=== PATIENT | male | born 1950 | race Caucasian/White ===

== ENCOUNTER 2021-03-06 12:25 | Inpatient (IN) | payer MEDICARE, SELFPAY ==
[2021-03-06] VITALS (12 sets, daily range): BP systolic 113–191; BP diastolic 87–132; PULSE 29–115; RESP 14–20; TEMP 35.5–36.8; O2SAT 95–99; BMI 28.8; BMI 28.9
--- NOTE | 2021-03-06 12:32 | EKG12_ITS ---
Test Reason : Blood Pressure : / mmHG Vent. Rate : 112 BPM Atrial Rate : 112 BPM P-R Int : 176 ms QRS Dur : 142 ms QT Int : 386 ms P-R-T Axes : 058 -75 091 degrees QTc Int : 526 ms Sinus tachycardia Left axis deviation Left bundle branch block Abnormal ECG Confirmed by TYRONE SALAZAR, JAYDON ([id number]), editor sound JESUS GOMEZ ([id number]) on 03/07/2021 12:57:22 PM Referred By: ZORA Confirmed By:JAYDON HANSEN MD
--- NOTE | 2021-03-06 12:47 | RAD_ITS ---
STUDY: X-RAY CHEST REASON FOR EXAM: Male, 70 years old. chest pain TECHNIQUE: Single AP portable view of the chest. COMPARISON: None. FINDINGS: Linear opacity in mid left lung consistent with lingular discoid atelectasis or scarring. There is no demonstrated pleural abnormality. There is moderate cardiac enlargement. Normal mediastinum and hussein. Normal visualized pulmonary arteries. Normal visualized aortic arch and descending thoracic aorta. Normal visualized thoracic spine. Normal visualized ribs, clavicles, and shoulders. There is no demonstrated abnormality of the visualized soft tissue structures of the upper abdomen. RAD/Chest 1 View (Portable) IMPRESSION: Lingular discoid atelectasis or scarring. Electronically Signed: Peter Acuña MD at 13:23 EDT Tel , Service support ,
[2021-03-06 13:58] LABS: Absolute Neutrophil Count 11.1 X10^3/uL (2.0-7.7); Basophil# 0.04 X10^3/uL; Basophil% 0.3 % (0-1); Eosinophil# 0.03 X10^3/uL; Eosinophils% 0.2 % (0-5); Hematocrit 48.1 % (40-54); Hemoglobin 15.6 g/dL (13.0-16.5); Lymphocyte % 5.5 % (19-41); Mean Corp Hgb Conc 32.4 g/dL (32-36); Mean Corpuscular Hgb 31.1 pg (27.0-32.0); Mean Corpuscular Volume 95.8 fL (80-94); Mean Platelet Vol. 12.1 fl (6.2-12.0); Monocyte# 0.71 X10^3/uL; Monocyte% 5.6 % (0-10); NRBC Flagged by Analyzer 0 % (0-5); Neutrophil # 11.06 X10^3/uL (2.7-7.7); Neutrophil % 87.8 % (47-70); Platelet Count 211 K/mm3 (150-450); RBC Distribution Width CV 12.1 % (11.6-14.6); RBC Distribution Width SD 42.5 fl (35.1-43.9); Red Blood Count 5.02 M/mm3 (4.6-6.2); White Blood Count 12.6 K/mm3 (4.4-11.0)
--- NOTE | 2021-03-06 14:04 | EKG12_ITS ---
Test Reason : HYPERTENSION Blood Pressure : / mmHG Vent. Rate : 084 BPM Atrial Rate : 084 BPM P-R Int : 204 ms QRS Dur : 144 ms QT Int : 436 ms P-R-T Axes : 059 -64 119 degrees QTc Int : 515 ms Normal sinus rhythm Left axis deviation Left bundle branch block Abnormal ECG Confirmed by TYRONE SALAZAR, JAYDON ([id number]), story editor JESUS GOMEZ ([id number]) on 03/09/2021 9:24:32 AM Referred By: COSME Confirmed By:JAYDON HANSEN MD
--- NOTE | 2021-03-06 14:06 | EX.ED.DYSGE1 ---
HPI History of Present Illness Chief Complaint: Hypertension Narrative Narrative: 70-year-old male presenting with abdominal pain and shortness of breath. He states he has been having issues with this over the last couple of weeks. Patient admits to being a longtime drinker and states he drank a gallon of bourbon over the course of a week for many years. He did stop doing this about 2 weeks ago and states that he did not withdraw from alcohol. Patient stated initially had diffuse edema in his arms and legs and states that he was having difficulty urinating. He was drinking a lot of water however he still unable to make urine. He states that he drank watermelon as a natural diuretic that he started to void a couple of times a day. His edema has improved. He states that when he walks up a flight of stairs or walks briskly he gets short of breath and has abdominal discomfort. He states that his shortness of breath appears to be coming from his stomach more than his chest. He denies a cough or a fever. He has no nausea or vomiting. Denies diarrhea or constipation. PFSH PFSH Home Medications cephalexin 500 mg capsule 500 mg PO TID #30 cap 07/29/18 [Rx Last Taken Unknown] Allergy/AdvReac Type Severity Reaction Status Date / Time No Known Allergies Allergy Verified 03/06/21 13:56 Family History (Updated 03/06/21 @ 17:34 by Shilpi Mays NP, PRODUCTION EXPEDITER-C) Father Throat cancer smoker Mother No cardiac disease Mother currently living, 92 years old with no reported medical issues. Surgical History (Updated 03/06/21 @ 17:35 by Shilpi Mays NP, PRODUCTION EXPEDITER-C) Hx of hernia repair S/P tonsillectomy Social History (Updated 03/06/21 @ 17:36 by Shilpi Mays NP, PRODUCTION EXPEDITER-C) Smoking Status: Never smoker alcohol intake: former details: One gallon whiskey per week, quit 2 weeks ago substance use type: does not use ROS ROS ED Constitutional Constitutional ED: Denies chills, fever(s) or sweats Eyes Eyes: Denies blurry vision or change in vision ENT ENT ED: Denies ear pain or sore throat Cardiovascular Cardiovascular: Reports chest pain; Denies palpitations or racing heartbeat Respiratory/Chest Respiratory/Chest: Reports cough and dyspnea; Denies sputum Gastrointestinal Gastrointestinal: Reports abdominal pain; Denies constipation, diarrhea, nausea or vomiting Genitourinary Genitourinary ED: Denies dysuria, hematuria or urinary frequency Musculoskeletal Musculoskeletal: Denies arthralgias, myalgias or neck pain Integumentary Denies abscess, Abrasions or rash Neurologic Neurologic: Denies headache(s), paresthesias or weakness Psychiatric Psychiatric: Denies anxiety, depression, suicidal ideation or suicidal thoughts Endocrine Endocrinology: Denies polydipsia or polyuria EXAM Physical Exam Const Vital Signs: 03/06/21 12:26 03/06/21 13:56 03/06/21 14:43 Temperature 96 F L Temperature Source Temporal Pulse Rate 115 H 106 H Respiratory Rate 20 H 16 Respiratory Effort Normal Short of Breath Respiratory Pattern Normal Blood Pressure 191/132 H 156/90 H Blood Pressure Mean 151 112 Pulse Ox 96 95 Oxygen Delivery Method Room Air Room Air 03/06/21 14:53 03/06/21 15:00 03/06/21 15:25 Temperature Temperature Source Pulse Rate 86 86 Respiratory Rate 18 16 Respiratory Effort Respiratory Pattern Blood Pressure 126/88 H 113/92 H Blood Pressure Mean 100 99 Pulse Ox 96 95 Oxygen Delivery Method Room Air Room Air Room Air 03/06/21 16:03 03/06/21 17:05 03/06/21 17:58 Temperature 97.8 F 97.9 F Temperature Source Temporal Temporal Pulse Rate 85 91 90 Respiratory Rate 18 19 H 18 Respiratory Effort Respiratory Pattern Blood Pressure 144/106 H 135/91 H 141/94 H Blood Pressure Mean 118 105 109 Pulse Ox 95 99 97 Oxygen Delivery Method Room Air Room Air Positive well nourished, alert and oriented x3 General Appearance ED: Negative for pallor HEENT Reports normocephalic, head/scalp atraumatic and moist mucous membranes Eyes PERRL and EOMs intact bilaterally Neck no lymphadenopathy and supple Chest Wall inspection of chest normal and palpation of chest normal Resp normal respiratory effort and no retractions Resp Narrative: Slight tachypnea Auscultation: Negative for rales, rhonchi or wheezes Cardio regular rate Cardio Narrative: Tachycardic at 115 bpm GI GI Narrative: Generalized diffused abdominal pain which is mild. Abdomen nonperitoneal. Abdomen appears slightly distended Auscultation: normoactive bowel sounds Palpation: soft no CVA tenderness Narrative: Deferred Back/Spine no CVA tenderness Extremity normal to inspection General Extremety ED: Negative for edema or tenderness General Extremity: Negative for edema Neuro oriented x3 and CN's II-XII intact bilaterally Sensorium / Orientation: alert, oriented to person, oriented to place and oriented to time Motor Exam: strength 5/5 throughout Psych mental status grossly normal Attitude: No agitated Skin no rashes or lesions noted and no wounds General Skin Exam: Negative for jaundice or pallor MDM MDM MDM Narrative Medical decision making narrative: Patient presenting with with history of EtOH abuse which she is now states he currently does not drink. He is noted that he has had some diffuse edema in his body which resolved after eating watermelon and drinking a lot of water. Patient describes his shortness of breath is coming from his abdomen his abdomen feels full. He does complain of some mild chest discomfort. He does not have a fever but does admit to a slight cough. EKG performed on arrival shows a sinus rhythm with a ventricular rate of 112 bpm with a left bundle branch block on my interpretation. Chest x-ray on my interpretation shows no acute cardiopulmonary process. Blood work was obtained patient has a slight leukocytosis at 12.6. Hemoglobin and hematocrit are stable. Platelets are normal. Renal function is abnormal. His creatinine is 1.43 and I have no comparison. Patient's LFTs are normal with exception of an AST of 69. Troponin is 43 and delta troponin is 38. Patient did have a CTA of the chest abdomen pelvis given him symptoms and this is negative for PE or dissection. This does show pulmonary edema and bilateral pleural effusions. Patient's BNP is also elevated at 1668. Since the patient's blood pressure was elevated I gave him a dose of 20 mg of labetalol and his blood pressure did respond down to 126/68 and the patient was symptomatic and sweaty when his blood pressure dropped although after this he was able to take a nap. He currently feels much improved. EtOH is negative. Patient CT done and pelvis did show concern for edema of the gallbladder concerning for possible acute cholecystitis however his LFTs are fairly normal he does not focal pain over the gallbladder. It also does show bladder wall thickening and his urinalysis is negative. Given the findings concerning for acute CHF and elevated blood pressure patient will be admitted to the hospital for further treatment. He was given a dose of Lasix in the ED. Patient admitted in stable condition. Impression: 1. Hypertension 2. CHF 3. Hypertensive urgency Lab Data Attestation: I reviewed the patient's lab results. Labs: Laboratory Results - last 24 hr 03/06/21 03/06/21 03/06/21 13:45 13:45 13:45 WBC 12.6 H RBC 5.02 Hgb 15.6 Hct 48.1 MCV 95.8 H MCH 31.1 MCHC 32.4 RDW Std Deviation 42.5 RDW Coeff of Rosario 12.1 Plt Count 211 MPV 12.1 H Immature Gran % (Auto) 0.600 Neut % (Auto) 87.8 H Lymph % (Auto) 5.5 L [place] % (Auto) 5.6 Eos % (Auto) 0.2 Baso % (Auto) 0.3 Absolute Neuts (auto) 11.1 H Absolute Lymphs (auto) 0.70 L Nucleated RBC % 0 Sodium 137 Potassium 4.5 Chloride 102 Carbon Dioxide 27.0 Anion Gap 8 BUN 20 H Creatinine 1.43 H Estim Creat Clear Calc 39.24 Est GFR (MDRD) Af Amer 63 Est GFR (MDRD) Non-Af 52 L BUN/Creatinine Ratio 14.0 Glucose 127 H Calcium 8.8 Phosphorus Magnesium Total Bilirubin 0.70 Direct Bilirubin 0.20 AST 29 ALT 69 H Alkaline Phosphatase 92 Troponin I High Sens 43 B-Natriuretic Peptide Total Protein 7.1 Albumin 3.9 Globulin 3.2 Lipase 178 Urine Color Urine Clarity Urine pH Ur Specific [place] Urine Protein Urine Glucose (UA) Urine Ketones Urine Occult Blood Urine Nitrite Urine Bilirubin Urine Urobilinogen Ur Leukocyte Esterase Urine RBC Urine WBC Ur Squamous Epith Cells Urine Bacteria Urine Mucus Ethyl Alcohol 03/06/21 03/06/21 03/06/21 13:45 13:45 15:45 WBC RBC Hgb Hct MCV MCH MCHC RDW Std Deviation RDW Coeff of Rosario Plt Count MPV Immature Gran % (Auto) Neut % (Auto) Lymph % (Auto) [place] % (Auto) Eos % (Auto) Baso % (Auto) Absolute Neuts (auto) Absolute Lymphs (auto) Nucleated RBC % Sodium Potassium Chloride Carbon Dioxide Anion Gap BUN Creatinine Estim Creat Clear Calc Est GFR (MDRD) Af Amer Est GFR (MDRD) Non-Af BUN/Creatinine Ratio Glucose Calcium Phosphorus Magnesium Total Bilirubin Direct Bilirubin AST ALT Alkaline Phosphatase Troponin I High Sens 38 B-Natriuretic Peptide 1668.4 H Total Protein Albumin Globulin Lipase Urine Color Urine Clarity Urine pH Ur Specific [place] Urine Protein Urine Glucose (UA) Urine Ketones Urine Occult Blood Urine Nitrite Urine Bilirubin Urine Urobilinogen Ur Leukocyte Esterase Urine RBC Urine WBC Ur Squamous Epith Cells Urine Bacteria Urine Mucus Ethyl Alcohol 9.0 03/06/21 03/06/21 15:45 16:30 WBC RBC Hgb Hct MCV MCH MCHC RDW Std Deviation RDW Coeff of Rosario Plt Count MPV Immature Gran % (Auto) Neut % (Auto) Lymph % (Auto) [place] % (Auto) Eos % (Auto) Baso % (Auto) Absolute Neuts (auto) Absolute Lymphs (auto) Nucleated RBC % Sodium Potassium Chloride Carbon Dioxide Anion Gap BUN Creatinine Estim Creat Clear Calc Est GFR (MDRD) Af Amer Est GFR (MDRD) Non-Af BUN/Creatinine Ratio Glucose Calcium Phosphorus 4.1 Magnesium 2.2 Total Bilirubin Direct Bilirubin AST ALT Alkaline Phosphatase Troponin I High Sens B-Natriuretic Peptide Total Protein Albumin Globulin Lipase Urine Color Yellow Urine Clarity Clear Urine pH 5.0 Ur Specific [place] 1.015 Urine Protein 30 H Urine Glucose (UA) Normal Urine Ketones Negative Urine Occult Blood Negative Urine Nitrite Negative Urine Bilirubin Negative Urine Urobilinogen Normal Ur Leukocyte Esterase Negative Urine RBC 0 SEEN Urine WBC 0 SEEN Ur Squamous Epith Cells 0 SEEN Urine Bacteria 0 SEEN Urine Mucus 0 SEEN Ethyl Alcohol Radiography Diagnostic Testing: Clinical Impression(s) from Imaging Studies Chest X-Ray 03/06/21 12:47 IMPRESSION: Lingular discoid atelectasis or scarring. Electronically Signed: Peter Acuña MD at 13:23 EDT Tel , Service support , Chest/Abdomen/Pelvis CTA 03/06/21 15:10 IMPRESSION: Cardiomegaly with mild pulmonary edema and pleural effusions. No evidence for aortic dissection, aortic aneurysm, or pulmonary embolism. Gallbladder wall edema and thickening, concerning for acute cholecystitis. Recommend correlation with ultrasound. Hepatic steatosis. Small fat-containing right renal mass, likely angiomyolipoma. Bladder wall thickening which can be seen with cystitis. Colonic diverticulosis. Individualized dose optimization techniques were used for this CT. at 1610 Reported and signed by: Aishwarya Benitez MD Electronically Signed: Aishwarya Benitez MD at 16:09 EDT Tel , Service support , Discharge Plan Triage Chief Complaint: Hypertension ED Provider: Andrew Bull Dx/Rx/DC Orders Prescriptions: No Action cephalexin 500 mg capsule 500 mg PO TID Qty: 30 RF: 0 Primary Care Provider: Lanre Conley
[2021-03-06 14:16] LABS: Anion Gap 8 (5-15); BUN 20 mg/dL (7-18); Calcium,Total 8.8 mg/dL (8.5-10.1); Chloride 102 mmol/L (98-107); Creatinine, Serum 1.43 mg/dL (0.70-1.30); EST Glomerular Filtration Rate 52 mL/min (>60); Est Glom Filt Rate - Afr Amer 63 mL/min (>60); Estimated Creatinine Clearance 39.24 ml/min; Glucose 127 mg/dL (74-106); Potassium 4.5 mmol/L (3.5-5.1); Sodium Level 137 mmol/L (136-145); Troponin-I HS 43 pg/mL (3.0-78.0)
[2021-03-06 14:31] LABS: BNP,B-Type NATRIURETIC PEPTIDE 1668.4 pg/mL (0-100)
[2021-03-06 14:32] LABS: AST(SGOT) 29 U/L (15-37); Alanine Aminotransfer ALT/SGPT 69 U/L (16-61); Albumin, Serum 3.9 g/dL (3.2-5.0); Alkaline Phosphatase 92 U/L (45-117); Globulin 3.2 g/dL (2.2-4.2); Lipase 178 U/L (73-393); Protein, Total 7.1 g/dL (6.4-8.2)
[2021-03-06] MEDS: Labetalol (Prefilled) 20 MG/4 ML IV (14:39)
--- NOTE | 2021-03-06 15:01 | ED.RN ---
PT BP DROPPED, PT BECOMES DIAPHORETIC, NAUSEATED AND VOMITING. PROLONGED QT SO PROMETHAZINE ORDERED, PT DIAPHORETIC WITH PAIN. EKG CALLED FOR
[2021-03-06] MEDS: proMETHazine 25 MG/ML Syringe 12.5 MG IM (15:04)
--- NOTE | 2021-03-06 15:10 | CT_ITS ---
HISTORY: Chest and abdominal pain. TECHNIQUE: Helically acquired images were obtained of the chest, abdomen, and pelvis following IV contrast as per angiogram protocol with 2-D/3-D reconstructions.. A radiation dose optimization technique was used for this scan. IV Contrast dosage and agent: 100 mL Omnipaque 370. Oral contrast: None. # of images incl. paperwork: [id number]. COMPARISON: XR same day. FINDINGS: Chest: CENTRAL AIRWAYS: Patent. LUNGS: Mild septal thickening and groundglass opacities with scattered atelectasis. PLEURA: Mild right and trace left pleural effusions. HEART/PERICARDIUM: Moderate cardiomegaly. No significant pericardial effusion. AORTA/VESSELS: No aortic aneurysm or dissection flap. No filling defect in the pulmonary arteries. MEDIASTINUM/ESVIN: Borderline-enlarged right hilar and mediastinal lymph nodes. OSSEOUS STRUCTURES: Benign-appearing fat-containing lesion in the right proximal humerus. 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 Abdomen and pelvis: BOWEL: Bowel including appendix nondilated. Small duodenal diverticulum. Colonic diverticulosis without focal pericolonic inflammation. PERITONEUM: No significant ascites. LIVER: Fatty infiltration. GALLBLADDER: Mild gallbladder wall edema. KIDNEYSS: 1.2 cm fat-containing right renal mass. No hydronephrosis. SPLEEN/PANCREAS/ADRENAL GLANDS: Homogeneous. VESSELS: No abdominal aortic aneurysm or dissection flap. Mild atherosclerosis of the abdominal aorta and its major branches. Accessory right renal artery incidentally noted. PELVIC ORGANS: Bladder wall thickening with trace perivesical stranding extending near the sigmoid colon. ABDOMINAL WALL: Small fat-containing inguinal hernias. BONES: Mild degenerative change. CT/CTA Chst, Abd, Pel W and/or WO IMPRESSION: Cardiomegaly with mild pulmonary edema and pleural effusions. No evidence for aortic dissection, aortic aneurysm, or pulmonary embolism. Gallbladder wall edema and thickening, concerning for acute cholecystitis. Recommend correlation with ultrasound. Hepatic steatosis. Small fat-containing right renal mass, likely angiomyolipoma. Bladder wall thickening which can be seen with cystitis. Colonic diverticulosis. Individualized dose optimization techniques were used for this CT. at 1610 Reported and signed by: Aishwarya Benitez MD Electronically Signed: Aishwarya Benitez MD at 16:09 EDT Tel , Service support ,
[2021-03-06] MEDS: Famotidine 200 MG/20 ML MDV 20 MG in 0.9% Normal Saline (Pres. free 8 ML 300 MG IV (15:39)
[2021-03-06 16:12] LABS: Troponin-I HS 38 pg/mL (3.0-78.0)
[2021-03-06 16:40] LABS: Bacteria 0 SEEN /hpf (None Seen); Mucous, Urine 0 SEEN /hpf (<or=2+); Red Blood Cells-Urine 0 SEEN /hpf (0-5); Squamous Epithelial Cells - UA 0 SEEN /hpf (0-5); White Blood Cells 0 SEEN /hpf (0-5)
[2021-03-06 16:46] LABS: Color, Urine Yellow (Yellow); Glucose, Dipstick Normal (Normal); Ketone-Dipstick Negative (Negative); Leukocyte Esterase-Dipstick Negative /ul (Negative); Nitrite-Dipstick Negative (Negative); Occult Blood-Urine Negative /ul (Negative); Protein-Dipstick 30 mg/dl (Negative); Specific Gravity, Urine 1.015 (1.002-1.030); Urine Bilirubin Dipstick Negative (Negative); Urine Clarity Clear (Clear); Urine Urobilinogen Normal (Normal)
[2021-03-06] MEDS: Furosemide 40 MG/4 ML Vial IV ×2 (17:02→21:19)
--- NOTE | 2021-03-06 17:26 | PCM.HP.STD ---
Documented by User: Shilpi Mays NP, VENDING MACHINE COIN COLLECTOR-C 03/06/21 17:50 HPI - General HPI Narrative LILIBETH CRESPO, is a 70 M who presents to the emergency room due to shortness of breath, edema and abdominal bloating/swelling. Patient states his symptoms began 6 to 8 weeks ago and have been progressively worsening. He states he was having shortness of breath with going up his steps at home and even bending over to tie his shoes. He states he has been a long time heavy drinker, typically at nighttime to help him sleep. He states he would drink a gallon of bourbon within 1 week. Due to his recent onset of symptoms, he quit drinking 2 weeks ago. He denies going through withdrawal symptoms. He states he began drinking watermelon juice excessively as he states he read it is a diuretic and his abdominal bloating improved. He denies significant abdominal pain. Denies increased pain after eating. He denies chest pain. Denies other associated symptoms or complaints. He has a past medical history of alcohol dependence and restless leg syndrome. [facility] Home Medications cephalexin 500 mg capsule 500 mg PO TID #30 cap 07/29/18 [Rx Last Taken Unknown] Allergy/AdvReac Type Severity Reaction Status Date / Time No Known Allergies Allergy Verified 03/06/21 13:56 Family History (Updated 03/06/21 @ 17:34 by Shilpi Mays NP, VENDING MACHINE COIN COLLECTOR-C) Father Throat cancer smoker Mother No cardiac disease Mother currently living, 92 years old with no reported medical issues. Surgical History (Updated 03/06/21 @ 17:35 by Shilpi Mays NP, VENDING MACHINE COIN COLLECTOR-C) Hx of hernia repair S/P tonsillectomy Social History (Updated 03/06/21 @ 17:36 by Shilpi Mays NP, VENDING MACHINE COIN COLLECTOR-C) Smoking Status: Never smoker alcohol intake: former details: One gallon whiskey per week, quit 2 weeks ago substance use type: does not use ROS Constitutional Constitutional: Denies change in weight, chills, fatigue, fever(s) or weakness Cardiovascular Cardiovascular: Reports edema; Denies chest pain, lightheadedness, palpitations or syncope Respiratory/Chest Respiratory/Chest: Reports shortness of breath with exertion; Denies cough, productive cough or wheezing Gastrointestinal Gastrointestinal: Reports other Details: abdominal pain. ; Denies abdominal pain, constipation, diarrhea, nausea or vomiting Genitourinary Genitourinary: Denies burning urination, difficulty urinating, dysuria, hematuria, urinary frequency, urinary incontinence or urinary urgency Musculoskeletal Musculoskeletal: Denies back pain, joint pain or muscle weakness Integumentary Integumentary: Denies erythema, lesions, rash or wounds Neurologic Neurologic: Denies abnormal speech, confusion, dizziness, focal weakness, numbness, paresthesias, seizure-like activity or syncope Psychiatric Psychiatric: Denies anxiety or depression Hematologic/Lymphatic Hematologic/Lymphatic: Denies anemia, easy bleeding or easy bruising Allergic/Immunologic Allergic/Immunologic: Denies hives or asthma Vital Signs Vital Signs Vital Signs: 03/06/21 12:26 03/06/21 13:56 03/06/21 14:43 Temperature 96 F L Temperature Source Temporal Pulse Rate 115 H 106 H Respiratory Rate 20 H 16 Respiratory Effort Normal Short of Breath Respiratory Pattern Normal Blood Pressure 191/132 H 156/90 H Blood Pressure Mean 151 112 Pulse Ox 96 95 Oxygen Delivery Method Room Air Room Air 03/06/21 14:53 03/06/21 15:00 03/06/21 15:25 Temperature Temperature Source Pulse Rate 86 86 Respiratory Rate 18 16 Respiratory Effort Respiratory Pattern Blood Pressure 126/88 H 113/92 H Blood Pressure Mean 100 99 Pulse Ox 96 95 Oxygen Delivery Method Room Air Room Air Room Air 03/06/21 16:03 03/06/21 17:05 Temperature 97.8 F Temperature Source Temporal Pulse Rate 85 91 Respiratory Rate 18 19 H Respiratory Effort Respiratory Pattern Blood Pressure 144/106 H 135/91 H Blood Pressure Mean 118 105 Pulse Ox 95 99 Oxygen Delivery Method Room Air Room Air Weight Weight: 165 lb 6.4 oz Body Mass Index (BMI) 28.8 Physical Exam Const alert, oriented x3 and no apparent distress Orientation / Consciousness: awake, oriented to person, oriented to place and oriented to time HEENT normocephalic and moist oral mucous membranes Eyes PERRL, EOMs intact bilaterally and conjunctivae normal Neck no lymphadenopathy Resp clear to auscultation bilaterally Auscultation: diminished lung sounds Cardio regular rate, regular rhythm and no murmurs Peripheral Pulses: pulses 2+ throughout GI normal to inspection, nondistended, normoactive bowel sounds, non-tender and non-distended Extremity normal to inspection General Extremity: edema bilateral lower extremity Details: mild Skin no rashes or lesions noted Lesions: no lesions Rashes: no rashes Trauma: no lacerations or abrasions Neuro CN's II-XII intact bilaterally, no focal motor deficits, no sensory deficits noted and deep tendon reflexes 2+ bilaterally Psych mental status grossly normal and affect normal Results Lab / Micro Data Result Diagrams: 03/06/21 13:45 03/06/21 13:45 Labs: Laboratory Results - last 24 hr 03/06/21 13:45: WBC 12.6 H, RBC 5.02, Hgb 15.6, Hct 48.1, MCV 95.8 H, MCH 31.1, MCHC 32.4, RDW Std Deviation 42.5, RDW Coeff of Rosario 12.1, Plt Count 211, MPV 12.1 H, Immature Gran % (Auto) 0.600, Neut % (Auto) 87.8 H, Lymph % (Auto) 5.5 L, [place] % (Auto) 5.6, Eos % (Auto) 0.2, Baso % (Auto) 0.3, Absolute Neuts (auto) 11.1 H, Absolute Lymphs (auto) 0.70 L, Nucleated RBC % 0 03/06/21 13:45: Sodium 137, Potassium 4.5, Chloride 102, Carbon Dioxide 27.0, Anion Gap 8, BUN 20 H, Creatinine 1.43 H, Estim Creat Clear Calc 39.24, Est GFR (MDRD) Af Amer 63, Est GFR (MDRD) Non-Af 52 L, BUN/Creatinine Ratio 14.0, Glucose 127 H, Calcium 8.8, Troponin I High Sens 43 03/06/21 13:45: Total Bilirubin 0.70, Direct Bilirubin 0.20, AST 29, ALT 69 H, Alkaline Phosphatase 92, Total Protein 7.1, Albumin 3.9, Globulin 3.2, Lipase 178 03/06/21 13:45: B-Natriuretic Peptide 1668.4 H 03/06/21 13:45: Ethyl Alcohol 9.0 03/06/21 15:45: Troponin I High Sens 38 03/06/21 16:30: Urine Color Yellow, Urine Clarity Clear, Urine pH 5.0, Ur Specific [place] 1.015, Urine Protein 30 H, Urine Glucose (UA) Normal, Urine Ketones Negative, Urine Occult Blood Negative, Urine Nitrite Negative, Urine Bilirubin Negative, Urine Urobilinogen Normal, Ur Leukocyte Esterase Negative, Urine RBC 0 SEEN, Urine WBC 0 SEEN, Ur Squamous Epith Cells 0 SEEN, Urine Bacteria 0 SEEN, Urine Mucus 0 SEEN Radiology Impression Chest X-Ray 03/06/21 12:47 IMPRESSION: Lingular discoid atelectasis or scarring. Electronically Signed: Lilibeth Acuña MD at 13:23 EDT Tel , Service support , Chest/Abdomen/Pelvis CTA 03/06/21 15:10 IMPRESSION: Cardiomegaly with mild pulmonary edema and pleural effusions. No evidence for aortic dissection, aortic aneurysm, or pulmonary embolism. Gallbladder wall edema and thickening, concerning for acute cholecystitis. Recommend correlation with ultrasound. Hepatic steatosis. Small fat-containing right renal mass, likely angiomyolipoma. Bladder wall thickening which can be seen with cystitis. Colonic diverticulosis. Individualized dose optimization techniques were used for this CT. at 1610 Reported and signed by: Aishwarya Benitez MD Electronically Signed: Aishwarya Benitez MD at 16:09 EDT Tel , Service support , Assessment & Plan Assessment/Plan (1) Alcohol dependence: (2) Restless leg syndrome: PLAN: 1. Acute heart failure, unknown subtype-BNP 1668. CT of abdomen and pelvis demonstrates cardiomegaly with mild pulmonary edema and pleural effusions. Obtain echocardiogram. IV Lasix. Strict I&O. Daily weight. Terrance wraps bilateral lower extremities. Trend enzymes. 2. Acute kidney injury versus chronic kidney disease stage IIIa-unknown baseline, trend BMP. 3. Chronic alcohol abuse- recent cessation two weeks ago. Check mag, phos. 4. Gallbladder thickening-noted on CT of abdomen. No symptoms of cholecystitis. Liver profile, bilirubin and alk phos normal. Will obtain gallbladder ultrasound to be cautious for further follow-up. 5. Restless leg syndrome-continue home Requip regimen. DVT prophylaxis-Heparin subcu This patient was seen by Shilpi Davon, VENDING MACHINE COIN COLLECTOR-C under the supervision of Dr. Carter. Documented by User: Dr. Kisha Caretr MD 03/06/21 18:09 [facility] Home Medications cephalexin 500 mg capsule 500 mg PO TID #30 cap 07/29/18 [Rx Last Taken Unknown] Allergy/AdvReac Type Severity Reaction Status Date / Time No Known Allergies Allergy Verified 03/06/21 13:56 Family History (Updated 03/06/21 @ 17:34 by Shilpi Mays NP, VENDING MACHINE COIN COLLECTOR-C) Father Throat cancer smoker Mother No cardiac disease Mother currently living, 92 years old with no reported medical issues. Surgical History (Updated 03/06/21 @ 17:35 by Shilpi Mays NP, VENDING MACHINE COIN COLLECTOR-C) Hx of hernia repair S/P tonsillectomy Social History (Updated 03/06/21 @ 17:36 by Shilpi Mays NP, VENDING MACHINE COIN COLLECTOR-C) Smoking Status: Never smoker alcohol intake: former details: One gallon whiskey per week, quit 2 weeks ago substance use type: does not use Results Lab / Micro Data Result Diagrams: 03/06/21 13:45 03/06/21 13:45
--- NOTE | 2021-03-06 17:35 | NURSING ---
MED SURG WHITE HYPERTENSIVE EMERGENCY, CHF
--- NOTE | 2021-03-06 17:56 | US_ITS ---
STUDY: ABDOMINAL ULTRASOUND - RIGHT UPPER QUADRANT REASON FOR VISIT: Male, 70 years old acute cholecystitis on CT -- scanning at 9:00am TECHNIQUE: Ultrasound evaluation of the right upper quadrant was performed with real-time and static mike-scale imaging. TECHNICAL QUALITY: Adequate. COMPARISON: Comparison is made with prior CT scan dated 03/06/2021. FINDINGS: Liver: The liver measures 13.6 cm. There is normal echogenicity of the liver. The bile ducts are within normal limits. There is hepatic color flow. The direction of portal flow is hepatopetal. There is no demonstrated mass lesion. Gallbladder: Normal distended gallbladder. The gallbladder wall is thickened and measures 4.5 mm. There is a negative sonographic Marin''s sign. There is no pericholecystic fluid. There are no gallstones. Common Bile Duct (C.B.D.): The common bile duct measures 3.5 mm. Pancreas: Normal size of the head, body and tail of the pancreas. There is normal echogenicity of the pancreas. There is no demonstrated pancreatic mass or cyst. Right Kidney: Normal size of the right kidney. The right kidney measures 10.9 cm x 6.1 cm x 4.1 cm. Normal renal cortex. The right cortex measures 1.7 cm. There is a 1.8 cm x 1.7 cm x 1.4 cm echogenic nodule in the lateral superior pole of the right kidney suggestive of an angiomyolipoma. There is no right hydronephrosis. US/Gallbladder IMPRESSION: Gallbladder wall thickening. 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 Electronically Signed: Clifton Okeefe MD at 12:36 EDT , Service support ,
[2021-03-06 18:23] LABS: Magnesium 2.2 mg/dL (1.6-2.6); Phosphorus 4.1 mg/dL (2.5-4.9)
--- NOTE | 2021-03-06 18:48 | ED.RN ---
Spoke to Dr. Carter. Dr. Carter said okay fro pt. to eat. Will be NPO after midnight.
--- NOTE | 2021-03-06 19:39 | ECHOD_ITS ---
Reason For Study: CHF Procedure This was a 2D Doppler, Color Flow transthoracic echocardiogram. Exam performed portable in patient room. Left Ventricle Normal LV size. Moderate concentric left ventricular hypertrophy. The estimated ejection fraction is 15 %. Mid-Inferior: Severely Hypokinetic. Right Ventricle Normal RV size. Normal systolic function. Atria Normal left atrium. Normal right atrium. Mitral Valve There is mild mitral annular calcification. Mild (1+) eccentric mitral valve insufficiency. Tricuspid Valve Normal tricuspid valve. Moderate (2+) tricuspid valve insufficiency. Pulmonary artery systolic pressure is 56 mmHg. Moderate pulmonary hypertension. Aortic Valve Trisinus/trileaflet aortic valve. Mild focal aortic valve calcification. Mild (1+) aortic valve insufficiency. Pulmonic Valve Normal pulmonic valve. Great Vessels Normal aortic root. The pulmonary artery is normal size. Normal inferior vena cava. Pericardium/Pleural No pericardial effusion. MMode/2D Measurements & Calculations LVIDd: 4.8 cm IVSd: 1.3 cm LA dimension: 4.7 cm LVIDs: 4.5 cm LVPWd: 1.6 cm RVDd: 4.5 cm FS: 6.4 % LAV(MOD-bp): 67.5 ml LVAd ap4: 34.1 cm2 SV(MOD-sp4): 27.9 ml LAV(MOD-bp) Indexed: 37.9 ml/m2 LVLd ap4: 8.3 cm LAV(MOD-sp2): 67.7 ml EDV(MOD-sp4): 111.1 ml LAV(MOD-sp4): 68.0 ml EDV(sp4-el): 119.0 ml LVAs ap4: 27.3 cm2 LVLs ap4: 7.2 cm ESV(MOD-sp4): 83.3 ml ESV(sp4-el): 88.2 ml EF(MOD-sp4): 25.1 % EF(sp4-el): 25.9 % SV(sp4-el): 30.9 ml LA A4 area: 20.9 cm2 RA A4 area: 20.9 cm2 Time Measurements MV dec time: 0.15 sec Doppler Measurements & Calculations MV E max yannick: 109.8 cm/sec Lat Peak E' Yannick: 4.1 cm/sec Med Peak E' Yannick: 4.6 cm/sec MV A max yannick: 88.7 cm/sec E/E' lat: 27.0 E/E' med: 23.6 MV E/A: 1.2 MV V2 max: 139.1 cm/sec MV P1/2t max yannick: 139.1 cm/sec Ao V2 max: 125.1 cm/sec MV max P.7 mmHg MV P1/2t: 36.8 msec Ao max P.3 mmHg MV V2 mean: 77.3 cm/sec MV mean P.8 mmHg MV dec slope: 1108 cm/sec2 MV V2 VTI: 21.3 cm MVA(P1/2t): 6.0 cm2 LV V1 max: 75.5 cm/sec PA V2 max: 81.1 cm/sec TR max yannick: 361.9 cm/sec LV V1 max P.3 mmHg TR max P.4 mmHg ECHO/Echo Complete Interpretation Summary Normal LV size. Moderate concentric left ventricular hypertrophy. The estimated ejection fraction is 15 %. Mild (1+) eccentric mitral valve insufficiency. Moderate (2+) tricuspid valve insufficiency. Pulmonary artery systolic pressure is 56 mmHg. Moderate pulmonary hypertension. Ordering Physician: Shilpi Mays Referring Physician: Lanre Conley Performed By: Samuel Garcia RCS
--- NOTE | 2021-03-06 20:18 | PCS.PANDOC ---
PANDEMIC DOCUMENTATION INITIATED: Date: 01/10/2021 Time: 190
[2021-03-06] MEDS: Pramipexole Di-HCl 0.25 MG Tablet PO (21:19)
[2021-03-06] MEDS: Heparin Injection (Vial) 5,000 UNIT/ML VIAL 5000 UNIT SC (21:19)
[2021-03-06 21:34] LABS: Troponin-I HS 61 pg/mL (3.0-78.0)
[2021-03-06 22:45] LABS: Troponin-I HS 61 pg/mL (3.0-78.0)
[2021-03-07] VITALS (12 sets, daily range): BP systolic 136–160; BP diastolic 82–104; PULSE 79–100; RESP 15–18; TEMP 35.7–36.9; O2SAT 94–100
[2021-03-07 03:06] LABS: Absolute Lymphocyte Count 1.17 X10^3/uL (0.83-4.51); Absolute Neutrophil Count 7.1 X10^3/uL (2.0-7.7); Basophil# 0.03 X10^3/uL; Basophil% 0.3 % (0-1); Eosinophil# 0.04 X10^3/uL; Eosinophils% 0.4 % (0-5); Hematocrit 41.3 % (40-54); Hemoglobin 13.7 g/dL (13.0-16.5); Lymphocyte # 1.17 X10^3/ul (0.83-4.51); Mean Corp Hgb Conc 33.2 g/dL (32-36); Mean Corpuscular Hgb 31.1 pg (27.0-32.0); Mean Corpuscular Volume 93.7 fL (80-94); Mean Platelet Vol. 12.1 fl (6.2-12.0); Monocyte# 0.66 X10^3/uL; Monocyte% 7.3 % (0-10); NRBC Flagged by Analyzer 0 % (0-5); Neutrophil # 7.05 X10^3/uL (2.7-7.7); Neutrophil % 78.6 % (47-70); Platelet Count 181 K/mm3 (150-450); RBC Distribution Width CV 12.1 % (11.6-14.6); Red Blood Count 4.41 M/mm3 (4.6-6.2)
[2021-03-07 03:51] LABS: Troponin-I HS 60 pg/mL (3.0-78.0)
[2021-03-07 04:30] LABS: Anion Gap 10 (5-15); BUN 23 mg/dL (7-18); BUN/Creat Ratio 17.3 RATIO (10-20); Calcium,Total 8.3 mg/dL (8.5-10.1); Chloride 104 mmol/L (98-107); Cholesterol 156 mg/dL (200); Creatinine, Serum 1.33 mg/dL (0.70-1.30); EST Glomerular Filtration Rate 57 mL/min (>60); Est Glom Filt Rate - Afr Amer 69 mL/min (>60); Estimated Creatinine Clearance 42.19 ml/min; Glucose 107 mg/dL (74-106); High Density Lipoprotein 41 mg/dL; Potassium 3.9 mmol/L (3.5-5.1); Sodium Level 140 mmol/L (136-145); Thyroid Stim Hormone (TSH) 1.13 uIU/mL (0.358-3.74); Triglycerides 122 mg/dL; Very Low Density Lipoprotein 24 mg/dL (5-40)
[2021-03-07] MEDS: 0.9% Saline Lock 10 ML Syringe IV ×3 (06:42→20:14)
[2021-03-07] MEDS: Furosemide 40 MG/4 ML Vial IV ×3 (06:42→20:14)
[2021-03-07] MEDS: Heparin Injection (Vial) 5,000 UNIT/ML VIAL 5000 UNIT SC ×2 (10:29→20:14)
--- NOTE | 2021-03-07 11:45 | CASEMGMT ---
RN JENNIFER Face to Face with patient for initial transition planning/care coordination assessment. RN CM introduced self and role at [facility]. Patient lying in bed, alert and oriented. Patient willing to participate in assessment and is able to answer all questions appropriately. Care providers, pharmacy, and demographics verified. Patient wishes to discharge home, denies need for home health at this time. Patient states he has no further needs or concerns at this time. CM to follow for discharge planning needs that may arise. PCP: Jarvis Specialists: [facility]ino for colonoscopy Preferred Pharmacy: [facility] Insurance: [employer] Prescription Benefit: yes Living Will/HPOA: none LNOK: mother Living Arrangements: Patient lives with a roommate in a 2 story home with bed and bath on first floor with 3 steps and railing to enter the home. . Patient states he is independent at home. Transportation: self/roommate DME/HHC: Patient states he has BP cuff at home, denies further DME or previous HHC. Disposition Plan: Patient to discharge home with family support and follow-up plans in place. Margret LUCAS, RN, CM
--- NOTE | 2021-03-07 14:20 | PCM.PN.HOSP ---
Documented by User: Shilpi Mays NP, ENTERTAINMENT LAWYER-C 03/07/21 14:27 Subjective Subjective Patient seen and examined. Reports significant improvement in breathing. Denies further chest discomfort. States he feels 100% better. Objective Data Objective Data Vital Signs: Vital Signs Temp Pulse Resp BP Pulse Ox 98.5 F 81 18 141/96 H 98 03/07/21 08:29 03/07/21 08:29 03/07/21 08:29 03/07/21 08:29 03/07/21 08:29 Oxygen Delivery Method Room Air Weight: 154 lb 8.705 oz Body Mass Index (BMI) 28.9 Intake & Output: Intake and Output for Last 24 Hours 03/05/21 03/06/21 03/07/21 23:59 23:59 23:59 Intake Total Output Total 1000 / 1000 1350 / 1350 Balance -990 / -990 -1350 / -1350 Lab / Micro Data Result Diagrams: 03/07/21 02:30 03/07/21 02:30 Labs: Laboratory Results - last 24 hr 03/06/21 13:45: Total Bilirubin 0.70, Direct Bilirubin 0.20, AST 29, ALT 69 H, Alkaline Phosphatase 92, Total Protein 7.1, Albumin 3.9, Globulin 3.2, Lipase 178 03/06/21 13:45: B-Natriuretic Peptide 1668.4 H 03/06/21 13:45: Ethyl Alcohol 9.0 03/06/21 15:45: Troponin I High Sens 38 03/06/21 15:45: Phosphorus 4.1, Magnesium 2.2 03/06/21 16:30: Urine Color Yellow, Urine Clarity Clear, Urine pH 5.0, Ur Specific [place] 1.015, Urine Protein 30 H, Urine Glucose (UA) Normal, Urine Ketones Negative, Urine Occult Blood Negative, Urine Nitrite Negative, Urine Bilirubin Negative, Urine Urobilinogen Normal, Ur Leukocyte Esterase Negative, Urine RBC 0 SEEN, Urine WBC 0 SEEN, Ur Squamous Epith Cells 0 SEEN, Urine Bacteria 0 SEEN, Urine Mucus 0 SEEN 03/06/21 20:37: Troponin I High Sens 61 03/06/21 22:11: Troponin I High Sens 61 03/07/21 02:30: WBC 9.0, RBC 4.41 L, Hgb 13.7, Hct 41.3, MCV 93.7, MCH 31.1, MCHC 33.2, RDW Std Deviation 42.0, RDW Coeff of Rosario 12.1, Plt Count 181, MPV 12.1 H, Immature Gran % (Auto) 0.400, Neut % (Auto) 78.6 H, Lymph % (Auto) 13.0 L, [place] % (Auto) 7.3, Eos % (Auto) 0.4, Baso % (Auto) 0.3, Absolute Neuts (auto) 7.1, Absolute Lymphs (auto) 1.17, Nucleated RBC % 0 03/07/21 02:30: Sodium 140, Potassium 3.9, Chloride 104, Carbon Dioxide 26.0, Anion Gap 10, BUN 23 H, Creatinine 1.33 H, Estim Creat Clear Calc 42.19, Est GFR (MDRD) Af Amer 69, Est GFR (MDRD) Non-Af 57 L, BUN/Creatinine Ratio 17.3, Glucose 107 H, Calcium 8.3 L, Triglycerides 122, Cholesterol 156, LDL Cholesterol 91, VLDL Cholesterol 24, HDL Cholesterol 41, TSH 1.13 03/07/21 02:30: Troponin I High Sens 60 Micro: Microbiology 03/06/21 18:45 Nasal Secretion SARS-CoV-2 Antigen (Rapid) - Final Radiography Diagnostic Testing: Radiology Impression Chest/Abdomen/Pelvis CTA 03/06/21 15:10 IMPRESSION: Cardiomegaly with mild pulmonary edema and pleural effusions. No evidence for aortic dissection, aortic aneurysm, or pulmonary embolism. Gallbladder wall edema and thickening, concerning for acute cholecystitis. Recommend correlation with ultrasound. Hepatic steatosis. Small fat-containing right renal mass, likely angiomyolipoma. Bladder wall thickening which can be seen with cystitis. Colonic diverticulosis. Individualized dose optimization techniques were used for this CT. at 1610 Reported and signed by: Aishwarya Benitez MD Electronically Signed: Aishwarya Benitez MD at 16:09 EDT Tel , Service support , Gallbladder Ultrasound 03/06/21 17:56 IMPRESSION: Gallbladder wall thickening. 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 Electronically Signed: Clifton Okeefe MD at 12:36 EDT , Service support , Echocardiogram 03/06/21 19:39 Interpretation Summary Normal LV size. Moderate concentric left ventricular hypertrophy. The estimated ejection fraction is 15 %. Mild (1+) eccentric mitral valve insufficiency. Moderate (2+) tricuspid valve insufficiency. Pulmonary artery systolic pressure is 56 mmHg. Moderate pulmonary hypertension. Ordering Physician: Shilpi Mays Referring Physician: Lanre Conley Performed By: Samuel Garcia RCS Physical Exam Const alert, oriented x3 and no apparent distress Orientation / Consciousness: awake, oriented to person, oriented to place and oriented to time HEENT normocephalic and moist oral mucous membranes Eyes PERRL, EOMs intact bilaterally and conjunctivae normal Neck no lymphadenopathy Resp normal respiratory effort and clear to auscultation bilaterally Cardio regular rate, regular rhythm and no murmurs Peripheral Pulses: pulses 2+ throughout GI normal to inspection, nondistended, normoactive bowel sounds, non-tender and non-distended Extremity normal to inspection Skin no rashes or lesions noted Lesions: no lesions Rashes: no rashes Trauma: no lacerations or abrasions Neuro CN's II-XII intact bilaterally, no focal motor deficits, no sensory deficits noted and deep tendon reflexes 2+ bilaterally Psych mental status grossly normal and affect normal Assessment & Plan Assessment/Plan (1) Alcohol dependence: (2) CHF exacerbation: PLAN: 1. Acute heart failure with reduced ejection fraction, severe cardiomyopathy-BNP 1668. CT of abdomen and pelvis demonstrates cardiomegaly with mild pulmonary edema and pleural effusions. Echocardiogram demonstrates an EF of 15%, mild mitral valve insufficiency, moderate tricuspid valve insufficiency, pulmonary artery systolic pressure 56 mmHg. Continue IV Lasix. Strict I&O. Daily weight. Terrance wraps bilateral lower extremities. Troponin negative. Suspect possible alcohol related cardiomyopathy? Consult cardiology for further evaluation. 2. Acute kidney injury versus chronic kidney disease stage IIIa-unknown baseline, improving with diuresis. Trend BMP. 3. Chronic alcohol abuse- recent cessation two weeks ago. Encouraged continued cessation. 4. Gallbladder thickening-noted on CT of abdomen. Liver profile, bilirubin and alk phos normal. Gallbladder ultrasound with gallbladder wall thickening. Patient has no symptoms of acute cholecystitis. Will defer for further outpatient follow-up if necessary. 5. Restless leg syndrome-continue home Requip regimen. DVT prophylaxis-Heparin subcu This patient was seen by ASHLEY Pinzon under the supervision of Dr. Kurtz. Documented by User: Dr. Tereso Kurtz MD 03/07/21 16:38 Objective Data Lab / Micro Data Result Diagrams: 03/07/21 02:30 03/07/21 02:30 Charges/Coding Addendum Addendum: Dr. Kurtz: I personally reviewed the chart and examined the patient, and agree with the above findings. 70-year-old male presented to the hospital with shortness of breath, edema and just not feeling right. He feels much better today after significant diuresis, he did have an echo which showed an EF of 15% therefore cardiology was consulted for possible heart cath. He did acknowledge being a heavy drinker for a long time. He states that he would drink probably about a gallon of bourbon a week and he quit that about 2 to 3 weeks ago without signs of withdrawal. He states that he has been drinking this much for quite a few years. There is a possibility of alcoholic cardiomyopathy potentially acting on its own or in concert with coronary artery disease. We will continue with [facility]. Visit Charges Inpatient E&M: 17752 Subs Hosp L2
--- NOTE | 2021-03-07 16:25 | EKG12_ITS ---
Test Reason : AM EKG Blood Pressure : / mmHG Vent. Rate : 080 BPM Atrial Rate : 080 BPM P-R Int : 198 ms QRS Dur : 152 ms QT Int : 454 ms P-R-T Axes : 051 -72 111 degrees QTc Int : 523 ms Normal sinus rhythm Left axis deviation Left bundle branch block Abnormal ECG When compared with ECG of 07-MAR-2021 16:32, MANUAL COMPARISON REQUIRED, DATA IS UNCONFIRMED Confirmed by TYRONE SALAZAR, JAYDON ([id number]), production editor JESUS GOMEZ ([id number]) on 03/09/2021 9:25:45 AM Referred By: ESSIE Confirmed By:JAYDON HANSEN MD
--- NOTE | 2021-03-07 17:10 | NURSING ---
Report called to IJEOMA Tirado in PCU. Patient okay to transfer to room 103
--- NOTE | 2021-03-07 17:31 | PCM.CONS.C ---
Assessment & Plan Assessment/Plan (1) CHF (NYHA class III, ACC/AHA stage C): PLAN: He presents with acute congestive heart failure [place] [employer] and ACC stage as noted above. 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 However due to his age I would recommend that we exclude obstructive coronary disease. I would recommend that we pursue a left heart catheterization and if the above is unremarkable then we proceed with treating him as follows: Oral beta-russel with carvedilol 6.25 mg twice a day and titrating upwards as appropriate. Complete abstinence from alcohol. Continue FLORIN inhibitor for now and switch over to Entresto Consider spironolactone Salt restriction. Depending on the findings of the cardiac catheterization further recommendations will be made. I have explained the above to the patient in detail he understands and will proceed. HPI Consult Data Date of Consult: 03/07/21 HPI Narrative HPI Narrative: LILIBETH CRESPO, is a 70 M who presented to the emergency room with 6 to 8 weeks of progressive shortness of breath abdominal bloating and swelling and difficulty tying his shoes. He says that he has been a longtime drinker and drinking approximately a gallon of bourbon a week neat. He is denied any chest pain or paroxysmal nocturnal dyspnea or significant pedal edema. He says that due to his recent symptoms he quit drinking about 2 weeks ago. He has had no dizziness or diaphoresis near syncope or syncope. He was seen in the emergency room and then admitted. He was admitted with a diagnosis of congestive heart failure he was diuresed with intravenous Lasix and started feeling remarkably better. An echocardiogram performed demonstrated an ejection fraction of approximately 15% with global hypokinesis present. [facility] Medical History Alcohol abuse Chronic pain Congestive heart failure (CHF) Hypertension Home Medications cephalexin 500 mg capsule 500 mg PO TID #30 cap 07/29/18 [Rx Last Taken Unknown] Allergy/AdvReac Type Severity Reaction Status Date / Time No Known Allergies Allergy Verified 03/06/21 13:56 Family History Father Throat cancer smoker Mother No cardiac disease Mother currently living, 92 years old with no reported medical issues. Surgical History Hx of hernia repair S/P tonsillectomy Social History Smoking Status: Never smoker alcohol intake: former details: One gallon whiskey per week, quit 2 weeks ago substance use type: does not use ROS Constitutional Constitutional: Denies fever(s) or weight loss Eyes Eyes: Reports systems reviewed and no addt'l complaints, except as documented ENT HEENT: Reports systems reviewed and no addt'l complaints, except as documented Cardiovascular Cardiovascular: Denies chest pain at rest, chest pain with activity, dyspnea at rest, dyspnea on exertion, edema, palpitations or paroxysmal nocturnal dyspnea Respiratory/Chest Respiratory/Chest: Reports dyspnea, dyspnea on exertion, shortness of breath at rest and shortness of breath with exertion; Denies productive cough Gastrointestinal Gastrointestinal: Denies change in bowel habits, nausea, vomiting or weight changes Genitourinary Genitourinary: Denies difficulty urinating Musculoskeletal Musculoskeletal: Denies joint stiffness or muscle weakness Integumentary Integumentary: Denies lesions Neurologic Neurologic: Denies dizziness or syncope Psychiatric Psychiatric: Denies anxiety Endocrine Endocrinology: Denies excessive sweating or fatigue Hematologic/Lymphatic Hematologic/Lymphatic: Denies anemia Allergic/Immunologic Allergic/Immunologic: Denies seasonal rhinorrhea Physical Exam Const alert, oriented x3 and no apparent distress General Appearance: cooperative HEENT hearing grossly normal bilaterally Head and Scalp: atraumatic Eyes EOMs intact bilaterally Neck General: normal visual inspection Chest inspection of chest normal and palpation of chest normal Resp normal respiratory effort Auscultation: clear to auscultation bilaterally Cardio regular rate, regular rhythm, S1 normal heart sound and S2 normal heart sound Jugular Venous Distention: JVD Palpation: palpable S3 GI normal to inspection, nondistended, normoactive bowel sounds Extremity normal capillary refill and no pedal edema Peripheral Pulses: Yes pulses 2+ throughout and femoral pulses present Skin no rashes or lesions noted Neuro oriented x3 and CN's II-XII intact bilaterally Psych Appearance: grossly normal and appropriate Objective Data Vital Signs: Vital Signs Temp Pulse Resp BP Pulse Ox 98.2 F 100 16 151/98 H 100 03/07/21 16:25 03/07/21 16:25 03/07/21 16:25 03/07/21 16:25 03/07/21 16:25 Oxygen Delivery Method Room Air Weight: 154 lb 8.705 oz Body Mass Index (BMI) 28.9 Intake & Output: Intake and Output for Last 24 Hours 03/05/21 03/06/21 03/07/21 23:59 23:59 23:59 Intake Total Output Total 1000 / 1000 2350 / 2350 Balance -990 / -990 -2350 / -2350 Lab / Micro Data Result Diagrams: 03/07/21 02:30 03/07/21 02:30 Labs: Laboratory Results - last 24 hr 03/06/21 15:45: Phosphorus 4.1, Magnesium 2.2 03/06/21 20:37: Troponin I High Sens 61 03/06/21 22:11: Troponin I High Sens 61 03/07/21 02:30: WBC 9.0, RBC 4.41 L, Hgb 13.7, Hct 41.3, MCV 93.7, MCH 31.1, MCHC 33.2, RDW Std Deviation 42.0, RDW Coeff of Rosario 12.1, Plt Count 181, MPV 12.1 H, Immature Gran % (Auto) 0.400, Neut % (Auto) 78.6 H, Lymph % (Auto) 13.0 L, [place] % (Auto) 7.3, Eos % (Auto) 0.4, Baso % (Auto) 0.3, Absolute Neuts (auto) 7.1, Absolute Lymphs (auto) 1.17, Nucleated RBC % 0 03/07/21 02:30: Sodium 140, Potassium 3.9, Chloride 104, Carbon Dioxide 26.0, Anion Gap 10, BUN 23 H, Creatinine 1.33 H, Estim Creat Clear Calc 42.19, Est GFR (MDRD) Af Amer 69, Est GFR (MDRD) Non-Af 57 L, BUN/Creatinine Ratio 17.3, Glucose 107 H, Calcium 8.3 L, Triglycerides 122, Cholesterol 156, LDL Cholesterol 91, VLDL Cholesterol 24, HDL Cholesterol 41, TSH 1.13 03/07/21 02:30: Troponin I High Sens 60 Micro: Microbiology 03/06/21 18:45 Nasal Secretion SARS-CoV-2 Antigen (Rapid) - Final Cardiology Labs/Tests 03/06/21 15:45: Phosphorus 4.1, Magnesium 2.2 03/07/21 02:30: WBC 9.0, RBC 4.41 L, Hgb 13.7, Hct 41.3, MCV 93.7, MCH 31.1, MCHC 33.2, Plt Count 181, MPV 12.1 H, Immature Gran % (Auto) 0.400, Neut % (Auto) 78.6 H, Lymph % (Auto) 13.0 L, [place] % (Auto) 7.3, Eos % (Auto) 0.4, Baso % (Auto) 0.3, Absolute Neuts (auto) 7.1, Nucleated RBC % 0 03/07/21 02:30: Sodium 140, Potassium 3.9, Chloride 104, Carbon Dioxide 26.0, Anion Gap 10, BUN 23 H, Creatinine 1.33 H, Est GFR (MDRD) Af Amer 69, Est GFR (MDRD) Non-Af 57 L, BUN/Creatinine Ratio 17.3, Glucose 107 H, Calcium 8.3 L, Triglycerides 122, Cholesterol 156, LDL Cholesterol 91, VLDL Cholesterol 24, HDL Cholesterol 41 Rhythm: EKG: ECHO: Stress Test: Cardiac Cath: PCI: CT Surgery: Holter monitor: EPS: PPM: CXR: Chest CT Scan: Radiography Diagnostic Testing: Radiology Impression Gallbladder Ultrasound 03/06/21 17:56 IMPRESSION: Gallbladder wall thickening. 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 Electronically Signed: Clifton Okeefe MD at 12:36 EDT , Service support , Echocardiogram 03/06/21 19:39 Interpretation Summary Normal LV size. Moderate concentric left ventricular hypertrophy. The estimated ejection fraction is 15 %. Mild (1+) eccentric mitral valve insufficiency. Moderate (2+) tricuspid valve insufficiency. Pulmonary artery systolic pressure is 56 mmHg. Moderate pulmonary hypertension. Ordering Physician: Shilpi Mays Referring Physician: Lanre Conley Performed By: Samuel Garcia RCS
[2021-03-07] MEDS: Carvedilol 6.25 MG Tablet PO (20:14)
[2021-03-07] MEDS: Pramipexole Di-HCl 0.25 MG Tablet PO (20:14)
[2021-03-08] VITALS (11 sets, daily range): BP systolic 117–158; BP diastolic 58–98; PULSE 69–94; RESP 16–18; TEMP 36.4–36.9; O2SAT 94–97
[2021-03-08 05:16] LABS: Absolute Lymphocyte Count 1.04 X10^3/uL (0.83-4.51); Absolute Neutrophil Count 5.8 X10^3/uL (2.0-7.7); Basophil# 0.04 X10^3/uL; Basophil% 0.5 % (0-1); Eosinophil# 0.16 X10^3/uL; Hematocrit 44.7 % (40-54); Hemoglobin 14.6 g/dL (13.0-16.5); Lymphocyte # 1.04 X10^3/ul (0.83-4.51); Lymphocyte % 13.1 % (19-41); Mean Corp Hgb Conc 32.7 g/dL (32-36); Mean Corpuscular Hgb 31.3 pg (27.0-32.0); Mean Corpuscular Volume 95.7 fL (80-94); Monocyte# 0.78 X10^3/uL; Monocyte% 9.9 % (0-10); NRBC Flagged by Analyzer 0 % (0-5); Neutrophil # 5.84 X10^3/uL (2.7-7.7); Neutrophil % 73.9 % (47-70); POSITIVE MORPHOLOGY YES; Platelet Count 189 K/mm3 (150-450); RBC Distribution Width CV 12.1 % (11.6-14.6); RBC Distribution Width SD 42.5 fl (35.1-43.9); Red Blood Count 4.67 M/mm3 (4.6-6.2); White Blood Count 7.9 K/mm3 (4.4-11.0)
[2021-03-08 05:17] LABS: Differential Indicated SCAN CRITERIA MET
[2021-03-08 05:32] LABS: Anion Gap 7 (5-15); BUN 27 mg/dL (7-18); BUN/Creat Ratio 19.4 RATIO (10-20); Calcium,Total 8.3 mg/dL (8.5-10.1); Chloride 101 mmol/L (98-107); Creatinine, Serum 1.39 mg/dL (0.70-1.30); EST Glomerular Filtration Rate 54 mL/min (>60); Est Glom Filt Rate - Afr Amer 65 mL/min (>60); Estimated Creatinine Clearance 40.37 ml/min; Glucose 109 mg/dL (74-106); Sodium Level 142 mmol/L (136-145)
[2021-03-08 05:41] LABS: International Normalized Ratio 1.1; Prothrombin Time (Protime)PT. 13.7 SECONDS (11.7-14.9)
[2021-03-08 05:46] LABS: Atypical Lymphocyte RARE %; Differential Comment SCANNED
--- NOTE | 2021-03-08 05:55 | EKG12_ITS ---
Test Reason : ARRYTHMIA Blood Pressure : / mmHG Vent. Rate : 098 BPM Atrial Rate : 098 BPM P-R Int : 180 ms QRS Dur : 144 ms QT Int : 398 ms P-R-T Axes : 057 -64 109 degrees QTc Int : 508 ms Normal sinus rhythm Possible Left atrial enlargement Left axis deviation Left bundle branch block Abnormal ECG When compared with ECG of 06-MAR-2021 12:47, No significant change was found Confirmed by TYRONE SALAZAR, JAYDON ([id number]), content editor JESUS GOMEZ ([id number]) on 03/09/2021 1:35:31 PM Referred By: LUKE Confirmed By:JAYDON HANSEN MD
[2021-03-08] MEDS: Lisinopril 5 MG Tablet PO (06:27)
[2021-03-08] MEDS: Carvedilol 6.25 MG Tablet PO (06:27)
[2021-03-08] MEDS: 0.9% Normal Saline 1,000 ML 15 ML IV ×2 (07:47→09:38)
--- NOTE | 2021-03-08 08:10 | NURSING ---
Report called to Bob in [employer]. IJEOMA Lerner
--- NOTE | 2021-03-08 08:25 | CASEMGMT ---
According to the [facility] website, the following are in-network tertiary facilities: [facility], [place], [facility], [place], [facility], [facility], [place], [facility], and . Caleb RAPHAEL CM
--- NOTE | 2021-03-08 08:42 | PN.CARD_ITS ---
Objective Data Vital Signs: Vital Signs Temp Pulse Resp BP Pulse Ox 98.1 F 78 16 158/85 H 97 03/08/21 06:20 03/08/21 07:00 03/08/21 06:20 03/08/21 06:20 03/08/21 06:20 Oxygen Delivery Method Room Air Weight: 152 lb 5.431 oz Body Mass Index (BMI) 28.9 Intake & Output: Intake and Output for Last 24 Hours 03/06/21 03/07/21 03/08/21 23:59 23:59 23:59 Intake Total 240 / 240 Output Total 1000 / 1000 2350 / 2350 Balance -990 / -990 -2350 / -2110 240 / 240 Lab / Micro Data Result Diagrams: 03/08/21 04:56 03/08/21 04:56 Labs: Laboratory Results - last 24 hr 03/08/21 04:56: WBC 7.9, RBC 4.67, Hgb 14.6, Hct 44.7, MCV 95.7 H, MCH 31.3, MCHC 32.7, RDW Std Deviation 42.5, RDW Coeff of Rosario 12.1, Plt Count 189, MPV 12.0, Immature Gran % (Auto) 0.600, Neut % (Auto) 73.9 H, Lymph % (Auto) 13.1 L, [place] % (Auto) 9.9, Eos % (Auto) 2.0, Baso % (Auto) 0.5, Absolute Neuts (auto) 5.8, Absolute Lymphs (auto) 1.04, Nucleated RBC % 0, Differential Comment SCANNED, Atypical Lymphocytes RARE 03/08/21 04:56: PT 13.7, INR 1.1 03/08/21 04:56: Sodium 142, Potassium 4.0, Chloride 101, Carbon Dioxide 34.0 H, Anion Gap 7, BUN 27 H, Creatinine 1.39 H, Estim Creat Clear Calc 40.37, Est GFR (MDRD) Af Amer 65, Est GFR (MDRD) Non-Af 54 L, BUN/Creatinine Ratio 19.4, Glucose 109 H, Calcium 8.3 L Cardiology Labs/Tests 03/08/21 04:56: WBC 7.9, RBC 4.67, Hgb 14.6, Hct 44.7, MCV 95.7 H, MCH 31.3, MCHC 32.7, Plt Count 189, MPV 12.0, Immature Gran % (Auto) 0.600, Neut % (Auto) 73.9 H, Lymph % (Auto) 13.1 L, [place] % (Auto) 9.9, Eos % (Auto) 2.0, Baso % (Auto) 0.5, Absolute Neuts (auto) 5.8, Nucleated RBC % 0 03/08/21 04:56: PT 13.7, INR 1.1 03/08/21 04:56: Sodium 142, Potassium 4.0, Chloride 101, Carbon Dioxide 34.0 H, Anion Gap 7, BUN 27 H, Creatinine 1.39 H, Est GFR (MDRD) Af Amer 65, Est GFR (MDRD) Non-Af 54 L, BUN/Creatinine Ratio 19.4, Glucose 109 H, Calcium 8.3 L Rhythm: EKG: ECHO: Stress Test: Cardiac Cath: PCI: CT Surgery: Holter monitor: EPS: PPM: CXR: Chest CT Scan: Radiography Diagnostic Testing: Radiology Impression Gallbladder Ultrasound 03/06/21 17:56 IMPRESSION: Gallbladder wall thickening. 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 Electronically Signed: Clifton Okeefe MD at 12:36 EDT , Service support , Echocardiogram 03/06/21 19:39 Interpretation Summary Normal LV size. Moderate concentric left ventricular hypertrophy. The estimated ejection fraction is 15 %. Mild (1+) eccentric mitral valve insufficiency. Moderate (2+) tricuspid valve insufficiency. Pulmonary artery systolic pressure is 56 mmHg. Moderate pulmonary hypertension. Ordering Physician: Davon, Shilpi Referring Physician: Lanre Conley By: Samuel Garcia RCS Physical Exam Const alert, oriented x3 and no apparent distress General Appearance: cooperative HEENT hearing grossly normal bilaterally Head and Scalp: atraumatic Eyes EOMs intact bilaterally Neck General: normal visual inspection Chest inspection of chest normal and palpation of chest normal Resp normal respiratory effort Auscultation: clear to auscultation bilaterally Cardio regular rate, regular rhythm, S1 normal heart sound and S2 normal heart sound Jugular Venous Distention: JVD GI normal to inspection, nondistended, normoactive bowel sounds Extremity normal capillary refill and no pedal edema Peripheral Pulses: Yes pulses 2+ throughout and femoral pulses present Skin no rashes or lesions noted Neuro oriented x3 and CN's II-XII intact bilaterally Psych Appearance: grossly normal and appropriate Risk Stratification Risk Stratification Applicable: No Assessment & Plan Assessment/Plan (1) CHF (NYHA class III, ACC/AHA stage C): PLAN: He presents with acute congestive heart failure [place] [employer] and ACC stage as noted above. Oral beta-russel with [id number] mg twice a day and titrating upwards as appropriate. Complete abstinence from alcohol. Continue FLORIN inhibitor for now and switch over to Entresto Consider spironolactone Salt restriction. He can be discharged for outpatient follow-up today.
--- NOTE | 2021-03-08 11:31 | PCM.DC ---
Discharge Instructions Diet Discharge Diet: 8 Cup Fluid Restriction and 2000 mg Sodium Diet Activity Discharge Activity: Return to Normal Activity Additional Activity Instructions:: Follow post cath instructions. Dressing / Incision Call your doctor if you observe: Shortness of breath, Dizziness and Chest pain Follow Up Care Test Results: Test results from this visit will be discussed in further detail at your follow-up appointment, if applicable. Discharge Plan Admission Admit Date/Time: 03/06/21 17:50 Primary Reason for Your Visit: Heart failure Attending Provider: Tereso Kurtz Primary Care Provider: Lanre Conley Consulting Providers: Zia Marie Instructions Additional Instructions / Restrictions: Weigh yourself daily. If you gain more than 2 pounds in 1 day or 5 pounds in 1 week, notify cardiology. Discharge Orders/Prescriptions Prescriptions: New furosemide 40 mg Tablet 40 mg PO DAILY 30 Days Qty: 30 RF: 0 carvedilol 12.5 mg Tablet 12.5 mg PO BID 30 Days Qty: 60 RF: 0 lisinopril 5 mg Tablet 5 mg PO DAILY 30 Days Qty: 30 RF: 0 pramipexole [Mirapex] 0.5 mg tablet 0.5 mg PO QHS Qty: 30 RF: 0 Discontinued cephalexin 500 mg capsule 500 mg PO TID Qty: 30 RF: 0 Referrals / Follow Up: Zia Marie MD [STAFF PHYSICIAN] - 04/05/21 2:00 pm Lanre Conley MD [Primary Care Provider] - In 1 Week Disposition Disposition (needs filled in before D/C Order can be placed): Home, Self Care
--- NOTE | 2021-03-08 12:06 | PCM.DC.SUM ---
Documented by User: Shilpi Mays NP, SENIOR DIRECTOR FINANCE-C 03/08/21 12:14 Providers Date of Admission: 03/06/21 Date of Discharge: 03/08/21 Primary Care Physician: Lanre Conley MD Consultations 03/07/21 14:14 Consult: Cardiology Routine Consulting Provider: Zia Marie Reason for Consult: Reduced ef and pulm htn EMERGENT Consult: No MD Notified: Yes Date Notified: 03/07/21 Time Notified: 14:14 Method of Notification: md to md Reason For Visit: CHF Diagnosis Discharge Diagnosis (1) CHF (NYHA class III, ACC/AHA stage C): Status: Acute Code(s): I50.9 - Heart failure, unspecified Medications at Discharge Home Medications carvedilol 12.5 mg PO BID 30 Days #60 tab 03/08/21 furosemide 40 mg PO DAILY 30 Days #30 tab 03/08/21 lisinopril 5 mg PO DAILY 30 Days #30 tab 03/08/21 pramipexole [Mirapex] 0.5 mg PO QHS #30 tab 03/08/21 spironolactone 25 mg PO DAILY #30 tab 03/08/21 Hospital Course Operations None Procedures 2-D Echocardiogram and Cardiac catheterization Summary of Care Provided Minutes Spent on Discharge: 35 Hospital Course: Patient is a 70-year-old male admitted 03/06/2021 due to shortness of breath. 1. Acute heart failure with reduced ejection fraction, severe cardiomyopathy-BNP 1668. CT of abdomen and pelvis demonstrates cardiomegaly with mild pulmonary edema and pleural effusions. Echocardiogram demonstrates an EF of 15%, mild mitral valve insufficiency, moderate tricuspid valve insufficiency, pulmonary artery systolic pressure 56 mmHg. IV Lasix during admission, transition to oral Lasix at discharge. Cardiology consulted. Underwent heart cath which demonstrated normal coronary arteries. Alcohol associated cardiomyopathy. Continue carvedilol 12.5 mg twice daily, lisinopril 5 mg daily. Spironolactone 25 mg daily which can be titrated as outpatient. Per cardiology, consider switching from lisinopril to Entresto. Instructed on fluid/sodium restriction, daily weights. Follow-up with cardiology as scheduled 04/05/2021. Follow-up with PCP in 1 week. 2. Chronic kidney disease stage IIIa-unknown baseline, initially mildly improved with diuresis. Based on GFR, chronic kidney disease stage IIIa. Recommend repeat BMP as outpatient. 3. Chronic alcohol abuse- recent cessation two weeks ago. Encouraged continued cessation. 4. Gallbladder thickening-noted on CT of abdomen. Liver profile, bilirubin and alk phos normal. Gallbladder ultrasound with gallbladder wall thickening. Patient has no symptoms of acute cholecystitis. Will defer for further outpatient follow-up if necessary. No acute concerns at this time. 5. Restless leg syndrome-continue Mirapex. Physical Exam Const alert, oriented x3 and no apparent distress Orientation / Consciousness: awake, oriented to person, oriented to place and oriented to time HEENT normocephalic and moist oral mucous membranes Eyes PERRL, EOMs intact bilaterally and conjunctivae normal Neck no lymphadenopathy Resp normal respiratory effort and clear to auscultation bilaterally Cardio regular rate, regular rhythm and no murmurs Peripheral Pulses: pulses 2+ throughout GI normal to inspection, nondistended, normoactive bowel sounds, non-tender and non-distended Extremity normal to inspection Skin no rashes or lesions noted Lesions: no lesions Rashes: no rashes Trauma: no lacerations or abrasions Neuro CN's II-XII intact bilaterally, no focal motor deficits, no sensory deficits noted and deep tendon reflexes 2+ bilaterally Psych mental status grossly normal and affect normal Patient seen and examined prior to discharge. Physical assessment as noted above. Patient is stable for discharge with follow up recommendations as noted above. This patient was seen by ASHLEY Pinzon under the supervision of Dr. Kurtz. Weight / BMI Weight Weight: 152 lb 5.431 oz Body Mass Index (BMI) 28.9 ABG / Lab / Microbiology Data Result Diagrams: 03/08/21 04:56 03/08/21 04:56 Laboratory: Laboratory Results - last 24 hr 03/08/21 04:56: WBC 7.9, RBC 4.67, Hgb 14.6, Hct 44.7, MCV 95.7 H, MCH 31.3, MCHC 32.7, RDW Std Deviation 42.5, RDW Coeff of Rosario 12.1, Plt Count 189, MPV 12.0, Immature Gran % (Auto) 0.600, Neut % (Auto) 73.9 H, Lymph % (Auto) 13.1 L, [place] % (Auto) 9.9, Eos % (Auto) 2.0, Baso % (Auto) 0.5, Absolute Neuts (auto) 5.8, Absolute Lymphs (auto) 1.04, Nucleated RBC % 0, Differential Comment SCANNED, Atypical Lymphocytes RARE 03/08/21 04:56: PT 13.7, INR 1.1 03/08/21 04:56: Sodium 142, Potassium 4.0, Chloride 101, Carbon Dioxide 34.0 H, Anion Gap 7, BUN 27 H, Creatinine 1.39 H, Estim Creat Clear Calc 40.37, Est GFR (MDRD) Af Amer 65, Est GFR (MDRD) Non-Af 54 L, BUN/Creatinine Ratio 19.4, Glucose 109 H, Calcium 8.3 L Microbiology: Microbiology 03/06/21 18:45 Nasal Secretion SARS-CoV-2 Antigen (Rapid) - Final Radiography Diagnostic Testing: Radiology Impression Gallbladder Ultrasound 03/06/21 17:56 IMPRESSION: Gallbladder wall thickening. 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 Electronically Signed: Clifton Okeefe MD at 12:36 EDT , Service support , Echocardiogram 03/06/21 19:39 Interpretation Summary Normal LV size. Moderate concentric left ventricular hypertrophy. The estimated ejection fraction is 15 %. Mild (1+) eccentric mitral valve insufficiency. Moderate (2+) tricuspid valve insufficiency. Pulmonary artery systolic pressure is 56 mmHg. Moderate pulmonary hypertension. Ordering Physician: Shilpi Mays Referring Physician: Lanre Conley Performed By: Samuel Garcia RCS D/C Instructions Discharge Diet: 8 Cup Fluid Restriction and 2000 mg Sodium Diet Additional Activity Instructions: Follow post cath instructions. Call your doctor if you observe: Shortness of breath, Dizziness and Chest pain Meaningful Use Info Meaningful Use Diagnoses (Choose all that apply): CHF CHF FLORIN/ARB ordered at discharge?: Yes Documented LVEF (%): 15 Discharge Plan Admission Admit Date/Time: 03/06/21 17:50 Primary Reason for Your Visit: Heart failure Attending Provider: Tereso Kurtz Primary Care Provider: Lanre Conley Consulting Providers: Zia Marie Instructions Additional Instructions / Restrictions: Weigh yourself daily. If you gain more than 2 pounds in 1 day or 5 pounds in 1 week, notify cardiology. Discharge Orders/Prescriptions Prescriptions: New furosemide 40 mg Tablet 40 mg PO DAILY 30 Days Qty: 30 RF: 0 carvedilol 12.5 mg Tablet 12.5 mg PO BID 30 Days Qty: 60 RF: 0 lisinopril 5 mg Tablet 5 mg PO DAILY 30 Days Qty: 30 RF: 0 pramipexole [Mirapex] 0.5 mg tablet 0.5 mg PO QHS Qty: 30 RF: 0 spironolactone 25 mg tablet 25 mg PO DAILY Qty: 30 RF: 0 Discontinued cephalexin 500 mg capsule 500 mg PO TID Qty: 30 RF: 0 Referrals / Follow Up: Zia Marie MD [STAFF PHYSICIAN] - 04/05/21 2:00 pm Lanre Conley MD [Primary Care Provider] - In 1 Week Disposition Disposition (needs filled in before D/C Order can be placed): Home, Self Care Documented by User: Dr. Tereso Kurtz MD 03/08/21 14:16 Providers Date of Admission: 03/06/21 Reason For Visit: CHF Medications at Discharge Home Medications carvedilol 12.5 mg PO BID 30 Days #60 tab 03/08/21 furosemide 40 mg PO DAILY 30 Days #30 tab 03/08/21 lisinopril 5 mg PO DAILY 30 Days #30 tab 03/08/21 pramipexole [Mirapex] 0.5 mg PO QHS #30 tab 03/08/21 spironolactone 25 mg PO DAILY #30 tab 03/08/21 ABG / Lab / Microbiology Data Result Diagrams: 03/08/21 04:56 03/08/21 04:56 Discharge Plan Admission Admit Date/Time: 03/06/21 17:50 Primary Reason for Your Visit: Heart failure Attending Provider: Tereso Kurtz Primary Care Provider: Lanre Conley Consulting Providers: Zia Marie Instructions Additional Instructions / Restrictions: Weigh yourself daily. If you gain more than 2 pounds in 1 day or 5 pounds in 1 week, notify cardiology. Discharge Orders/Prescriptions Prescriptions: New furosemide 40 mg Tablet 40 mg PO DAILY 30 Days Qty: 30 RF: 0 carvedilol 12.5 mg Tablet 12.5 mg PO BID 30 Days Qty: 60 RF: 0 lisinopril 5 mg Tablet 5 mg PO DAILY 30 Days Qty: 30 RF: 0 pramipexole [Mirapex] 0.5 mg tablet 0.5 mg PO QHS Qty: 30 RF: 0 spironolactone 25 mg tablet 25 mg PO DAILY Qty: 30 RF: 0 Discontinued cephalexin 500 mg capsule 500 mg PO TID Qty: 30 RF: 0 Referrals / Follow Up: Zia Marie MD [STAFF PHYSICIAN] - 04/05/21 2:00 pm Lanre Conley MD [Primary Care Provider] - In 1 Week Disposition Disposition (needs filled in before D/C Order can be placed): Home, Self Care Charges/Coding Addendum Addendum: Dr. Kurtz: I personally reviewed the chart and examined the patient, and agree with the above findings. 70-year-old male presented to the hospital with shortness of breath, edema and just not feeling right. He feels much better today after significant diuresis, he did have an echo which showed an EF of 15% therefore cardiology was consulted for possible heart cath. He did acknowledge being a heavy drinker for a long time. He states that he would drink probably about a gallon of bourbon a week and he quit that about 2 to 3 weeks ago without signs of withdrawal. He states that he has been drinking this much for quite a few years. There is a possibility of alcoholic cardiomyopathy potentially acting on its own or in concert with coronary artery disease. We will continue with [facility]. 03/08/2021: Doing well today, denies any significant shortness of breath. Had his cardiac catheterization which showed normal coronary arteries consistent with alcoholic cardiomyopathy. Discussed with him that he needs to abstain from alcohol completely. Will continue with the medication adjustments to cardiology made and plan for discharge today. I discussed with him the need to follow-up with both his primary care physician as well as cardiology for monitoring of his cardiomyopathy. He'll likely need an echo as an outpatient to gauge improvement. I discussed with him the plan for discharge today and he expressed understanding of the risk benefits of going home and would like to go home today. Visit Charges Inpatient E&M: [id number] Disch Hosp
[2021-03-08] MEDS: Furosemide 40 MG Tablet PO (12:53)
--- NOTE | 2021-03-14 10:04 | CL.D_ITS ---
Patient Name: LILIBETH CRESPO Study Date: 03/08/2021 Performing: Zia Marie MD Ht: 63.39 inches 161 cm : 1950 Wt: 152.12 lbs 69 kg Age: 70 Gender: male BSA: 1.73 PROCEDURE(S) PERFORMED [id number]/COR/LV CLINICAL PROFILE AND INDICATIONS Indications: Suspected CAD Heart Failure: None Stress/Imaging Stress/Image Study Performed: No CAD Presentations: Symptom unlikely to be ischemic. CONCLUSIONS Normal coronary arteries Cardiomyopathy: Dilated RECOMMENDATIONS Medical therapy DESCRIPTION OF PROCEDURE The patient arrived to the procedure lab. The risks and benefits of the procedure as well as a full d escription of our services here and current unavailability of surgical backup were fully explained to the patient and/or their significant other prior to the catheterization. The Timeout was completed, verifying the correct patient and procedure. The patient's procedural site was prepped and draped in the usual fashion. Local anesthetic was given subcutaneously to right radial region with Lidocaine 2% . Using a modified Seldinger technique, arterial access was obtained via the right radial artery, a 6 Fr sheath was inserted. Right Coronary Artery selective angiography was then performed in multiple v iews using a 5 Fr. 4.0 Polson catheter. Left Coronary Artery selective angiography was performed in mu ltiple views using a 5 Fr. 4.0 Polson catheter. Left Ventriculography was performed in ALONSO projection using a 5 Fr. Pigtail catheter. LV to AO pullback pressures were then recorded.The arterial sheath was pulled and a TR Band was applied for hemostasis. Sheath flushed prior to removal. 10cc air inserted. CORONARY ANGIOGRAPHY DOMINANCE: Right Dominant LEFT HEART ASSESSMENT Left Ventricular Ejection Fraction: by LV Gram 15 % Normal Left Ventricular systolic function Normal Left Ventricular systolic function Depressed Left Ventricular systolic function LEFT MAIN: Angiographically normal LEFT ANTERIOR DESCENDING ARTERY: Angiographically normal CIRCUMFLEX ARTERY: Angiographically normal RIGHT CORONARY ARTERY: Angiographically normal COMPLICATIONS No Complications PROCEDURE MEDICATIONS Fentanyl 50 mcg IV Versed 1 mg IV Oxygen: 2 L/min via nasal cannula Heparin given IA 03/08/2021 08:23:54 SUMMARY OF HEMODYNAMIC DATA Time AIR REST ECG 07:57:44 Art 155/80 (105) 08:13:57 AO 124/80 (100) SA 08:25:19 LV 114/10, 18 08:30:16 LV 115/10, 18 08:30:22 LV 114/13, 17 08:31:29 LVp 131/7, 27 08:31:48 AOp 109/71 (88) 08:31:53 Signed By iZa Marie MD On 03/15/2021 18:09:47 Zia Marie MD
== END 2021-03-08 13:29 | disposition home or self-care (01) | DRG 286 ==
LOC: ED 17:48 → MS2 03-07 07:12 → PCU 03-08 09:30 → MS2 03-08 10:12
PROVIDERS: Emergency Medicine; Nurse Practitioner Family; Admitting Provider Family Medicine; Emergency Provider Student in an Organized Health Care Education/Training Program; PCP Family Medicine; Visit Provider Family Medicine
DX: I13.0 Hypertensive heart and chronic kidney disease with heart failure and stage 1 through stage 4 chronic kidney disease, or unspecified chronic kidney disease (principal); I50.21 Acute systolic (congestive) heart failure; N18.31 Chronic kidney disease, stage 3a; I42.6 Alcoholic cardiomyopathy; G25.81 Restless legs syndrome; F10.20 Alcohol dependence, uncomplicated; K82.8 Other specified diseases of gallbladder
CPT/HCPCS: 36415; 71045; 71275; 74174; 76705; 80048; 80061; 80076; 81001; 82077; 83690; 83735; 83880; 84100; 84443; 84484; 85025; 85610; 87426; 93005; 93306; 93458; 99152; 99153; 99285; J7030; Q9967; A4216; C1769; C1894; J1940; J3490

== ENCOUNTER → 2021-04-05 14:39 | Outpatient (CLI) | payer MEDICARE, SELFPAY ==
[2021-04-05 17:34] LABS: Anion Gap 6 (5-15); BUN 30 mg/dL (7-18); BUN/Creat Ratio 30.2 RATIO (10-20); Calcium,Total 8.8 mg/dL (8.5-10.1); Chloride 105 mmol/L (98-107); Creatinine, Serum 0.99 mg/dL (0.70-1.30); EST Glomerular Filtration Rate 79 mL/min (>60); Est Glom Filt Rate - Afr Amer 96 mL/min (>60); Glucose 91 mg/dL (74-106); Potassium 4.4 mmol/L (3.5-5.1); Sodium Level 138 mmol/L (136-145)
== END ==
PROVIDERS: PCP Family Medicine; Visit Provider Physician Assistant Medical
DX: I42.8 Other cardiomyopathies (principal); I11.0 Hypertensive heart disease with heart failure; I50.20 Unspecified systolic (congestive) heart failure
CPT/HCPCS: 36415; 80048

== ENCOUNTER 2021-07-06 10:43 | Outpatient (CLI) | payer MEDICARE, SELFPAY ==
--- NOTE | 2021-07-06 10:47 | ECHOD_ITS ---
Reason For Study: CARDIOMYOPATHY Procedure This was a 2D Doppler, Color Flow transthoracic echocardiogram. The study was technically difficult. Exam performed in department. Left Ventricle Normal LV size. Moderate concentric left ventricular hypertrophy. Mild global left ventricular systolic dysfunction. The estimated ejection fraction is 45 %. Diastolic function is indeterminate. Right Ventricle Normal RV size. Normal systolic function. Atria Normal left atrium. Normal right atrium. No doppler evidence for ASD. Mitral Valve There is mild to moderate mitral annular calcification. Extension of the mitral annular calcification on the base of the posterior mitral valve leaflet. Trivial mitral valve insufficiency. Tricuspid Valve Normal tricuspid valve. Trivial tricuspid valve insufficiency. Unable to estimate RV systolic pressure/pulmonary artery pressure due to technically difficult study. Aortic Valve Trisinus/trileaflet aortic valve. Moderate focal aortic valve calcification. Pulmonic Valve The pulmonic valve is not well visualized. Trivial pulmonic valve insufficiency. Great Vessels Normal sized aortic root. Pericardium/Pleural No pericardial effusion. MMode/2D Measurements & Calculations LVIDd: 4.7 cm IVSd: 1.6 cm Ao root diam: 3.1 cm LVIDs: 3.4 cm LVPWd: 1.6 cm RVDd: 3.3 cm FS: 27.5 % LAV(MOD-bp): 51.9 ml LVAd ap4: 28.4 cm2 LVAd ap2: 27.1 cm2 LAV(MOD-bp) Indexed: 29.6 ml/m2 LVLd ap4: 7.7 cm LVLd ap2: 7.5 cm LAV(MOD-sp2): 50.1 ml EDV(MOD-sp4): 87.6 ml EDV(MOD-sp2): 83.5 ml LAV(MOD-sp4): 51.0 ml EDV(sp4-el): 89.1 ml EDV(sp2-el): 83.7 ml LVAs ap4: 18.9 cm2 LVAs ap2: 17.5 cm2 LVLs ap4: 7.1 cm LVLs ap2: 6.6 cm ESV(MOD-sp4): 43.7 ml ESV(MOD-sp2): 40.5 ml ESV(sp4-el): 42.9 ml ESV(sp2-el): 39.3 ml EF(MOD-sp4): 50.1 % EF(MOD-sp2): 51.4 % EF(sp4-el): 51.8 % SV(MOD-sp4): 43.9 ml SV(MOD-sp2): 42.9 ml SV(sp4-el): 46.2 ml LA A4 area: 17.1 cm2 RA A4 area: 15.4 cm2 Doppler Measurements & Calculations MV E max yannick: 55.1 cm/sec Lat Peak E' Yannick: 3.8 cm/sec Med Peak E' Yannick: 4.7 cm/sec MV A max yannick: 115.4 cm/sec E/E' lat: 14.4 E/E' med: 11.6 MV E/A: 0.48 Ao V2 max: 140.0 cm/sec LV V1 max: 97.1 cm/sec PA V2 max: 93.1 cm/sec Ao max P.9 mmHg LV V1 max P.8 mmHg ECHO/Echo Complete Interpretation Summary The study was technically difficult. Mild global left ventricular systolic dysfunction. The estimated ejection fraction is 45 %. Moderate concentric left ventricular hypertrophy. There is mild to moderate mitral annular calcification. Extension of the mitral annular calcification on the base of the posterior mitr al valve leaflet. Trivial mitral valve insufficiency. Trivial tricuspid valve insufficiency. Moderate focal aortic valve calcification. Trivial pulmonic valve insufficiency. Unable to estimate RV systolic pressure/pulmonary artery pressure due to techni chava difficult study. Diastolic function is indeterminate. Ordering Physician: Kaylah Pichardo Referring Physician: Lanre Conley Performed By: Jenny Hernandez, RDCS, RVT
== END 2021-07-06 23:59 | disposition home or self-care (01) ==
LOC: CVS 10:45
PROVIDERS: PCP Family Medicine; Referring Provider Physician Assistant Medical; Visit Provider Physician Assistant Medical
DX: I42.8 Other cardiomyopathies (principal)
CPT/HCPCS: 93306

== ENCOUNTER → 2022-01-19 | Outpatient (CLI) | payer MEDICARE, SELFPAY ==
[2022-01-19 18:40] LABS: Anion Gap 7 (5-15); BUN 22 mg/dL (7-18); BUN/Creat Ratio 16.7 RATIO (10-20); Calcium,Total 8.8 mg/dL (8.5-10.1); Chloride 105 mmol/L (98-107); Creatinine, Serum 1.32 mg/dL (0.70-1.30); EST Glomerular Filtration Rate 57 mL/min (>60); Est Glom Filt Rate - Afr Amer 69 mL/min (>60); Glucose 103 mg/dL (74-106); Sodium Level 142 mmol/L (136-145)
== END | disposition home or self-care (01) ==
LOC: LAB 16:36
PROVIDERS: PCP Family Medicine; Referring Provider Nurse Practitioner Gerontology; Visit Provider Nurse Practitioner Gerontology
DX: I10 Essential (primary) hypertension (principal)
CPT/HCPCS: 36415; 80048

== ENCOUNTER → 2022-02-06 | Outpatient (CLI) | payer MEDICARE, SELFPAY ==
--- NOTE | 2022-02-06 12:28 | ECHOL_ITS ---
Reason For Study: HFrEF Procedure This was a limited 2D transthoracic echocardiogram. Exam performed in department. Left Ventricle Normal LV size. Moderate concentric left ventricular hypertrophy. The estimated ejection fraction is 50 %. There is mild global hypokinesis of the left ventricle. Mitral Valve Moderate focal mitral valve calcification of the posterior leaflet. Great Vessels Normal aortic root. Pericardium/Pleural No pericardial effusion. MMode/2D Measurements & Calculations LVIDd: 4.5 cm IVSd: 1.3 cm LVIDs: 3.1 cm LVPWd: 1.4 cm LVAd ap4: 36.6 cm2 FS: 30.3 % LVLd ap4: 8.8 cm EDV(MOD-sp4): 124.9 ml EDV(sp4-el): 129.7 ml LVAs ap4: 21.7 cm2 LVLs ap4: 7.6 cm ESV(MOD-sp4): 52.8 ml ESV(sp4-el): 53.1 ml EF(MOD-sp4): 57.7 % EF(sp4-el): 59.0 % SV(MOD-sp4): 72.1 ml SV(sp4-el): 76.6 ml ECHO/Echo, Limited Study Interpretation Summary Normal LV size. The estimated ejection fraction is 50 %. Moderate concentric left ventricular hypertrophy. There is mild global hypokinesis of the left ventricle. Ordering Physician: Brittany Welsh Referring Physician: SHAR MITCHELL Performed By: Leny Jones RDCS
[2022-02-06 13:58] LABS: Anion Gap 7 (5-15); BUN 22 mg/dL (7-18); BUN/Creat Ratio 16.5 RATIO (10-20); Chloride 103 mmol/L (98-107); Creatinine, Serum 1.33 mg/dL (0.70-1.30); EST Glomerular Filtration Rate 57 mL/min (>60); Est Glom Filt Rate - Afr Amer 68 mL/min (>60); Glucose 101 mg/dL (74-106); Sodium Level 141 mmol/L (136-145)
== END | disposition home or self-care (01) ==
PROVIDERS: PCP Family Medicine; Visit Provider Nurse Practitioner Gerontology
DX: I50.20 Unspecified systolic (congestive) heart failure (principal); I42.8 Other cardiomyopathies
CPT/HCPCS: 36415; 80048; 93308

== ENCOUNTER → 2023-05-02 | Outpatient (CLI) | payer MEDICARE, SELFPAY ==
[2023-05-02 08:27] LABS: Bacteria 0 SEEN /hpf (None Seen); Mucous, Urine 0 SEEN /hpf (<or=2+); Red Blood Cells-Urine 0 SEEN /hpf (0-5); White Blood Cells 0 SEEN /hpf (0-5)
[2023-05-02 10:43] LABS: Color, Urine Yellow (Yellow); Glucose, Dipstick Normal (Normal); Ketone-Dipstick Negative (Negative); Leukocyte Esterase-Dipstick 25 /ul (Negative); Nitrite-Dipstick Negative (Negative); Occult Blood-Urine Negative /ul (Negative); Protein-Dipstick Negative (Negative); Urine Bilirubin Dipstick Negative (Negative); Urine Clarity Clear (Clear); Urine Urobilinogen Normal (Normal)
[2023-05-02 10:51] LABS: Squamous Epithelial Cells - UA 0-5 SEEN /hpf (0-5)
[2023-05-02 11:03] LABS: Absolute Lymphocyte Count 1.22 X10^3/uL (0.83-4.51); Absolute Neutrophil Count 8.8 X10^3/uL (2.0-7.7); Basophil# 0.04 X10^3/uL; Basophil% 0.4 % (0-1); Eosinophil# 0.01 X10^3/uL; Eosinophils% 0.1 % (0-5); Hematocrit 45.1 % (40-54); Hemoglobin 14.4 g/dL (13.0-16.5); Lymphocyte # 1.22 X10^3/ul (0.83-4.51); Lymphocyte % 10.8 % (19-41); Mean Corp Hgb Conc 31.9 g/dL (32-36); Mean Corpuscular Hgb 30.9 pg (27.0-32.0); Mean Corpuscular Volume 96.8 fL (80-94); Mean Platelet Vol. 11.7 fl (6.2-12.0); Monocyte# 0.88 X10^3/uL; Monocyte% 7.8 % (0-10); NRBC Flagged by Analyzer 0 % (0-5); Neutrophil # 8.84 X10^3/uL (2.7-7.7); Neutrophil % 77.9 % (47-70); Platelet Count 198 K/mm3 (150-450); RBC Distribution Width CV 12.7 % (11.6-14.6); RBC Distribution Width SD 45.5 fl (35.1-43.9); Red Blood Count 4.66 M/mm3 (4.6-6.2); White Blood Count 11.3 K/mm3 (4.4-11.0)
[2023-05-02 11:57] LABS: ALB/GLOB Ratio 1.1 RATIO (0.9-2.4); AST(SGOT) 26 U/L (15-37); Alanine Aminotransfer ALT/SGPT 44 U/L (16-61); Albumin, Serum 3.8 g/dL (3.2-5.0); Alkaline Phosphatase 80 U/L (45-117); Anion Gap 5 (5-15); BUN 22 mg/dL (7-18); BUN/Creat Ratio 19.1 RATIO (10-20); Chloride 102 mmol/L (98-107); Cholesterol 284 mg/dL (200); Creatinine, Serum 1.15 mg/dL (0.70-1.30); EST Glomerular Filtration Rate 67 mL/min (>60); Est Glom Filt Rate - Afr Amer 81 mL/min (>60); Globulin 3.4 g/dL (2.2-4.2); Glucose 89 mg/dL (74-106); High Density Lipoprotein 75 mg/dL; Potassium 4.3 mmol/L (3.5-5.1); Protein, Total 7.2 g/dL (6.4-8.2); Sodium Level 135 mmol/L (136-145); Thyroid Stim Hormone (TSH) 1.53 uIU/mL (0.358-3.74); Triglycerides 162 mg/dL; Very Low Density Lipoprotein 32 mg/dL (5-40)
[2023-05-03 18:08] LABS: Anti-Thyroglobulin AB < 1.0 IU/mL (0.0-0.9); Thyroglobulin, Serum Qt. 10.4 ng/mL (1.4-29.2); Thyroid Peroxidase AB 12 IU/mL (0-34)
== END | disposition home or self-care (01) ==
LOC: MFPLAB 08:24
PROVIDERS: PCP Family Medicine; Visit Provider Family Medicine
DX: E04.1 Nontoxic single thyroid nodule (principal); I10 Essential (primary) hypertension
CPT/HCPCS: 36415; 80053; 80061; 81001; 84432; 84439; 84443; 85025; 86376; 86800

== ENCOUNTER → 2023-05-09 | Outpatient (CLI) | payer MEDICARE, SELFPAY ==
--- NOTE | 2023-05-09 12:42 | US_ITS ---
STUDY: THYROID ULTRASOUND REASON FOR EXAM: Male, 72 years old. NODULE felt on exam TECHNIQUE: Ultrasound evaluation of the thyroid was performed with real-time and static mike-scale imaging. COMPARISON: None. FINDINGS: RIGHT LOBE: The right lobe of the thyroid gland measures 3.4 x 1.4 x 1.3 cm. There is a homogeneous echotexture. There are no demonstrated solid, cystic or complex lesions. LEFT LOBE: The left lobe of the thyroid gland measures 3.4 x 1.7 x 1.3 cm. There is a homogeneous echotexture. There are no demonstrated solid, cystic or complex lesions. ISTHMUS: The isthmus measures 4 mm thick. . The regional lymph nodes are normal. US/Thyroid IMPRESSION: Normal ultrasound examination of the thyroid. Electronically Signed: Peter Acuña MD at 17:28 EST ,
== END | disposition home or self-care (01) ==
LOC: US 12:41
PROVIDERS: PCP Family Medicine; Referring Provider Family Medicine; Visit Provider Family Medicine
DX: E04.1 Nontoxic single thyroid nodule (principal)
CPT/HCPCS: 76536

== ENCOUNTER → 2023-07-03 | Outpatient (CLI) | payer MEDICARE, SELFPAY ==
--- NOTE | 2023-07-03 10:20 | MRI_ITS ---
STUDY: MRI LOWER EXTREMITY RIGHT THIGH REASON FOR EXAM: Male, 72 years old. Quadriceps tendon rupture. TECHNIQUE: Standardized fat and water weighted pulse sequences were obtained in all 3 orthogonal planes. COMPARISON: None. FINDINGS: There is a full-thickness tear of the distal quadriceps tendon insertion, with 2 cm proximal tendon retraction (sagittal STIR series 3 images 14-16; coronal T2 series 4 images 5-7). There is mild edema in the adjacent quadriceps muscles. Normal adductor and hamstring muscles. Normal femur. There is subcutaneous soft tissue edema around the right knee/distal thigh. There is prepatellar bursitis. MRI/Lower Ext/No Jt/w/o IMPRESSION: Full-thickness tear of the distal quadriceps tendon insertion, with 2 cm proximal tendon retraction. Mild edema in the adjacent quadriceps muscles. Subcutaneous soft tissue edema around the right knee/distal thigh. Prepatellar bursitis. Electronically Signed: Kike Olvera MD at 13:46 EST ,
== END | disposition home or self-care (01) ==
LOC: MRI 10:16
PROVIDERS: PCP Family Medicine; Referring Provider Family Medicine; Visit Provider Family Medicine
DX: S76.111A Strain of right quadriceps muscle, fascia and tendon, initial encounter (principal); X58.XXXA Exposure to other specified factors, initial encounter
CPT/HCPCS: 73718

== ENCOUNTER 2023-08-05 14:00 | Emergency (ER) | payer MEDICARE, SELFPAY ==
[2023-08-05 14:01] VITALS: BP 180/96; PULSE 95; RESP 20; TEMP 35.9; O2SAT 98; BMI 32.2
--- NOTE | 2023-08-05 14:18 | EKG12_ITS ---
Test Reason : SOB Blood Pressure : / mmHG Vent. Rate : 093 BPM Atrial Rate : 093 BPM P-R Int : 188 ms QRS Dur : 140 ms QT Int : 390 ms P-R-T Axes : 060 -66 117 degrees QTc Int : 484 ms Normal sinus rhythm Left axis deviation Left bundle branch block Abnormal ECG Confirmed by Bernard Gaviria ([id number]), newspaper editor FAUSTO NIETO ([id number]) on 08/07/2023 8:18:22 AM Referred By: Confirmed By:Bernard Gaviria
--- NOTE | 2023-08-05 14:19 | EDS_ITS ---
HPI History of Present Illness Chief Complaint: Shortness of Breath Informant: patient Narrative Narrative: Patient states he has had dyspnea with exertion and a cough for about 2 weeks. He states he was seen in urgent care shortly after and prescribed antibiotics, albuterol inhaler, and fluticasone inhaler and diagnosed with bronchitis. He states the cough is still there but a lot better, but the dyspnea on exertion is not. He walks correction down the driveway before he states he has to rest due to being out of breath. He was not put on any oral steroids according to him. He finished the antibiotics. He has had longstanding history of constipation and bloating in his abdomen which he has now, he states this is not new, and when he has a bowel movement bloating improves quickly. He states he has chronic edema in his legs, and he noticed yesterday it is a lot worse bilaterally and symmetrically about to the knees. He thinks this may be due to to sitting with legs dependent a lot in the last few days due to his recent illness. He denies any exertional chest discomfort or presyncope/syncope. No fevers or chills. No abdominal pain or vomiting. [facility] Medical History Alcohol abuse Alcohol dependence CHF (NYHA class III, ACC/AHA stage C) CHF exacerbation Chronic pain Congestive heart failure (CHF) Essential hypertension HFrEF (heart failure with reduced ejection fraction) (03/07/21) Laceration of right little finger Non-ischemic cardiomyopathy (03/07/21) Restless leg syndrome Home Medications lisinopril 10 mg tablet 20 mg PO DAILY 06/25/23 [History Last Taken Unknown] spironolactone 25 mg tablet 25 mg PO DAILY #90 tabs 07/24/23 [Rx Last Taken Un known] carvedilol 25 mg tablet 25 mg PO DAILY 08/05/23 [History Last Taken Unknown] dicyclomine 10 mg capsule 20 mg (2 x 10 mg) PO Q6H PRN PRN abdominal discomfort #30 CAPSULES 08/05/23 [Rx Last Taken Unknown] Allergy/AdvReac Type Severity Reaction Status Date / Time amoxicillin Allergy PAIN AND Verified 08/05/23 14:01 DIARRHEA Penicillins Allergy PAIN AND Verified 08/05/23 14:01 DIARRHEA Family History Father Throat cancer smoker Hypertension Mother No cardiac disease Mother currently living, 92 years old with no reported medical issues. Hypertension Surgical History History of left heart catheterization (03/08/21) History of tonsillectomy Hx of hernia repair Social History Smoking Status: Never smoker alcohol intake: former substance use type: does not use caffeine: Yes Type: coffee Number of servings: 4 ROS ROS ED Constitutional Constitutional ED: Reports weight gain; Denies chills or fever(s) Eyes Eyes: Denies change in vision or diplopia ENT ENT ED: Denies rhinorrhea or sore throat Cardiovascular Cardiovascular: Denies chest pain or palpitations Respiratory/Chest Respiratory/Chest: Reports cough and dyspnea on exertion; Denies sputum Gastrointestinal Gastrointestinal: Reports as per HPI, bloating and constipation; Denies abdominal pain, diarrhea, nausea or vomiting Genitourinary Genitourinary ED: Denies dysuria or hematuria Musculoskeletal Musculoskeletal: Denies back pain or neck pain Integumentary Denies abscess or rash Neurologic Neurologic: Reports other Details: Head pressure, no headache, when he has dy spnea on exertion ; Denies headache(s), paresthesias or weakness Psychiatric Psychiatric: Denies suicidal ideation or suicidal thoughts EXAM Physical Exam Const Vital Signs: 08/05/23 14:01 08/05/23 14:25 08/05/23 14:26 Temperature 96.6 F L Temperature Source Temporal Pulse Rate 95 Respiratory Rate 20 H Respiratory Effort Normal Non-Labored Respiratory Pattern Tachypnea Blood Pressure 180/96 H Blood Pressure Mean 124 Pulse Ox 98 Oxygen Delivery Method Room Air Room Air 08/05/23 15:31 08/05/23 16:32 Temperature Temperature Source Pulse Rate 86 80 Respiratory Rate 18 20 H Respiratory Effort Respiratory Pattern Blood Pressure 158/95 H 149/86 H Blood Pressure Mean 116 107 Pulse Ox 96 97 Oxygen Delivery Method Room Air Room Air Positive well nourished and well developed General Appearance ED: well developed and NAD HEENT Reports moist mucous membranes normocephalic and atraumatic Eyes PERRL and EOMs intact bilaterally Neck full ROM, supple and no JVD Resp normal respiratory effort and clear to auscultation bilaterally Cardio regular rate, regular rhythm and no murmurs GI non-tender GI Narrative: Distended, nontender, no signs of abdominal wall edema. Auscultation: normoactive bowel sounds Palpation: soft Back/Spine no CVA tenderness General Back: other FROM Extremity normal to inspection General Extremety ED: Yes edema; Negative for pulses abnormal or tenderness General Extremity: edema bilateral lower extremity Details: moderate (Pitting, to about the knees but not above. Symmetric. No calf tenderness.); Negative for pulses abnormal Neuro oriented x3, CN's II-XII intact bilaterally and no sensory deficits noted Sensorium / Orientation: awake and alert Motor Exam: strength 5/5 throughout Skin no rashes or lesions noted and no wounds MDM MDM MDM Narrative Medical decision making narrative: Labs show he has a leukocytosis with what appears to be a leftward shift, but chest x-ray 2 views my interpretation shows no signs of pneumonia and radiology is in agreement. His EKG shows no acute injury pattern or changes compared with his old, his troponin is within normal limits and his BNP is elevated at 1103, suggesting possible right-sided failure causing his edema but he does not have pulmonary edema on radiography or clinically. I spoke more with the patient obtaining more history. His blood pressure was elevated here 180/96 I rechecked it it is 158/95. He states he checks his blood pressure several times per day, before he came here was in the 130s and it has been for the last week or more. Therefore do not think necessarily accelerated hypertension as cause of his symptoms here. We focus more on his abdominal bloating/distention. He is distended here. 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 He has not been diagnosed with cirrhosis. He states in the mornings oftentimes he is not bloated and at that time he can walk without dyspnea. However after he drinks coffee and tea, he then is bloated for the rest of the day and much more dyspneic than before that but he still has dyspnea with exertion for the last 1 or 2 months that is new compared to prior to that and it is significantly affecting him now. For this reason I do not think he necessarily needs a CT of the chest but I think a CT of the abdomen/pelvis might be helpful to evaluate for ascites, mass, or other process that could explain his distention. He was amenable to that. I reviewed the CT images and the report, which I agree with. There is no explanation for his leukocytosis here, it appears completely unremarkable with no distended bowel and lots of intraperitoneal fat. Also incidentally there appears to be a 15 mm hyperdense lesion of the right kidney for which further nonemergent imaging recommended. I discussed this with the patient, he already knows about this and has had it imaged at a different facility in the past. I offered simethicone and dicyclomine for his bloating symptoms which may help, as well as then discussing his diuretic and if we should increase it. In doing this, it became apparent to the patient that he stopped taking it around the time that all this started he thinks. He states he stopped it because of possible side effects. He agrees to restart it. With regards to his leukocytosis, I do not see evidence of an acute infection, and he just finished antibiotics so I do not think we need to restart any of those. I recommend close outpatient follow-up and he is amenable. History & Record Review Additional record(s) reviewed:: Prior outpatient record (echo 02/06/22) Lab Data Attestation: I reviewed the patient's lab results. Labs: Laboratory Results - last 24 hr 08/05/23 14:20 WBC 14.2 H RBC 4.54 L Hgb 14.2 Hct 43.4 MCV 95.6 H MCH 31.3 MCHC 32.7 RDW Std Deviation 44.1 H RDW Coeff of Rosario 12.6 Plt Count 226 MPV 11.2 Immature Gran % (Auto) 2.400 H Neut % (Auto) 87.9 H Lymph % (Auto) 5.2 L Coamo % (Auto) 4.0 Eos % (Auto) 0.1 Baso % (Auto) 0.4 Absolute Neuts (auto) 12.5 H Absolute Lymphs (auto) 0.74 L Nucleated RBC % 0 PT 12.9 INR 1.0 APTT 28.1 Sodium 137 Potassium 4.7 Chloride 103 Carbon Dioxide 28.0 Anion Gap 6 BUN 23 H Creatinine 1.24 Estim Creat Clear Calc 51.92 Est GFR (MDRD) Af Amer 74 Est GFR (MDRD) Non-Af 61 BUN/Creatinine Ratio 18.5 Glucose 125 H Calcium 8.9 Total Bilirubin 0.40 Direct Bilirubin 0.09 AST 26 ALT 46 Alkaline Phosphatase 79 Troponin I High Sens 63 B-Natriuretic Peptide 1103.2 H Total Protein 6.8 Albumin 3.6 Globulin 3.2 Radiography Diagnostic Testing: Clinical Impression(s) from Imaging Studies Chest X-Ray 08/05/23 14:41 IMPRESSION: There are no acute findings. Electronically Signed: Boris Herrera MD at 14:55 EDT , Abdomen/Pelvis CT 08/05/23 15:29 IMPRESSION: (NOT LISTED IN ORDER OF SIGNIFICANCE) 15 mm hyperdense lesion in the right kidney. ACR White Paper guidelines (Amado, et al. JACR 2018; 15(2):264-273) recommend MRI or CT without and with intravenous contrast. There are multiple colonic diverticula consistent with diverticulosis. Other findings as above. Electronically Signed: Boris Herrera MD at 16:43 EDT , Rhythm Strip Rhythm Strip: Sinus Rhythm Rate: 90 Ectopy: None EKG Initial EKG: Attestation: I personally reviewed and interpreted this EKG as follows: Interpretation: Sinus Rhythm, No Acute Injury Pattern and LBBB Prior EKG tracings: available for review Prior: Unchanged Discharge Plan Triage Chief Complaint: Shortness of Breath ED Provider: Harry Croft Dx/Rx/DC Orders Clinical Impression: Acute on chronic right-sided congestive heart failure, Mass of right kidney, TALBERT (dyspnea on exertion), Leukocytosis, Abdominal bloating Instructions: Heart Failure Meds, Taking a Diuretic Prescriptions: New dicyclomine 10 mg capsule 20 mg PO Q6H PRN PRN (Reason: abdominal discomfort) Qty: 30 0RF No Action lisinopril 10 mg tablet 20 mg PO DAILY carvedilol 25 mg tablet 25 mg PO DAILY Rx Instructions: must administer with a meal/food spironolactone 25 mg tablet 25 mg PO DAILY Qty: 90 3RF Primary Care Provider: Tevin Turner Referrals: Tevin Turner MD [Primary Care Provider] - Activity Restrictions/Additional Instructions: Further imaging recommended to characterize the 15 mm mass in your right kidney, this can be done not emergently but make sure you follow-up with your doctor soon as you are able to discuss this. In addition make sure you are taking your furosemide as prescribed, which should help with the swelling in your legs and possibly your shortness of breath. Consider taking simethicone as needed for bloating as well (in Gas-X, Maalox Advanced, others). Disposition Disposition: Home, Self Care
[2023-08-05 14:27] LABS: Absolute Lymphocyte Count 0.74 X10^3/uL (0.83-4.51); Absolute Neutrophil Count 12.5 X10^3/uL (2.0-7.7); Basophil# 0.05 X10^3/uL; Basophil% 0.4 % (0-1); Eosinophil# 0.01 X10^3/uL; Eosinophils% 0.1 % (0-5); Hematocrit 43.4 % (40-54); Hemoglobin 14.2 g/dL (13.0-16.5); Lymphocyte # 0.74 X10^3/ul (0.83-4.51); Lymphocyte % 5.2 % (19-41); Mean Corp Hgb Conc 32.7 g/dL (32-36); Mean Corpuscular Hgb 31.3 pg (27.0-32.0); Mean Corpuscular Volume 95.6 fL (80-94); Mean Platelet Vol. 11.2 fl (6.2-12.0); Monocyte# 0.57 X10^3/uL; NRBC Flagged by Analyzer 0 % (0-5); Neutrophil # 12.53 X10^3/uL (2.7-7.7); Neutrophil % 87.9 % (47-70); Platelet Count 226 K/mm3 (150-450); RBC Distribution Width CV 12.6 % (11.6-14.6); RBC Distribution Width SD 44.1 fl (35.1-43.9); Red Blood Count 4.54 M/mm3 (4.6-6.2); White Blood Count 14.2 K/mm3 (4.4-11.0)
--- NOTE | 2023-08-05 14:41 | RAD_ITS ---
STUDY: XR Chest 2 Views 08/05/2023 2:40 PM REASON FOR EXAM: Male, 72 years old. dyspnea w/ exertion; improving cough COMPARISON: 03/06/2021 TECHNIQUE: XR Chest 2 Views FINDINGS: There is no demonstrated pleural abnormality. Enlarged heart size. Normal mediastinum. Normal hussein. Prominent appearing increased interstitial lung markings. Normal visualized pulmonary arteries. There is atherosclerotic calcification of the aortic arch with tortuosity. There are diffuse degenerative changes of the visualized thoracic spine. There is degenerative osteoarthritis of the bilateral shoulders. There are no acute findings of the upper abdomen. RAD/Chest PA and Lateral IMPRESSION: There are no acute findings. Electronically Signed: Boris Herrera MD at 14:55 EDT ,
[2023-08-05 14:44] LABS: Anion Gap 6 (5-15); BUN 23 mg/dL (7-18); BUN/Creat Ratio 18.5 RATIO (10-20); Calcium,Total 8.9 mg/dL (8.5-10.1); Chloride 103 mmol/L (98-107); Creatinine, Serum 1.24 mg/dL (0.70-1.30); EST Glomerular Filtration Rate 61 mL/min (>60); Est Glom Filt Rate - Afr Amer 74 mL/min (>60); Estimated Creatinine Clearance 51.92 ml/min; Glucose 125 mg/dL (74-106); Potassium 4.7 mmol/L (3.5-5.1); Sodium Level 137 mmol/L (136-145); Troponin-I HS 63 pg/mL (3.0-78.0)
[2023-08-05 14:45] LABS: BNP,B-Type NATRIURETIC PEPTIDE 1103.2 pg/mL (0-100)
--- NOTE | 2023-08-05 15:29 | CT_ITS ---
STUDY: CT Abdomen And Pelvis W/ Contrast Injection 08/05/2023 4:36 PM REASON FOR EXAM: Male, 72 years old. distension Individualized dose optimization techniques were used for this CT. COMPARISON: 03/06/2021. TECHNIQUE: CT Abdomen And Pelvis W/ Contrast Injection IV 100mL [id number] FINDINGS: The visualized lung bases are unremarkable. Enlarged heart Normal liver. Normal gallbladder and extrahepatic biliary system. Normal spleen. Normal pancreas. Normal bilateral adrenal glands. 15 mm lesion of the right kidney. This is 82 Hounsfield units. There are hypodensities in the left kidney. These are consistent for cysts. No follow up required. Normal visualized stomach. Normal small intestine. There are multiple colonic diverticula consistent with diverticulosis. The appendix is visualized and appears normal. There are calcifications of the abdominal aorta. This is consistent for atherosclerotic disease. There is NO abdominal aortic aneurysm. Vascular workup can be obtained based on clinical correlation. Normal inferior vena cava. Subcentimeter mesenteric lymph nodes. Normal urinary bladder. There are prostatic calcifications. Degenerative findings in the right hip. There is a right-sided inguinal hernia containing adipose tissue. There are diffuse degenerative changes of the visualized lumbar spine. Vacuum disc phenomenon noted. There is bilateral neural foraminal stenosis at L4-5 and L5-S1. CT/Abdomen/Pelvis W IV Cont ONLY IMPRESSION: (NOT LISTED IN ORDER OF SIGNIFICANCE) 15 mm hyperdense lesion in the right kidney. ACR White Paper guidelines (Herts, et al. JACR 2018; 15(2):264-273) recommend MRI or CT without and with intravenous contrast. There are multiple colonic diverticula consistent with diverticulosis. Other findings as above. Electronically Signed: Boris Herrera MD at 16:43 EDT ,
[2023-08-05 15:31] VITALS: BP 158/95; PULSE 86; RESP 18; O2SAT 96
[2023-08-05 15:54] LABS: Partial Thromboplast Time 28.1 Seconds (24.1-36.2); Prothrombin Time (Protime)PT. 12.9 SECONDS (11.7-14.9)
[2023-08-05 15:58] LABS: AST(SGOT) 26 U/L (15-37); Alanine Aminotransfer ALT/SGPT 46 U/L (16-61); Albumin, Serum 3.6 g/dL (3.2-5.0); Alkaline Phosphatase 79 U/L (45-117); Bilirubin, Direct 0.09 mg/dL (0.00-0.30); Globulin 3.2 g/dL (2.2-4.2); Protein, Total 6.8 g/dL (6.4-8.2)
[2023-08-05 16:32] VITALS: BP 149/86; PULSE 80; RESP 20; O2SAT 97
[2023-08-05 17:11] VITALS: BP 132/76; PULSE 71; RESP 15; TEMP 36.9; O2SAT 98
== END 2023-08-05 17:12 | disposition home or self-care (01) ==
PROVIDERS: Emergency Provider Emergency Medicine; PCP Family Medicine; Visit Provider Emergency Medicine
DX: R06.09 Other forms of dyspnea (principal); I50.23 Acute on chronic systolic (congestive) heart failure; N28.89 Other specified disorders of kidney and ureter; D72.829 Elevated white blood cell count, unspecified; R14.0 Abdominal distension (gaseous); Z79.899 Other long term (current) drug therapy
CPT/HCPCS: 71046; 74177; 80048; 80076; 83880; 84484; 85025; 85610; 85730; 93005; 99284; Q9967; A4216

== ENCOUNTER → 2023-09-04 | Outpatient (CLI) | payer MEDICARE, SELFPAY ==
[2023-09-04 17:58] LABS: BNP,B-Type NATRIURETIC PEPTIDE 724.8 pg/mL (0-100)
== END | disposition home or self-care (01) ==
LOC: MFPLAB 16:02
PROVIDERS: PCP Family Medicine; Visit Provider Family Medicine
DX: I50.9 Heart failure, unspecified (principal)
CPT/HCPCS: 36415; 83880

== ENCOUNTER 2023-09-07 12:32 | Inpatient (IN) | payer MEDICARE, SELFPAY ==
[2023-09-07] VITALS (8 sets, daily range): BP systolic 132–173; BP diastolic 56–104; PULSE 103–119; RESP 16–20; TEMP 35.5–37.1; O2SAT 97–99; BMI 30.9; BMI 30.6
--- NOTE | 2023-09-07 12:51 | EKG12_ITS ---
Test Reason : SOB Blood Pressure : / mmHG Vent. Rate : 111 BPM Atrial Rate : 111 BPM P-R Int : 172 ms QRS Dur : 142 ms QT Int : 370 ms P-R-T Axes : 049 -38 128 degrees QTc Int : 503 ms Sinus tachycardia with occasional Premature ventricular complexes Left axis deviation Left bundle branch block Abnormal ECG Confirmed by Bernard Gaviria ([id number]), technical writer and editor FAUSTO NIETO ([id number]) on 09/10/2023 6:33:48 AM Referred By: Confirmed By:Bernard Gaviria
--- NOTE | 2023-09-07 12:55 | EX.ED.DYSGE1 ---
HPI <JAD Mcclendon - Last Filed: 09/07/23 15:13> History of Present Illness Chief Complaint: Cellulitis Narrative Narrative: 72-year-old male has a past medical history of congestive heart failure and presents with 3 days of bilateral lower extremity edema and increased dyspnea on exertion. He stopped taking metoprolol and spironolactone 1 week ago because he does not like the side effects. He still takes Lasix 40 mg once daily which is the only med he is on. 3 days ago both legs became swollen and heavy and hurt with walking. He has no shortness of breath at rest and denies orthopnea or PND. No chest pain. No fever or cough. He bought [employer] generic version of IcyHot and put it on his left leg but it burned after application and the area turned red. He thinks it is a reaction to the medication because he only put it on the left leg. He has no fever or chills. No wounds or drainage from the legs. He states he was diagnosed with alcoholic cardiomyopathy 3 years ago with an EF of 15%. He stopped drinking and reports his EF went back to 50%. [facility] <JAD Mcclendon - Last Filed: 09/07/23 15:13> [facility] Medical History Alcohol abuse Alcohol dependence CHF (NYHA class III, ACC/AHA stage C) CHF exacerbation Chronic pain Congestive heart failure (CHF) Essential hypertension HFrEF (heart failure with reduced ejection fraction) (03/07/21) Laceration of right little finger Non-ischemic cardiomyopathy (03/07/21) Restless leg syndrome Home Medications lisinopril 10 mg tablet 20 mg PO DAILY 06/25/23 [History Last Taken 08/31/23] spironolactone 25 mg tablet 25 mg PO DAILY #90 tabs 07/24/23 [Rx Last Taken 08/31/23] dicyclomine 10 mg capsule 20 mg (2 x 10 mg) PO Q6H PRN PRN abdominal discomfort #30 CAPSULES 08/05/23 [Rx Last Taken Unknown] furosemide 40 mg tablet 40 mg PO DAILY #90 tabs 08/15/23 [Rx Last Taken 09/07/23] metoprolol succinate 50 mg tablet,extended release 24 hr 50 mg PO QHS #30 tabs 08/27/23 [Rx Last Taken Unknown] Allergy/AdvReac Type Severity Reaction Status Date / Time amoxicillin Allergy PAIN AND Verified 09/07/23 12:33 DIARRHEA Penicillins Allergy PAIN AND Verified 09/07/23 12:33 DIARRHEA Family History Father Throat cancer smoker Hypertension Mother No cardiac disease Mother currently living, 92 years old with no reported medical issues. Hypertension Surgical History History of left heart catheterization (03/08/21) History of tonsillectomy Hx of hernia repair Social History Smoking Status: Never smoker alcohol intake: former substance use type: does not use caffeine: Yes Type: coffee Number of servings: 4 ROS <JAD Mcclendon - Last Filed: 09/07/23 15:13> ROS ED ROS Narrative Constitutional: Negative for fever, chills, malaise. CVS: Negative for palpitations, chest pain, syncope. Respiratory: Positive for dyspnea on exertion. No orthopnea. GI: Negative for abdominal pain, nausea, vomiting. Musc: Negative for joint pain. EXAM <JAD Mcclendon - Last Filed: 09/07/23 15:13> Physical Exam Narrative Exam Narrative: CONST: Patient sitting in no acute distress. EYES: Normal inspection. NECK: Normal inspection. RESP: No respiratory distress, CTAB. CVS: Regular rate and rhythm, no murmur, no gallop. SKIN: Color normal, no rash, warm, dry, intact. EXTREMITIES: 3+ pitting edema both lower extremities up to proximal thighs, left greater than right. Left lower santoyo has dry red patch of skin without warmth or tenderness, no fluctuance or crepitus. 2+ PT pulses. NEURO: Alert and answering questions appropriately. PSYCH: Normal affect. Const Vital Signs: 09/07/23 12:34 09/07/23 12:34 09/07/23 12:35 Temperature 95.9 F L 95.9 F L 95.9 F L Temperature Source Temporal Temporal Temporal Pulse Rate 118 H 119 H 119 H Respiratory Rate 20 H 20 H 20 H Blood Pressure 173/104 H 173/104 H 173/104 H Blood Pressure Mean 127 127 127 Pulse Ox 98 98 99 Oxygen Delivery Method Room Air Room Air Room Air 09/07/23 12:58 09/07/23 14:00 09/07/23 14:26 Temperature 98.3 F 98.3 F 98.7 F Temperature Source Oral Oral Pulse Rate 114 H 106 H 108 H Respiratory Rate 16 20 H 20 H Blood Pressure 156/92 H 159/99 H 159/99 H Blood Pressure Mean 113 119 119 Pulse Ox 97 97 97 Oxygen Delivery Method Room Air Room Air 09/07/23 15:00 Temperature 98.7 F Temperature Source Oral Pulse Rate 110 H Respiratory Rate 20 H Blood Pressure 132/81 H Blood Pressure Mean 98 Pulse Ox 97 Oxygen Delivery Method Room Air <Dr. Dwayne Fontaine DO - Last Filed: 09/07/23 14:57> Physical Exam Const Vital Signs: 09/07/23 12:34 09/07/23 12:34 09/07/23 12:35 Temperature 95.9 F L 95.9 F L 95.9 F L Temperature Source Temporal Temporal Temporal Pulse Rate 118 H 119 H 119 H Respiratory Rate 20 H 20 H 20 H Blood Pressure 173/104 H 173/104 H 173/104 H Blood Pressure Mean 127 127 127 Pulse Ox 98 98 99 Oxygen Delivery Method Room Air Room Air Room Air 09/07/23 12:58 09/07/23 14:00 09/07/23 14:26 Temperature 98.3 F 98.3 F 98.7 F Temperature Source Oral Oral Pulse Rate 114 H 106 H 108 H Respiratory Rate 16 20 H 20 H Blood Pressure 156/92 H 159/99 H 159/99 H Blood Pressure Mean 113 119 119 Pulse Ox 97 97 97 Oxygen Delivery Method Room Air Room Air 09/07/23 15:00 Temperature 98.7 F Temperature Source Oral Pulse Rate 110 H Respiratory Rate 20 H Blood Pressure 132/81 H Blood Pressure Mean 98 Pulse Ox 97 Oxygen Delivery Method Room Air MDM <JAD Mcclendon - Last Filed: 09/07/23 15:13> MDM MDM Narrative Medical decision making narrative: Differential: Congestive heart failure, pneumonia, renal failure, DVT, cellulitis Consults: Hospitalist Patient has 3 days of dyspnea on exertion and bilateral leg edema. His left santoyo is also red. He attributes this to putting generic IcyHot on the area. He appears well and nontoxic. He was hypertensive and tachycardic on arrival. BP settled at 156/92 and on the monitor he is in normal sinus rhythm around 110 bpm. He has edema of his lower abdomen, scrotum, and both lower extremities. Distal pulses are intact. His left lower santoyo has patchy erythema without significant warmth or tenderness. Bilateral lower extremity ultrasounds negative for DVT. Labs show white count 23.2, sodium 130, BUN 19, creatinine 1.10. LFTs are normal. BNP is 774 and CXR shows cardiomegaly but no evidence of fluid overload. Patient was given IV Lasix 60 mg for anasarca. He has significant leukocytosis and the only identified source is left lower extremity cellulitis so I ordered vancomycin and Zosyn. He has no evidence of pneumonia or UTI and he has no abdominal pain so I do not think he requires a CT scan. Case was discussed with the hospitalist for admission. External records reviewed: 02/06/2022 echocardiogram EF 50% Lab Data Attestation: I reviewed the patient's lab results. Labs: Laboratory Results - last 24 hr 09/07/23 09/07/23 13:00 14:15 WBC 23.2 H RBC 4.26 L Hgb 13.3 Hct 40.7 MCV 95.5 H MCH 31.2 MCHC 32.7 RDW Std Deviation 44.9 H RDW Coeff of Rosario 13.0 Plt Count 214 MPV 11.1 Immature Gran % (Auto) 1.400 H Neut % (Auto) 87.8 H Lymph % (Auto) 4.1 L [place] % (Auto) 5.8 Eos % (Auto) 0.7 Baso % (Auto) 0.2 Absolute Neuts (auto) 20.4 H Absolute Lymphs (auto) 0.95 Nucleated RBC % 0 Differential Comment SCANNED Sodium 130 L Potassium 3.8 Chloride 97 L Carbon Dioxide 28.0 Anion Gap 5 BUN 19 H Creatinine 1.10 Estim Creat Clear Calc 57.41 Est GFR (MDRD) Af Amer 85 Est GFR (MDRD) Non-Af 70 BUN/Creatinine Ratio 17.3 Glucose 126 H Lactic Acid 1.5 Calcium 8.7 Total Bilirubin 0.40 AST 24 ALT 36 Alkaline Phosphatase 82 B-Natriuretic Peptide 774.5 H Total Protein 7.2 Albumin 3.2 Globulin 4.0 Albumin/Globulin Ratio 0.8 L Urine Color Yellow Urine Clarity Sl. Cloudy Urine pH 6.5 Ur Specific [place] 1.010 Urine Protein 15 H Urine Glucose (UA) Normal Urine Ketones Negative Urine Occult Blood 25 H Urine Nitrite Negative Urine Bilirubin Negative Urine Urobilinogen Normal Ur Leukocyte Esterase 25 H Urine RBC 0-5 SEEN Urine WBC 0-5 SEEN Ur Squamous Epith Cells 0-5 SEEN Urine Bacteria 0 SEEN Urine Mucus 0 SEEN Radiography Diagnostic Testing: Clinical Impression(s) from Imaging Studies Chest X-Ray 09/07/23 13:05 IMPRESSION: Cardiomegaly. Increased linear markings in the lingular segment of the left upper lobe suggestive of linear atelectasis and/or scarring. Electronically Signed: Clifton Okeefe MD at 13:23 EDT , ED attending interpretation of 2 view chest x-ray shows cardiomegaly, no acute infiltrate or edema. <Dr. Dwayne Fontaine, DO - Last Filed: 09/07/23 14:57> [facility] Lab Data Labs: Laboratory Results - last 24 hr 09/07/23 09/07/23 13:00 14:15 WBC 23.2 H RBC 4.26 L Hgb 13.3 Hct 40.7 MCV 95.5 H MCH 31.2 MCHC 32.7 RDW Std Deviation 44.9 H RDW Coeff of [place] 13.0 Plt Count 214 MPV 11.1 Immature Gran % (Auto) 1.400 H Neut % (Auto) 87.8 H Lymph % (Auto) 4.1 L [place] % (Auto) 5.8 Eos % (Auto) 0.7 Baso % (Auto) 0.2 Absolute Neuts (auto) 20.4 H Absolute Lymphs (auto) 0.95 Nucleated RBC % 0 Differential Comment SCANNED Sodium 130 L Potassium 3.8 Chloride 97 L Carbon Dioxide 28.0 Anion Gap 5 BUN 19 H Creatinine 1.10 Estim Creat Clear Calc 57.41 Est GFR (MDRD) Af Amer 85 Est GFR (MDRD) Non-Af 70 BUN/Creatinine Ratio 17.3 Glucose 126 H Lactic Acid 1.5 Calcium 8.7 Total Bilirubin 0.40 AST 24 ALT 36 Alkaline Phosphatase 82 B-Natriuretic Peptide 774.5 H Total Protein 7.2 Albumin 3.2 Globulin 4.0 Albumin/Globulin Ratio 0.8 L Urine Color Yellow Urine Clarity Sl. Cloudy Urine pH 6.5 Ur Specific [place] 1.010 Urine Protein 15 H Urine Glucose (UA) Normal Urine Ketones Negative Urine Occult Blood 25 H Urine Nitrite Negative Urine Bilirubin Negative Urine Urobilinogen Normal Ur Leukocyte Esterase 25 H Urine RBC 0-5 SEEN Urine WBC 0-5 SEEN Ur Squamous Epith Cells 0-5 SEEN Urine Bacteria 0 SEEN Urine Mucus 0 SEEN Radiography Diagnostic Testing: Clinical Impression(s) from Imaging Studies Chest X-Ray 09/07/23 13:05 IMPRESSION: Cardiomegaly. Increased linear markings in the lingular segment of the left upper lobe suggestive of linear atelectasis and/or scarring. Electronically Signed: Clifton Okeefe MD at 13:23 EDT , EKG Initial EKG: Attestation: I personally reviewed and interpreted this EKG as follows: Comments: Sinus tachycardia with a ventricular rate of 111 bpm. Noted PVC. Left bundle branch block is noted which is old comparing to August 05, 2023 Management Discussion w/another healthcare provider: Hospitalist Treatment and Re-Evaluation :: I have personally performed a face to face assessment of the patient and have reviewed the SIXTO Note. I performed a substantive portion of the visit including all aspects of the following. My wing findings include: History is 72-year-old male with history of heart failure with preserved ejection fraction states that he is developed significant lower extremity and abdominal swelling over the past several days. He recently stopped taking his metoprolol spironolactone and lisinopril. He is continued on the Lasix. He notes that he has had some redness of the left leg that is worsened. No reported urinary retention. Exam is pitting edema of the bilateral lower extremities. There is edema of the abdominal wall with some mild scrotal swelling. Left leg is erythematous on the dorsum of the foot up until the level of the knee. Patient is tachycardic. Lung sounds are clear at the bases. Medical Decison Making 23,000 white count. Negative duplex ultrasound. My independent interpretation of the chest x-ray is no acute findings. BNP 774 EKG is a sinus tachycardia creatinine 1.10 lactic acid 1.5. Patient received antibiotics and plan will be admission for diuresis. Discharge Plan Triage Chief Complaint: Cellulitis ED Midlevel Provider: Cami Rios ED Provider: Dwayne Fontaine Dx/Rx/DC Orders Clinical Impression: Congestive heart failure (CHF), Anasarca, Cellulitis of left lower extremity, Sepsis, Tachycardia Prescriptions: No Action lisinopril 10 mg tablet 20 mg PO DAILY dicyclomine 10 mg capsule 20 mg PO Q6H PRN PRN (Reason: abdominal discomfort) Qty: 30 0RF spironolactone 25 mg tablet 25 mg PO DAILY Qty: 90 3RF furosemide 40 mg tablet 40 mg PO DAILY Qty: 90 3RF metoprolol succinate 50 mg tablet extended release 24 hr 50 mg PO QHS Qty: 30 11RF Primary Care Provider: Tevin Turner Referrals: Tevin Turner MD [Primary Care Provider] -
--- NOTE | 2023-09-07 13:05 | RAD_ITS ---
STUDY: X-RAY CHEST REASON FOR EXAM: Male, 72 years old. Dyspnea. TECHNIQUE: AP and lateral views of the chest. COMPARISON: Comparison is made with prior study August 05, 2023. FINDINGS: EKG electrodes are seen. Increased linear markings in the lingular segment of the left upper lobe suggestive of atelectasis and/or scarring. There is no demonstrated pleural abnormality. There is moderate cardiac enlargement. Normal mediastinum and hussein. Normal visualized pulmonary arteries. There is atherosclerotic calcification of the aortic arch with tortuosity. There are diffuse degenerative changes of the visualized thoracic spine. Normal visualized ribs, clavicles, and shoulders. There is no demonstrated abnormality of the visualized soft tissue structures of the upper abdomen. RAD/Chest PA and Lateral IMPRESSION: Cardiomegaly. Increased linear markings in the lingular segment of the left upper lobe suggestive of linear atelectasis and/or scarring. Electronically Signed: Clifton Okeefe MD at 13:23 EDT ,
[2023-09-07 13:12] LABS: Absolute Lymphocyte Count 0.95 X10^3/uL (0.83-4.51); Absolute Neutrophil Count 20.4 X10^3/uL (2.0-7.7); Basophil# 0.04 X10^3/uL; Basophil% 0.2 % (0-1); Eosinophil# 0.17 X10^3/uL; Eosinophils% 0.7 % (0-5); Hematocrit 40.7 % (40-54); Hemoglobin 13.3 g/dL (13.0-16.5); Lymphocyte # 0.95 X10^3/ul (0.83-4.51); Lymphocyte % 4.1 % (19-41); Mean Corp Hgb Conc 32.7 g/dL (32-36); Mean Corpuscular Hgb 31.2 pg (27.0-32.0); Mean Corpuscular Volume 95.5 fL (80-94); Mean Platelet Vol. 11.1 fl (6.2-12.0); Monocyte# 1.34 X10^3/uL; Monocyte% 5.8 % (0-10); NRBC Flagged by Analyzer 0 % (0-5); Neutrophil % 87.8 % (47-70); POSITIVE DIFFERENTIAL YES; POSITIVE MORPHOLOGY YES; Platelet Count 214 K/mm3 (150-450); RBC Distribution Width SD 44.9 fl (35.1-43.9); Red Blood Count 4.26 M/mm3 (4.6-6.2); White Blood Count 23.2 K/mm3 (4.4-11.0)
--- NOTE | 2023-09-07 13:22 | VDLE_ITS ---
Reason For Study: BLE Swelling RIGHT LEFT GSV is normal. GSV is normal. CFV is compressible, spontaneous, phasic, CFV is compressible, spontaneous, phasic, competent and demonstrates normal competent, and demonstrates normal augmentation. augmentation. FV is compressible, spontaneous, phasic, FV is compressible, spontaneous, phasic, competent and demonstrates normal competent and demonstrates normal augmentation. augmentation. POP V is compressible, spontaneous, phasic, POP V is compressible, spontaneous, phasic, competent and demonstrates normal competent and demonstrates normal augmentation. augmentation. T/P Trunk is compressible. T/P Trunk is compressible. PTV is compressible. PTV is compressible. RT PerV is compressible. LT PerV is compressible. Procedure This is a venous duplex using B-mode, color flow and spectral Doppler. Exam performed portable in ED. The exam was diagnostic. A preliminary report was called and/or faxed to [facility]. VL/Venous Duplex US - Fercho Extrem Interpretation Summary Deep veins of the lower extremities are bilaterally patent and compressible seg mentally. There is no evidence of deep vein thrombosis on either side. Valvular competence appears in tact within the proximal deep venous systems bilaterally. The great saphenous veins appear bila terally patent and compressible segmentally. Ordering Physician: Cami Rios Referring Physician: Tevin Turner Performed By: Luis Miguel Avalos, RVT
[2023-09-07 13:27] LABS: Differential Indicated SCAN CRITERIA MET
[2023-09-07 13:34] LABS: ALB/GLOB Ratio 0.8 RATIO (0.9-2.4); AST(SGOT) 24 U/L (15-37); Alanine Aminotransfer ALT/SGPT 36 U/L (16-61); Albumin, Serum 3.2 g/dL (3.2-5.0); Alkaline Phosphatase 82 U/L (45-117); Anion Gap 5 (5-15); BUN 19 mg/dL (7-18); BUN/Creat Ratio 17.3 RATIO (10-20); Calcium,Total 8.7 mg/dL (8.5-10.1); Chloride 97 mmol/L (98-107); EST Glomerular Filtration Rate 70 mL/min (>60); Est Glom Filt Rate - Afr Amer 85 mL/min (>60); Estimated Creatinine Clearance 57.41 ml/min; Glucose 126 mg/dL (74-106); Potassium 3.8 mmol/L (3.5-5.1); Protein, Total 7.2 g/dL (6.4-8.2); Sodium Level 130 mmol/L (136-145)
[2023-09-07 13:41] LABS: Differential Comment SCANNED
[2023-09-07 13:44] LABS: BNP,B-Type NATRIURETIC PEPTIDE 774.5 pg/mL (0-100)
[2023-09-07 14:07] LABS: Lactic Acid 1.5 mmol/L (0.4-1.9)
[2023-09-07 14:19] LABS: Bacteria 0 SEEN /hpf (None Seen); Mucous, Urine 0 SEEN /hpf (<or=2+)
[2023-09-07] MEDS: Furosemide 100 MG/10 ML Vial 60 MG IV (14:23)
[2023-09-07 14:25] LABS: Color, Urine Yellow (Yellow); Glucose, Dipstick Normal (Normal); Ketone-Dipstick Negative (Negative); Leukocyte Esterase-Dipstick 25 /ul (Negative); Nitrite-Dipstick Negative (Negative); Occult Blood-Urine 25 /ul (Negative); Protein-Dipstick 15 mg/dl (Negative); Urine Bilirubin Dipstick Negative (Negative); Urine Clarity Sl. Cloudy (Clear); Urine Urobilinogen Normal (Normal); Urine pH 6.5 (5.0 - 8.0)
[2023-09-07 14:32] LABS: Red Blood Cells-Urine 0-5 SEEN /hpf (0-5); Squamous Epithelial Cells - UA 0-5 SEEN /hpf (0-5); White Blood Cells 0-5 SEEN /hpf (0-5)
[2023-09-07] MEDS: Piperacil/Tazobactam 3.375 GM in 0.9% Normal Saline (50mL MB+) 50 ML IV (14:33)
--- NOTE | 2023-09-07 15:04 | PCM.HP.STD ---
HPI - General General Date of Admission: 09/07/23 HPI Narrative LILIBETH CRESPO, is a 72 M who presents to the hospital with 3 days of increasing swelling as well as left lower extremity erythema. He has noticed that he had some increasing pain with putting pressure on his left leg so he presented to the hospital. Bilateral Dopplers were negative for DVT. They also noticed that he was having extensive swelling and he even states that he was having scrotal swelling when he would wake up in the morning. He was Lasix and Aldactone but he has discontinued his metoprolol because of side effects and his heart failure was due to alcohol which she no longer drinks so he felt that it be okay to discontinue his home medication. He was given a dose of IV Lasix 60 mg in the ER and is making urine well. White count is elevated 23,000 consistent with a cellulitis he was given a dose of Zosyn and vancomycin. [facility] Medical History Alcohol abuse Alcohol dependence CHF (NYHA class III, ACC/AHA stage C) CHF exacerbation Chronic pain Congestive heart failure (CHF) Essential hypertension HFrEF (heart failure with reduced ejection fraction) (03/07/21) Laceration of right little finger Non-ischemic cardiomyopathy (03/07/21) Restless leg syndrome Home Medications lisinopril 10 mg tablet 20 mg PO DAILY 06/25/23 [History Last Taken 08/31/23] spironolactone 25 mg tablet 25 mg PO DAILY #90 tabs 07/24/23 [Rx Last Taken 08/31/23] dicyclomine 10 mg capsule 20 mg (2 x 10 mg) PO Q6H PRN PRN abdominal discomfort #30 CAPSULES 08/05/23 [Rx Last Taken Unknown] furosemide 40 mg tablet 40 mg PO DAILY #90 tabs 08/15/23 [Rx Last Taken 09/07/23] metoprolol succinate 50 mg tablet,extended release 24 hr 50 mg PO QHS #30 tabs 08/27/23 [Rx Last Taken Unknown] Allergy/AdvReac Type Severity Reaction Status Date / Time amoxicillin Allergy PAIN AND Verified 09/07/23 12:33 DIARRHEA Penicillins Allergy PAIN AND Verified 09/07/23 12:33 DIARRHEA Family History Father Throat cancer smoker Hypertension Mother No cardiac disease Mother currently living, 92 years old with no reported medical issues. Hypertension Surgical History History of left heart catheterization (03/08/21) History of tonsillectomy Hx of hernia repair Social History Smoking Status: Never smoker alcohol intake: former substance use type: does not use caffeine: Yes Type: coffee Number of servings: 4 ROS Constitutional Constitutional: Denies chills, fatigue, fever(s) or malaise Eyes Eyes: Denies blurry vision ENT HEENT: Denies headache(s) or nasal discharge Cardiovascular Cardiovascular: Reports dyspnea on exertion and edema; Denies chest pain or syncope Respiratory/Chest Respiratory/Chest: Denies cough, shortness of breath at rest or shortness of breath with exertion Gastrointestinal Gastrointestinal: Denies constipation, diarrhea, nausea or vomiting Genitourinary Genitourinary: Denies dysuria Integumentary Integumentary: Reports rash Neurologic Neurologic: Denies focal weakness, numbness or tremor(s) Psychiatric Psychiatric: Denies anxiety or depression Vital Signs Vital Signs Vital Signs: 09/07/23 12:34 09/07/23 12:34 09/07/23 12:35 Temperature 95.9 F L 95.9 F L 95.9 F L Temperature Source Temporal Temporal Temporal Pulse Rate 118 H 119 H 119 H Respiratory Rate 20 H 20 H 20 H Blood Pressure 173/104 H 173/104 H 173/104 H Blood Pressure Mean 127 127 127 Pulse Ox 98 98 99 Oxygen Delivery Method Room Air Room Air Room Air 09/07/23 12:58 09/07/23 14:00 09/07/23 14:26 Temperature 98.3 F 98.3 F 98.7 F Temperature Source Oral Oral Pulse Rate 114 H 106 H 108 H Respiratory Rate 16 20 H 20 H Blood Pressure 156/92 H 159/99 H 159/99 H Blood Pressure Mean 113 119 119 Pulse Ox 97 97 97 Oxygen Delivery Method Room Air Room Air Weight Weight: 175 lb Body Mass Index (BMI) 30.9 Physical Exam Narrative General: Alert, Oriented x3, Cooperative, No apparent distress HEENT: Atraumatic, PERRLA, EOMI, Normocephalic Oral: Moist Mucosa Neck: Supple, No JVD Lungs: Clear to auscultation, Normal air movement, No rhonchi, No wheeze, No rales Cardiovascular: Tachycardic, Regular Rhythm, Normal S1, Normal S2, No murmurs Abdomen: Soft, Non Tender, Non-Distended, No Hepato-splenomegaly Extremities: Edema, Capillary Refill Less than 3 Seconds Skin: Left lower extremity cellulitis mostly around the ankle, no signs of abscess Musculoskeletal: No Tenderness to Palpation of Joints or Extremities Neurological: No focal neurological deficits, Motor Exam 5/5 strength throughout, Sensory exam intact to light touch and pain Psych/Mental Status: Normal Affect, Appropriate Results Lab / Micro Data 09/07/23 13:00 09/07/23 13:00 Labs: Laboratory Results - last 24 hr 09/07/23 13:00: WBC 23.2 H, RBC 4.26 L, Hgb 13.3, Hct 40.7, MCV 95.5 H, MCH 31.2, MCHC 32.7, RDW Std Deviation 44.9 H, RDW Coeff of [place] 13.0, Plt Count 214, MPV 11.1, Immature Gran % (Auto) 1.400 H, Neut % (Auto) 87.8 H, Lymph % (Auto) 4.1 L, [place] % (Auto) 5.8, Eos % (Auto) 0.7, Baso % (Auto) 0.2, Absolute Neuts (auto) 20.4 H, Absolute Lymphs (auto) 0.95, Nucleated RBC % 0, Differential Comment SCANNED, Sodium 130 L, Potassium 3.8, Chloride 97 L, Carbon Dioxide 28.0, Anion Gap 5, BUN 19 H, Creatinine 1.10, Estim Creat Clear Calc 57.41, Est GFR (MDRD) Af Amer 85, Est GFR (MDRD) Non-Af 70, BUN/Creatinine Ratio 17.3, Glucose 126 H, Lactic Acid 1.5, Calcium 8.7, Total Bilirubin 0.40, AST 24, ALT 36, Alkaline Phosphatase 82, B-Natriuretic Peptide 774.5 H, Total Protein 7.2, Albumin 3.2, Globulin 4.0, Albumin/Globulin Ratio 0.8 L 09/07/23 14:15: Urine Color Yellow, Urine Clarity Sl. Cloudy, Urine pH 6.5, Ur Specific [place] 1.010, Urine Protein 15 H, Urine Glucose (UA) Normal, Urine Ketones Negative, Urine Occult Blood 25 H, Urine Nitrite Negative, Urine Bilirubin Negative, Urine Urobilinogen Normal, Ur Leukocyte Esterase 25 H, Urine RBC 0-5 SEEN, Urine WBC 0-5 SEEN, Ur Squamous Epith Cells 0-5 SEEN, Urine Bacteria 0 SEEN, Urine Mucus 0 SEEN Imaging Radiology Impression Chest X-Ray 09/07/23 13:05 IMPRESSION: Cardiomegaly. Increased linear markings in the lingular segment of the left upper lobe suggestive of linear atelectasis and/or scarring. Electronically Signed: Clifton Okeefe MD at 13:23 EDT , Assessment & Plan Assessment/Plan (1) Cellulitis of left lower extremity: PLAN: Plan 1. Cellulitis of the left lower extremity ? No sepsis secondary to insurance ? Continue with IV Ancef ? Blood cultures are pending ? No IV fluids secondary to edema 2. Alcohol induced cardiomyopathy with chronic systolic CHF/essential HTN ? Will increase his Lasix to 40 mg p.o. twice daily and continue with Aldactone, he did receive a dose of Lasix 60 mg IV in the ER ? Continue lisinopril ? Blood pressures are stable ? He refuses to take his metoprolol unless there is echocardiographic evidence of the need, his last EF was 50% with mild global hypokinesis of the left ventricle ? We will monitor make adjustments as necessary DVT: Lovenox 75 minutes was spent on direct patient care, including documentation as well as chart review and collaboration with colleagues Charges/Coding Visit Charges Inpatient E&M: 81299 Init Hosp L3
[2023-09-07] MEDS: Vancomycin HCl 2,000 MG in 0.9% Normal Saline (500mL Bag) 500 ML 250 MG IV (15:10)
[2023-09-07 15:40] LABS: Troponin-I HS 74 pg/mL (3.0-78.0)
[2023-09-07] MEDS: Furosemide 40 MG Tablet PO (17:46)
[2023-09-07] MEDS: Cefazolin 1 GM/50 ML BAG IV (20:48)
[2023-09-07] MEDS: 0.9% Saline Lock 10 ML Syringe IV (20:49)
[2023-09-08] MEDS: Dicyclomine 10 MG Capsule 20 MG PO (01:51)
[2023-09-08 03:15] VITALS: BP 160/79; PULSE 102; RESP 16; TEMP 36.8; O2SAT 97
[2023-09-08 05:00] LABS: Absolute Lymphocyte Count 0.68 X10^3/uL (0.83-4.51); Absolute Neutrophil Count 16.5 X10^3/uL (2.0-7.7); Basophil# 0.04 X10^3/uL; Basophil% 0.2 % (0-1); Eosinophil# 0.03 X10^3/uL; Eosinophils% 0.2 % (0-5); Lymphocyte # 0.68 X10^3/ul (0.83-4.51); Lymphocyte % 3.6 % (19-41); Mean Corp Hgb Conc 31.6 g/dL (32-36); Mean Corpuscular Hgb 30.3 pg (27.0-32.0); Mean Platelet Vol. 11.6 fl (6.2-12.0); Monocyte# 1.48 X10^3/uL; Monocyte% 7.8 % (0-10); NRBC Flagged by Analyzer 0 % (0-5); Neutrophil # 16.49 X10^3/uL (2.7-7.7); Neutrophil % 86.3 % (47-70); Platelet Count 206 K/mm3 (150-450); RBC Distribution Width CV 12.9 % (11.6-14.6); RBC Distribution Width SD 45.6 fl (35.1-43.9); Red Blood Count 3.96 M/mm3 (4.6-6.2); White Blood Count 19.1 K/mm3 (4.4-11.0)
[2023-09-08 05:28] LABS: Anion Gap 7 (5-15); BUN 20 mg/dL (7-18); BUN/Creat Ratio 17.7 RATIO (10-20); Calcium,Total 8.7 mg/dL (8.5-10.1); Chloride 101 mmol/L (98-107); Creatinine, Serum 1.13 mg/dL (0.70-1.30); EST Glomerular Filtration Rate 68 mL/min (>60); Est Glom Filt Rate - Afr Amer 82 mL/min (>60); Estimated Creatinine Clearance 57.57 ml/min; Glucose 117 mg/dL (74-106); Potassium 4.2 mmol/L (3.5-5.1); Sodium Level 136 mmol/L (136-145)
[2023-09-08] MEDS: Cefazolin 1 GM/50 ML BAG IV ×3 (05:47→20:44)
[2023-09-08] MEDS: 0.9% Saline Lock 10 ML Syringe IV ×2 (05:48→06:23)
[2023-09-08 05:51] VITALS: BP 168/97; PULSE 89; RESP 18; TEMP 36.7; O2SAT 98
--- NOTE | 2023-09-08 05:53 | ECHOD_ITS ---
Reason For Study: CONGESTIVE HEART FAILURE Procedure This was a 2D Doppler, Color Flow transthoracic echocardiogram. Exam performed portable in patient room. Left Ventricle Mildly dilated left ventricle. The estimated ejection fraction is 30 %. Unable to assess diastolic dysfunction. There is severe global hypokinesis of the left ventricle. Right Ventricle Normal RV size. Normal systolic function. Atria The left atrium is mildly enlarged. Normal right atrium. No doppler evidence for ASD. Mitral Valve There is moderate mitral annular calcification. There is no mitral valve stenosis. Trivial mitral valve insufficiency. Tricuspid Valve There is no tricuspid stenosis. Trivial tricuspid valve insufficiency. Unable to estimate RV systolic pressure due to insufficient tricuspid regurgitant envelope. Aortic Valve Trisinus/trileaflet aortic valve. Aortic sclerosis, no stenosis. There is no aortic stenosis. No aortic valve insufficiency. Pulmonic Valve There is no pulmonic valvular stenosis. Trivial pulmonic valve insufficiency. Great Vessels Normal aortic root. Pericardium/Pleural No pericardial effusion. MMode/2D Measurements & Calculations LVIDd: 5.1 cm IVSd: 1.4 cm LVOT diam: 1.9 cm LVIDs: 4.2 cm LVPWd: 1.3 cm LVOT area: 3.0 cm2 RVDd: 4.4 cm FS: 17.6 % Ao root diam: 3.0 cm LAV(MOD-bp): 68.6 ml LVAd ap4: 32.3 cm2 LAV(MOD-bp) Indexed: 36.8 ml/m2 LVLd ap4: 8.4 cm LAV(MOD-sp2): 75.1 ml EDV(MOD-sp4): 99.5 ml LAV(MOD-sp4): 55.5 ml EDV(sp4-el): 104.8 ml LVAs ap4: 26.4 cm2 LVLs ap4: 7.7 cm ESV(MOD-sp4): 75.1 ml ESV(sp4-el): 77.2 ml EF(MOD-sp4): 24.5 % EF(sp4-el): 26.4 % LVAd ap2: 37.5 cm2 SV(MOD-sp4): 24.4 ml SV(MOD-sp2): 36.9 ml LVLd ap2: 8.5 cm EDV(MOD-sp2): 134.6 ml EDV(sp2-el): 139.7 ml LVAs ap2: 30.4 cm2 LVLs ap2: 7.9 cm ESV(MOD-sp2): 97.7 ml ESV(sp2-el): 99.4 ml EF(MOD-sp2): 27.4 % SV(sp4-el): 27.6 ml LA dimension(2D): 4.8 cm LA A4 area: 18.6 cm2 RA A4 area: 14.0 cm2 TAPSE: 1.5 cm Doppler Measurements & Calculations Lat Peak E' Yannick: 3.0 cm/sec Med Peak E' Yannick: 3.2 cm/sec MV V2 max: 209.2 cm/sec MV max P.5 mmHg MV V2 mean: 118.0 cm/sec MV mean P.9 mmHg MV V2 VTI: 27.2 cm MVA(VTI): 1.9 cm2 Ao V2 max: 185.6 cm/sec LV V1 max: 113.4 cm/sec SV(LVOT): 52.5 ml Ao max P.8 mmHg LV V1 max P.1 mmHg Ao V2 mean: 132.7 cm/sec LV V1 mean P.8 mmHg Ao mean P.7 mmHg LV V1 mean: 80.6 cm/sec Ao V2 VTI: 26.5 cm LV V1 VTI: 17.8 cm AV (velocity ratio): 0.67 SEGUNDO(I,D): 2.0 cm2 SEGUNDO(V,D): 1.8 cm2 PA V2 max: 79.4 cm/sec PA max PG (full): 1.2 mmHg ECHO/Echo Complete Interpretation Summary The estimated ejection fraction is 30 %. Unable to assess diastolic dysfunction. There is severe global hypokinesis of the left ventricle. The left atrium is mildly enlarged. Trivial mitral valve insufficiency. Ordering Physician: En Ferrari Referring Physician: Tevin Turner Performed By: Amanda Krishna RDCS
[2023-09-08] MEDS: Morphine 2 MG/ML Syringe IV (06:23)
--- NOTE | 2023-09-08 10:14 | CASEMGMT ---
RN JENNIFER Assessment: Face to Face with pt for initial transition planning/care coordination assessment. RN JENNIFER introduced self and role at [facility], pt voices understanding and consents to assessment. Pt is A&O x4 and answers all questions appropriately at this time. Care providers, pharmacy, and demographics verified/updated. Admitting Dx: other cardiomyopathies PCP: Tevin Turner Specialists: [facility] Preferred Pharmacy: [facility] Insurance: [employer] MCR ADV Prescription Benefit: yes LNOK: Son Everardo is LNOK, however pt want his nephew Luis Miguel to be his emergency contact. Luis Miguel Arvizu [phone] Living Arrangements: Pt lives at home with a roommate. Pts home is 2 story with 4 steps to enter. Pt has a main floor living set up and rents out the upstairs. Pt is independent with ADLs and IADLs and is still working. Transportation: Pt drives self and denies concerns with transportation. DME: None HHC/SNF: No history Pt states no concerns with going home at time of dc. Pt states no further concerns/needs. CM to follow. Advised pt to ask CM if any further question/concerns/needs arise, voices understanding. Pt Goal: Home Plan: Home with no needs Jacqueline Albert MSN, RN, CCM
[2023-09-08 10:36] VITALS: BP 156/80; PULSE 115; RESP 16; TEMP 36.8; O2SAT 98
[2023-09-08] MEDS: Enoxaparin 40 MG/0.4 ML Syringe SC (10:37)
[2023-09-08] MEDS: Furosemide 40 MG Tablet PO (10:37)
[2023-09-08] MEDS: Spironolactone 25 MG Tablet PO ×2 (10:37→20:34)
[2023-09-08] MEDS: Lisinopril 20 MG Tablet PO (10:37)
--- NOTE | 2023-09-08 13:38 | PCM.PN.HOSP ---
Reason for Visit Reason for Visit: Diagnoses Cellulitis of left lower limb (09/07/23) Subjective Subjective Patient was seen and examined today, he complains of bilateral leg pain, he does have bilateral leg edema worse on the left, I asked the patient if he had any history of abnormal echocardiogram and he told me no, his echocardiogram today showed an EF of 30%. In reviewing the patient's medical record from Dr. Nickerson's office it appears that the patient was diagnosed with a nonischemic cardiomyopathy years ago and his ejection fraction at 1 time was 15%. Objective Data Objective Data Vital Signs: Vital Signs Temp Pulse Resp BP Pulse Ox O2 Del Method 98.2 F 115 H 16 156/80 H 98 Room Air 09/08/23 10:36 09/08/23 10:36 09/08/23 10:36 09/08/23 10:36 09/08/23 10:36 09/08/23 10:36 Oxygen Delivery Method Room Air Weight: 80.9 kg Body Mass Index (BMI) 30.6 Intake & Output: Intake and Output for Last 24 Hours 09/06/23 09/07/23 09/08/23 23:59 23:59 23:59 Intake Total 760 / 760 400 / 400 Balance 760 / 760 400 / 400 Lab / Micro Data 09/08/23 03:49 09/08/23 03:49 Labs: Laboratory Results - last 24 hr 09/07/23 13:00: Differential Comment SCANNED, Lactic Acid 1.5, B-Natriuretic Peptide 774.5 H 09/07/23 14:15: Urine Color Yellow, Urine Clarity Sl. Cloudy, Urine pH 6.5, Ur Specific [place] 1.010, Urine Protein 15 H, Urine Glucose (UA) Normal, Urine Ketones Negative, Urine Occult Blood 25 H, Urine Nitrite Negative, Urine Bilirubin Negative, Urine Urobilinogen Normal, Ur Leukocyte Esterase 25 H, Urine RBC 0-5 SEEN, Urine WBC 0-5 SEEN, Ur Squamous Epith Cells 0-5 SEEN, Urine Bacteria 0 SEEN, Urine Mucus 0 SEEN 09/07/23 15:10: Troponin I High Sens 74 09/08/23 03:49: WBC 19.1 H, RBC 3.96 L, Hgb 12.0 L, Hct 38.0 L, MCV 96.0 H, MCH 30.3, MCHC 31.6 L, RDW Std Deviation 45.6 H, RDW Coeff of Rosario 12.9, Plt Count 206, MPV 11.6, Immature Gran % (Auto) 1.900 H, Neut % (Auto) 86.3 H, Lymph % (Auto) 3.6 L, Bailey % (Auto) 7.8, Eos % (Auto) 0.2, Baso % (Auto) 0.2, Absolute Neuts (auto) 16.5 H, Absolute Lymphs (auto) 0.68 L, Nucleated RBC % 0, Sodium 136, Potassium 4.2, Chloride 101, Carbon Dioxide 28.0, Anion Gap 7, BUN 20 H, Creatinine 1.13, Estim Creat Clear Calc 57.57, Est GFR (MDRD) Af Amer 82, Est GFR (MDRD) Non-Af 68, BUN/Creatinine Ratio 17.7, Glucose 117 H, Calcium 8.7 Radiography Diagnostic Testing: Radiology Impression Venous Doppler Study 09/07/23 13:22 Interpretation Summary Deep veins of the lower extremities are bilaterally patent and compressible segmentally. There is no evidence of deep vein thrombosis on either side. Valvular competence appears intact within the proximal deep venous systems bilaterally. The great saphenous veins appear bilaterally patent and compressible segmentally. Ordering Physician: Cami Rios Referring Physician: Tevin Turner Performed By: Luis Miguel Avalos RVT Echocardiogram 09/08/23 05:53 Interpretation Summary The estimated ejection fraction is 30 %. Unable to assess diastolic dysfunction. There is severe global hypokinesis of the left ventricle. The left atrium is mildly enlarged. Trivial mitral valve insufficiency. Ordering Physician: En Ferrari Referring Physician: Tevin Turner Performed By: Amanda Krishna RDCS Physical Exam Const alert, oriented x3 and no apparent distress General Appearance: cooperative, well kempt and well developed Orientation / Consciousness: awake, oriented to person, oriented to place and oriented to time HEENT normocephalic, head/scalp atraumatic and moist oral mucous membranes Eyes PERRL, EOMs intact bilaterally and conjunctivae normal Neck supple, no JVD, thyroid normal and no carotid bruits General: trachea midline Resp normal respiratory effort, no retractions, no use of accessory muscles and clear to auscultation bilaterally Auscultation: Negative for rales, rhonchi or wheezes Cardio regular rate, regular rhythm, S1 normal heart sound, S2 normal heart sound, no murmurs, no rub and no gallops GI normal to inspection, nondistended, normoactive bowel sounds, soft to palpation, non-tender and non-distended Extremity Extremity Narrative: Patient has severe edema of his legs-left worse than right Skin no rashes or lesions noted General Skin Exam: no breakdown Neuro oriented x3, CN's II-XII intact bilaterally, moves all extremities, no focal motor deficits and no sensory deficits noted Sensorium / Orientation: awake and alert Speech: speech normal Psych affect normal Assessment & Plan Assessment/Plan (1) Cellulitis of left lower extremity: PLAN: Plan 1. Cellulitis of the left lower extremity-patient will remain on Zosyn for now #2 chronic systolic congestive heart failure-I have changed the patient to IV Lasix and he will be monitored on telemetry #3 severe lower extremity edema secondary to #2-patient's echocardiogram today showed an EF of 30% #4 essential hypertension-patient will remain on his present medications #5 nonischemic cardiomyopathy-complicates care, management, recovery, and prognosis Total clinical time spent by myself addressing the patient's medical issues, reviewing all of his data, and collaborating with patient's care team: 35 minutes Charges/Coding Visit Charges Inpatient E&M: 50279 Subs Hosp L2
[2023-09-08] MEDS: Furosemide 40 MG/4 ML Vial IV ×2 (14:55→20:34)
[2023-09-08 15:00] VITALS: BP 137/87; PULSE 100; RESP 16; TEMP 36.8; O2SAT 98
[2023-09-08 20:34] VITALS: BP 145/78; PULSE 95
[2023-09-08] MEDS: Metoprolol(XL)Succ 50 MG Tablet PO (20:34)
[2023-09-08 21:00] VITALS: BP 145/78; PULSE 95; RESP 16; TEMP 36.8; O2SAT 98
[2023-09-09 03:25] VITALS: BP 126/70; PULSE 88; RESP 18; TEMP 36.7; O2SAT 97
[2023-09-09] MEDS: Cefazolin 1 GM/50 ML BAG IV (05:14)
[2023-09-09] MEDS: Furosemide 40 MG/4 ML Vial IV (05:15)
[2023-09-09 07:10] LABS: Anion Gap 7 (5-15); BUN 21 mg/dL (7-18); BUN/Creat Ratio 20.8 RATIO (10-20); Calcium,Total 8.7 mg/dL (8.5-10.1); Chloride 99 mmol/L (98-107); Creatinine, Serum 1.01 mg/dL (0.70-1.30); EST Glomerular Filtration Rate 77 mL/min (>60); Est Glom Filt Rate - Afr Amer 94 mL/min (>60); Estimated Creatinine Clearance 64.41 ml/min; Glucose 142 mg/dL (74-106); Potassium 4.1 mmol/L (3.5-5.1); Sodium Level 134 mmol/L (136-145)
[2023-09-09] MEDS: Furosemide 500 MG in Empty Viaflex 50 mL 1 EACH CONT INF (10:31)
[2023-09-09] MEDS: Lisinopril 20 MG Tablet PO ×2 (10:35→21:03)
[2023-09-09] MEDS: metOLazone 5 MG Tablet PO (10:35)
[2023-09-09] MEDS: Enoxaparin 40 MG/0.4 ML Syringe SC (10:37)
[2023-09-09] MEDS: Spironolactone 25 MG Tablet PO ×2 (10:37→21:03)
[2023-09-09 10:39] VITALS: BP 123/71; PULSE 89; RESP 16; TEMP 36.8; O2SAT 98
--- NOTE | 2023-09-09 12:41 | PN.HOSP_ITS ---
Reason for Visit Reason for Visit: Diagnoses Cellulitis of left lower limb (09/07/23) Subjective Subjective Patient was seen and examined today, he has not hypotensive, his legs however still continued to be very edematous. I have elected to place the patient on a Lasix drip, I will also increase the patient's lisinopril. BMP will be repeated tomorrow, patient's left lower leg does not appear overly warm and reddened today. Objective Data Objective Data Vital Signs: Vital Signs Temp Pulse Resp BP Pulse Ox O2 Del Method 98.2 F 89 16 123/71 H 98 Room Air 09/09/23 10:39 09/09/23 10:39 09/09/23 10:39 09/09/23 10:39 09/09/23 10:39 09/09/23 10:39 Oxygen Delivery Method Room Air Weight: 80.9 kg Body Mass Index (BMI) 30.6 Intake & Output: Intake and Output for Last 24 Hours 09/07/23 09/08/23 09/09/23 23:59 23:59 23:59 Intake Total 760 / 760 1660 / 1900 650 / 650 Balance 760 / 760 1660 / 1900 650 / 650 Lab / Micro Data 09/08/23 03:49 09/09/23 05:48 Labs: Laboratory Results - last 24 hr 09/09/23 05:48: Sodium 134 L, Potassium 4.1, Chloride 99, Carbon Dioxide 28.0, Anion Gap 7, BUN 21 H, Creatinine 1.01, Estim Creat Clear Calc 64.41, Est GFR (MDRD) Af Amer 94, Est GFR (MDRD) Non-Af 77, BUN/Creatinine Ratio 20.8 H, Glucose 142 H, Calcium 8.7 Radiography Diagnostic Testing: Radiology Impression Echocardiogram 09/08/23 05:53 Interpretation Summary The estimated ejection fraction is 30 %. Unable to assess diastolic dysfunction. There is severe global hypokinesis of the left ventricle. The left atrium is mildly enlarged. Trivial mitral valve insufficiency. Ordering Physician: En Ferrari Referring Physician: Tevin Turner Performed By: Amanda Krishna RDCS Physical Exam Narrative alert, oriented x3 and no apparent distress General Appearance: cooperative, well kempt and well developed Orientation / Consciousness: awake, oriented to person, oriented to place and oriented to time HEENT normocephalic, head/scalp atraumatic and moist oral mucous membranes Eyes PERRL, EOMs intact bilaterally and conjunctivae normal Neck supple, no JVD, thyroid normal and no carotid bruits General: trachea midline Resp normal respiratory effort, no retractions, no use of accessory muscles and clear to auscultation bilaterally Auscultation: Negative for rales, rhonchi or wheezes Cardio regular rate, regular rhythm, S1 normal heart sound, S2 normal heart sound, no murmurs, no rub and no gallops GI normal to inspection, nondistended, normoactive bowel sounds, soft to palpation, non-tender and non-distended Extremity Extremity Narrative: Patient has severe edema of his legs-left worse than right, there is some mild reddening of the patient's left lower leg noted Skin no rashes or lesions noted General Skin Exam: no breakdown Neuro oriented x3, CN's II-XII intact bilaterally, moves all extremities, no focal mo tor deficits and no sensory deficits noted Sensorium / Orientation: awake and alert Speech: speech normal Psych affect normal Assessment & Plan Assessment/Plan (1) Cellulitis of left lower extremity: PLAN: Plan 1. Cellulitis of the left lower extremity-I have decided to transition the patient over to Keflex, Zosyn was stopped #2 chronic systolic congestive heart failure-I have changed the patient to IV Lasix drip and he will be monitored on telemetry #3 severe lower extremity edema secondary to #2-patient's echocardiogram showed an EF of 30% #4 essential hypertension-patient will remain on his present medications #5 nonischemic cardiomyopathy-complicates care, management, recovery, and prognosis #6 nonsustained V. tach-patient had a short run of what appeared to be V. tach or wide-complex SVT today-we will continue to monitor the patient on telemetry, this episode was only a few beats. Total clinical time spent by myself addressing the patient's medical issues, reviewing all of his data, and collaborating with patient's care team: 35 minutes Charges/Coding Visit Charges Inpatient E&M: 74331 Subs Hosp L2
[2023-09-09] MEDS: Cephalexin 500 MG Capsule PO ×2 (13:59→21:03)
[2023-09-09 17:07] VITALS: BP 144/81; PULSE 80; RESP 16; TEMP 36.8; O2SAT 98
[2023-09-09 21:01] VITALS: BP 132/85; PULSE 94; RESP 18; TEMP 36.7; O2SAT 97
[2023-09-09 21:03] VITALS: BP 132/85; PULSE 94
[2023-09-09] MEDS: Metoprolol(XL)Succ 50 MG Tablet PO (21:03)
[2023-09-10 03:00] VITALS: BP 127/75; PULSE 73; RESP 18; TEMP 36.4; O2SAT 98
[2023-09-10] MEDS: Cephalexin 500 MG Capsule PO ×3 (05:17→20:53)
[2023-09-10 06:34] LABS: Anion Gap 10 (5-15); BUN 29 mg/dL (7-18); BUN/Creat Ratio 27.6 RATIO (10-20); Calcium,Total 9.2 mg/dL (8.5-10.1); Chloride 91 mmol/L (98-107); Creatinine, Serum 1.05 mg/dL (0.70-1.30); EST Glomerular Filtration Rate 74 mL/min (>60); Est Glom Filt Rate - Afr Amer 89 mL/min (>60); Estimated Creatinine Clearance 61.95 ml/min; Glucose 128 mg/dL (74-106); Potassium 2.7 mmol/L (3.5-5.1); Sodium Level 133 mmol/L (136-145)
[2023-09-10] MEDS: Potassium Chloride Oral Tablet 20 MEQ 60 MEQ PO (06:50)
[2023-09-10 09:23] VITALS: BP 140/89; PULSE 89; RESP 18; TEMP 36.6; O2SAT 97
[2023-09-10] MEDS: Enoxaparin 40 MG/0.4 ML Syringe SC (09:32)
[2023-09-10] MEDS: Spironolactone 25 MG Tablet PO ×2 (09:37→20:53)
[2023-09-10] MEDS: Lisinopril 20 MG Tablet PO ×2 (09:37→20:55)
[2023-09-10] MEDS: Potassium Chloride Oral Tablet 20 MEQ 40 MEQ PO (09:37)
[2023-09-10 09:52] LABS: Hemoglobin 12.2 g/dL (13.0-16.5); Mean Corp Hgb Conc 33.9 g/dL (32-36); Mean Corpuscular Hgb 31.4 pg (27.0-32.0); Mean Corpuscular Volume 92.5 fL (80-94); Mean Platelet Vol. 11.7 fl (6.2-12.0); Platelet Count 247 K/mm3 (150-450); RBC Distribution Width CV 12.5 % (11.6-14.6); RBC Distribution Width SD 42.8 fl (35.1-43.9); Red Blood Count 3.89 M/mm3 (4.6-6.2); White Blood Count 17.7 K/mm3 (4.4-11.0)
[2023-09-10 10:00] LABS: Magnesium 2.1 mg/dL (1.6-2.6)
[2023-09-10 10:08] LABS: Phosphorus 4.2 mg/dL (2.5-4.9)
[2023-09-10] MEDS: Furosemide 40 MG Tablet PO (10:24)
[2023-09-10 11:55] LABS: Potassium 3.2 mmol/L (3.5-5.1)
--- NOTE | 2023-09-10 13:42 | PCM.PN.HOSP ---
Reason for Visit Reason for Visit: Diagnoses Cellulitis of left lower limb (09/07/23) Subjective Subjective No acute events overnight. Patient seen at bedside this morning. Sitting up comfortably in bed, conversing normally, no acute distress. States that his left leg still feels moderately swollen from his normal but is improving from admission. He was up and walking around the room this morning and his left leg pain with ambulation is significantly improved. He reported very good urine output on the IV Lasix drip. He otherwise denies any acute concerns this morning. Objective Data Objective Data Vital Signs: Vital Signs Temp Pulse Resp BP Pulse Ox O2 Del Method 97.8 F 89 18 140/89 H 97 Room Air 09/10/23 09:23 09/10/23 09:23 09/10/23 09:23 09/10/23 09:23 09/10/23 09:23 09/10/23 09:24 Oxygen Delivery Method Room Air Weight: 80.9 kg Body Mass Index (BMI) 30.6 Intake & Output: Intake and Output for Last 24 Hours 09/08/23 09/09/23 09/10/23 23:59 23:59 23:59 Intake Total 1660 / 1900 2050 / 2410 383.13 / 383.13 Output Total 1100 / 2400 1900 / 1900 Balance 1660 / 1900 950 / 10 -1516.87 / -1516.87 Lab / Micro Data 09/10/23 04:53 09/10/23 11:34 Labs: Laboratory Results - last 24 hr 09/10/23 04:53: WBC 17.7 H, RBC 3.89 L, Hgb 12.2 L, Hct 36.0 L, MCV 92.5, MCH 31.4, MCHC 33.9 D, RDW Std Deviation 42.8, RDW Coeff of Rosario 12.5, Plt Count 247, MPV 11.7, Sodium 133 L, Potassium 2.7 L*, Chloride 91 L, Carbon Dioxide 32.0, Anion Gap 10, BUN 29 H, Creatinine 1.05, Estim Creat Clear Calc 61.95, Est GFR (MDRD) Af Amer 89, Est GFR (MDRD) Non-Af 74, BUN/Creatinine Ratio 27.6 H, Glucose 128 H, Calcium 9.2, Phosphorus 4.2, Magnesium 2.1 09/10/23 11:34: Potassium 3.2 L Micro: Microbiology 09/07/23 13:40 Blood Culture (Wb) - Anticubital Left Blood Culture - Preliminary No growth in 48 hours. 09/07/23 13:00 Blood Culture (Wb) - Anticubital Left Blood Culture - Preliminary No growth in 48 hours. Physical Exam Const alert, oriented x3 and no apparent distress Constitutional Narrative: Pleasant elderly male, russ appearance, otherwise sitting up comfortably in bed, conversing normally, in no acute distress. General Appearance: cooperative and comfortable HEENT normocephalic, head/scalp atraumatic, hearing grossly normal bilaterally, nasal mucous membranes and turbinates normal and moist oral mucous membranes Eyes PERRL, EOMs intact bilaterally and conjunctivae normal Neck full ROM Chest inspection of chest normal Resp normal respiratory effort, normal air movement, no use of accessory muscles and clear to auscultation bilaterally Cardio regular rate, regular rhythm, no murmurs and peripheral pulses 2+ throughout GI normal to inspection, nondistended, normoactive bowel sounds, soft to palpation, non-tender and non-distended Back/Spine normal ROM Extremity full ROM Extremity Narrative: Left leg with mild to moderate swelling noted up to the hip. Left leg redness improved from admission. Right leg with only trace edema. Neuro no focal motor deficits and no sensory deficits noted Speech: speech normal Psych mental status grossly normal Assessment & Plan Assessment/Plan (1) Cellulitis of left lower extremity: (2) Congestive heart failure (CHF): (3) Non-ischemic cardiomyopathy: PLAN: Plan Patient is a 72-year-old male who presented to [facility] ED on 09/07/2023 with worsening left lower extremity edema and erythema. 1. Left lower extremity edema with cellulitis, improving ? Presented with left lower extremity edema and erythema. Lower extremity ultrasound negative for DVT. Suspected secondary to cellulitis and volume overload from CHF exacerbation. Initially treated with IV Zosyn, de-escalated to p.o. Keflex on 09/08, will continue this for now and plan to complete 7-day course of antibiotics total. Continue diuresis as noted below. 2. CHF exacerbation History of alcohol cardiomyopathy, follows with outpatient cardiology. Noted to have acute HFrEF in 02/2021 with EF 15%. Heart cath at that time showed normal coronary arteries. Had great recovery of heart function with medical management and alcohol cessation, echo in 01/2022 showed EF 50%. Last cardiology visit was on 06/25/2023, was noted to be stable at that time, no medication changes were made. Patient reports recent nonadherence to all home medications as he felt like the beta-russel was causing side effects and he was symptomatically stable from a heart failure standpoint. Chest x-ray on admit showed cardiomegaly with pulmonary edema. BNP 724. Echo on 09/07 showed EF 30%, severe global hypokinesis of left interval, mildly enlarged left atrium, no severe valvular disease. ? Started on IV Lasix on admission, then increased to Lasix drip. Has had good urine output and BNP is downtrending. Transitioned off Lasix drip back to intermittent IV Lasix dosing on 09/09 with plan to hopefully de-escalate to p.o. Lasix on 09/10. Continue home Toprol, lisinopril, spironolactone. Continue to monitor BMP daily and urine output. Plan for close outpatient follow-up with cardiology post-discharge. 3. Nonsustained V. tach ? Had apparent short run of V. tach versus wide-complex SVT on 09/08 on telemetry. Noted to have fairly significant hypokalemia as noted below, replacing electrolytes as needed. Continue treatment as above. Continue to monitor telemetry. 4. Hypokalemia ? Potassium 2.7 on 09/09, presumed secondary to Lasix drip. Magnesium and phosphorus normal. Repleting potassium as needed. DVT prophylaxis: Lovenox CODE STATUS: DNR CCA, DNI Expected disposition: Home, 1 to 2 days Total clinical time spent by myself addressing the patient's medical issues, reviewing all the data, and collaborating with patient's care team: 35 minutes. Charges/Coding Visit Charges Inpatient E&M: 61208 Subs Hosp L2
[2023-09-10 14:02] LABS: BNP,B-Type NATRIURETIC PEPTIDE 446.5 pg/mL (0-100)
[2023-09-10 15:05] VITALS: BP 145/80; PULSE 70; RESP 18; TEMP 36.6; O2SAT 97
[2023-09-10 20:50] VITALS: BP 161/108; PULSE 107; RESP 18; TEMP 36.7; O2SAT 98
[2023-09-10 20:54] VITALS: BP 161/108; PULSE 107
[2023-09-10] MEDS: Furosemide 40 MG/4 ML Vial IV (20:54)
[2023-09-10] MEDS: Metoprolol(XL)Succ 50 MG Tablet PO (20:54)
[2023-09-10] MEDS: 0.9% Saline Lock 10 ML Syringe IV (20:58)
[2023-09-10 23:13] VITALS: BP 143/99; PULSE 86; RESP 16; TEMP 36.4; O2SAT 99
[2023-09-11 02:29] LABS: Anion Gap 8 (5-15); BUN 36 mg/dL (7-18); BUN/Creat Ratio 29.5 RATIO (10-20); Chloride 92 mmol/L (98-107); Creatinine, Serum 1.22 mg/dL (0.70-1.30); EST Glomerular Filtration Rate 62 mL/min (>60); Est Glom Filt Rate - Afr Amer 75 mL/min (>60); Estimated Creatinine Clearance 53.32 ml/min; Glucose 130 mg/dL (74-106); Potassium 3.3 mmol/L (3.5-5.1); Sodium Level 131 mmol/L (136-145)
[2023-09-11 03:20] VITALS: BP 139/78; PULSE 82; RESP 16; TEMP 36.4; O2SAT 94
[2023-09-11] MEDS: Cephalexin 500 MG Capsule PO (06:01)
[2023-09-11] MEDS: 0.9% Saline Lock 10 ML Syringe IV ×2 (06:01→21:02)
[2023-09-11] MEDS: Furosemide 40 MG/4 ML Vial IV (06:01)
[2023-09-11] MEDS: Potassium Chloride Oral Tablet 20 MEQ 40 MEQ PO ×2 (06:01→08:45)
[2023-09-11 08:36] VITALS: BP 150/84; PULSE 88; RESP 14; TEMP 37; O2SAT 96
[2023-09-11] MEDS: Enoxaparin 40 MG/0.4 ML Syringe SC (08:40)
[2023-09-11] MEDS: Lisinopril 20 MG Tablet PO (08:40)
[2023-09-11] MEDS: Spironolactone 50 MG Tablet PO (08:46)
--- NOTE | 2023-09-11 11:47 | CT_ITS ---
CT LEFT LOWER EXTREMITY WITH 3-D IMAGING CLINICAL INDICATION: severe left leg edema, DVT neg, r/o abscess TECHNIQUE: Axial CT images of the LEFT lower extremity was performed with 100 mL of Isovue-300 IV contrast material. Coronal and sagittal reformats as well as 3D reformats were provided. RADIATION DOSAGE (If Supplied By Facility): CTDIvol = ( 24.47 ) mGy, DLP = ( 1587.74 ) mGycm COMPARISON: No relevant prior comparison study available FINDINGS: Bones: Osseous structures are normal without evidence of fracture or dislocation. No lytic or blastic osseous masses. Soft Tissues: Moderate sized right hydrocele with septations. Moderate-sized knee joint effusion. Diffuse increased subcutaneous swelling more pronounced in the posterior lateral aspect of the left lower extremity suggestive of a cellulitis and/or fluid overload. No focal abscess or mass lesion is seen. CT/Extremity Lower WITH Contrast IMPRESSION: Moderate-sized left knee joint effusion. Subcutaneous soft tissue edema as described. No focal mass or abscess is seen. The underlying bony structures are unremarkable. Moderate sized right hydrocele. Electronically Signed: Clifton Okeefe MD at 14:01 EDT ,
[2023-09-11] MEDS: Doxycycline 100 MG in Dextrose 5%-Water (250mL Bag) 250 ML 250 MG IV ×2 (13:16→21:01)
[2023-09-11 14:30] VITALS: BP 156/94; PULSE 97; RESP 16; TEMP 36.4; O2SAT 98
--- NOTE | 2023-09-11 15:15 | PCM.PN.HOSP ---
Reason for Visit Reason for Visit: Diagnoses Other cardiomyopathies (09/07/23) Heart failure, unspecified (09/07/23) Cellulitis of left lower limb (09/07/23) Subjective Subjective No acute events overnight. Patient seen at bedside this morning. Was standing at the edge of the bed, in no acute distress. He reports continued left lower extremity swelling, similar to previous days. Continues to report good urine output with the IV Lasix. He is concerned about possible discharge today given that his left lower extremity continues to be much more swollen than normal. Otherwise has no acute concerns. Objective Data Objective Data Vital Signs: Vital Signs Temp Pulse Resp BP Pulse Ox O2 Del Method 97.6 F L 97 16 156/94 H 98 Room Air 09/11/23 14:30 09/11/23 14:30 09/11/23 14:30 09/11/23 14:30 09/11/23 14:30 09/11/23 14:30 Oxygen Delivery Method Room Air Weight: 80.9 kg Body Mass Index (BMI) 30.6 Intake & Output: Intake and Output for Last 24 Hours 09/09/23 09/10/23 09/11/23 23:59 23:59 23:59 Intake Total 2050 / 2410 1683.13 / 1683.13 620 / 620 Output Total 1100 / 2400 3825 / 3825 1550 / 1550 Balance 950 / 10 -2141.87 / -2141.87 -930 / -930 Lab / Micro Data 09/10/23 04:53 09/11/23 01:57 Labs: Laboratory Results - last 24 hr 09/11/23 01:57: Sodium 131 L, Potassium 3.3 L, Chloride 92 L, Carbon Dioxide 31.0, Anion Gap 8, BUN 36 H, Creatinine 1.22, Estim Creat Clear Calc 53.32, Est GFR (MDRD) Af Amer 75, Est GFR (MDRD) Non-Af 62, BUN/Creatinine Ratio 29.5 H, Glucose 130 H, Calcium 9.0 Micro: Microbiology 09/07/23 13:40 Blood Culture (Wb) - Anticubital Left Blood Culture - Preliminary No growth in 48 hours. 09/07/23 13:00 Blood Culture (Wb) - Anticubital Left Blood Culture - Preliminary No growth in 48 hours. Radiography Diagnostic Testing: Radiology Impression Lower Extremity CT 09/11/23 11:47 IMPRESSION: Moderate-sized left knee joint effusion. Subcutaneous soft tissue edema as described. No focal mass or abscess is seen. The underlying bony structures are unremarkable. Moderate sized right hydrocele. Electronically Signed: Clifton Okeefe MD at 14:01 EDT , Physical Exam Const alert, oriented x3 and no apparent distress Constitutional Narrative: Pleasant elderly male, russ appearance, otherwise standing comfortably at edge of bed, conversing normally, in no acute distress. General Appearance: cooperative and comfortable HEENT normocephalic, head/scalp atraumatic, hearing grossly normal bilaterally, nasal mucous membranes and turbinates normal and moist oral mucous membranes Eyes PERRL, EOMs intact bilaterally and conjunctivae normal Neck full ROM Chest inspection of chest normal Resp normal respiratory effort, normal air movement, no use of accessory muscles and clear to auscultation bilaterally Cardio regular rate, regular rhythm, no murmurs and peripheral pulses 2+ throughout GI normal to inspection, nondistended, normoactive bowel sounds, soft to palpation, non-tender and non-distended Back/Spine normal ROM Extremity full ROM Extremity Narrative: Left leg with moderate to severe swelling noted to just above the knee. Mild to moderate erythema noted as well. Appears significantly different than right lower extremity, which appears normal. Neuro no focal motor deficits and no sensory deficits noted Speech: speech normal Psych mental status grossly normal Assessment & Plan Assessment/Plan (1) Cellulitis of left lower extremity: (2) Congestive heart failure (CHF): (3) Non-ischemic cardiomyopathy: (4) Effusion, left knee: PLAN: Plan Patient is a 72-year-old male who presented to [facility] ED on 09/07/2023 with worsening left lower extremity edema and erythema. 1. Left lower extremity edema with cellulitis, left knee joint effusion ? Presented with left lower extremity edema and erythema. Lower extremity ultrasound negative for DVT. Suspected secondary to cellulitis and volume overload from CHF exacerbation. Was initially treated with IV Zosyn then de-escalated to p.o. Keflex on 09/08. Blood cultures negative. Was expected that swelling would improve with diuresis, however it remained significantly swollen despite adequate diuresis. CT left lower extremity with contrast on 09/10 showed moderate size left knee joint effusion, diffuse subcutaneous swelling most pronounced and posterior lateral aspect of left lower extremity suggestive of cellulitis. Radiology consulted for left knee arthrocentesis, will be done on 09/11 and fluid studies will be obtained. Transitioned to IV doxycycline on 09/10 for broader coverage as well. Monitor closely. 2. CHF exacerbation, improving History of alcohol cardiomyopathy, follows with outpatient cardiology. Noted to have acute HFrEF in 02/2021 with EF 15%. Heart cath at that time showed normal coronary arteries. Had great recovery of heart function with medical management and alcohol cessation, echo in 01/2022 showed EF 50%. Last cardiology visit was on 06/25/2023, was noted to be stable at that time, no medication changes were made. Patient reports recent nonadherence to all home medications as he felt like the beta-russel was causing side effects and he was symptomatically stable from a heart failure standpoint. Chest x-ray on admit showed cardiomegaly with pulmonary edema. BNP 724. Echo on 09/07 showed EF 30%, severe global hypokinesis of left interval, mildly enlarged left atrium, no severe valvular disease. ? Has had great urine output with IV Lasix since admission. Creatinine uptrending on 09/10, transitioned to p.o. Lasix 40 mg daily to start on 09/11. Continue home Toprol, lisinopril and spironolactone. Continue to monitor BMP and urine output daily. 3. Nonsustained V. tach ? Had apparent short run of V. tach versus wide-complex SVT on 09/08 on telemetry. Noted to have fairly significant hypokalemia as noted below, replacing electrolytes as needed. Continue treatment as above. Continue to monitor telemetry. 4. Hypokalemia, improved ? Potassium 2.7 on 09/09, presumed secondary to Lasix drip. Magnesium and phosphorus normal. Repleting potassium as needed. DVT prophylaxis: Lovenox CODE STATUS: DNR CCA, DNI Expected disposition: Home, TBD Total clinical time spent by myself addressing the patient's medical issues, reviewing all the data, and collaborating with patient's care team: 35 minutes. Charges/Coding Visit Charges Inpatient E&M: 59307 Subs Hosp L2
[2023-09-11 20:30] VITALS: BP 160/95; PULSE 96; RESP 18; TEMP 36.4; O2SAT 99
[2023-09-11 20:57] VITALS: BP 160/95; PULSE 96
[2023-09-11] MEDS: Metoprolol(XL)Succ 50 MG Tablet PO (20:57)
[2023-09-12 03:25] VITALS: BP 146/90; PULSE 80; RESP 16; TEMP 36.5; O2SAT 98
[2023-09-12 06:00] VITALS: BMI 30.3
[2023-09-12 06:55] LABS: Hematocrit 36.9 % (40-54); Hemoglobin 12.5 g/dL (13.0-16.5); Mean Corp Hgb Conc 33.9 g/dL (32-36); Mean Corpuscular Hgb 30.9 pg (27.0-32.0); Mean Corpuscular Volume 91.3 fL (80-94); Mean Platelet Vol. 10.5 fl (6.2-12.0); Platelet Count 273 K/mm3 (150-450); RBC Distribution Width CV 12.4 % (11.6-14.6); RBC Distribution Width SD 41.7 fl (35.1-43.9); Red Blood Count 4.04 M/mm3 (4.6-6.2); White Blood Count 18.9 K/mm3 (4.4-11.0)
[2023-09-12 07:28] LABS: Anion Gap 5 (5-15); BUN 30 mg/dL (7-18); BUN/Creat Ratio 31.6 RATIO (10-20); Chloride 96 mmol/L (98-107); Creatinine, Serum 0.95 mg/dL (0.70-1.30); EST Glomerular Filtration Rate 83 mL/min (>60); Est Glom Filt Rate - Afr Amer 100 mL/min (>60); Estimated Creatinine Clearance 68.15 ml/min; Glucose 114 mg/dL (74-106); Potassium 4.3 mmol/L (3.5-5.1); Sodium Level 132 mmol/L (136-145)
[2023-09-12 08:26] LABS: Uric Acid 7.8 mg/dL (3.5-7.2)
[2023-09-12] MEDS: Lidocaine 2% (5ml sdv) 5 ML VIAL.MPF INFILT (08:37)
[2023-09-12 08:47] VITALS: BP 151/83; PULSE 100; RESP 16; TEMP 36.8; O2SAT 100
--- NOTE | 2023-09-12 09:22 | RAD_ITS ---
CLINICAL HISTORY: Male, 72 years old. Left knee aspiration. PROCEDURE: ARTHROGRAM - LEFT KNEE. CONSENT: The procedure as well as the benefits and possible complications including infection and bleeding were explained to the patient. Informed consent was obtained. FLUOROSCOPY TIME (if supplied): (58 seconds) minutes/seconds. 3.8 mGy Number of images obtained: 0 TECHNIQUE: (All elements of maximal sterile barrier technique followed, including US elements as applicable) The patient was in the supine position. The overlying skin was prepped and draped in the usual sterile fashion. Following local anesthetic application and direct fluoroscopic guidance, a 22-gauge spinal needle was placed into the knee joint. 10 cc of jono color fluid was drained. Fluid was sent to the laboratory for analysis. RAD/Inj/Asp Dwight Jt Should/Hip/Knee IMPRESSION: Successful drainage of the left knee joint effusion. The patient tolerated the procedure well. Electronically Signed: Clifton Okeefe MD at 10:19 EDT ,
[2023-09-12 09:53] LABS: Pathologist Comment May follow
[2023-09-12] MEDS: Doxycycline 100 MG in Dextrose 5%-Water (250mL Bag) 250 ML 250 MG IV (10:08)
[2023-09-12] MEDS: Spironolactone 50 MG Tablet PO (10:09)
[2023-09-12] MEDS: Enoxaparin 40 MG/0.4 ML Syringe SC (10:09)
[2023-09-12] MEDS: Furosemide 40 MG Tablet PO (10:09)
[2023-09-12] MEDS: 0.9% Saline Lock 10 ML Syringe IV (10:09)
[2023-09-12] MEDS: Lisinopril 20 MG Tablet PO (10:10)
--- NOTE | 2023-09-12 10:18 | NURSING ---
pt returned to floor. L knee bandage clean, dry and intact, denies pain. Sitting at side of bed, denies further needs.
[2023-09-12 10:32] LABS: Synovial Fld Mononuclear WBC # 0.122 10^3/ul; Synovial Fld Mononuclear WBC % 85.4 %; Synovial Fld Polynuclear WBC # 0.021 10^3/uL; Synovial Fld Polynuclear WBC % 14.6 %
[2023-09-12 10:37] LABS: AUTO B FLUID DILUENT BKGD CT WBC <0.1 RBC <0.01 (W<.1,R<.01); Appearance /Synovial Fluid Clear (CLEAR); CRYSTALS, BODY FLUID NO CRYSTALS SEEN; Color / Synovial Fluid Yellow (Pale Yellow); RBC /Synovial Fluid 95 /mm3 (0); Source / Synovial Fluid KNEE; Source- Body Fluid SYNOVIAL; Viscosity / Synovial Fluid Mod. Viscous (HIGH)
[2023-09-12 11:32] LABS: Lymph 13 %; Monocyte /Synovial Fluid 66 %; Neutrophil 21 % (0-25)
[2023-09-12 11:36] LABS: Body Fluid QC Type(s) BF1Q,BF2Q,BF3Q
--- NOTE | 2023-09-12 13:47 | PCM.CONS.GEN ---
Assessment & Plan Assessment/Plan (1) Effusion, left knee: (2) Cellulitis of left lower extremity: PLAN: Overall improved with diuresis and abx. Knee fluid with minimal inflammation cx pending, but so far low suspicion for septic arthritis. Will narrow back to po keflex, plan on a few days of abx. Will follow, thank you HPI Consult Data Date of Consult: 09/12/23 HPI Narrative Reason for Consultation: cellulitis HPI Narrative: LILIBETH CRESPO, is a 72 M who presented 09/06 with 2-3 days progressive BLE edema, L worse than R. No fever or chills, no drainage, no warmth in legs. Had some associated redness. Pain was severe with walking. Came to ED, admitted on lasix, vanc/zosyn, then narrowed to cefazolin then keflex then iv doxy 09/10. Had knee aspiration this AM. No fever, feeling better, getting around much better. Full ROS performed and neg except as noted above. [facility] Medical History Alcohol abuse Alcohol dependence CHF (NYHA class III, ACC/AHA stage C) CHF exacerbation Chronic pain Congestive heart failure (CHF) Essential hypertension HFrEF (heart failure with reduced ejection fraction) (03/07/21) Laceration of right little finger Non-ischemic cardiomyopathy (03/07/21) Restless leg syndrome Home Medications lisinopril 10 mg tablet 20 mg PO DAILY 06/25/23 [History Last Taken 08/31/23] spironolactone 25 mg tablet 25 mg PO DAILY #90 tabs 07/24/23 [Rx Last Taken 08/31/23] dicyclomine 10 mg capsule 20 mg (2 x 10 mg) PO Q6H PRN PRN abdominal discomfort #30 CAPSULES 08/05/23 [Rx Last Taken Unknown] furosemide 40 mg tablet 40 mg PO DAILY #90 tabs 08/15/23 [Rx Last Taken 09/07/23] metoprolol succinate 50 mg tablet,extended release 24 hr 50 mg PO QHS #30 tabs 08/27/23 [Rx Last Taken Unknown] Allergy/AdvReac Type Severity Reaction Status Date / Time amoxicillin Allergy PAIN AND Verified 09/07/23 12:33 DIARRHEA Penicillins Allergy PAIN AND Verified 09/07/23 12:33 DIARRHEA Family History (Reviewed 06/25/23 @ 11:13 by Brittany Welsh TRANSFORMER ASSEMBLY SUPERVISOR, TRANSFORMER ASSEMBLY SUPERVISOR-C) Father Throat cancer smoker Hypertension Mother No cardiac disease Mother currently living, 92 years old with no reported medical issues. Hypertension Surgical History History of left heart catheterization (03/08/21) History of tonsillectomy Hx of hernia repair Social History Smoking Status: Never smoker alcohol intake: former substance use type: does not use caffeine: Yes Type: coffee Number of servings: 4 Physical Exam Const alert, oriented x3 and no apparent distress General Appearance: cooperative HEENT normocephalic and head/scalp atraumatic Eyes PERRL and EOMs intact bilaterally Neck supple and No nodes Resp normal air movement and clear to auscultation bilaterally Cardio regular rate and regular rhythm GI soft to palpation, non-tender and non-distended Extremity General Extremity: edema Skin no rashes or lesions noted Skin Narrative: BLE wrapped Neuro CN's II-XII intact bilaterally Lab / Micro Data Attestation: I reviewed the patient's lab results. 09/12/23 06:25 09/12/23 06:25 Labs: Laboratory Results - last 24 hr 09/12/23 06:25: WBC 18.9 H, RBC 4.04 L, Hgb 12.5 L, Hct 36.9 L, MCV 91.3, MCH 30.9, MCHC 33.9, RDW Std Deviation 41.7, RDW Coeff of Rosario 12.4, Plt Count 273, MPV 10.5, Sodium 132 L, Potassium 4.3, Chloride 96 L, Carbon Dioxide 31.0, Anion Gap 5, BUN 30 H, Creatinine 0.95, Estim Creat Clear Calc 68.15, Est GFR (MDRD) Af Amer 100, Est GFR (MDRD) Non-Af 83, BUN/Creatinine Ratio 31.6 H, Glucose 114 H, Uric Acid 7.8 H, Calcium 9.0 09/12/23 08:45: Fluid Crystals NO CRYSTALS SEEN, Fluid Crystal Source SYNOVIAL, Fl Crystal Path Review Will follow, Synovial Source KNEE, Synovial Color Yellow, Synovial Appearance Clear, Synovial Viscosity Mod. Viscous, Synovial WBC 0.1430 H, Synovial RBC 95 H, Synovial Tot Cell Ct 0.2110 H, Synov Polynuclear WBCs 0.021, Synov Mononuclear WBCs 0.122, Synovial Neutrophils 21, Synovial Lymphocytes 13, Synovial Monocytes 66, Synovial Polynuclear % 14.6, Synovial Mononuclear % 85.4, Synovial Path Comment May follow Imaging Radiology Impression Lower Extremity CT 09/11/23 11:47 IMPRESSION: Moderate-sized left knee joint effusion. Subcutaneous soft tissue edema as described. No focal mass or abscess is seen. The underlying bony structures are unremarkable. Moderate sized right hydrocele. Electronically Signed: Clifton Okeefe MD at 14:01 EDT , Joint Aspiration/Injection 09/12/23 09:22 IMPRESSION: Successful drainage of the left knee joint effusion. The patient tolerated the procedure well. Electronically Signed: Clifton Okeefe MD at 10:19 EDT ,
[2023-09-12 14:25] VITALS: BP 160/94; PULSE 102; RESP 14; TEMP 36.8; O2SAT 98
[2023-09-12 14:30] LABS: Pathologist Review Reviewed
--- NOTE | 2023-09-12 14:40 | PCM.DC ---
Discharge Instructions Diet Discharge Diet: 4000 mg Sodium Diet Activity Discharge Activity: No Restrictions Weight Bearing Status: Full weight bearing Follow Up Care Test Results: Test results from this visit will be discussed in further detail at your follow-up appointment, if applicable. Discharge Plan Admission Admit Date/Time: 09/07/23 14:57 Primary Reason for Your Visit: Worsening left leg swelling with erythema and scrotal swelling Attending Provider: Sandeep Vazquez Primary Care Provider: Tevin Turner Consulting Providers: Tereso Kurtz; Lanre Cortes; Clifton Okeefe; En Austin Instructions Additional Instructions / Restrictions: Please take 3 more days of cephalexin to complete a full course of antibiotics for your left leg cellulitis. Please take spironolactone at the increased dose of 50 mg daily as noted below. Continue your other home medications as normal. Follow-up with your parachute manufacturing supervisor in the office as previously scheduled. Discharge Orders/Prescriptions Prescriptions: New cephalexin 500 mg Capsule 500 mg PO Q6 3 Days Qty: 12 0RF spironolactone 50 mg Tablet 50 mg PO DAILY 30 Days Qty: 30 0RF Continued lisinopril 10 mg tablet 20 mg PO DAILY furosemide 40 mg tablet 40 mg PO DAILY Qty: 90 3RF metoprolol succinate 50 mg tablet extended release 24 hr 50 mg PO QHS Qty: 30 11RF Discontinued dicyclomine 10 mg capsule 20 mg PO Q6H PRN PRN (Reason: abdominal discomfort) Qty: 30 0RF spironolactone 25 mg tablet 25 mg PO DAILY Qty: 90 3RF Referrals / Follow Up: Tevin Turner MD [Primary Care Provider] - Disposition Disposition (needs filled in before D/C Order can be placed): Home, Self Care
--- NOTE | 2023-09-12 14:44 | DS.PCM_ITS ---
Providers Date of Admission: 09/07/23 Date of Discharge: 09/12/23 Primary Care Physician: Dr. Tevin Turner MD Consultations 09/11/23 14:13 Consult: Interventional Radiology Routine Consulting Provider: Clifton Okeefe Reason for Consult: moderate left knee joint effusion, diagnostic and therapeutic tap needed EMERGENT Consult: No Notified: Yes Date Notified: 09/11/23 Time Notified: 14:13 Method of Notification: Verbal 09/12/23 11:43 Consult: Infectious Disease Routine Consulting Provider: En Austin Reason for Consult: left knee effusion, fluid studies w/ possible infxn EMERGENT Consult: No Notified: Yes Date Notified: 09/12/23 Time Notified: 11:43 Method of Notification: Text Reason For Visit: CELLULITIS Diagnosis Discharge Diagnosis (1) Effusion, left knee: Status: Acute Code(s): M25.462 - Effusion, left knee (2) Cellulitis of left lower extremity: Status: Acute Code(s): L03.116 - Cellulitis of left lower limb Medications at Discharge Home Medications lisinopril 10 mg tablet 20 mg PO DAILY 06/25/23 furosemide 40 mg tablet 40 mg PO DAILY #90 tabs 08/15/23 metoprolol succinate 50 mg tablet,extended release 24 hr 50 mg PO QHS #30 tabs 08/27/23 cephalexin 500 mg capsule 500 mg PO Q6 3 days #12 caps 09/12/23 spironolactone 50 mg tablet 50 mg PO DAILY 30 days #30 tabs 09/12/23 Hospital Course Operations None Procedures EKG, Transthoracic echo and - (Left knee arthrocentesis, CT left lower extremity, venous Doppler study of lower extremities, chest x-ray) Summary of Care Provided Minutes Spent on Discharge: 35 Hospital Course: Patient is a 72-year-old male who presented to [facility] ED on 09/07/2023 with worsening left lower extremity edema and erythema. Hospital course as noted below. Patient discharged home with no therapy needs in stable condition on 09/11. 1. Left lower extremity edema with cellulitis, left knee joint effusion Presented with left lower extremity edema and erythema. Lower extremity ultrasound negative for DVT. Suspected secondary to cellulitis and volume overload from CHF exacerbation. Was initially treated with IV Zosyn then de- escalated to p.o. Keflex on 09/08. Blood cultures negative. Was expected that swelling would improve with diuresis, however it remained significantly swollen despite adequate diuresis. CT left lower extremity with contrast on 09/10 showed moderate size left knee joint effusion, diffuse subcutaneous swelling most pronounced and posterior lateral aspect of left lower extremity suggestive of cellulitis. Was escalated to IV doxycycline at that time. S/p left knee arthrocentesis done by radiology on 09/11, fluid studies with minimal inflammation, otherwise benign. ? Infectious disease evaluated on day of discharge, final culture from left knee fluid pending but ID had low suspicion for septic arthritis. Transitioned back to p.o. Keflex on 09/11, will complete another 3 days of Keflex on discharge. 2. CHF exacerbation, improved History of alcohol cardiomyopathy, follows with outpatient cardiology. Noted to have acute HFrEF in 02/2021 with EF 15%. Heart cath at that time showed normal coronary arteries. Had great recovery of heart function with medical management and alcohol cessation, echo in 01/2022 showed EF 50%. Last cardiology visit was on 06/25/2023, was noted to be stable at that time, no medication changes were made. Patient reports recent nonadherence to all home medications as he felt like the beta-russel was causing side effects and he was symptomatically stable from a heart failure standpoint. Chest x-ray on admit showed cardiomegaly with pulmonary edema. BNP 724. Echo on 09/07 showed EF 30%, severe global hypokin esis of left interval, mildly enlarged left atrium, no severe valvular disease. ? Patient had great urine output with IV Lasix during hospitalization. Transitioned back to p.o. Lasix on 09/11. Continue home Lasix, Toprol and lisinopril on discharge. Increased spironolactone dose to 50 mg daily during hospitalization due to elevated blood pressures, patient tolerated without issue, will continue increased dose on discharge. Will need outpatient follow- up with cardiology in the next few weeks as well as repeat echo in 6 to 12 weeks to ensure improvement in ejection fraction with appropriate medical management. 3. Nonsustained V. tach ? Had apparent short run of V. tach versus wide-complex SVT on 09/08 on telemetry. Noted to have fairly significant hypokalemia as noted below, was repleted. No further runs during hospitalization. Continue medications on discharge as noted above. 4. Hypokalemia, improved ? Potassium 2.7 on 09/09, presumed secondary to Lasix drip. Magnesium and phos phorus normal. Potassium repleted as needed. Total clinical time spent by myself addressing the patient's medical issues, reviewing all the data, and collaborating with patient's care team: 35 minutes. Physical Exam Const alert, oriented x3 and no apparent distress General Appearance: cooperative and comfortable HEENT normocephalic, head/scalp atraumatic, hearing grossly normal bilaterally, nasal mucous membranes and turbinates normal and moist oral mucous membranes Eyes PERRL, EOMs intact bilaterally and conjunctivae normal Neck full ROM Chest inspection of chest normal Resp normal respiratory effort, normal air movement, no use of accessory muscles and clear to auscultation bilaterally Cardio regular rate, regular rhythm, no murmurs and peripheral pulses 2+ throughout GI normal to inspection, nondistended, normoactive bowel sounds, soft to palpation, non-tender and non-distended Back/Spine normal ROM Extremity full ROM Extremity Narrative: Left knee swelling improved post arthrocentesis. Continued to have mild to moderate erythema on discharge, much improved from admission. Right lower extremity appeared normal. Neuro no focal motor deficits and no sensory deficits noted Speech: speech normal Psych mental status grossly normal Weight / BMI Weight Weight: 80.1 kg Body Mass Index (BMI) 30.3 ABG / Lab / Microbiology Data 09/12/23 06:25 09/12/23 06:25 Laboratory: Laboratory Results - last 24 hr 09/12/23 06:25: WBC 18.9 H, RBC 4.04 L, Hgb 12.5 L, Hct 36.9 L, MCV 91.3, MCH 30.9, MCHC 33.9, RDW Std Deviation 41.7, RDW Coeff of Rosario 12.4, Plt Count 273, MPV 10.5, Sodium 132 L, Potassium 4.3, Chloride 96 L, Carbon Dioxide 31.0, Anion Gap 5, BUN 30 H, Creatinine 0.95, Estim Creat Clear Calc 68.15, Est GFR (MDRD) Af Amer 100, Est GFR (MDRD) Non-Af 83, BUN/Creatinine Ratio 31.6 H, Glucose 114 H, Uric Acid 7.8 H, Calcium 9.0 09/12/23 08:45: Fluid Crystals NO CRYSTALS SEEN, Fluid Crystal Source SYNOVIAL, Fl Crystal Path Review Reviewed, Synovial Source KNEE, Synovial Color Yellow, Synovial Appearance Clear, Synovial Viscosity Mod. Viscous, Synovial WBC 0.1430 H, Synovial RBC 95 H, Synovial Tot Cell Ct 0.2110 H, Synov Polynuclear WBCs 0.021, Synov Mononuclear WBCs 0.122, Synovial Neutrophils 21, Synovial Lymphocytes 13, Synovial Monocytes 66, Synovial Polynuclear % 14.6, Synovial Mononuclear % 85.4, Synovial Path Comment May follow Microbiology: Microbiology 09/07/23 13:40 Blood Culture (Wb) - Anticubital Left Blood Culture - Final No growth in 5 days. 09/07/23 13:00 Blood Culture (Wb) - Anticubital Left Blood Culture - Final No growth in 5 days. Radiography Diagnostic Testing: Radiology Impression Joint Aspiration/Injection 09/12/23 09:22 IMPRESSION: Successful drainage of the left knee joint effusion. The patient tolerated the procedure well. Electronically Signed: Clifton Okeefe MD at 10:19 EDT , D/C Instructions Discharge Diet: 4000 mg Sodium Diet Weight Bearing Status: Full weight bearing Meaningful Use Info Meaningful Use Meaningful Use Diagnoses (Choose all that apply): CHF CHF FLORIN/ARB ordered at discharge?: Yes Documented LVEF (%): 30 Ischemic Stroke Statin Dosing Therapy Reference: STATIN DOSE THERAPY REFERENCE: * Patients > 75 years receive moderate or high dose statin therapy. * Patients 75 years or YOUNGER should receive HIGH intensity statin dose unless contraindicated. You will be required to document reason for non-treatment if statin daily dose does not meet guidelines. HIGH DOSE STATIN THERAPY DAILY Atorvastatin > than or = to 40 mg Rosuvastatin > than or = to 20 mg Amlodipine + Atorvastatin > than or = to 2.5/40 mg Ezetimibe + Simvastatin 10/80 mg Simvastatin 80mg Discharge Plan Admission Admit Date/Time: 09/07/23 14:57 Primary Reason for Your Visit: Worsening left leg swelling with erythema and scrotal swelling Attending Provider: Sandeep Vazquez Primary Care Provider: Tevin Turner Consulting Providers: Tereso Kurtz; Lanre Cortes; Clifton Okeefe; En Austin Instructions Additional Instructions / Restrictions: Please take 3 more days of cephalexin to complete a full course of antibiotics for your left leg cellulitis. Please take spironolactone at the increased dose of 50 mg daily as noted below. Continue your other home medications as normal. Follow-up with your explosive ordnance disposal technician in the office as previously scheduled. Discharge Orders/Prescriptions Prescriptions: New cephalexin 500 mg Capsule 500 mg PO Q6 3 Days Qty: 12 0RF spironolactone 50 mg Tablet 50 mg PO DAILY 30 Days Qty: 30 0RF Continued lisinopril 10 mg tablet 20 mg PO DAILY furosemide 40 mg tablet 40 mg PO DAILY Qty: 90 3RF metoprolol succinate 50 mg tablet extended release 24 hr 50 mg PO QHS Qty: 30 11RF Discontinued dicyclomine 10 mg capsule 20 mg PO Q6H PRN PRN (Reason: abdominal discomfort) Qty: 30 0RF spironolactone 25 mg tablet 25 mg PO DAILY Qty: 90 3RF Referrals / Follow Up: Tevin Turner MD [Primary Care Provider] - 09/25/23 11:00 am Disposition Disposition (needs filled in before D/C Order can be placed): Home, Self Care Charges/Coding Visit Charges Inpatient E&M: 30692 Disch Hosp >30min
--- NOTE | 2023-09-12 14:57 | CASEMGMT ---
Patient has order for discharge. RN CM in to discuss needs at discharge. Patient denies needs or help at discharge. Patient had no further questions or concerns.
--- NOTE | 2023-09-12 15:21 | PHA.DC.MC.R ---
Pharmacy [facility] Pharmacy Service has performed discharge medication reconciliation and counseling for this patient. 1. CEPHALEXIN 500MG PO Q6 X 3 DAYS The patient's discharge medication list was reviewed for discrepancies and discrepancies were resolved. The patient was counseled on the following discharge medications and changes in medications for homegoing were reviewed. The Reason for Use, instructions for use, and potential side effects were reviewed for all new medications. The patient's questions regarding all of their medications were answered. The patient was able to verbally demonstrate an understanding of their discharge medications. Medications at Discharge Home Medications lisinopril 10 mg tablet 20 mg PO DAILY 06/25/23 furosemide 40 mg tablet 40 mg PO DAILY #90 tabs 08/15/23 metoprolol succinate 50 mg tablet,extended release 24 hr 50 mg PO QHS #30 tabs 08/27/23 cephalexin 500 mg capsule 500 mg PO Q6 3 days #12 caps 09/12/23 spironolactone 50 mg tablet 50 mg PO DAILY 30 days #30 tabs 09/12/23
== END 2023-09-12 15:25 | disposition home or self-care (01) | DRG 602 ==
LOC: ED 14:55 → PCU 16:07
PROVIDERS: Internal Medicine; Physician Assistant; Admitting Provider Family Medicine; Emergency Provider Emergency Medicine; PCP Family Medicine; Visit Provider Hospitalist
DX: L03.116 Cellulitis of left lower limb (principal); I50.23 Acute on chronic systolic (congestive) heart failure; I42.6 Alcoholic cardiomyopathy; I47.20 Ventricular tachycardia, unspecified; I11.0 Hypertensive heart disease with heart failure; F10.21 Alcohol dependence, in remission; E87.6 Hypokalemia; M25.462 Effusion, left knee; T50.1X5A Adverse effect of loop [high-ceiling] diuretics, initial encounter; Z91.128 Patient's intentional underdosing of medication regimen for other reason; T44.7X6A Underdosing of beta-adrenoreceptor antagonists, initial encounter; Z66 Do not resuscitate; Z79.899 Other long term (current) drug therapy
CPT/HCPCS: 20610; 36415; 71046; 73701; 77002; 80048; 80053; 81001; 83605; 83735; 83880; 84100; 84132; 84484; 84550; 85025; 85027; 87040; 87070; 87075; 87205; 89050; 89051; 89060; 93005; 93306; 93970; 99285; J7040; J7050; Q9965; Q9967; A4216; J1940

== ENCOUNTER → 2023-09-25 | Outpatient (CLI) | payer MEDICARE, SELFPAY ==
[2023-09-25 17:54] LABS: Absolute Lymphocyte Count 1.34 X10^3/uL (0.83-4.51); Absolute Neutrophil Count 12.7 X10^3/uL (2.0-7.7); Basophil# 0.03 X10^3/uL; Basophil% 0.2 % (0-1); Eosinophil# 0.01 X10^3/uL; Eosinophils% 0.1 % (0-5); Hematocrit 36.7 % (40-54); Hemoglobin 12.3 g/dL (13.0-16.5); Lymphocyte # 1.34 X10^3/ul (0.83-4.51); Lymphocyte % 8.5 % (19-41); Mean Corp Hgb Conc 33.5 g/dL (32-36); Mean Corpuscular Hgb 30.6 pg (27.0-32.0); Mean Corpuscular Volume 91.3 fL (80-94); Mean Platelet Vol. 10.8 fl (6.2-12.0); Monocyte# 1.37 X10^3/uL; Monocyte% 8.7 % (0-10); NRBC Flagged by Analyzer 0 % (0-5); Neutrophil # 12.74 X10^3/uL (2.7-7.7); Neutrophil % 80.4 % (47-70); Platelet Count 370 K/mm3 (150-450); RBC Distribution Width CV 13.3 % (11.6-14.6); RBC Distribution Width SD 44.1 fl (35.1-43.9); Red Blood Count 4.02 M/mm3 (4.6-6.2); White Blood Count 15.8 K/mm3 (4.4-11.0)
[2023-09-25 18:15] LABS: ALB/GLOB Ratio 1.2 RATIO (0.9-2.4); AST(SGOT) 32 U/L (15-37); Alanine Aminotransfer ALT/SGPT 47 U/L (16-61); Albumin, Serum 3.7 g/dL (3.2-5.0); Alkaline Phosphatase 76 U/L (45-117); Anion Gap 7 (5-15); BUN 22 mg/dL (7-18); BUN/Creat Ratio 19.8 RATIO (10-20); Chloride 94 mmol/L (98-107); Creatinine, Serum 1.11 mg/dL (0.70-1.30); EST Glomerular Filtration Rate 69 mL/min (>60); Est Glom Filt Rate - Afr Amer 84 mL/min (>60); Globulin 3.2 g/dL (2.2-4.2); Glucose 94 mg/dL (74-106); Potassium 4.6 mmol/L (3.5-5.1); Protein, Total 6.9 g/dL (6.4-8.2); Sodium Level 128 mmol/L (136-145)
== END | disposition home or self-care (01) ==
LOC: MFPLAB 16:24
PROVIDERS: PCP Family Medicine; Visit Provider Family Medicine
DX: I50.9 Heart failure, unspecified (principal)
CPT/HCPCS: 36415; 80053; 85025

== ENCOUNTER → 2023-09-28 | Outpatient (CLI) | payer MEDICARE, SELFPAY ==
[2023-09-28 15:38] LABS: Anion Gap 6 (5-15); BUN 25 mg/dL (7-18); Calcium,Total 9.1 mg/dL (8.5-10.1); Chloride 101 mmol/L (98-107); Creatinine, Serum 1.04 mg/dL (0.70-1.30); EST Glomerular Filtration Rate 75 mL/min (>60); Est Glom Filt Rate - Afr Amer 90 mL/min (>60); Glucose 98 mg/dL (74-106); Potassium 4.2 mmol/L (3.5-5.1); Sodium Level 134 mmol/L (136-145)
== END | disposition home or self-care (01) ==
LOC: MTLAB 11:39
PROVIDERS: PCP Family Medicine; Referring Provider Family Medicine; Visit Provider Family Medicine
DX: E87.1 Hypo-osmolality and hyponatremia (principal)
CPT/HCPCS: 36415; 80048

== ENCOUNTER → 2023-10-10 | Outpatient (CLI) | payer MEDICARE, SELFPAY ==
--- NOTE | 2023-10-10 07:45 | RAD_ITS ---
STUDY: X-RAY - ESOPHAGUS (BARIUM SWALLOW) WITH FLUOROSCOPY REASON FOR EXAM: Male, 72 years old. 12 mm tablet. Dysphasia. Abdominal bloating. TECHNIQUE: 14 view(s) of the esophagus were obtained following swallowing of barium. FLUOROSCOPY TIME (if supplied): (40 seconds) minutes/seconds. 22.11 mGy. COMPARISON: None. FINDINGS: There is no demonstrated esophageal foreign body. There is no demonstrated stricture or mucosal abnormality. Normal gastroesophageal junction, without a demonstrated hiatal hernia. The patient ingested a 12 mm tablet of barium without any difficulty. There is atherosclerotic calcification of the aortic arch with tortuosity of the descending aorta. Normal visualized pulmonary parenchyma. Normal visualized osseous structures of the thorax. RAD/Esophagus Dual Contrast IMPRESSION: Normal plain film x-ray examination (barium swallow) of the esophagus. Electronically Signed: Clifton Okeefe MD at 8:33 EDT ,
== END | disposition home or self-care (01) ==
PROVIDERS: PCP Family Medicine; Referring Provider Family Medicine; Visit Provider Family Medicine
DX: R47.02 Dysphasia (principal)
CPT/HCPCS: 74221

== ENCOUNTER 2023-10-17 19:54 | Inpatient (IN) | payer MEDICARE, SELFPAY ==
[2023-10-17 19:55] VITALS: BP 153/99; PULSE 19; RESP 20; TEMP 35.8; O2SAT 94
[2023-10-17 20:00] VITALS: BMI 33.6
--- NOTE | 2023-10-17 20:49 | EKG12_ITS ---
Test Reason : DYSRHYTHMIA Blood Pressure : / mmHG Vent. Rate : 105 BPM Atrial Rate : 105 BPM P-R Int : 180 ms QRS Dur : 146 ms QT Int : 390 ms P-R-T Axes : 047 -37 102 degrees QTc Int : 515 ms Sinus tachycardia Possible Left atrial enlargement Left axis deviation Left bundle branch block Abnormal ECG Confirmed by Bernard Gaviria ([id number]), editor newspaper FAUSTO NIETO ([id number]) on 10/18/2023 12:00:05 PM Referred By: En Ferrari Confirmed By:Bernard Gaviria
[2023-10-17 20:56] VITALS: O2SAT 98
[2023-10-17 20:59] LABS: Absolute Lymphocyte Count 1.13 X10^3/uL (0.83-4.51); Absolute Neutrophil Count 12.1 X10^3/uL (2.0-7.7); Basophil# 0.04 X10^3/uL; Basophil% 0.3 % (0-1); Eosinophil# 0.01 X10^3/uL; Eosinophils% 0.1 % (0-5); Hematocrit 39.9 % (40-54); Hemoglobin 12.3 g/dL (13.0-16.5); Lymphocyte # 1.13 X10^3/ul (0.83-4.51); Lymphocyte % 7.9 % (19-41); Mean Corp Hgb Conc 30.8 g/dL (32-36); Mean Corpuscular Hgb 29.8 pg (27.0-32.0); Mean Corpuscular Volume 96.6 fL (80-94); Mean Platelet Vol. 11.1 fl (6.2-12.0); Monocyte# 0.89 X10^3/uL; Monocyte% 6.2 % (0-10); NRBC Flagged by Analyzer 0 % (0-5); Neutrophil # 12.07 X10^3/uL (2.7-7.7); Neutrophil % 84.3 % (47-70); Platelet Count 271 K/mm3 (150-450); RBC Distribution Width CV 14.2 % (11.6-14.6); RBC Distribution Width SD 49.7 fl (35.1-43.9); Red Blood Count 4.13 M/mm3 (4.6-6.2); White Blood Count 14.3 K/mm3 (4.4-11.0)
[2023-10-17 21:00] VITALS: BP 146/83; PULSE 101; RESP 19; O2SAT 94
--- NOTE | 2023-10-17 21:00 | RAD_ITS ---
INDICATION: chest pain EXAMINATION/TECHNIQUE: X-RAY - XR Chest 1 View COMPARISON: FINDINGS: LINES/DEVICES: None. LUNGS: No consolidation, edema or effusion. No pneumothorax. MEDIASTINUM AND CARDIOVASCULAR STRUCTURES: Cardiac silhouette is enlarged. Central airways and mediastinal contour are unremarkable. BONES AND SOFT TISSUES: Degenerative vertebral changes. RAD/Chest 1 View (Portable) IMPRESSION: Cardiomegaly. Electronically Signed: Jatin Park DO at 21:12 EDT ,
[2023-10-17 21:17] LABS: Anion Gap 7 (5-15); BUN 27 mg/dL (7-18); BUN/Creat Ratio 22.3 RATIO (10-20); Calcium,Total 9.1 mg/dL (8.5-10.1); Chloride 101 mmol/L (98-107); Creatinine, Serum 1.21 mg/dL (0.70-1.30); EST Glomerular Filtration Rate 63 mL/min (>60); Est Glom Filt Rate - Afr Amer 76 mL/min (>60); Glucose 109 mg/dL (74-106); Potassium 3.9 mmol/L (3.5-5.1); Sodium Level 139 mmol/L (136-145); Troponin-I HS 72 pg/mL (3.0-78.0)
--- NOTE | 2023-10-17 21:22 | EDS_ITS ---
HPI History of Present Illness Chief Complaint: Edema Detail of Chief Complaint: Worsening bilateral lower extremity edema for 2 weeks. Informant: patient Onset/Context/Timing Onset: Weeks Context: Gradual Onset Timing: Continuous Current Severity: Moderate Maximum Severity: Moderate Narrative Narrative: 72-year-old male history of CHF with an EF of 30% recently on echo. Patient is on Lasix he complaining of increased swelling both lower extremities for last 2 weeks. Says he is able to urinate. Prior similar symptoms: Yes Recent Illness/Hospitalization: No PFSH PFSH Medical History Congestive heart failure (CHF) HFrEF (heart failure with reduced ejection fraction) (03/07/21) Non-ischemic cardiomyopathy (03/07/21) Essential hypertension CHF (NYHA class III, ACC/AHA stage C) CHF exacerbation Alcohol abuse Chronic pain Congestive heart failure (CHF) Alcohol dependence Restless leg syndrome Laceration of right little finger Home Medications ?Medication ?Instructions ?Recorded ?Last Taken ?Type lisinopril 10 mg tablet 10 mg PO DAILY 06/25/23 08/31/23 History furosemide 40 mg tablet 40 mg PO DAILY #90 tabs 08/15/23 09/07/23 Rx metoprolol succinate 50 mg 50 mg PO QHS #30 tabs 08/27/23 Unknown Rx tablet,extended release 24 hr spironolactone 50 mg tablet 60 mg PO DAILY 10/17/23 Unknown History Allergy/AdvReac Type Severity Reaction Status Date / Time amoxicillin Allergy PAIN AND Verified 10/17/23 20:03 DIARRHEA Penicillins Allergy PAIN AND Verified 10/17/23 20:03 DIARRHEA Family History Father Throat cancer smoker Hypertension Mother No cardiac disease Mother currently living, 92 years old with no reported medical issues. Hypertension Surgical History History of tonsillectomy History of left heart catheterization (03/08/21) Hx of hernia repair Social History Smoking Status: Never smoker alcohol intake: former substance use type: does not use caffeine: Yes Type: coffee Number of servings: 4 ROS ROS ED ROS Narrative Bilateral lower extremity swelling. Review of Systems ROS Unobtainable: Denies due to encephalopathy Constitutional Constitutional ED: Denies chills or fever(s) Eyes Eyes: Denies blurry vision ENT ENT ED: Denies ear pain Cardiovascular Cardiovascular: Denies chest pain Respiratory/Chest Respiratory/Chest: Reports dyspnea; Denies cough Gastrointestinal Gastrointestinal: Denies abdominal pain Genitourinary Genitourinary ED: Denies dysuria or hematuria Musculoskeletal Musculoskeletal: Denies arthralgias or back pain Integumentary Denies abscess or Abrasions Neurologic Neurologic: Denies headache(s) Psychiatric Psychiatric: Denies anxiety or depression Endocrine Endocrinology: Denies cold intolerance Hematologic/Lymphatic Hematologic/Lymphatic: Reports none Allergic/Immunologic Allergic/Immunologic ED: Denies mouth swelling, tongue swelling or urticaria EXAM Physical Exam Narrative Exam Narrative: 72-year-old male no acute distress pulse ox 94% on room air no hypoxia. H EENT exam unremarkable. Neck nontender no JVD. Lungs clear to auscultation bilateral. Heart regular rhythm rate about 100 no murmur. Chest wall and ribs nontender. Abdomen soft nontender. No peritoneal signs. Moving all 4 extremities. 2-3+ pitting edema both lower extremities. Dorsi plantarflexion intact. 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 Neurologically is awake and alert no focal motor deficits. Const Vital Signs: 10/17/23 19:55 10/17/23 20:10 10/17/23 20:42 Temperature 96.5 F L Temperature Source Temporal Pulse Rate 19 L Respiratory Rate 20 H Respiratory Effort Normal Non-Labored Normal Non-Labored Respiratory Depth Normal Respiratory Pattern Normal Normal Blood Pressure 153/99 H Blood Pressure Mean 117 Pulse Ox 94 Oxygen Delivery Method Room Air 10/17/23 20:56 10/17/23 21:00 Temperature Temperature Source Pulse Rate 101 H Respiratory Rate 19 H Respiratory Effort Respiratory Depth Respiratory Pattern Blood Pressure 146/83 H Blood Pressure Mean 104 Pulse Ox 98 94 Oxygen Delivery Method Room Air Room Air Positive well nourished and well developed; Negative for cachectic, contractures or unkempt General Appearance ED: well developed and NAD; Negative for unkempt, cachectic, contractures, cyanotic, diaphoretic or pallor Nutritional Appearance: Negative for cachectic HEENT Reports moist mucous membranes Negative for trauma or tenderness Eyes PERRL and EOMs intact bilaterally General Eye ED: Negative for pale conjunctiva or scleral icterus Neck no lymphadenopathy, supple and no JVD General: Negative for tenderness Lymph Lymphatic: Negative for other Chest Wall inspection of chest normal and palpation of chest normal Chest: Negative for other Resp normal respiratory effort and clear to auscultation bilaterally Effort and Inspection: Negative for retractions Auscultation: Negative for rales, rhonchi, wheezes or diminished lung sounds Cardio regular rate, regular rhythm, S1 normal heart sound, S2 normal heart sound and no murmurs Palpation: Negative for palpable S3 Rate: Negative for bradycardia or tachycardic Rhythm: Negative for abnormal rhythm GI normal to inspection, nondistended, normoactive bowel sounds, non-tender, non- distended and no masses Inspection: Negative for abdominal distention Auscultation: normoactive bowel sounds Palpation: soft; Negative for tender or guarding Back/Spine no CVA tenderness General Back: Negative for CVA tenderness Cervical Spine: Negative for cervical spine tenderness Thoracic Spine / Upper Back: Negative for thoracic spinal tenderness Lumbar Spine / Lower Back: Negative for lumbar spinal tenderness Extremity Negative for normal to inspection Extremity Narrative: 2-3+ pitting edema bilaterally.Legs are equal and symmetrical. General Extremety ED: Yes edema and tenderness General Extremity: edema Neuro oriented x3 and CN's II-XII intact bilaterally Sensorium / Orientation: alert; Negative for orientation impaired, lethargic or stuporous Motor Exam: strength 5/5 throughout Psych Appearance: Negative for unkempt Attitude: No agitated Mood & Affect: Negative for depressed, anxious or tearful Skin no rashes or lesions noted and no wounds General Skin Exam: Negative for jaundice or pallor Lesions: No lesion noted Rashes: No rashes noted Trauma: Negative for abrasion Wounds: Negative for wounds noted MDM MDM MDM Narrative Medical decision making narrative: 72-year-old male history of CHF with bilateral lower extremity worsening edema in spite of him taking his Lasix. Undergo cardiac workup. Clinically this looks like CHF. Received IV Lasix. His most recent echocardiogram was within the last 2 months showed an EF of 30% with left ventricular dysfunction. History & Record Review Discussion w/independent historian: Patient Additional record(s) reviewed:: Prior inpatient record, Prior outpatient record, Prior ED visit and Prior labs Lab Data Attestation: I reviewed the patient's lab results. Lab results narrative: CBC shows a white count of 14.3. H&H 12.3 and 39. Platelets 271. Electrolytes show gap 7. BUN 27 creatinine 1.2. Glucose 109. Troponin 72. Chest x-ray shows significant cardiomegaly which has had on prior films. Labs: Laboratory Results - last 24 hr 10/17/23 20:26 WBC 14.3 H RBC 4.13 L Hgb 12.3 L Hct 39.9 L MCV 96.6 H MCH 29.8 MCHC 30.8 L RDW Std Deviation 49.7 H RDW Coeff of Rosario 14.2 Plt Count 271 MPV 11.1 Immature Gran % (Auto) 1.200 H Neut % (Auto) 84.3 H Lymph % (Auto) 7.9 L [place] % (Auto) 6.2 Eos % (Auto) 0.1 Baso % (Auto) 0.3 Absolute Neuts (auto) 12.1 H Absolute Lymphs (auto) 1.13 Nucleated RBC % 0 Sodium 139 Potassium 3.9 Chloride 101 Carbon Dioxide 31.0 Anion Gap 7 BUN 27 H Creatinine 1.21 Estim Creat Clear Calc 56.30 Est GFR (MDRD) Af Amer 76 Est GFR (MDRD) Non-Af 63 BUN/Creatinine Ratio 22.3 H Glucose 109 H Calcium 9.1 Troponin I High Sens 72 Radiography Chest X-Ray - ED: 1 View, Read by ED Physician, Read by Radiologist, Lungs, Mediastinum, Bony Structures, No Acute Disease, Chronic Changes and Cardiomegaly Diagnostic Testing: Clinical Impression(s) from Imaging Studies Chest X-Ray 10/17/23 21:00 IMPRESSION: Cardiomegaly. Electronically Signed: Jatin Park DO at 21:12 EDT Reading Location ID and State: [facility] / [place] Tel [phone], Service support , Chest x-ray shows significant cardiomegaly as seen on prior chest x-ray. No effusions. No significant pulmonary edema. Rhythm Strip Rhythm Strip: Sinus Tach Rate: 105 Ectopy: None EKG Initial EKG: Attestation: I personally reviewed and interpreted this EKG as follows: Interpretation: No Acute Injury Pattern and Sinus Tachycardia Comments: Sinus tachycardia rate of 105. Left bundle branch block. No acute signs of [place] or ischemia. Discharge Plan Triage Chief Complaint: Edema ED Provider: Julius Marshall Dx/Rx/DC Orders Clinical Impression: CHF (congestive heart failure), Left bundle branch block, Bilateral edema of lower extremity Prescriptions: No Action lisinopril 10 mg tablet 10 mg PO DAILY spironolactone 50 mg Tablet 60 mg PO DAILY furosemide 40 mg tablet 40 mg PO DAILY Qty: 90 3RF metoprolol succinate 50 mg tablet extended release 24 hr 50 mg PO QHS Qty: 30 11RF Primary Care Provider: Tevin Turner Referrals: Tevin Turner MD [Primary Care Provider] - Print Language: Egyptian Disposition Disposition: Acute Care Hospital [facility]
--- NOTE | 2023-10-17 21:34 | HP.PCM.HOS_ITS ---
[facility] - General General Date of Admission: 10/17/23 Date of Service: 10/17/23 Chief Complaint: Worsening lower extremity edema and SOB. HPI Narrative LILIBETH MOMIN, is a 72 M with a past medical history of essential hypertension, obesity; with BMI of 33.6 since admission, history of alcohol abuse, restless leg syndrome, history of hernia; status post repair, OA; with chronic pain syndrome, history of LBBB, history of nonischemic cardiomyopathy with LHC (2020) and chronic systolic CHF; with LVEF ~30% with severe global hypokinesis of his left ventricle with a left atrium mildly enlarged and trivial mitral valve insufficiency (07/2023) followed by Dr. Marie of [facility] who presents to [facility] ER complaining of worsening lower extremity edema and shortness of breath. Mr. Momin reports his symptoms began approximately 2 weeks prior to admission with a gradual-onset of progressively worsening 2-3+ bilateral lower extremity pitting edema in spite of taking his Lasix as prescribed. He also admits to dyspnea on exertion that has now progressed to shortness of breath at rest with the sensation of continuous moderate fatigue. He admits his symptoms are similar to his previous CHF exacerbations. He denies associated fever, chills, nausea, vomiting, urinary retention, diaphoresis, chest pain, chest pressure, syncope or near syncope. He also denies recent alcohol abuse. In the ER he was noted to have a chest x-ray positive for cardiomegaly without pulmonary vascular congestion with a BNP of 1,475 pg/mL with a slightly elevated second troponin of 82 pg/mL present on admission complicated by clinical evidence of respiratory insufficiency and he was then admitted to the PCU for ongoing care for stay that is expected to extend beyond 2 midnights. [facility] Medical History (Updated 10/18/23 @ 06:[address] En Ferrari, DO) Non-ischemic cardiomyopathy (03/07/21) CHF exacerbation Congestive heart failure (CHF) HFrEF (heart failure with reduced ejection fraction) (03/07/21) Essential hypertension CHF (NYHA class III, ACC/AHA stage C) Alcohol abuse Chronic pain Congestive heart failure (CHF) Alcohol dependence Restless leg syndrome Laceration of right little finger Home Medications ?Medication ?Instructions ?Recorded ?Last Taken ?Type lisinopril 10 mg tablet 10 mg PO DAILY 06/25/23 08/31/23 History furosemide 40 mg tablet 40 mg PO DAILY #90 tabs 08/15/23 09/07/23 Rx metoprolol succinate 50 mg 50 mg PO QHS #30 tabs 08/27/23 Unknown Rx tablet,extended release 24 hr spironolactone 50 mg tablet 60 mg PO DAILY 10/17/23 Unknown History Allergy/AdvReac Type Severity Reaction Status Date / Time amoxicillin Allergy PAIN AND Verified 10/17/23 20:03 DIARRHEA Penicillins Allergy PAIN AND Verified 10/17/23 20:03 DIARRHEA Family History Father Throat cancer smoker Hypertension Mother No cardiac disease Mother currently living, 92 years old with no reported medical issues. 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 HENT: Denies headache, denies stuffy nose, denies sore throat EYES: Denies changes in vision or discharge from eyes. Resp: Patient admits to dyspnea on exertion that progressed to shortness of breath at rest. Cardiac: Denies chest pain, palpitations or heart racing. GI: Denies abdominal pain, denies changes in bowel, denies nausea or vomiting. : Denies changes in urination Extremity: Patient admits to severe 2-3+ bilateral lower extremity pitting edema as per HPI. Musculoskeletal: Feels somewhat generally weak and unwell but denies arthralgias or myalgias. Neuro: Patient denies headache, paresthesias or focal neurologic deficits. Heme: Denies any bleeding or bruising Skin: Denies rashes Psychiatric: No complaints voiced related uncontrolled depression or anxiety. Endocrine: No polyuria, polydipsia or polyphagia. The rest of the 14 point ROS was negative except for positives in HPI. Vital Signs Vital Signs Vital Signs: 10/17/23 19:55 10/17/23 20:10 10/17/23 20:42 Temperature 96.5 F L Temperature Source Temporal Pulse Rate 19 L Respiratory Rate 20 H Respiratory Effort Normal Non-Labored Normal Non-Labored Respiratory Depth Normal Respiratory Pattern Normal Normal Blood Pressure 153/99 H Blood Pressure Mean 117 Pulse Ox 94 Oxygen Delivery Method Room Air 10/17/23 20:56 10/17/23 21:00 Temperature Temperature Source Pulse Rate 101 H Respiratory Rate 19 H Respiratory Effort Respiratory Depth Respiratory Pattern Blood Pressure 146/83 H Blood Pressure Mean 104 Pulse Ox 98 94 Oxygen Delivery Method Room Air Room Air Weight Weight: 195 lb 15.855 oz Body Mass Index (BMI) 33.6 Physical Exam Const alert, oriented x3 and average body habitus General Appearance: cooperative HEENT normocephalic, head/scalp atraumatic, hearing grossly normal bilaterally and moist oral mucous membranes Eyes PERRL and EOMs intact bilaterally Neck no lymphadenopathy and supple Resp normal respiratory effort, no retractions, no use of accessory muscles and clear to auscultation bilaterally Cardio regular rate and regular rhythm GI normal to inspection, nondistended, normoactive bowel sounds, soft to palpation, non-tender and non-distended Extremity Extremity Narrative: 2-3+ bilateral lower extremity pitting edema. Skin Skin Narrative: Patient has no evidence of rash or jaundice. Neuro oriented x3, CN's II-XII intact bilaterally, moves all extremities and no focal motor deficits Sensorium / Orientation: awake, alert, oriented to person, oriented to place and oriented to time Speech: speech normal Psych affect normal Results Medical Records Data Attestation: I reviewed the patient's medical records Lab / Micro Data Attestation: I reviewed the patient's lab results. 10/17/23 20:26 10/17/23 20:26 Labs: Laboratory Results - last 24 hr 10/17/23 20:26: WBC 14.3 H, RBC 4.13 L, Hgb 12.3 L, Hct 39.9 L, MCV 96.6 H, MCH 29.8, MCHC 30.8 L, RDW Std Deviation 49.7 H, RDW Coeff of Rosario 14.2, Plt Count 271, MPV 11.1, Immature Gran % (Auto) 1.200 H, Neut % (Auto) 84.3 H, Lymph % (Auto) 7.9 L, [place] % (Auto) 6.2, Eos % (Auto) 0.1, Baso % (Auto) 0.3, Absolute Neuts (auto) 12.1 H, Absolute Lymphs (auto) 1.13, Nucleated RBC % 0, Sodium 139, Potassium 3.9, Chloride 101, Carbon Dioxide 31.0, Anion Gap 7, BUN 27 H, Creatinine 1.21, Estim Creat Clear Calc 56.30, Est GFR (MDRD) Af Amer 76, Est GFR (MDRD) Non-Af 63, BUN/Creatinine Ratio 22.3 H, Glucose 109 H, Calcium 9.1, Troponin I High Sens 72 Rhythm Strip Rhythm Strip: Sinus Tach Rate: 105 Ectopy: None Imaging Radiology Impression Chest X-Ray 10/17/23 21:00 IMPRESSION: Cardiomegaly. Electronically Signed: Jatin Park DO at 21:12 EDT Reading Location ID and State: [address] [place] [address] Tel [phone], Service support , Assessment & Plan Assessment/Plan (1) CHF exacerbation: QUALIFIERS: Heart failure type: systolic Qualified Code(s): I 50.23 - Acute on chronic systolic (congestive) heart failure (2) Elevated troponin: (3) Bilateral edema of lower extremity: (4) HFrEF (heart failure with reduced ejection fraction): (5) Non-ischemic cardiomyopathy: (6) Left bundle branch block: PLAN: Plan 1. AE of chronic systolic CHF; with LVEF ~30% with severe global hypokinesis of his left ventricle with a left atrium mildly enlarged and trivial mitral valve insufficiency (07/2023) followed by Dr. Marie of [facility] with a mildly elevated second troponin of 82 pg/mL present on admission consistent with suspected acute cardiac strain - Admit to PCU. Continue IV Lasix begun in the ER and add supplemental potassium and magnesium. Continue lisinopril, metoprolol and Aldactone as previous plus add ECASA. Recheck limited echocardiogram in a.m. to evaluate for potential further deterioration of his LVEF with sudden failure of aggressive medical therapy in spite of good compliance. Serialize troponin. Follow strict inputs and outputs, check daily weights and place on 1.5 L/day fluid restriction. Finally, we will consult [facility] to see this patient on rounds in the a.m. for further recommendations without appreciated in advance. 2. Essential hypertension - Resume current management outlined above plus give IV hydralazine as needed for systolic blood pressure greater than 160 mmHg. 3. History of LBBB and nonischemic cardiomyopathy with [facility] (2020) - Noted. 4. Obesity; with BMI of 33.6 since admission - Weight loss will be recommended. Check TSH in light of #1. 5. History of alcohol abuse - Patient denies recent alcohol abuse so no phenobarbital taper will be initiated at this time. 6. Restless leg syndrome - Noted. Start Requip if necessary to control symptoms . 7. History of hernia; status post repair - Noted. 8. OA; with chronic pain syndrome - Give Tylenol as needed for pain. 9. DVT prophylaxis - Lovenox 40 mg sq daily. Total time: Approximately 55 minutes. Charges/Coding Visit Charges Inpatient E&M: 79296 Init Hosp L2
[2023-10-17 21:42] VITALS: BP 146/83; PULSE 100; RESP 19; TEMP 36.4; O2SAT 94
[2023-10-17] MEDS: Furosemide 40 MG/4 ML Vial IV (21:49)
--- NOTE | 2023-10-17 22:36 | ECHOLC_ITS ---
Reason For Study: OTHER Procedure This was a limited 2D transthoracic echocardiogram. The study was technically difficult. Contrast injection was performed. Exam performed portable in patient room. Left Ventricle Mildly dilated left ventricle. The estimated ejection fraction is 25 %. There is evidence of diastolic dysfunction. There is severe global hypokinesis of the left ventricle. Right Ventricle Normal RV size. Normal systolic function. Atria The left atrium is mildly enlarged. Normal right atrium. No doppler evidence for ASD. Mitral Valve There is no mitral valve stenosis. Not assessed. Tricuspid Valve There is no tricuspid stenosis. Not assessed. Aortic Valve Moderate diffuse aortic valve thickening. Not assessed. Not assessed. Great Vessels Normal aortic root. Pericardium/Pleural No pericardial effusion. Medication Diluted definity 2ml given slow IV push to enhance endocardial definition. MMode/2D Measurements & Calculations LVIDd: 4.9 cm IVSd: 1.9 cm LAV(MOD-bp): 79.2 ml LVIDs: 4.4 cm LVPWd: 1.8 cm LAV(MOD-bp) Indexed: 40.8 ml/m2 FS: 10.8 % LAV(MOD-sp2): 81.8 ml LAV(MOD-sp4): 62.0 ml SV(MOD-sp4): 43.2 ml SV(sp4-el): 45.4 ml LVAd ap4: 49.8 cm2 LVLd ap4: 9.8 cm EDV(MOD-sp4): 204.0 ml EDV(sp4-el): 214.5 ml LVAs ap4: 42.4 cm2 LVLs ap4: 9.0 cm ESV(MOD-sp4): 160.8 ml ESV(sp4-el): 169.1 ml EF(MOD-sp4): 21.2 % EF(sp4-el): 21.2 % LA A4 area: 19.6 cm2 LA dimension(2D): 5.3 cm RA A4 area: 18.2 cm2 ECHO/Echo Limited w/Contrast Interpretation Summary Limited echo The estimated ejection fraction is 25 %. There is severe global hypokinesis of the left ventricle. The left atrium is mildly enlarged. Ordering Physician: En Ferrari Referring Physician: En Ferrari Performed By: Christiane Cornell RCS
[2023-10-17 23:01] LABS: Troponin-I HS 82 pg/mL (3.0-78.0)
[2023-10-17 23:05] VITALS: BMI 32.2
[2023-10-17 23:21] VITALS: BP 166/104; PULSE 104; RESP 16; TEMP 36.8; O2SAT 96
[2023-10-17 23:59] VITALS: BP 166/104; PULSE 104
[2023-10-17] MEDS: 0.9% Saline Lock 10 ML Syringe IV (23:59)
[2023-10-17] MEDS: Metoprolol(XL)Succ 50 MG Tablet PO (23:59)
[2023-10-17] MEDS: Albumin Human 25% (50 mL) 12.5 GM/50 ML IV.SOLN IV (23:59)
[2023-10-18 03:48] VITALS: BMI 32.2
[2023-10-18] MEDS: 0.9% Saline Lock 10 ML Syringe IV ×2 (06:09→08:54)
[2023-10-18 06:11] VITALS: BP 133/96; PULSE 92; RESP 16; TEMP 36.4; O2SAT 96
[2023-10-18 06:24] VITALS: BMI 31.8
[2023-10-18 06:56] LABS: Absolute Lymphocyte Count 1.22 X10^3/uL (0.83-4.51); Absolute Neutrophil Count 9.2 X10^3/uL (2.0-7.7); Basophil# 0.04 X10^3/uL; Basophil% 0.4 % (0-1); Eosinophil# 0.08 X10^3/uL; Eosinophils% 0.7 % (0-5); Hematocrit 38.5 % (40-54); Lymphocyte # 1.22 X10^3/ul (0.83-4.51); Lymphocyte % 10.7 % (19-41); Mean Corp Hgb Conc 31.2 g/dL (32-36); Mean Corpuscular Hgb 30.3 pg (27.0-32.0); Mean Corpuscular Volume 97.2 fL (80-94); Mean Platelet Vol. 11.1 fl (6.2-12.0); Monocyte# 0.75 X10^3/uL; Monocyte% 6.6 % (0-10); NRBC Flagged by Analyzer 0 % (0-5); Neutrophil # 9.23 X10^3/uL (2.7-7.7); Neutrophil % 80.7 % (47-70); Platelet Count 249 K/mm3 (150-450); RBC Distribution Width CV 14.3 % (11.6-14.6); RBC Distribution Width SD 51.1 fl (35.1-43.9); Red Blood Count 3.96 M/mm3 (4.6-6.2); White Blood Count 11.4 K/mm3 (4.4-11.0)
[2023-10-18 07:46] LABS: ALB/GLOB Ratio 1.1 RATIO (0.9-2.4); AST(SGOT) 41 U/L (15-37); Alanine Aminotransfer ALT/SGPT 55 U/L (16-61); Albumin, Serum 3.3 g/dL (3.2-5.0); Alkaline Phosphatase 70 U/L (45-117); Anion Gap 8 (5-15); BUN 24 mg/dL (7-18); BUN/Creat Ratio 20.2 RATIO (10-20); Calcium,Total 8.8 mg/dL (8.5-10.1); Chloride 103 mmol/L (98-107); Creatinine, Serum 1.19 mg/dL (0.70-1.30); EST Glomerular Filtration Rate 64 mL/min (>60); Est Glom Filt Rate - Afr Amer 77 mL/min (>60); Estimated Creatinine Clearance 55.66 ml/min; Glucose 111 mg/dL (74-106); Magnesium 2.6 mg/dL (1.6-2.6); Phosphorus 4.1 mg/dL (2.5-4.9); Potassium 4.5 mmol/L (3.5-5.1); Protein, Total 6.3 g/dL (6.4-8.2); Sodium Level 137 mmol/L (136-145); Thyroid Stim Hormone (TSH) 2.06 uIU/mL (0.358-3.74)
[2023-10-18 08:10] LABS: BNP,B-Type NATRIURETIC PEPTIDE 1687.3 pg/mL (0-100)
[2023-10-18 08:47] VITALS: BP 158/98; PULSE 100; RESP 16; TEMP 36.7; O2SAT 96
[2023-10-18] MEDS: Enoxaparin 40 MG/0.4 ML Syringe SC (08:52)
[2023-10-18] MEDS: Lisinopril 10 MG Tablet PO (08:52)
[2023-10-18] MEDS: Potassium Chloride Oral Tablet 20 MEQ PO (08:52)
[2023-10-18] MEDS: Furosemide 40 MG/4 ML Vial IV ×2 (08:52→18:10)
[2023-10-18] MEDS: Magnesium Chloride 64 MG Delay Rel.Tablet 128 MG PO (08:53)
[2023-10-18] MEDS: Spironolactone 50 MG Tablet PO (08:53)
--- NOTE | 2023-10-18 08:55 | PCM.CONS.C ---
Assessment & Plan Assessment/Plan (1) CHF exacerbation: QUALIFIERS: Heart failure type: systolic Qualified Code(s): I50.23 - Acute on chronic systolic (congestive) heart failure PLAN: Patient has a known history of nonischemic dilated cardiomyopathy. It was felt to be related to alcohol use in the past. He initially improved from an EF of 15% to 50% but then stopped his medical regiment and his EF fell back to 30%. October 02, 2023 the patient was seen in my office. He had no complaints at the time his blood pressure was elevated but reported that in the home environment it was 130 systolic. Over the last 2 weeks he has developed increasing lower extremity edema with progressive dyspnea on exertion to the point he was walking with a walker. He had not called our office I went over interventions that we could have done had a called us ahead of time. He voiced understanding and appreciated the education. The patient is starting to respond to IV Lasix. He is significantly volume overloaded. Will also alter his medical regiment to better treat his heart rate and blood pressure. (2) Non-ischemic cardiomyopathy: PLAN: Last EF was 30% August 2023. A limited echo has been ordered. His BNP is elevated at 1400. It was 400 in the past. (3) Elevated troponin: PLAN: Troponin is minimally elevated at 80. This represents strain I am certain he has normal coronary arteries by catheterization February 2021. (4) Left bundle branch block: PLAN: Patient has a chronic left bundle branch block with left axis deviation on his EKG. This is unchanged. (5) Essential hypertension: PLAN: Given the patient's decompensated heart failure I would recommend more aggressive treatment of his hypertension. We will increase his FLORIN inhibitor therapy and his beta-russel therapy. PLAN: Plan 1. Continue IV Lasix. 2. Metoprolol 50 mg twice daily to replace the once a day drug dosing regiment 3. Lisinopril be increased to 20 mg twice daily. 4. Await results of the limited echo. This had initially been scheduled for November which would be 3 months after initiation of his therapy and August 2023. HPI Consult Data Date of Consult: 10/18/23 HPI Narrative Reason for Consultation: Decompensated heart failure HPI Narrative: LILIBETH CRESPO, is a 72 M who presents with a 2-week history of progressive shortness of breath lower extremity edema and dyspnea on exertion. The patient has been trying to treat himself in his home environment. Without success. He recently was treated successfully for bilateral lower extremity cellulitis. The patient received IV Lasix and has had a good diuresis his weight is down 2 kg since admission. His blood pressure is elevated and his heart rate is 100 sinus rhythm. His EKG shows his chronic left bundle branch block with left axis deviation. Patient has a history of nonischemic dilated cardiomyopathy his initial EF was 15% when he was diagnosed he was aggressively treated with medical therapy and his EF improved to 50%. Earlier this year he stopped all of his medications and came in and heart failure and his EF was measured at 30%. He was since reinstituted on his medications and was last evaluated in office October 02, 2023. At that time he was asymptomatic. His blood pressure was 160/98 in the office he monitors his blood pressure in his home environment and it runs 130/70-80. The patient has noticed a decrease in urine output over the last couple of weeks. The patient reports he has been compliant with his medical therapy. [facility] Medical History Non-ischemic cardiomyopathy (03/07/21) CHF exacerbation Congestive heart failure (CHF) HFrEF (heart failure with reduced ejection fraction) (03/07/21) Essential hypertension CHF (NYHA class III, ACC/AHA stage C) Alcohol abuse Chronic pain Congestive heart failure (CHF) Alcohol dependence Restless leg syndrome Laceration of right little finger Home Medications ?Medication ?Instructions ?Recorded ?Last Taken ?Type lisinopril 10 mg tablet 10 mg PO DAILY 06/25/23 08/31/23 History furosemide 40 mg tablet 40 mg PO DAILY #90 tabs 08/15/23 09/07/23 Rx metoprolol succinate 50 mg 50 mg PO QHS #30 tabs 08/27/23 Unknown Rx tablet,extended release 24 hr spironolactone 50 mg tablet 60 mg PO DAILY 10/17/23 Unknown History Allergy/AdvReac Type Severity Reaction Status Date / Time amoxicillin Allergy PAIN AND Verified 10/17/23 20:03 DIARRHEA Penicillins Allergy PAIN AND Verified 10/17/23 20:03 DIARRHEA Family History Father Throat cancer smoker Hypertension Mother No cardiac disease Mother currently living, 92 years old with no reported medical issues. 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 pets and animals: Yes (cats) Smoking Status: Never smoker alcohol intake: former substance use type: does not use caffeine: Yes Type: coffee Number of servings: 4 ROS Constitutional Constitutional: Reports as per HPI Eyes Eyes: Reports as per HPI ENT HEENT: Reports systems reviewed and no addt'l complaints, except as documented Cardiovascular Cardiovascular: Reports as per HPI Respiratory/Chest Respiratory/Chest: Reports as per HPI Gastrointestinal Gastrointestinal: Reports systems reviewed and no addt'l complaints, except as documented Genitourinary Genitourinary: Reports as per HPI Musculoskeletal Musculoskeletal: Reports systems reviewed and no addt'l complaints, except as documented Integumentary Integumentary: Reports systems reviewed and no addt'l complaints, except as documented Neurologic Neurologic: Reports systems reviewed and no addt'l complaints, except as documented Psychiatric Psychiatric: Reports systems reviewed and no addt'l complaints, except as documented Endocrine Endocrinology: Reports systems reviewed and no addt'l complaints, except as documented Hematologic/Lymphatic Hematologic/Lymphatic: Reports systems reviewed and no addt'l complaints, except as documented Allergic/Immunologic Allergic/Immunologic: Reports systems reviewed and no addt'l complaints, except as documented Physical Exam Const alert and oriented x3 HEENT normocephalic Eyes EOMs intact bilaterally Neck Neck Narrative: JVD noted at 45 degrees to the angle of the jaw. Chest inspection of chest normal Resp normal respiratory effort Auscultation: crackles bilateral base Cardio Rate: tachycardic Rhythm: regular rhythm Heart Sounds: S1 normal, S2 normal and gallop S3 gallop; Negative for murmur or rub GI non-tender Extremity General Extremity: edema bilateral lower extremity Details: severe Skin no rashes or lesions noted Neuro Neuro Narrative: Alert and oriented x 3 Psych mental status grossly normal Risk Stratification Risk Stratification Applicable: No Charges/Coding Visit Charges Inpatient E&M: 87430 Init Hosp L3 Objective Data Vital Signs: Vital Signs Temp Pulse Resp BP Pulse Ox O2 Del Method 98.0 F 100 16 158/98 H 96 Room Air 10/18/23 08:47 10/18/23 08:47 10/18/23 08:47 10/18/23 08:47 10/18/23 08:47 10/18/23 08:47 Oxygen Delivery Method Room Air Weight: 185 lb 3.013 oz Body Mass Index (BMI) 31.8 Intake & Output: Intake and Output for Last 24 Hours 10/16/23 10/17/23 10/18/23 23:59 23:59 23:59 Intake Total 170 / 170 Output Total 1050 / 1050 Balance -880 / -880 Lab / Micro Data Attestation: I reviewed the patient's lab results. 10/18/23 06:30 10/18/23 06:30 Labs: Laboratory Results - last 24 hr 10/17/23 20:26: WBC 14.3 H, RBC 4.13 L, Hgb 12.3 L, Hct 39.9 L, MCV 96.6 H, MCH 29.8, MCHC 30.8 L, RDW Std Deviation 49.7 H, RDW Coeff of Rosario 14.2, Plt Count 271, MPV 11.1, Immature Gran % (Auto) 1.200 H, Neut % (Auto) 84.3 H, Lymph % (Auto) 7.9 L, [place] % (Auto) 6.2, Eos % (Auto) 0.1, Baso % (Auto) 0.3, Absolute Neuts (auto) 12.1 H, Absolute Lymphs (auto) 1.13, Nucleated RBC % 0, Sodium 139, Potassium 3.9, Chloride 101, Carbon Dioxide 31.0, Anion Gap 7, BUN 27 H, Creatinine 1.21, Estim Creat Clear Calc 56.30, Est GFR (MDRD) Af Amer 76, Est GFR (MDRD) Non-Af 63, BUN/Creatinine Ratio 22.3 H, Glucose 109 H, Calcium 9.1, Troponin I High Sens 72, B-Natriuretic Peptide 1475.0 H 10/17/23 22:35: Troponin I High Sens 82 H 10/18/23 06:30: WBC 11.4 H, RBC 3.96 L, Hgb 12.0 L, Hct 38.5 L, MCV 97.2 H, MCH 30.3, MCHC 31.2 L, RDW Std Deviation 51.1 H, RDW Coeff of Rosario 14.3, Plt Count 249, MPV 11.1, Immature Gran % (Auto) 0.900, Neut % (Auto) 80.7 H, Lymph % (Auto) 10.7 L, [place] % (Auto) 6.6, Eos % (Auto) 0.7, Baso % (Auto) 0.4, Absolute Neuts (auto) 9.2 H, Absolute Lymphs (auto) 1.22, Nucleated RBC % 0, Sodium 137, Potassium 4.5, Chloride 103, Carbon Dioxide 26.0, Anion Gap 8, BUN 24 H, Creatinine 1.19, Estim Creat Clear Calc 55.66, Est GFR (MDRD) Af Amer 77, Est GFR (MDRD) Non-Af 64, BUN/Creatinine Ratio 20.2 H, Glucose 111 H, Calcium 8.8, Phosphorus 4.1, Magnesium 2.6, Total Bilirubin 0.70, AST 41 H, ALT 55, Alkaline Phosphatase 70, B-Natriuretic Peptide 1687.3 H, Total Protein 6.3 L, Albumin 3.3, Globulin 3.0, Albumin/Globulin Ratio 1.1, TSH 2.06 Rhythm Strip Rhythm Strip: Sinus Tach Rate: 100 Ectopy: None Cardiology Labs/Tests 10/17/23 20:26: WBC 14.3 H, RBC 4.13 L, Hgb 12.3 L, Hct 39.9 L, MCV 96.6 H, MCH 29.8, MCHC 30.8 L, Plt Count 271, MPV 11.1, Immature Gran % (Auto) 1.200 H, Neut % (Auto) 84.3 H, Lymph % (Auto) 7.9 L, [place] % (Auto) 6.2, Eos % (Auto) 0.1, Baso % (Auto) 0.3, Absolute Neuts (auto) 12.1 H, Nucleated RBC % 0, Sodium 139, Potassium 3.9, Chloride 101, Carbon Dioxide 31.0, Anion Gap 7, BUN 27 H, Creatinine 1.21, Est GFR (MDRD) Af Amer 76, Est GFR (MDRD) Non-Af 63, BUN/Creatinine Ratio 22.3 H, Glucose 109 H, Calcium 9.1, B-Natriuretic Peptide 1475.0 H 10/18/23 06:30: WBC 11.4 H, RBC 3.96 L, Hgb 12.0 L, Hct 38.5 L, MCV 97.2 H, MCH 30.3, MCHC 31.2 L, Plt Count 249, MPV 11.1, Immature Gran % (Auto) 0.900, Neut % (Auto) 80.7 H, Lymph % (Auto) 10.7 L, [place] % (Auto) 6.6, Eos % (Auto) 0.7, Baso % (Auto) 0.4, Absolute Neuts (auto) 9.2 H, Nucleated RBC % 0, Sodium 137, Potassium 4.5, Chloride 103, Carbon Dioxide 26.0, Anion Gap 8, BUN 24 H, Creatinine 1.19, Est GFR (MDRD) Af Amer 77, Est GFR (MDRD) Non-Af 64, BUN/Creatinine Ratio 20.2 H, Glucose 111 H, Calcium 8.8, Phosphorus 4.1, Magnesium 2.6, Total Bilirubin 0.70, B-Natriuretic Peptide 1687.3 H Rhythm: EKG: ECHO: Stress Test: Cardiac Cath: PCI: CT Surgery: Holter monitor: EPS: PPM: CXR: Chest CT Scan: Radiography Diagnostic Testing: Radiology Impression Chest X-Ray 10/17/23 21:00 IMPRESSION: Cardiomegaly. Electronically Signed: Jatin Park DO at 21:12 EDT Reading Location ID and State: [address] [place] [address] Tel [phone], Service support , EKG Sinus tach LBBB LAD no new changes except rate increased: Attestation: I personally reviewed and interpreted this EKG as follows: Prior EKG tracings: not available for review Interpretation: Sinus tachycardia at 105 bpm. Left bundle branch block left axis deviation this is an old left bundle branch block.
[2023-10-18] MEDS: Aspirin 81 MG TAB.CHEW PO (08:57)
--- NOTE | 2023-10-18 12:03 | CON.PCM.GI_ITS ---
HPI Consult Data Date of Consult: 10/18/23 HPI Narrative Reason for Consultation: Abdominal pain HPI Narrative: LILIBETH MOMIN, is a 72 M who presents with worsening chest pain. He has a past medical history of essential hypertension, obesity; with BMI of 33.6 since admission, history of alcohol abuse, restless leg syndrome, history of hernia; status post repair, OA; with chronic pain syndrome, history of LBBB, history of nonischemic cardiomyopathy with LHC (2020) and chronic systolic CHF; with LVEF ~30% with severe global hypokinesis of his left ventricle with a left atrium mildly enlarged and trivial mitral valve insufficiency (07/2023) followed by Dr. Marie of [facility] who presents to [facility] ER complaining of worsening lower extremity edema and shortness of breath. Mr. Momin reports his symptoms began approximately 2 weeks prior to admission with a gradual-onset of progressively worsening 2-3+ bilateral lower extremity pitting edema in spite of taking his Lasix as prescribed. He also admits to dyspnea on exertion that has now progressed to shortness of breath at rest with the sensation of continuous moderate fatigue. He admits his symptoms are similar to his previous CHF exacerbations. He denies associated fever, chills, nausea, vomiting, urinary retention, diaphoresis, chest pain, chest pressure, syncope or near syncope. He also denies recent alcohol abuse. I was asked to see him due to worsening abdominal pain that is been going on for multiple years causing him to have anorexia. He does take antiplatelet therapy for his heart that has subsequently been DC'd recently. He denies any melanotic stools. But does complain of midepigastric pain sometimes rating to the back. CT scan abdomen pelvis did not show any acute abnormalities in the gastrointestinal system. [facility] Medical History Non-ischemic cardiomyopathy (03/07/21) CHF exacerbation Congestive heart failure (CHF) HFrEF (heart failure with reduced ejection fraction) (03/07/21) Essential hypertension CHF (NYHA class III, ACC/AHA stage C) Alcohol abuse Chronic pain Congestive heart failure (CHF) Alcohol dependence Restless leg syndrome Laceration of right little finger Home Medications ?Medication ?Instructions ?Recorded ?Last Taken ?Type lisinopril 10 mg tablet 10 mg PO DAILY 06/25/23 08/31/23 History furosemide 40 mg tablet 40 mg PO DAILY #90 tabs 08/15/23 09/07/23 Rx metoprolol succinate 50 mg 50 mg PO QHS #30 tabs 08/27/23 Unknown Rx tablet,extended release 24 hr spironolactone 50 mg tablet 60 mg PO DAILY 10/17/23 Unknown History Allergy/AdvReac Type Severity Reaction Status Date / Time amoxicillin Allergy PAIN AND Verified 10/17/23 20:03 DIARRHEA Penicillins Allergy PAIN AND Verified 10/17/23 20:03 DIARRHEA Family History Father Throat cancer smoker Hypertension Mother No cardiac disease Mother currently living, 92 years old with no reported medical issues. 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 HENT: Denies headache, denies stuffy nose, denies sore throat EYES: Denies changes in vision or discharge from eyes. Resp: Patient admits to dyspnea on exertion that progressed to shortness of breath at rest. Cardiac: Denies chest pain, palpitations or heart racing. GI: Denies abdominal pain, denies changes in bowel, denies nausea or vomiting. : Denies changes in urination Extremity: Patient admits to severe 2-3+ bilateral lower extremity pitting edema as per HPI. Musculoskeletal: Feels somewhat generally weak and unwell but denies arthralgias or myalgias. Neuro: Patient denies headache, paresthesias or focal neurologic deficits. Heme: Denies any bleeding or bruising Skin: Denies rashes Psychiatric: No complaints voiced related uncontrolled depression or anxiety. Endocrine: No polyuria, polydipsia or polyphagia. The rest of the 14 point ROS was negative except for positives in HPI. Physical Exam Narrative General: Alert, Oriented x3, Cooperative, No apparent distress HEENT: Atraumatic, PERRLA, EOMI, Normocephalic Oral: Moist Mucosa Neck: Supple Lungs: Diminished, Normal air movement, No rhonchi, No wheeze, No rales, mild crackles Cardiovascular: Tachycardic, Regular Rhythm, Normal S1, Normal S2, No murmurs Abdomen: Soft, significant involuntary guarding, rectus diastases, Non- Distended, No Hepato-splenomegaly Extremities: Edema, Capillary Refill Less than 3 Seconds Skin: No rashes, No breakdown Musculoskeletal: No Tenderness to Palpation of Joints or Extremities Neurological: No focal neurological deficits, Motor Exam 5/5 strength throughout, Sensory exam intact to light touch and pain Psych/Mental Status: Normal Affect, Appropriate Lab / Micro Data 10/19/23 06:15 10/19/23 06:15 Labs: Laboratory Results - last 24 hr 10/19/23 06:15: WBC 12.1 H, RBC 4.05 L, Hgb 12.2 L, Hct 39.5 L, MCV 97.5 H, MCH 30.1, MCHC 30.9 L, RDW Std Deviation 51.4 H, RDW Coeff of Rosario 14.3, Plt Count 243, MPV 11.2, Immature Gran % (Auto) 1.300 H, Neut % (Auto) 80.1 H, Lymph % (Auto) 10.5 L, [place] % (Auto) 7.2, Eos % (Auto) 0.6, Baso % (Auto) 0.3, Absolute Neuts (auto) 9.7 H, Absolute Lymphs (auto) 1.27, Nucleated RBC % 0, Sodium 140, Potassium 4.2, Chloride 106, Carbon Dioxide 27.0, Anion Gap 7, BUN 30 H, Creatinine 1.06, Estim Creat Clear Calc 61.88, Est GFR (MDRD) Af Amer 88, Est GFR (MDRD) Non-Af 73, BUN/Creatinine Ratio 28.3 H, Glucose 112 H, Calcium 9.1 Rhythm Strip Rhythm Strip: Sinus Tach Rate: 100 Ectopy: None Imaging Radiology Impression Abdomen/Pelvis CT 10/19/23 03:09 IMPRESSION: 1. Patchy groundglass opacity bilaterally in the lower lower lobes with mild thickening of the interlobular septa. This may be due to mild interstitial edema. 2. No acute abdominal pelvic abnormality. 3. Small exophytic 1.5 cm heterogeneous dense lesion arising from the lateral aspect of the right kidney. There appears to be some fat involving the medial aspect of it. It is unchanged since the prior examination dated 03/06/2021. 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 No follow-up necessary. 4. Stable mild cardiomegaly. 5. Fatty liver. 6. Numerous diverticula without diverticulitis. 7. Subsegmental atelectasis in the lingula. 8. Old compression fracture of T12. Electronically Signed: Bernard Guzman MD at 4:17 EDT , Assessment & Plan Assessment/Plan (1) CHF exacerbation: QUALIFIERS: Heart failure type: systolic Qualified Code(s): I 50.23 - Acute on chronic systolic (congestive) heart failure (2) Elevated troponin: (3) Bilateral edema of lower extremity: (4) HFrEF (heart failure with reduced ejection fraction): (5) Non-ischemic cardiomyopathy: (6) Left bundle branch block: PLAN: Plan 72-year-old gentleman with AE of chronic systolic CHF; with LVEF ~30% with severe global hypokinesis of his left ventricle with a left atrium mildly enlarged and trivial mitral valve insufficiency (07/2023) followed by Dr. Marie of [facility] with a mildly elevated second troponin of 82 pg/mL present on admission consistent with suspected acute cardiac strain Abdominal pain. Differential diagnosis does include peptic ulcer disease, gastroparesis, intestinal angina. He will undergo an upper endoscopy to evaluate his upper GI tract. He was explained alternatives, risk, benefits including not withstanding bleeding, infection, sepsis, perforation, need for charge and . He will have an ASA of 3. Charges/Coding Visit Charges Inpatient E&M: 50682 Init Hosp L3
[2023-10-18 12:15] VITALS: PULSE 99
[2023-10-18] MEDS: Metoprolol Tartrate 50 MG Tablet PO ×2 (12:15→22:00)
--- NOTE | 2023-10-18 12:40 | PCM.PN.HOSP ---
Subjective Subjective Doing well, no significant shortness of breath at rest though he does have dyspnea with exertion Objective Data Objective Data Vital Signs: Vital Signs Temp Pulse Resp BP Pulse Ox O2 Del Method 98.0 F 99 16 158/98 H 96 Room Air 10/18/23 08:47 10/18/23 12:15 10/18/23 08:47 10/18/23 08:47 10/18/23 08:47 10/18/23 10:18 Oxygen Delivery Method Room Air Weight: 185 lb 3.013 oz Body Mass Index (BMI) 31.8 Intake & Output: Intake and Output for Last 24 Hours 10/17/23 10/18/23 10/19/23 03:59 03:59 03:59 Intake Total 170 / 170 0 / 0 Output Total 750 / 750 300 / 300 Balance -580 / -580 -300 / -300 Lab / Micro Data 10/18/23 06:30 10/18/23 06:30 Labs: Laboratory Results - last 24 hr 10/17/23 20:26: WBC 14.3 H, RBC 4.13 L, Hgb 12.3 L, Hct 39.9 L, MCV 96.6 H, MCH 29.8, MCHC 30.8 L, RDW Std Deviation 49.7 H, RDW Coeff of Rosario 14.2, Plt Count 271, MPV 11.1, Immature Gran % (Auto) 1.200 H, Neut % (Auto) 84.3 H, Lymph % (Auto) 7.9 L, [place] % (Auto) 6.2, Eos % (Auto) 0.1, Baso % (Auto) 0.3, Absolute Neuts (auto) 12.1 H, Absolute Lymphs (auto) 1.13, Nucleated RBC % 0, Sodium 139, Potassium 3.9, Chloride 101, Carbon Dioxide 31.0, Anion Gap 7, BUN 27 H, Creatinine 1.21, Estim Creat Clear Calc 56.30, Est GFR (MDRD) Af Amer 76, Est GFR (MDRD) Non-Af 63, BUN/Creatinine Ratio 22.3 H, Glucose 109 H, Calcium 9.1, Troponin I High Sens 72, B-Natriuretic Peptide 1475.0 H 10/17/23 22:35: Troponin I High Sens 82 H 10/18/23 06:30: WBC 11.4 H, RBC 3.96 L, Hgb 12.0 L, Hct 38.5 L, MCV 97.2 H, MCH 30.3, MCHC 31.2 L, RDW Std Deviation 51.1 H, RDW Coeff of Rosario 14.3, Plt Count 249, MPV 11.1, Immature Gran % (Auto) 0.900, Neut % (Auto) 80.7 H, Lymph % (Auto) 10.7 L, [place] % (Auto) 6.6, Eos % (Auto) 0.7, Baso % (Auto) 0.4, Absolute Neuts (auto) 9.2 H, Absolute Lymphs (auto) 1.22, Nucleated RBC % 0, Sodium 137, Potassium 4.5, Chloride 103, Carbon Dioxide 26.0, Anion Gap 8, BUN 24 H, Creatinine 1.19, Estim Creat Clear Calc 55.66, Est GFR (MDRD) Af Amer 77, Est GFR (MDRD) Non-Af 64, BUN/Creatinine Ratio 20.2 H, Glucose 111 H, Calcium 8.8, Phosphorus 4.1, Magnesium 2.6, Total Bilirubin 0.70, AST 41 H, ALT 55, Alkaline Phosphatase 70, B-Natriuretic Peptide 1687.3 H, Total Protein 6.3 L, Albumin 3.3, Globulin 3.0, Albumin/Globulin Ratio 1.1, TSH 2.06 Radiography Diagnostic Testing: Radiology Impression Chest X-Ray 10/17/23 21:00 IMPRESSION: Cardiomegaly. Electronically Signed: Jatin Park DO at 21:12 EDT Reading Location ID and State: [address] [place] [address] Tel [phone], Service support , Echocardiogram 10/17/23 22:36 Interpretation Summary Limited echo The estimated ejection fraction is 25 %. There is severe global hypokinesis of the left ventricle. The left atrium is mildly enlarged. Ordering Physician: En Ferrari Referring Physician: En Ferrari Performed By: Christiane Cornell RCS Rhythm Strip Rhythm Strip: Sinus Tach Rate: 100 Ectopy: None Physical Exam Narrative General: Alert, Oriented x3, Cooperative, No apparent distress HEENT: Atraumatic, PERRLA, EOMI, Normocephalic Oral: Moist Mucosa Neck: Supple Lungs: Diminished, Normal air movement, No rhonchi, No wheeze, No rales, mild crackles Cardiovascular: Tachycardic, Regular Rhythm, Normal S1, Normal S2, No murmurs Abdomen: Soft, Non Tender, Non-Distended, No Hepato-splenomegaly Extremities: Edema, Capillary Refill Less than 3 Seconds Skin: No rashes, No breakdown Musculoskeletal: No Tenderness to Palpation of Joints or Extremities Neurological: No focal neurological deficits, Motor Exam 5/5 strength throughout, Sensory exam intact to light touch and pain Psych/Mental Status: Normal Affect, Appropriate Assessment & Plan Assessment/Plan (1) CHF exacerbation: QUALIFIERS: Heart failure type: systolic Qualified Code(s): I50.23 - Acute on chronic systolic (congestive) heart failure (2) Elevated troponin: (3) Bilateral edema of lower extremity: (4) HFrEF (heart failure with reduced ejection fraction): (5) Non-ischemic cardiomyopathy: (6) Left bundle branch block: PLAN: Plan 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 Appreciate cardiology's assistance ? Limited echo with consistent EF and left ventricular systolic dysfunction ? Continue with aggressive diuresis ? Will continue to encourage outpatient follow-up and consistency with his medical therapy ? We will monitor make adjustments as necessary ? He is about 10 pounds heavier than he was on his previous admission about a month ago DVT: Lovenox Charges/Coding Visit Charges Inpatient E&M: 02362 Subs Hosp L2
--- NOTE | 2023-10-18 14:50 | CASEMGMT ---
IJEOMA RODRIGUEZ Assessment Face to Face with patient for initial transition planning/care coordination assessment. RN CM introduced self and role at [facility], pt voices understanding. Pt is A&Ox4 and is resting comfortably in bed and is calm. Care providers, pharmacy, and demographics verified. Admitting dx: CHF Exacerbation PCP : Tevin Turner Specialists: [facility]. Paz (ENT) Preferred Pharmacy: [facility] Insurance: AARP MCR ADV Prescription Benefit: Yes LNOK: Radha Little (Daughter), Sylvester Momin (Son) Living Arrangements: Pt lives with a roommate in a 2 story home with a FFSU and 4 steps to enter. Pt lives on the main level and his roommate lives in the upper level. ADLs/IADLs: Ind. Pt states that he still works Transportation: Self DME: [employer]. Denies all other DME uses or needs HHC/SNF: denies history or needs Pt?s goal: Home and return to work Plan: 6-Click is 20. PT is pending. Pt denies the need for HHC or OP therapy at this time. Pt states that he wishes to DC home and return to work. Pt states he had a recent MBS study done and plans to f/u with Dr. Paz on Sunday regarding the results for this. Pt denies further needs at this time. CM to follow for safe DC from [facility]. Ermelinda Webb RN, CM
[2023-10-18 16:32] VITALS: BP 149/62; PULSE 94; RESP 16; TEMP 36.6; O2SAT 97
[2023-10-18 21:30] VITALS: BP 145/97; PULSE 98; RESP 16; TEMP 37; O2SAT 95
[2023-10-18 22:00] VITALS: BP 145/97; PULSE 98
[2023-10-18] MEDS: Lisinopril 20 MG Tablet PO (22:01)
[2023-10-18] MEDS: Calcium Carbonate 500 MG Tablet 1000 MG PO (23:51)
[2023-10-19] VITALS (11 sets, daily range): BP systolic 125–164; BP diastolic 79–125; PULSE 79–99; RESP 16–18; TEMP 36.4–36.8; O2SAT 92–98; BMI 31.1
--- NOTE | 2023-10-19 03:09 | CT_ITS ---
EXAM: CT ABDOMEN AND PELVIS WITH INTRAVENOUS CONTRAST CLINICAL INDICATION: abdominal pain TECHNIQUE: Helically acquired images were obtained of the abdomen and pelvis with intravenous contrast. This CT exam was performed using one or more of the following dose reduction techniques: automated exposure control, adjustment of the mA and/or kV according to patient size, and/or use of iterative reconstruction technique. CONTRAST: IV 100mL Isovue-370 RADIATION DOSE: CTDIvol = 29.86 mGy, DLP = 1238.04 mGy-cm COMPARISON: 08/05/2023. CT scan of the chest abdomen and pelvis 03/06/2021. FINDINGS: LOWER THORAX: Stable mild cardiomegaly. Patchy groundglass opacity bilaterally in the lower lower lobes with mild thickening of the interlobular septa. Subsegmental atelectasis in the lingula. No significant pericardial effusion. ABDOMEN: LIVER: There is diffuse low-attenuation of the liver. GALLBLADDER AND BILE DUCTS: Unremarkable. No calcified gallstones. No gallbladder distention or wall edema. No intra- or extrahepatic biliary ductal dilation. PANCREAS: Unremarkable. No focal cystic or solid mass. SPLEEN: Unremarkable. Normal size without focal cystic or solid mass. ADRENALS: Unremarkable. No nodules. KIDNEYS AND URETERS: Small exophytic 1.5 cm heterogeneous dense lesion arising from the lateral aspect of the right kidney. There appears to be some fat involving the medial aspect of it. It is unchanged since the prior examination dated 03/06/2021. Normal renal size and position. No hydronephrosis. STOMACH AND BOWEL: Numerous diverticula without diverticulitis. No stomach or bowel distention. PELVIS: APPENDIX: Normal appendix. BLADDER: Unremarkable. REPRODUCTIVE: Unremarkable as visualized. No mass. ABDOMEN and PELVIS: INTRAPERITONEAL SPACE: Unremarkable. No ascites or other fluid collection. No free air. BONES/JOINTS: Old compression fracture of T12. No suspicious lytic or blastic abnormality. SOFT TISSUES: Unremarkable. No discrete abdominal or pelvic wall hernia. VASCULATURE: Unremarkable. Abdominal aorta is non-dilated. LYMPH NODES: Unremarkable. No enlarged lymph nodes. CT/Abdomen/Pelvis W IV Cont ONLY IMPRESSION: 1. Patchy groundglass opacity bilaterally in the lower lower lobes with mild thickening of the interlobular septa. This may be due to mild interstitial edema. 2. No acute abdominal pelvic abnormality. 3. Small exophytic 1.5 cm heterogeneous dense lesion arising from the lateral aspect of the right kidney. There appears to be some fat involving the medial aspect of it. It is unchanged since the prior examination dated 03/06/2021. 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 No follow-up necessary. 4. Stable mild cardiomegaly. 5. Fatty liver. 6. Numerous diverticula without diverticulitis. 7. Subsegmental atelectasis in the lingula. 8. Old compression fracture of T12. Electronically Signed: Bernard Guzman MD at 4:17 EDT ,
[2023-10-19] MEDS: Morphine 2 MG/ML Syringe IV (03:15)
[2023-10-19] MEDS: 0.9% Saline Lock 10 ML Syringe IV (03:18)
--- NOTE | 2023-10-19 04:38 | NURSING ---
Pt is moaning crying out and rubbing stomach stating his pain is a 30 /10 to mid abdomen radiating to left side. Notified dr gann and obtained order for stat ct of abdomen. ct results obtained. Messaged physician regarding findings. Pt further states he will not leave the hospital until his abdominal pain is addressed. I can't eat more than 2 bites of food without feeling all this pressure. Notified physician of patients complaints. Order for GI consult received.
[2023-10-19 06:50] LABS: Absolute Lymphocyte Count 1.27 X10^3/uL (0.83-4.51); Absolute Neutrophil Count 9.7 X10^3/uL (2.0-7.7); Basophil# 0.04 X10^3/uL; Basophil% 0.3 % (0-1); Eosinophil# 0.07 X10^3/uL; Eosinophils% 0.6 % (0-5); Hematocrit 39.5 % (40-54); Hemoglobin 12.2 g/dL (13.0-16.5); Lymphocyte # 1.27 X10^3/ul (0.83-4.51); Lymphocyte % 10.5 % (19-41); Mean Corp Hgb Conc 30.9 g/dL (32-36); Mean Corpuscular Hgb 30.1 pg (27.0-32.0); Mean Corpuscular Volume 97.5 fL (80-94); Mean Platelet Vol. 11.2 fl (6.2-12.0); Monocyte# 0.87 X10^3/uL; Monocyte% 7.2 % (0-10); NRBC Flagged by Analyzer 0 % (0-5); Neutrophil # 9.67 X10^3/uL (2.7-7.7); Neutrophil % 80.1 % (47-70); Platelet Count 243 K/mm3 (150-450); RBC Distribution Width CV 14.3 % (11.6-14.6); RBC Distribution Width SD 51.4 fl (35.1-43.9); Red Blood Count 4.05 M/mm3 (4.6-6.2); White Blood Count 12.1 K/mm3 (4.4-11.0)
[2023-10-19 08:24] LABS: Anion Gap 7 (5-15); BUN 30 mg/dL (7-18); BUN/Creat Ratio 28.3 RATIO (10-20); Calcium,Total 9.1 mg/dL (8.5-10.1); Chloride 106 mmol/L (98-107); Creatinine, Serum 1.06 mg/dL (0.70-1.30); EST Glomerular Filtration Rate 73 mL/min (>60); Est Glom Filt Rate - Afr Amer 88 mL/min (>60); Estimated Creatinine Clearance 61.88 ml/min; Glucose 112 mg/dL (74-106); Potassium 4.2 mmol/L (3.5-5.1); Sodium Level 140 mmol/L (136-145)
--- NOTE | 2023-10-19 08:48 | PN.CARD_ITS ---
Subjective Subjective Patient complained of severe epigastric pain overnight. He reports to me that this has been present for several years but never has it been this intense. He describes it is coming on randomly but can be predictable when he goes outside and is trying to walk. He says it has been relieved with Tums in the past. Given the severity of the pain he had a CT done of his abdomen and pelvis last evening which did not show any acute events by verbal report. The patient continues to complain of this discomfort this morning although it is much less intense. He continues to diurese with his weight dropping approximately 3 kg over the last 48 hours. Due to his abdominal discomfort he is refusing his oral medications until a scope is performed this morning. The limited echo shows his ejection fraction is still at 25% which is within range of the 30% EF documented earlier this year. Objective Data Vital Signs: Vital Signs Temp Pulse Resp BP Pulse Ox O2 Del Method 97.6 F L 82 16 135/97 H 92 Room Air 10/19/23 05:35 10/19/23 05:35 10/19/23 05:35 10/19/23 05:35 10/19/23 05:35 10/19/23 05:35 Oxygen Delivery Method Room Air Weight: 181 lb 7.047 oz Body Mass Index (BMI) 31.1 Intake & Output: Intake and Output for Last 24 Hours 10/17/23 10/18/23 10/19/23 23:59 23:59 23:59 Intake Total 570 / 870 420 / 420 Output Total 2500 / 3400 1300 / 1300 Balance -1930 / -2530 -880 / -880 Lab / Micro Data Attestation: I reviewed the patient's lab results. 10/19/23 06:15 10/19/23 06:15 Labs: Laboratory Results - last 24 hr 10/19/23 06:15: WBC 12.1 H, RBC 4.05 L, Hgb 12.2 L, Hct 39.5 L, MCV 97.5 H, MCH 30.1, MCHC 30.9 L, RDW Std Deviation 51.4 H, RDW Coeff of Rosario 14.3, Plt Count 243, MPV 11.2, Immature Gran % (Auto) 1.300 H, Neut % (Auto) 80.1 H, Lymph % (Auto) 10.5 L, [place] % (Auto) 7.2, Eos % (Auto) 0.6, Baso % (Auto) 0.3, Absolute Neuts (auto) 9.7 H, Absolute Lymphs (auto) 1.27, Nucleated RBC % 0, Sodium 140, Potassium 4.2, Chloride 106, Carbon Dioxide 27.0, Anion Gap 7, BUN 30 H, Creatinine 1.06, Estim Creat Clear Calc 61.88, Est GFR (MDRD) Af Amer 88, Est GFR (MDRD) Non-Af 73, BUN/Creatinine Ratio 28.3 H, Glucose 112 H, Calcium 9.1 Cardiology Labs/Tests 10/19/23 06:15: WBC 12.1 H, RBC 4.05 L, Hgb 12.2 L, Hct 39.5 L, MCV 97.5 H, MCH 30.1, MCHC 30.9 L, Plt Count 243, MPV 11.2, Immature Gran % (Auto) 1.300 H, Neut % (Auto) 80.1 H, Lymph % (Auto) 10.5 L, [place] % (Auto) 7.2, Eos % (Auto) 0.6, Baso % (Auto) 0.3, Absolute Neuts (auto) 9.7 H, Nucleated RBC % 0, Sodium 140, Potassium 4.2, Chloride 106, Carbon Dioxide 27.0, Anion Gap 7, BUN 30 H, Creatinine 1.06, Est GFR (MDRD) Af Amer 88, Est GFR (MDRD) Non-Af 73, B UN/Creatinine Ratio 28.3 H, Glucose 112 H, Calcium 9.1 Rhythm: EKG: ECHO: Stress Test: Cardiac Cath: PCI: CT Surgery: Holter monitor: EPS: PPM: CXR: Chest CT Scan: Radiography Diagnostic Testing: Radiology Impression Echocardiogram 10/17/23 22:36 Interpretation Summary Limited echo The estimated ejection fraction is 25 %. There is severe global hypokinesis of the left ventricle. The left atrium is mildly enlarged. Ordering Physician: En Ferrari Referring Physician: En Ferrari Performed By: Christiane Cornell RCS Abdomen/Pelvis CT 10/19/23 03:09 IMPRESSION: 1. Patchy groundglass opacity bilaterally in the lower lower lobes with mild thickening of the interlobular septa. This may be due to mild interstitial edema. 2. No acute abdominal pelvic abnormality. 3. Small exophytic 1.5 cm heterogeneous dense lesion arising from the lateral aspect of the right kidney. There appears to be some fat involving the medial aspect of it. It is unchanged since the prior examination dated 03/06/2021. 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 No follow-up necessary. 4. Stable mild cardiomegaly. 5. Fatty liver. 6. Numerous diverticula without diverticulitis. 7. Subsegmental atelectasis in the lingula. 8. Old compression fracture of T12. Electronically Signed: Bernard Guzman MD at 4:17 EDT , Physical Exam Narrative The patient would not open his eyes to talk to me this morning. He is focused on his epigastric pain. He does report that it is much less intense than in the evening hours. Const alert and oriented x3 HEENT normocephalic Chest inspection of chest normal Resp normal respiratory effort Auscultation: rales bilateral base Cardio regular rate, regular rhythm and S1 normal heart sound Heart Sounds: gallop S3 gallop and abnormal sounds paradoxically split S2 GI GI Narrative: Hypoactive bowel sounds auscultated. The abdomen is moderately obese. Extremity General Extremity: edema bilateral lower extremity (Up above the knees bilaterally.) Details: moderate Skin no rashes or lesions noted Neuro Neuro Narrative: Alert and oriented x 3 Psych mental status grossly normal Assessment & Plan Assessment/Plan (1) CHF exacerbation: QUALIFIERS: Heart failure type: systolic Qualified Code(s): I 50.23 - Acute on chronic systolic (congestive) heart failure PLAN: The patient appears to be diuresing well he is lost 3 kg over the last 48 hours. Will continue IV Lasix will monitor his electrolytes and renal function and titrate his medical regiment to achieve guideline directed medical therapy for heart failure with reduced ejection fraction. It is possible that exacerbation of this epigastric discomfort could be related to intestinal or stomach lining edema related to his heart failure. However, the symptoms of epigastric discomfort predate any diagnosis of heart failure. (2) Left bundle branch block: PLAN: Chronic with left axis deviation consistent with his known nonischemic dilated cardiomyopathy. (3) HFrEF (heart failure with reduced ejection fraction): PLAN: The patient has acute decompensation as noted above. Echocardiogram limited on this admission shows an EF of 25% which is within expected variance from the EF of 30% earlier this year. (4) Essential hypertension: PLAN: Will continue to titrate meds to obtain a more appropriate blood pressure for the patient's given cardiovascular status. PLAN: Plan 1. Will DC aspirin as patient has no history of coronary artery disease. And this could play some part in his epigastric discomfort. 2. If blood pressure not better controlled in the next 24 hours would increase his FLORIN inhibitor therapy. He is already on lisinopril 20 mg twice daily. If this is unsuccessful in obtaining a blood pressure in the 110-120 systolic range recommend switching metoprolol to Coreg 12.5 mg twice daily. Charges/Coding Visit Charges Inpatient E&M: 08608 [facility] L3
[2023-10-19] MEDS: Enoxaparin 40 MG/0.4 ML Syringe SC (09:54)
[2023-10-19] MEDS: Pantoprazole Sodium 40 MG in 0.9% Normal Saline (100mL MB+) 100 ML 330 MG IV (09:55)
[2023-10-19] MEDS: Aspirin 81 MG TAB.CHEW PO (09:55)
[2023-10-19] MEDS: Furosemide 40 MG/4 ML Vial IV ×2 (09:55→18:33)
[2023-10-19] MEDS: Metoprolol Tartrate 50 MG Tablet PO ×2 (09:55→22:10)
[2023-10-19] MEDS: Magnesium Chloride 64 MG Delay Rel.Tablet 128 MG PO (09:55)
[2023-10-19] MEDS: Potassium Chloride Oral Tablet 20 MEQ PO (09:56)
[2023-10-19] MEDS: Lisinopril 20 MG Tablet PO ×2 (09:56→22:10)
[2023-10-19] MEDS: Sucralfate 1 GM Tablet PO ×3 (09:57→22:10)
[2023-10-19] MEDS: Spironolactone 50 MG Tablet PO (09:57)
--- NOTE | 2023-10-19 11:46 | PN.HOSP_ITS ---
Subjective Subjective Complaining of abdominal pain, had a CT scan overnight that was unremarkable Objective Data Objective Data Vital Signs: Vital Signs Temp Pulse Resp BP Pulse Ox O2 Del Method 97.8 F 93 18 158/96 H 98 Room Air 10/19/23 09:49 10/19/23 09:55 10/19/23 09:49 10/19/23 09:49 10/19/23 09:49 10/19/23 09:49 Oxygen Delivery Method Room Air Weight: 181 lb 7.047 oz Body Mass Index (BMI) 31.1 Intake & Output: Intake and Output for Last 24 Hours 10/18/23 10/19/23 10/20/23 03:59 03:59 03:59 Intake Total 170 / 170 700 / 700 230 / 230 Output Total 750 / 750 2650 / 2650 400 / 400 Balance -580 / -580 -1950 / -1950 -170 / -170 Lab / Micro Data 10/19/23 06:15 10/19/23 06:15 Labs: Laboratory Results - last 24 hr 10/19/23 06:15: WBC 12.1 H, RBC 4.05 L, Hgb 12.2 L, Hct 39.5 L, MCV 97.5 H, MCH 30.1, MCHC 30.9 L, RDW Std Deviation 51.4 H, RDW Coeff of Rosario 14.3, Plt Count 243, MPV 11.2, Immature Gran % (Auto) 1.300 H, Neut % (Auto) 80.1 H, Lymph % (Auto) 10.5 L, [place] % (Auto) 7.2, Eos % (Auto) 0.6, Baso % (Auto) 0.3, Absolute Neuts (auto) 9.7 H, Absolute Lymphs (auto) 1.27, Nucleated RBC % 0, Sodium 140, Potassium 4.2, Chloride 106, Carbon Dioxide 27.0, Anion Gap 7, BUN 30 H, Creatinine 1.06, Estim Creat Clear Calc 61.88, Est GFR (MDRD) Af Amer 88, Est GFR (MDRD) Non-Af 73, BUN/Creatinine Ratio 28.3 H, Glucose 112 H, Calcium 9.1 Radiography Diagnostic Testing: Radiology Impression Abdomen/Pelvis CT 10/19/23 03:09 IMPRESSION: 1. Patchy groundglass opacity bilaterally in the lower lower lobes with mild thickening of the interlobular septa. This may be due to mild interstitial edema. 2. No acute abdominal pelvic abnormality. 3. Small exophytic 1.5 cm heterogeneous dense lesion arising from the lateral aspect of the right kidney. There appears to be some fat involving the medial aspect of it. It is unchanged since the prior examination dated 03/06/2021. 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 No follow-up necessary. 4. Stable mild cardiomegaly. 5. Fatty liver. 6. Numerous diverticula without diverticulitis. 7. Subsegmental atelectasis in the lingula. 8. Old compression fracture of T12. Electronically Signed: Bernard Guzman MD at 4:17 EDT , Rhythm Strip Rhythm Strip: Sinus Tach Rate: 100 Ectopy: None Physical Exam Narrative General: Alert, Oriented x3, Cooperative, No apparent distress HEENT: Atraumatic, PERRLA, EOMI, Normocephalic Oral: Moist Mucosa Neck: Supple Lungs: Diminished, Normal air movement, No rhonchi, No wheeze, No rales, mild crackles Cardiovascular: Tachycardic, Regular Rhythm, Normal S1, Normal S2, No murmurs Abdomen: Soft, significant involuntary guarding, rectus diastases, Non- Distended, No Hepato-splenomegaly Extremities: Edema, Capillary Refill Less than 3 Seconds Skin: No rashes, No breakdown Musculoskeletal: No Tenderness to Palpation of Joints or Extremities Neurological: No focal neurological deficits, Motor Exam 5/5 strength throughout, Sensory exam intact to light touch and pain Psych/Mental Status: Normal Affect, Appropriate Assessment & Plan Assessment/Plan (1) CHF exacerbation: QUALIFIERS: Heart failure type: systolic Qualified Code(s): I 50.23 - Acute on chronic systolic (congestive) heart failure (2) Elevated troponin: (3) Bilateral edema of lower extremity: (4) HFrEF (heart failure with reduced ejection fraction): (5) Non-ischemic cardiomyopathy: (6) Left bundle branch block: PLAN: Plan 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 Appreciate cardiology's assistance ? Limited echo with consistent EF and left ventricular systolic dysfunction ? Continue with aggressive diuresis ? Will continue to encourage outpatient follow-up and consistency with his medical therapy ? We will monitor make adjustments as necessary ? He is about 10 pounds heavier than he was on his previous admission about a month ago 2. Abdominal pain ? Has been worked up as an outpatient, barium swallow is negative ? Will continue with PPI and Carafate ? GI was consulted overnight for possible scope ? CT scan obtained overnight was also unremarkable DVT: Lovenox Charges/Coding Visit Charges Inpatient E&M: 21075 Subs Hosp L2
[2023-10-19] MEDS: 0.9% Normal Saline (1000mL) 1,000 ML 15 ML IV (11:54)
--- NOTE | 2023-10-19 12:24 | OP.EGD_ITS ---
Patient Name: Peter Momin Procedure Date: 10/19/2023 11:34 AM Date of : 1950 Age: 72 Procedure: Upper GI endoscopy Indications: Epigastric abdominal pain Providers: Raul Coker DO Referring MD: En Roberts Do Medicines: Monitored Anesthesia Care Patient Profile: This is a 72 year old male. Refer to note in patient chart for documentation of history and physical. Patient has symptoms of chronic epigastric abdominal pain. Complications: No immediate complications. Procedure: Pre-Anesthesia Assessment: - Prior to the procedure, a History and Physical was performed, and patient medications and allergies were reviewed. The patient is competent. The risks and benefits of the procedure and the sedation options and risks were discussed with the patient. All questions were answered and informed consent was obtained. Patient identification and proposed procedure were verified by the physician in the pre-procedure area. Mental Status Examination: alert and oriented. Airway Examination: normal oropharyngeal airway and neck mobility. Respiratory Examination: clear to auscultation. CV Examination: normal. Prophylactic Antibiotics: The patient does not require prophylactic antibiotics. Prior Anticoagulants: The patient has taken no anticoagulant or antiplatelet agents. ASA Grade Assessment: III - A patient with severe systemic disease. After reviewing the risks and benefits, the patient was deemed in satisfactory condition to undergo the procedure. The anesthesia plan was to use monitored anesthesia care (MAC). Immediately prior to administration of medications, the patient was re-assessed for adequacy to receive sedatives. The heart rate, respiratory rate, oxygen saturations, blood pressure, adequacy of pulmonary ventilation, and response to care were monitored throughout the procedure. The physical status of the patient was re-assessed after the procedure. After obtaining informed consent, the endoscope was passed under direct vision. Throughout the procedure, the patient's blood pressure, pulse, and oxygen saturations were monitored continuously. The Endoscope was introduced through the mouth, and advanced to the second part of duodenum. The upper GI endoscopy was accomplished without difficulty. The patient tolerated the procedure well. Scope In: 12:12:33 PM Scope Out: 12:15:19 PM Total Procedure Duration Time 0 hours 2 minutes 46 seconds Findings: The examined esophagus was normal. A large amount of food (residue) was found in the entire examined stomach. Two oozing linear gastric ulcers with pigmented material were found on the lesser curvature of the stomach. The largest lesion was 6 mm in largest dimension. Biopsies were taken with a cold forceps for histology. Verification of patient identification for the specimen was done. Estimated blood loss was minimal. Biopsies were taken with a cold forceps for Helicobacter pylori testing. Verification of patient identification for the specimen was done. Estimated blood loss was minimal. No gross lesions were noted in the duodenal bulb. Impression: - Normal esophagus. - A large amount of food (residue) in the stomach. - Oozing gastric ulcers with pigmented material. Biopsied. - No gross lesions in the duodenal bulb. Recommendation: - Return patient to [facility] for ongoing care. - Resume previous diet. - Continue present medications. - Await pathology results. - Repeat upper endoscopy in 4 months for surveillance. - Use Protonix (pantoprazole) 40 mg PO BID for 12 weeks. - Use sucralfate tablets 1 gram PO QID for 3 weeks. - Gastric emptying study Procedure Code(s): --- Professional --- 11031, Esophagogastroduodenoscopy, flexible, transoral; with biopsy, single or multiple CPT copyright 2021 [employer]. All rights reserved. The codes documented in this report are preliminary and upon forming department end finder review may be revised to meet current compliance requirements. Raul Coker DO 10/19/2023 12:24:18 PM This report has been signed electronically. Number of Addenda: 0 Note Initiated On: 10/19/2023 11:34 AM
--- NOTE | 2023-10-19 12:24 | OP.CCLET_ITS ---
10/19/2023 Tevin Turner [address] [place] [address] Re : Upper GI endoscopy procedure for Peter Momin Dear Dr. Turner This procedure was performed on Thursday, October 19, 2023. My impressions and recommendations are as follows: Impressions : - Normal esophagus. - A large amount of food (residue) in the stomach. - Oozing gastric ulcers with pigmented material. Biopsied. - No gross lesions in the duodenal bulb. Recommendations : - Return patient to hospital [facility] for ongoing care. - Resume previous diet. - Continue present medications. - Await pathology results. - Repeat upper endoscopy in 4 months for surveillance. - Use Protonix (pantoprazole) 40 mg PO BID for 12 weeks. - Use sucralfate tablets 1 gram PO QID for 3 weeks. - Gastric emptying study My findings are described in the full procedure note, which is enclosed. If I can be of further assistance, please feel free to contact me at . Sincerely, Raul Coker, 10/19/2023 12:24:18 PM This report has been signed electronically.
--- NOTE | 2023-10-19 12:30 | IMM_PTH ---
PATIENT: LILIBETH CRESPO LOC: [facility] U#:[id number] AGE/SX: 72/M ROOM: [facility] RE10/17/[address]: Dr. Lanre Cortes DO : 1950 BED: 1 DIS: 10/23/2023 SPEC #: [id number] RECD: 10/23/23 09:55 STATUS: SOUT REQ #: [id number] BONY: 10/19/23 12:[address]: Raul Coker DEPT: IMMUNOHISTOCHEMISTRY RECD BY: Celestino Shaw ENTERED: 10/23/23 09:55 SP TYPE: IMMUNO OTHR DR: Brittany Almonte, MD Dr. Donnie Hardin Dr., MD Dr. Brendan Duffy, MD Dr. Cyril Ofori, MD Dr. David de Lorenzo, DO Dr. Emile Daoud, MD Dr. Farouk Belal, MD Dr. John E Schinner, MD Dr. Michael Hughes, MD Dr. Mark Tereletsky, DO Dr. Nicholas F Kotsonis, MD Dr. Nagapradee Nagajothi, MD Dr. Salvatore Savona, MD John H Roof, SHUN-Prabhu Welsh NP-JAD Mccurdy Tissues: Stomach, NOS Procedures: H Pylori (initial) PHYSICIAN & INSTITUTION [address] [address] SPECIMEN INFORMATION: Tissue Source: Lesser curvature biopsy Clinical Info: GI bleed Specimen Number: [id number] CPT code: 77708 METHODOLOGY: Deparaffinized sections of prefer/formalin-fixed tissue or PAP/DQ stained slides are incubated with monoclonal/polyclonal antibodies/oligonucleotide probes. Localization is made via biotin free immunoperoxidase method. Appropriate controls are performed and reacted as expected. Results on target cell population are indicated in the following table: RESULTS: ANTIBODY / CLONE RESULT H Pylori (polyclonal) negative These tests were developed and their performance characteristics determined by [facility]. They may not have been cleared or approved by the U.S. Food and Drug Administration. The FDA has determined that such clearance or approval is not necessary. The above immunohistochemical/dualISH markers are ordered and reviewed by the Pathologist. INTERPRETATION: Stomach, lesser curvature, biopsy: Negative for Helicobacter pylori organisms. JAYESH/ 10/24/2023
--- NOTE | 2023-10-19 12:30 | EGD_PTH ---
PATIENT: LILIBETH CRESPO LOC: [facility] U#:[id number] AGE/SX: 72/M ROOM: [facility] RE10/17/[address]: Dr. Lanre Cortes DO : 1950 BED: 1 DIS: 10/23/2023 SPEC #: [id number] RECD: 10/19/23 18:08 STATUS: PREM REQ #: [id number] BONY: 10/19/23 12:[address]: Raul Coker DEPT: SURGICAL PATHOLOGY RECD BY: Maria De Jesus Light ENTERED: 10/23/23 09:41 SP TYPE: EGD BIOPSY OTHR DR: IJEOMA Lyman Dr., MD Dr. Arshad Rehan, MD Dr. Brendan Duffy, MD Dr. Cyril Ofori, MD Dr. David de Lorenzo, DO Dr. Emile Daoud, MD Dr. Farouk Belal, MD Dr. John E Schinner, MD Dr. Michael Hughes, MD Dr. Mark Tereletsky, DO Dr. Nicholas F Kotsonis, MD Dr. Nagapradee Nagajothi, MD Dr. Salvatore Savona, MD John H Roof, NP-C ASHLEY Kathleen PA Tissues: Stomach, NOS Procedures: Surgery Specimen Level IV Comments: @ Ordering doctor for SUIV edited from to @ al VUONG at 10/23/23 0953 @ Submitting doctor edited from to @ al VUONG at 10/23/23 0953 HEADER OPERATION: EGD and biopsy PRE-OP DIAGNOSIS: GI bleed TISSUE SUBMITTED: Lesser curvature biopsy MICROSCOPIC DIAGNOSIS Stomach, lesser curvature, biopsy: Chronic gastritis. AM/mr 10/24/2023 COMMENT The results of immunohistochemistry for Helicobacter pylori will be reported separately ([id number]). MICROSCOPIC DESCRIPTION Slides are reviewed. GROSS DESCRIPTION Received in fixative is one container labeled with the patient's name and designated Lesser curvature biopsy. The specimen consists of two irregular fragments of light boyd soft tissue that in aggregate measure 0.8 x 0.5 x 0.1 cm. The specimen is totally submitted in one cassette. Pauline 10/23/2023 TC:3 CPT:37536
[2023-10-19] MEDS: Pantoprazole Sodium 40 MG Tablet PO (22:10)
[2023-10-20 04:11] VITALS: BP 130/82; PULSE 84; RESP 16; TEMP 36.7; O2SAT 96
[2023-10-20 05:16] VITALS: BMI 32.3
[2023-10-20] MEDS: Sucralfate 1 GM Tablet PO ×4 (06:31→21:06)
[2023-10-20 07:13] LABS: Absolute Lymphocyte Count 1.04 X10^3/uL (0.83-4.51); Basophil# 0.05 X10^3/uL; Basophil% 0.3 % (0-1); Eosinophils% 0.7 % (0-5); Hemoglobin 12.6 g/dL (13.0-16.5); Lymphocyte # 1.04 X10^3/ul (0.83-4.51); Lymphocyte % 7.2 % (19-41); Mean Corp Hgb Conc 30.7 g/dL (32-36); Mean Corpuscular Volume 97.6 fL (80-94); Monocyte# 1.03 X10^3/uL; Monocyte% 7.2 % (0-10); NRBC Flagged by Analyzer 0 % (0-5); Neutrophil # 11.99 X10^3/uL (2.7-7.7); Neutrophil % 83.3 % (47-70); Platelet Count 282 K/mm3 (150-450); RBC Distribution Width CV 14.4 % (11.6-14.6); RBC Distribution Width SD 51.7 fl (35.1-43.9); White Blood Count 14.4 K/mm3 (4.4-11.0)
[2023-10-20 07:35] LABS: Anion Gap 5 (5-15); BUN 28 mg/dL (7-18); BUN/Creat Ratio 23.1 RATIO (10-20); Calcium,Total 8.7 mg/dL (8.5-10.1); Chloride 103 mmol/L (98-107); Creatinine, Serum 1.21 mg/dL (0.70-1.30); EST Glomerular Filtration Rate 63 mL/min (>60); Est Glom Filt Rate - Afr Amer 76 mL/min (>60); Estimated Creatinine Clearance 55.25 ml/min; Glucose 113 mg/dL (74-106); Potassium 4.7 mmol/L (3.5-5.1); Sodium Level 136 mmol/L (136-145)
[2023-10-20 08:56] VITALS: PULSE 75
[2023-10-20] MEDS: Metoprolol Tartrate 50 MG Tablet PO ×2 (08:56→21:06)
[2023-10-20] MEDS: Magnesium Chloride 64 MG Delay Rel.Tablet 128 MG PO (08:57)
--- NOTE | 2023-10-20 08:57 | PN.CARD_ITS ---
Subjective Subjective Patient reports he is feeling much better his epigastric pain is completely resolved. He does report that he feels his edema is resolving some. He continues to have negative I's and O's. The patient's blood pressure continues to be in the 130/80-90 range. Objective Data Vital Signs: Vital Signs Temp Pulse Resp BP Pulse Ox O2 Del Method 98.1 F 84 16 130/82 H 96 Room Air 10/20/23 04:11 10/20/23 04:11 10/20/23 04:11 10/20/23 04:11 10/20/23 04:11 10/20/23 04:11 Oxygen Delivery Method Room Air Weight: 188 lb 11.451 oz Body Mass Index (BMI) 32.3 Intake & Output: Intake and Output for Last 24 Hours 10/18/23 10/19/23 10/20/23 23:59 23:59 23:59 Intake Total 570 / 870 1530 / 1530 Output Total 2500 / 3400 1974 / 1974 300 / 300 Balance -1930 / -2530 -445 / -445 -300 / -300 Lab / Micro Data Attestation: I reviewed the patient's lab results. 10/20/23 07:00 10/20/23 07:00 Labs: Laboratory Results - last 24 hr 10/19/23 06:15: B-Natriuretic Peptide 1772.0 H 10/20/23 07:00: WBC 14.4 H, RBC 4.20 L, Hgb 12.6 L, Hct 41.0, MCV 97.6 H, MCH 30.0, MCHC 30.7 L, RDW Std Deviation 51.7 H, RDW Coeff of Rosario 14.4, Plt Count 282, MPV 11.0, Immature Gran % (Auto) 1.300 H, Neut % (Auto) 83.3 H, Lymph % (Auto) 7.2 L, [place] % (Auto) 7.2, Eos % (Auto) 0.7, Baso % (Auto) 0.3, Absolute Neuts (auto) 12.0 H, Absolute Lymphs (auto) 1.04, Nucleated RBC % 0, Sodium 136, Potassium 4.7, Chloride 103, Carbon Dioxide 28.0, Anion Gap 5, BUN 28 H, Creatinine 1.21, Estim Creat Clear Calc 55.25, Est GFR (MDRD) Af Amer 76, Est GFR (MDRD) Non-Af 63, BUN/Creatinine Ratio 23.1 H, Glucose 113 H, Calcium 8.7 Rhythm Strip Rhythm Strip: Sinus Rhythm Rate: 90 Ectopy: None Cardiology Labs/Tests 10/19/23 06:15: B-Natriuretic Peptide 1772.0 H 10/20/23 07:00: WBC 14.4 H, RBC 4.20 L, Hgb 12.6 L, Hct 41.0, MCV 97.6 H, MCH 30.0, MCHC 30.7 L, Plt Count 282, MPV 11.0, Immature Gran % (Auto) 1.300 H, Neut % (Auto) 83.3 H, Lymph % (Auto) 7.2 L, [place] % (Auto) 7.2, Eos % (Auto) 0.7, Baso % (Auto) 0.3, Absolute Neuts (auto) 12.0 H, Nucleated RBC % 0, Sodium 136, Potassium 4.7, Chloride 103, Carbon Dioxide 28.0, Anion Gap 5, BUN 28 H, Creatinine 1.21, Est GFR (MDRD) Af Amer 76, Est GFR (MDRD) Non-Af 63, B UN/Creatinine Ratio 23.1 H, Glucose 113 H, Calcium 8.7 Rhythm: EKG: ECHO: Stress Test: Cardiac Cath: PCI: CT Surgery: Holter monitor: EPS: PPM: CXR: Chest CT Scan: Physical Exam Const alert and oriented x3 HEENT normocephalic Eyes EOMs intact bilaterally Neck no JVD Neck Narrative: There is no JVD today at 90 degrees. Chest Chest: midline sternotomy incision Resp normal respiratory effort Auscultation: crackles bilateral base Cardio regular rate, regular rhythm, S1 normal heart sound, no murmurs and no rub Heart Sounds: gallop S3 gallop and abnormal sounds paradoxically split S2 GI soft to palpation Extremity General Extremity: edema bilateral lower extremity Details: moderate Neuro Neuro Narrative: Alert and oriented x 3 Psych mental status grossly normal Assessment & Plan Assessment/Plan (1) CHF exacerbation: QUALIFIERS: Heart failure type: systolic Qualified Code(s): I 50.23 - Acute on chronic systolic (congestive) heart failure PLAN: The patient appears to be slowly improving from his congestion. His blood pressure remains in the 130/80-90 range. We will adjust his medical regimen again today. I's and O's continue to be negative will need to continue IV diuresis. Creatinine appears stable. (2) HFrEF (heart failure with reduced ejection fraction): PLAN: Patient has a nonischemic dilated cardiomyopathy with an EF in the 25 to 30% range over the last 2 evaluations. Will continue to titrate to maximum tolerated guideline directed medical therapy. PLAN: Plan 1. Continue current IV diuresis. 2. Increase lisinopril to max dose of 40 mg twice daily. 3. If heart rate will tolerate will increase metoprolol in the next 24 hours 100 mg twice daily. The patient is intolerant of Coreg in the past. 4. Continue with GI evaluation and treatment as indicated. Charges/Coding Visit Charges Inpatient E&M: 76858 [facility] Hosp L3
[2023-10-20] MEDS: Potassium Chloride Oral Tablet 20 MEQ PO (08:58)
[2023-10-20] MEDS: Lisinopril 10 MG Tablet PO (08:58)
[2023-10-20] MEDS: Aspirin 81 MG TAB.CHEW PO (08:58)
[2023-10-20] MEDS: Pantoprazole Sodium 40 MG Tablet PO ×2 (08:59→21:06)
[2023-10-20] MEDS: Furosemide 40 MG/4 ML Vial IV ×2 (08:59→17:21)
[2023-10-20] MEDS: Spironolactone 50 MG Tablet PO (09:00)
[2023-10-20] MEDS: Lisinopril 40 MG Tablet PO ×2 (09:05→21:06)
[2023-10-20 10:00] VITALS: BP 128/85; PULSE 89; RESP 15; TEMP 36.6; O2SAT 98
--- NOTE | 2023-10-20 11:37 | PCM.PN.HOSP ---
Reason for Visit Reason for Visit: Diagnoses Essential (primary) hypertension (10/17/23) Other cardiomyopathies (10/17/23) Left bundle-branch block, unspecified (10/17/23) Unspecified systolic (congestive) heart failure (10/17/23) Acute on chronic systolic (congestive) heart failure (10/17/23) Heart failure, unspecified (10/17/23) Localized edema (10/17/23) Other specified abnormal findings of blood chemistry (10/17/23) Subjective Subjective Patient was seen and examined today, he is on room air at this time, I talked briefly with cardiology about his care, cardiology would like to continue to make medication adjustments and feels the patient is not ready to be discharged home. Objective Data Objective Data Vital Signs: Vital Signs Temp Pulse Resp BP Pulse Ox O2 Del Method 97.9 F 89 15 128/85 H 98 Room Air 10/20/23 10:00 10/20/23 10:00 10/20/23 10:00 10/20/23 10:00 10/20/23 10:00 10/20/23 10:00 Oxygen Delivery Method Room Air Weight: 85.6 kg Body Mass Index (BMI) 32.3 Intake & Output: Intake and Output for Last 24 Hours 10/18/23 10/19/23 10/20/23 23:59 23:59 23:59 Intake Total 570 / 870 1530 / 1530 120 / 120 Output Total 2500 / 3400 1974 / 1974 575 / 575 Balance -1930 / -2530 -445 / -445 -455 / -455 Lab / Micro Data 10/20/23 07:00 10/20/23 07:00 Labs: Laboratory Results - last 24 hr 10/19/23 06:15: B-Natriuretic Peptide 1772.0 H 10/20/23 07:00: WBC 14.4 H, RBC 4.20 L, Hgb 12.6 L, Hct 41.0, MCV 97.6 H, MCH 30.0, MCHC 30.7 L, RDW Std Deviation 51.7 H, RDW Coeff of Rosario 14.4, Plt Count 282, MPV 11.0, Immature Gran % (Auto) 1.300 H, Neut % (Auto) 83.3 H, Lymph % (Auto) 7.2 L, [place] % (Auto) 7.2, Eos % (Auto) 0.7, Baso % (Auto) 0.3, Absolute Neuts (auto) 12.0 H, Absolute Lymphs (auto) 1.04, Nucleated RBC % 0, Sodium 136, Potassium 4.7, Chloride 103, Carbon Dioxide 28.0, Anion Gap 5, BUN 28 H, Creatinine 1.21, Estim Creat Clear Calc 55.25, Est GFR (MDRD) Af Amer 76, Est GFR (MDRD) Non-Af 63, BUN/Creatinine Ratio 23.1 H, Glucose 113 H, Calcium 8.7 Rhythm Strip Rhythm Strip: Sinus Rhythm Rate: 90 Ectopy: None Physical Exam Const alert, oriented x3, no apparent distress and healthy appearing General Appearance: cooperative, well kempt and well developed Orientation / Consciousness: awake, oriented to person, oriented to place and oriented to time HEENT normocephalic and moist oral mucous membranes Eyes PERRL, EOMs intact bilaterally and conjunctivae normal Neck supple, no JVD, thyroid normal and no carotid bruits General: trachea midline Resp normal respiratory effort and clear to auscultation bilaterally Auscultation: Negative for rales, rhonchi or wheezes Cardio regular rate, regular rhythm, no murmurs, no rub and no gallops GI normal to inspection, nondistended, normoactive bowel sounds, soft to palpation, non-tender and non-distended Extremity Extremity Narrative: Patient has generalized edema over both lower leg Skin no rashes or lesions noted General Skin Exam: no breakdown Neuro oriented x3, CN's II-XII intact bilaterally, moves all extremities, no focal motor deficits and no sensory deficits noted Sensorium / Orientation: awake and alert Speech: speech normal Psych affect normal Assessment & Plan Assessment/Plan (1) CHF (congestive heart failure): PLAN: Plan 1. Acute on chronic systolic CHF-patient will continue on his present medications, they are being adjusted by cardiology #2 peptic ulcer disease-patient will continue on PPI and Carafate #3 nonischemic cardiomyopathy-complicates care, management, recovery, and prognosis Total clinical time spent by myself addressing the patient's medical issues, reviewing all of his data, and collaborating with patient's care team: 35 minutes Charges/Coding Visit Charges Inpatient E&M: 60127 Subs Hosp L2
[2023-10-20 16:00] VITALS: BP 132/86; PULSE 91; RESP 16; TEMP 36.6; O2SAT 98
[2023-10-20] MEDS: Magnesium Hydroxide 30 ML UDC PO (16:14)
[2023-10-20] MEDS: Polyethylene Glycol 3350 17 GM PACKET PO (20:04)
[2023-10-20 21:05] VITALS: BP 135/85; PULSE 92; RESP 16; TEMP 37.2; O2SAT 99
[2023-10-20 21:06] VITALS: BP 135/85; PULSE 92
--- NOTE | 2023-10-20 21:50 | EX.PCM.PN.GI ---
Objective Data Objective Data Vital Signs: Vital Signs Temp Pulse Resp BP Pulse Ox O2 Del Method 99.0 F 92 16 135/85 H 99 Room Air 10/20/23 21:05 10/20/23 21:06 10/20/23 21:05 10/20/23 21:06 10/20/23 21:05 10/20/23 21:05 Oxygen Delivery Method Room Air Weight: 188 lb 11.451 oz Body Mass Index (BMI) 32.3 Intake & Output: Intake and Output for Last 24 Hours 10/18/23 10/19/23 10/20/23 23:59 23:59 23:59 Intake Total 570 / 870 1530 / 1530 360 / 360 Output Total 2500 / 3400 1974 1525 / 1525 Balance -1930 / -2530 -445 / -445 -1165 / -1165 Lab / Micro Data 10/20/23 07:00 10/20/23 07:00 Labs: Laboratory Results - last 24 hr 10/20/23 07:00: WBC 14.4 H, RBC 4.20 L, Hgb 12.6 L, Hct 41.0, MCV 97.6 H, MCH 30.0, MCHC 30.7 L, RDW Std Deviation 51.7 H, RDW Coeff of Rosario 14.4, Plt Count 282, MPV 11.0, Immature Gran % (Auto) 1.300 H, Neut % (Auto) 83.3 H, Lymph % (Auto) 7.2 L, [place] % (Auto) 7.2, Eos % (Auto) 0.7, Baso % (Auto) 0.3, Absolute Neuts (auto) 12.0 H, Absolute Lymphs (auto) 1.04, Nucleated RBC % 0, Sodium 136, Potassium 4.7, Chloride 103, Carbon Dioxide 28.0, Anion Gap 5, BUN 28 H, Creatinine 1.21, Estim Creat Clear Calc 55.25, Est GFR (MDRD) Af Amer 76, Est GFR (MDRD) Non-Af 63, BUN/Creatinine Ratio 23.1 H, Glucose 113 H, Calcium 8.7 Rhythm Strip Rhythm Strip: Sinus Rhythm Rate: 90 Ectopy: None Assessment & Plan Assessment/Plan (1) GIB (gastrointestinal bleeding): PLAN: Patient patient underwent endoscopy for hematemesis. Findings: The examined esophagus was normal. A large amount of food (residue) was found in the entire examined stomach. Two oozing linear gastric ulcers with pigmented material were found on the lesser curvature of the stomach. The largest lesion was 6 mm in largest dimension. Biopsies were taken with a cold forceps for histology. Verification of patient identification for the specimen was done. Estimated blood loss was minimal. Biopsies were taken with a cold forceps for Helicobacter pylori testing. Verification of patient identification for the specimen was done. Estimated blood loss was minimal. No gross lesions were noted in the duodenal bulb. Impression: - Normal esophagus. - A large amount of food (residue) in the stomach. - Oozing gastric ulcers with pigmented material. Biopsied. - No gross lesions in the duodenal bulb. Recommendation: - [facility] for [facility] care. - Resume previous diet. - Continue present medications. - Await pathology results. - Repeat upper endoscopy in 4 months for surveillance. - Use Protonix (pantoprazole) 40 mg PO BID for 12 weeks. - Use sucralfate tablets 1 gram PO QID for 3 weeks. - Gastric emptying study I suspectI suspected this was the ideology of his chronic abdominal pain. I think he has a gastroparesis likely secondary to chronic alcohol usage.and congestive heart failure for a long time. He he should under go gastric emptying study. Charges/Coding Visit Charges Inpatient E&M: [id number] [facility] Hosp L3
[2023-10-21 03:05] VITALS: BP 127/83; PULSE 90; RESP 16; TEMP 36.4; O2SAT 97
[2023-10-21 03:37] VITALS: BMI 32.5
[2023-10-21] MEDS: Sucralfate 1 GM Tablet PO ×4 (06:06→21:18)
[2023-10-21 08:10] VITALS: BP 130/74; PULSE 86; RESP 16; TEMP 36.1; O2SAT 97
[2023-10-21] MEDS: Aspirin 81 MG TAB.CHEW PO (08:17)
[2023-10-21] MEDS: Magnesium Chloride 64 MG Delay Rel.Tablet 128 MG PO (08:18)
[2023-10-21] MEDS: Spironolactone 50 MG Tablet PO (08:18)
[2023-10-21] MEDS: Lisinopril 40 MG Tablet PO ×2 (08:19→21:18)
[2023-10-21] MEDS: Furosemide 40 MG/4 ML Vial IV (08:20)
[2023-10-21] MEDS: Pantoprazole Sodium 40 MG Tablet PO ×2 (08:20→21:18)
--- NOTE | 2023-10-21 08:56 | PN.CARD_ITS ---
Subjective Subjective Patient reports that he feels better today than he did yesterday. He still has significant lower extremity edema specifically along the dorsum of both his feet. His upper legs have shown decreasing edema. His I's and O's continue to be negative. The patient is tolerating his current medical regiment and his heart rate remains in the 90 bpm range. Blood pressure is better at 123 systolic. He reports that his upper epigastric pain has markedly improved and is essentially resolved. Objective Data Vital Signs: Vital Signs Temp Pulse Resp BP Pulse Ox O2 Del Method 97.0 F L 86 16 130/74 H 97 Room Air 10/21/23 08:10 10/21/23 08:10 10/21/23 08:10 10/21/23 08:10 10/21/23 08:10 10/21/23 08:10 Oxygen Delivery Method Room Air Weight: 189 lb 9.561 oz Body Mass Index (BMI) 32.5 Intake & Output: Intake and Output for Last 24 Hours 10/19/23 10/20/23 10/21/23 23:59 23:59 23:59 Intake Total 1530 / 1530 360 / 840 600 / 600 Output Total 1974 / 1974 1525 / 3075 1775 / 1775 Balance -445 / -445 -1165 / -2235 -1175 / -1175 Lab / Micro Data 10/20/23 07:00 10/20/23 07:00 Rhythm Strip Rhythm Strip: Sinus Rhythm Rate: 90 Ectopy: None Cardiology Labs/Tests Rhythm: EKG: ECHO: Stress Test: Cardiac Cath: PCI: CT Surgery: Holter monitor: EPS: PPM: CXR: Chest CT Scan: Physical Exam Const alert and oriented x3 HEENT normocephalic Eyes EOMs intact bilaterally Neck no JVD Neck Narrative: At 90 degrees there is no JVD. Resp normal respiratory effort Auscultation: rales bilateral (Seem to be less prominent than the last 24 hours.) base Cardio regular rate, regular rhythm, S1 normal heart sound, no murmurs, no rub and no gallops Cardio Narrative: S3 gallop no longer present. Heart Sounds: abnormal sounds paradoxically split S2 GI GI Narrative: Protuberant No real changes. Extremity General Extremity: edema bilateral lower extremity (The upper lower extremities appear to be is improved there is still significant pedal edema.) Details: moderate Skin no rashes or lesions noted Neuro Neuro Narrative: Alert and oriented x 3 Psych mental status grossly normal Assessment & Plan Assessment/Plan (1) HFrEF (heart failure with reduced ejection fraction): PLAN: Patient is admitted with acute on chronic congestive heart failure exacerbation. He appears to be slowly improving with IV diuresis and I's and O's continue to be negative. We are aggressively titrating his medical regimen. Potassium has been well-controlled as we are increasing his FLORIN inhibitor therapy and he is on spironolactone we will discontinue potassium supplementation. His heart rate is persistently in the 90 bpm range. His blood pressure is coming under better control will increase his metoprolol to 100 mg twice daily. If he develops side effects would reduce it back to 50 mg twice daily. He has been intolerant of Coreg in the past. Will continue aggressive IV diuresis for another 24 to 48 hours. And then consider discharge to home. At discharge the patient should be followed up in the [facility] office in 7 to 10 days. Prior to discharge basic metabolic panel and BNP should be obtained. The patient has a nonischemic dilated cardiomyopathy EF is 25% on echo during this admission. (2) Essential hypertension: PLAN: Blood pressure is coming under better control with the increase in FLORIN inhibitor to the maximum dose guideline directed therapy. Will also increase metoprolol to 100 mg twice daily to target aggressive heart failure with reduced ejection fraction therapy. (3) Left bundle branch block: PLAN: Chronic left bundle branch block PLAN: Plan 1. DC potassium supplement. 2. Recheck basic metabolic panel prior to discharge. 3. Increase metoprolol to 100 mg twice daily. 4. Obtain BNP day of discharge. 5. After discharge arrange for follow-up with the [facility] in 7 to [address] Adame will be covering the service starting tomorrow morning. Charges/Coding Visit Charges Inpatient E&M: 66698 Subs Hosp L3
--- NOTE | 2023-10-21 10:31 | PCM.PN.HOSP ---
Reason for Visit Reason for Visit: Diagnoses Essential (primary) hypertension (10/17/23) Other cardiomyopathies (10/17/23) Left bundle-branch block, unspecified (10/17/23) Unspecified systolic (congestive) heart failure (10/17/23) Acute on chronic systolic (congestive) heart failure (10/17/23) Heart failure, unspecified (10/17/23) Gastrointestinal hemorrhage, unspecified (10/17/23) Localized edema (10/17/23) Other specified abnormal findings of blood chemistry (10/17/23) Subjective Subjective Patient was seen and examined today, I talked briefly with cardiology about his care, patient still has extensive lower leg edema bilaterally, I discussed placing him on a Lasix drip with cardiology and cardiology said that was okay. Patient is on room air, he does not complain of any shortness of breath. Objective Data Objective Data Vital Signs: Vital Signs Temp Pulse Resp BP Pulse Ox O2 Del Method 97.0 F L 86 16 130/74 H 97 Room Air 10/21/23 08:10 10/21/23 08:10 10/21/23 08:10 10/21/23 08:10 10/21/23 08:10 10/21/23 09:51 Oxygen Delivery Method Room Air Weight: 86 kg Body Mass Index (BMI) 32.5 Intake & Output: Intake and Output for Last 24 Hours 10/19/23 10/20/23 10/21/23 23:59 23:59 23:59 Intake Total 1530 / 1530 360 / 840 600 / 600 Output Total 1974 / 1974 1525 / 3075 1775 / 1775 Balance -445 / -445 -1165 / -2235 -1175 / -1175 Lab / Micro Data 10/20/23 07:00 10/20/23 07:00 Rhythm Strip Rhythm Strip: Sinus Rhythm Rate: 90 Ectopy: None Physical Exam Narrative alert, oriented x3, no apparent distress and healthy appearing General Appearance: cooperative, well kempt and well developed Orientation / Consciousness: awake, oriented to person, oriented to place and oriented to time HEENT normocephalic and moist oral mucous membranes Eyes PERRL, EOMs intact bilaterally and conjunctivae normal Neck supple, no JVD, thyroid normal and no carotid bruits General: trachea midline Resp normal respiratory effort and clear to auscultation bilaterally Auscultation: Negative for rales, rhonchi or wheezes Cardio regular rate, regular rhythm, no murmurs, no rub and no gallops GI normal to inspection, nondistended, normoactive bowel sounds, soft to palpation, non-tender and non-distended Extremity Extremity Narrative: Patient has generalized severe edema over both lower legs Skin no rashes or lesions noted General Skin Exam: no breakdown Neuro oriented x3, CN's II-XII intact bilaterally, moves all extremities, no focal motor deficits and no sensory deficits noted Sensorium / Orientation: awake and alert Speech: speech normal Psych affect normal Assessment & Plan Assessment/Plan (1) CHF exacerbation: QUALIFIERS: Heart failure type: systolic Qualified Code(s): I50.23 - Acute on chronic systolic (congestive) heart failure (2) CHF (congestive heart failure): PLAN: Plan 1. Acute on chronic systolic CHF-patient was placed on a Lasix drip at 10 mg/h, BMP will be repeated tomorrow #2 peptic ulcer disease-patient will continue on PPI and Carafate #3 nonischemic cardiomyopathy-complicates care, management, recovery, and prognosis Total clinical time spent by myself addressing the patient's medical issues, reviewing all of his data, and collaborating with patient's care team: 35 minutes Charges/Coding Visit Charges Inpatient E&M: 52747 [facility] Hosp L2
[2023-10-21 10:35] VITALS: BP 122/80; PULSE 91
[2023-10-21] MEDS: Metoprolol Tartrate 100 MG Tablet PO ×2 (10:35→21:18)
[2023-10-21] MEDS: Furosemide 500 MG in Empty Viaflex 50 mL 1 EACH CONT INF (11:15)
[2023-10-21 14:10] VITALS: BP 110/63; PULSE 76; RESP 18; TEMP 36.2; O2SAT 100
[2023-10-21 21:15] VITALS: BP 108/68; PULSE 81; RESP 16; TEMP 36.4; O2SAT 97
[2023-10-21 21:18] VITALS: BP 108/68; PULSE 81
[2023-10-22 03:11] VITALS: BMI 32.5
[2023-10-22 03:30] VITALS: BP 111/74; PULSE 69; RESP 16; TEMP 36.4; O2SAT 99
[2023-10-22] MEDS: Sucralfate 1 GM Tablet PO ×4 (05:35→21:20)
[2023-10-22 06:39] LABS: Anion Gap 8 (5-15); BUN 23 mg/dL (7-18); BUN/Creat Ratio 23.5 RATIO (10-20); Calcium,Total 8.9 mg/dL (8.5-10.1); Chloride 100 mmol/L (98-107); Creatinine, Serum 0.98 mg/dL (0.70-1.30); EST Glomerular Filtration Rate 80 mL/min (>60); Est Glom Filt Rate - Afr Amer 97 mL/min (>60); Estimated Creatinine Clearance 68.45 ml/min; Glucose 125 mg/dL (74-106); Potassium 3.6 mmol/L (3.5-5.1); Sodium Level 138 mmol/L (136-145)
[2023-10-22 09:59] VITALS: BP 108/64; PULSE 77; RESP 18; TEMP 36.3; O2SAT 98
[2023-10-22] MEDS: Spironolactone 50 MG Tablet PO (10:04)
[2023-10-22] MEDS: Aspirin 81 MG TAB.CHEW PO (10:04)
[2023-10-22] MEDS: Pantoprazole Sodium 40 MG Tablet PO ×2 (10:05→21:20)
[2023-10-22] MEDS: Lisinopril 40 MG Tablet PO ×2 (10:05→21:20)
[2023-10-22 10:06] VITALS: PULSE 77
[2023-10-22] MEDS: Magnesium Chloride 64 MG Delay Rel.Tablet 128 MG PO (10:06)
[2023-10-22] MEDS: Metoprolol Tartrate 100 MG Tablet PO ×2 (10:06→21:20)
--- NOTE | 2023-10-22 11:14 | PN.HOSP_ITS ---
Reason for Visit Reason for Visit: Diagnoses Essential (primary) hypertension (10/17/23) Other cardiomyopathies (10/17/23) Left bundle-branch block, unspecified (10/17/23) Unspecified systolic (congestive) heart failure (10/17/23) Acute on chronic systolic (congestive) heart failure (10/17/23) Heart failure, unspecified (10/17/23) Gastrointestinal hemorrhage, unspecified (10/17/23) Localized edema (10/17/23) Other specified abnormal findings of blood chemistry (10/17/23) Subjective Subjective Patient was seen and examined today, he has less edema in his lower extremities at this time, he appears to have had a good diuresis with the IV continuous Lasix. I think that 1 more day of the continuous IV Lasix should be enough to stabilize the patient so he can go home. Objective Data Objective Data Vital Signs: Vital Signs Temp Pulse Resp BP Pulse Ox O2 Del Method 97.4 F L 77 18 108/64 98 Room Air 10/22/23 09:59 10/22/23 10:06 10/22/23 09:59 10/22/23 09:59 10/22/23 09:59 10/22/23 09:59 Oxygen Delivery Method Room Air Weight: 86.2 kg Body Mass Index (BMI) 32.5 Intake & Output: Intake and Output for Last 24 Hours 10/20/23 10/21/23 10/22/23 23:59 23:59 23:59 Intake Total 360 / 840 1460 / 1820 720 / 720 Output Total 1525 / 3075 3275 / 5150 2275 / 2275 Balance -1165 / -2235 -1815 / -3330 -1555 / -1555 Lab / Micro Data 10/20/23 07:00 10/22/23 05:25 Labs: Laboratory Results - last 24 hr 10/22/23 05:25: Sodium 138, Potassium 3.6, Chloride 100, Carbon Dioxide 30.0, Anion Gap 8, BUN 23 H, Creatinine 0.98, Estim Creat Clear Calc 68.45, Est GFR (MDRD) Af Amer 97, Est GFR (MDRD) Non-Af 80, BUN/Creatinine Ratio 23.5 H, G lucose 125 H, Calcium 8.9 Rhythm Strip Rhythm Strip: Sinus Rhythm Rate: 90 Ectopy: None Physical Exam Narrative alert, oriented x3, no apparent distress and healthy appearing General Appearance: cooperative, well kempt and well developed Orientation / Consciousness: awake, oriented to person, oriented to place and oriented to time HEENT normocephalic and moist oral mucous membranes Eyes PERRL, EOMs intact bilaterally and conjunctivae normal Neck supple, no JVD, thyroid normal and no carotid bruits General: trachea midline Resp normal respiratory effort and clear to auscultation bilaterally Auscultation: Negative for rales, rhonchi or wheezes Cardio regular rate, regular rhythm, no murmurs, no rub and no gallops GI normal to inspection, nondistended, normoactive bowel sounds, soft to palpation, non-tender and non-distended Extremity Extremity Narrative: Patient has generalized severe edema over both lower legs Skin no rashes or lesions noted General Skin Exam: no breakdown Neuro oriented x3, CN's II-XII intact bilaterally, moves all extremities, no focal motor deficits and no sensory deficits noted Sensorium / Orientation: awake and alert Speech: speech normal Psych affect normal Assessment & Plan Assessment/Plan (1) CHF exacerbation: QUALIFIERS: Heart failure type: systolic Qualified Code(s): I 50.23 - Acute on chronic systolic (congestive) heart failure (2) CHF (congestive heart failure): PLAN: Plan 1. Acute on chronic systolic CHF-patient will continue on continuous IV Lasix at 10 mg/h, BMP will be checked tomorrow #2 peptic ulcer disease-patient will continue on PPI and Carafate #3 nonischemic cardiomyopathy-complicates care, management, recovery, and prognosis Total clinical time spent by myself addressing the patient's medical issues, reviewing all of his data, and collaborating with patient's care team: 35 minutes Charges/Coding Visit Charges Inpatient E&M: 82448 Subs Hosp L2
[2023-10-22 12:38] VITALS: BMI 27.0
[2023-10-22 16:00] VITALS: BP 113/76; PULSE 70; RESP 18; TEMP 36.3; O2SAT 100
[2023-10-22] MEDS: Furosemide 500 MG in Empty Viaflex 50 mL 1 EACH CONT INF (16:46)
[2023-10-22 21:18] VITALS: BP 110/66; PULSE 78; RESP 18; TEMP 36.6; O2SAT 97
[2023-10-22 21:20] VITALS: BP 110/66; PULSE 78
[2023-10-23 03:26] VITALS: BP 105/70; PULSE 69; RESP 18; TEMP 36.4; O2SAT 99
[2023-10-23] MEDS: Sucralfate 1 GM Tablet PO (06:07)
[2023-10-23 07:40] LABS: Anion Gap 9 (5-15); BUN 26 mg/dL (7-18); BUN/Creat Ratio 19.8 RATIO (10-20); Calcium,Total 9.2 mg/dL (8.5-10.1); Chloride 101 mmol/L (98-107); Creatinine, Serum 1.31 mg/dL (0.70-1.30); EST Glomerular Filtration Rate 57 mL/min (>60); Est Glom Filt Rate - Afr Amer 69 mL/min (>60); Estimated Creatinine Clearance 49.22 ml/min; Glucose 110 mg/dL (74-106); Potassium 3.6 mmol/L (3.5-5.1); Sodium Level 140 mmol/L (136-145)
[2023-10-23 07:48] VITALS: BP 101/68; PULSE 71; RESP 18; TEMP 36.6; O2SAT 98
[2023-10-23] MEDS: Aspirin 81 MG TAB.CHEW PO (07:51)
[2023-10-23 07:52] VITALS: BP 101/68; PULSE 71
[2023-10-23] MEDS: Metoprolol Tartrate 100 MG Tablet PO (07:52)
[2023-10-23] MEDS: Spironolactone 50 MG Tablet PO (07:52)
[2023-10-23] MEDS: Magnesium Chloride 64 MG Delay Rel.Tablet 128 MG PO (07:52)
[2023-10-23] MEDS: Lisinopril 40 MG Tablet PO (07:53)
[2023-10-23] MEDS: Pantoprazole Sodium 40 MG Tablet PO (07:53)
--- NOTE | 2023-10-23 09:30 | DCINST_ITS ---
Discharge Instructions Diet Discharge Diet: No restrictions and - (avoid excessive salt use) Activity Discharge Activity: Return to Normal Activity Weight Bearing Status: Full weight bearing Follow Up Care Test Results: Test results from this visit will be discussed in further detail at your follow- up appointment, if applicable. Discharge Plan Admission Admit Date/Time: 10/17/23 22:00 Primary Reason for Your Visit: CHF Attending Provider: Lanre Cortes Primary Care Provider: Tevin Turner Consulting Providers: Brittany Almonte; Sowmya Troy; Donnie Escobar; Jos Fernandez; Zia Marie; Rocky Riggins; Margaux Pittman; Bernard Gaviria; Adriano Adame; Nando Coughlin; Tevin Bonds PANELBOARD OPERATOR; Brittany Welsh NP; Kaylah Pichardo; En Ferrari; Tereso Kurtz Discharge Orders/Prescriptions Prescriptions: No Action lisinopril 10 mg tablet 10 mg PO DAILY spironolactone 50 mg Tablet 60 mg PO DAILY furosemide 40 mg tablet 40 mg PO DAILY Qty: 90 3RF metoprolol succinate 50 mg tablet extended release 24 hr 50 mg PO QHS Qty: 30 11RF Referrals / Follow Up: Tevin Turner MD [Primary Care Provider] -
--- NOTE | 2023-10-23 09:30 | PCM.DC ---
Discharge Instructions Diet Discharge Diet: No restrictions and - (avoid excessive salt use) Activity Discharge Activity: Return to Normal Activity Weight Bearing Status: Full weight bearing Follow Up Care Test Results: Test results from this visit will be discussed in further detail at your follow-up appointment, if applicable. Discharge Plan Admission Admit Date/Time: 10/17/23 22:00 Primary Reason for Your Visit: CHF Attending Provider: Lanre Cortes Primary Care Provider: Tevin Turner Consulting Providers: Brittany Almonte; Sowmya Troy; Donnie Escobar; Jos Fernandez; Zia Marie; Rocky Riggins; Margaux Pittman; Bernard Gaviria; Adriano Adame; Nando Coughlin; Tevin Bonds LETTERPRESS SETTER; Brittany Welsh LETTERPRESS SETTER; Kaylah Pichardo; En Ferrari; Tereso Kurtz Discharge Orders/Prescriptions Prescriptions: New metoprolol tartrate 100 mg Tablet 100 mg PO BID Qty: 60 0RF sucralfate 1 gram Tablet 1 g PO 1HR_ACHS Qty: 120 0RF Rx Instructions: take for one month, then discontinue pantoprazole 40 mg Tablet,Delayed Release (Dr/Ec) 40 mg PO BID Qty: 60 0RF lisinopril 40 mg Tablet 40 mg PO BID Qty: 60 0RF spironolactone 50 mg Tablet 50 mg PO DAILY Qty: 30 0RF torsemide 20 mg tablet 20 mg PO BID Qty: 60 0RF Continued lisinopril 10 mg tablet 10 mg PO DAILY Discontinued spironolactone 50 mg Tablet 60 mg PO DAILY furosemide 40 mg tablet 40 mg PO DAILY Qty: 90 3RF metoprolol succinate 50 mg tablet extended release 24 hr 50 mg PO QHS Qty: 30 11RF Referrals / Follow Up: Tevin Turner MD [Primary Care Provider] - Within 1 Month Bernard Gaviria MD [Med Staff - Active Staff] - See Referral Note (Call to schedule an appointment for 7 to 10 days) Disposition Disposition (needs filled in before D/C Order can be placed): Home, Self Care
--- NOTE | 2023-10-23 09:43 | PCM.DC.SUM ---
Providers Date of Admission: 10/17/23 Date of Discharge: 10/23/23 Primary Care Physician: Dr. Tevin Turner MD Consultations 10/17/23 23:00 Consult: Cardiology Routine Consulting Provider: Bienvenido Green Reason for Consult: AE CHF EMERGENT Consult: No Notified: Yes Date Notified: 10/18/23 Time Notified: 06:31 Method of Notification: Text Method of Consult:: In-Person 10/19/23 04:43 Consult: Gastroenterology Routine Consulting Provider: [facility] Reason for Consult: abdominal pain EMERGENT Consult: No Notified: Yes Date Notified: 10/19/23 Time Notified: 06:27 Method of Notification: Text Reason For Visit: ACUTE EXACERBATION OF CHRONIC SYSTOLIC CHF WITH Diagnosis Discharge Diagnosis (1) CHF exacerbation: Status: Chronic Code(s): I50.9 - Heart failure, unspecified Qualifiers: Heart failure type: systolic Qualified Code(s): I50.23 - Acute on chronic systolic (congestive) heart failure (2) CHF (congestive heart failure): Status: Acute Code(s): I50.9 - Heart failure, unspecified Plan 1. Acute on chronic systolic CHF-patient will continue on continuous IV Lasix at 10 mg/h, BMP will be checked tomorrow #2 peptic ulcer disease-patient will continue on PPI and Carafate #3 nonischemic cardiomyopathy-complicates care, management, recovery, and prognosis Total clinical time spent by myself addressing the patient's medical issues, reviewing all of his data, and collaborating with patient's care team: 35 minutes Medications at Discharge Home Medications lisinopril 40 mg tablet 40 mg PO BID #60 tabs 10/23/23 metoprolol tartrate 100 mg tablet 100 mg PO BID #60 tabs 10/23/23 pantoprazole 40 mg tablet,delayed release 40 mg PO BID #60 tabs 10/23/23 spironolactone 50 mg tablet 50 mg PO DAILY #30 tabs 10/23/23 sucralfate 1 gram tablet 1 g PO 1HR_ACHS #120 tabs 10/23/23 torsemide 20 mg tablet 20 mg PO BID #60 tabs 10/23/23 Hospital Course Operations None Procedures None and 2-D Echocardiogram Summary of Care Provided Minutes Spent on Discharge: 33 Hospital Course: This 72-year-old white male was seen in the emergency room at [facility] with complaints of worsening bilateral lower extremity edema along with shortness of breath. Patient had an outpatient echocardiogram recently which showed an ejection fraction of 30%. Patient has a history of a nonischemic cardiomyopathy. Workup in the emergency room showed an elevated white blood cell count of 14.3, hemoglobin was 12.3, patient's chemistry profile was remarkable for BUN of 27. Chest x-ray was performed which showed cardiomegaly, EKG showed a sinus tachycardia at 105. Patient's beta natruretic peptide was elevated at 1475. Patient was admitted to PCU, he was given IV Lasix and seen by cardiology. Repeat echocardiogram was obtained which showed an EF of 25%. Patient's medications were adjusted by cardiology, he was placed on continuous IV Lasix drip with good results. On 10/23/2023, patient was seen and examined: On examination he appeared in good health and spirits. Vital signs as documented. Skin warm and dry and without overt rashes. Neck without JVD, neck was supple, trachea midline, thyroid was normal. Lungs clear bilaterally, normal air movement was noted. Heart exam notable for regular rhythm, normal sounds and absence of murmurs, rubs or gallops. Abdomen unremarkable and without evidence of organomegaly, masses, or abdominal aortic enlargement. Bowel sounds are present, abdomen is not distended. Extremities moderately edematous, no cyanosis was noted, no clubbing was noted. Neuro: Cranial nerves II through XII are grossly intact, no focal motor deficits were noted, sensation to light touch and pinprick intact, motor exam 5/5 throughout. Psych: Patient is alert and oriented x3, he does not appear anxious or depressed, he does not appear agitated. Patient was felt to be stable for discharge home on 10/23/2023. Weight / BMI Weight Weight: 79.4 kg Body Mass Index (BMI) 30.0 ABG / Lab / Microbiology Data 10/20/23 07:00 10/23/23 07:00 Laboratory: Laboratory Results - last 24 hr 10/23/23 07:00: Sodium 140, Potassium 3.6, Chloride 101, Carbon Dioxide 30.0, Anion Gap 9, BUN 26 H, Creatinine 1.31 H, Estim Creat Clear Calc 49.22, Est GFR (MDRD) Af Amer 69, Est GFR (MDRD) Non-Af 57 L, BUN/Creatinine Ratio 19.8, Glucose 110 H, Calcium 9.2 D/C Instructions Discharge Diet: No restrictions and - (avoid excessive salt use) Weight Bearing Status: Full weight bearing Meaningful Use Info Meaningful Use Meaningful Use Diagnoses (Choose all that apply): CHF CHF FLORIN/ARB ordered at discharge?: Yes Documented LVEF (%): 25 Ischemic Stroke Statin Dosing Therapy Reference: STATIN DOSE THERAPY REFERENCE: * Patients > 75 years receive moderate or high dose statin therapy. * Patients 75 years or YOUNGER should receive HIGH intensity statin dose unless contraindicated. You will be required to document reason for non-treatment if statin daily dose does not meet guidelines. HIGH DOSE STATIN THERAPY DAILY Atorvastatin > than or = to 40 mg Rosuvastatin > than or = to 20 mg Amlodipine + Atorvastatin > than or = to 2.5/40 mg Ezetimibe + Simvastatin 10/80 mg Simvastatin 80mg Discharge Plan Admission Admit Date/Time: 10/17/23 22:00 Primary Reason for Your Visit: CHF Attending Provider: Lanre Cortes Primary Care Provider: Tevin Turner Consulting Providers: Brittany Almonte; Sowmya Troy; Donnie Escobar; Jos Fernandez; Zia Marie; Rocky Riggins; Margaux Pittman; Bernard Gaviria; Adriano Adame; Nando Coughlin; Tevin Bonds DUCTFIXING PLUMBER; Brittany Welsh NP; Kaylah Pichardo; En Ferrari; Tereso Kurtz Discharge Orders/Prescriptions Prescriptions: New metoprolol tartrate 100 mg Tablet 100 mg PO BID Qty: 60 0RF sucralfate 1 gram Tablet 1 g PO 1HR_ACHS Qty: 120 0RF Rx Instructions: take for one month, then discontinue pantoprazole 40 mg Tablet,Delayed Release (Dr/Ec) 40 mg PO BID Qty: 60 0RF lisinopril 40 mg Tablet 40 mg PO BID Qty: 60 0RF spironolactone 50 mg Tablet 50 mg PO DAILY Qty: 30 0RF torsemide 20 mg tablet 20 mg PO BID Qty: 60 0RF Discontinued lisinopril 10 mg tablet 10 mg PO DAILY spironolactone 50 mg Tablet 60 mg PO DAILY furosemide 40 mg tablet 40 mg PO DAILY Qty: 90 3RF metoprolol succinate 50 mg tablet extended release 24 hr 50 mg PO QHS Qty: 30 11RF Referrals / Follow Up: Tevin Turner MD [Primary Care Provider] - 11/09/23 9:30 am Brittany Welsh NP, DUCTFIXING PLUMBER-C [Non-Staff -Ordering Privileges] - 11/09/23 10:30 am Disposition Disposition (needs filled in before D/C Order can be placed): Home, Self Care Charges/Coding Visit Charges Inpatient E&M: 76390 Disch Hosp >30min
--- NOTE | 2023-10-23 10:30 | CASEMGMT ---
Patient has order for discharge. RN CM in to discuss needs at discharge. Patient denies needs or help at discharge. Patient had no further questions or concerns.
--- NOTE | 2023-10-23 10:43 | PHA.DC.MC.R ---
Pharmacy [facility] has performed discharge medication reconciliation and counseling for this patient. Informed by nursing, patient received a text from [facility], they do not have enough sucralfate to fill his prescription. This [facility] called [facility] retail and requested transfer to our pharmacy so patient can go home with medication. Spoke to Dr. Cortes, new lisinopril 40mg BID entered but home lisinopril 10mg daily continued. VORB to D/C home lisinopril. 1. PANTOPRAZOLE 40MG PO BID 2. SUCRALFATE 1GM PO 1HR_ACHS 3. TORSEMIDE 20MG PO BID 4. STOP LASIX 5. LISINOPRIL INCREASED TO 40MG BID, METOPROLOL SUCCINATE CHANGED TO METOPROLOL TARTRATE 100MG BID The patient's discharge medication list was reviewed for discrepancies and discrepancies were resolved. The patient was counseled on the following discharge medications and changes in medications for homegoing were reviewed. The Reason for Use, instructions for use, and potential side effects were reviewed for all new medications. The patient's questions regarding all of their medications were answered. The patient was able to verbally demonstrate an understanding of their discharge medications. Medications at Discharge Home Medications lisinopril 40 mg tablet 40 mg PO BID #60 tabs 10/23/23 metoprolol tartrate 100 mg tablet 100 mg PO BID #60 tabs 10/23/23 pantoprazole 40 mg tablet,delayed release 40 mg PO BID #60 tabs 10/23/23 spironolactone 50 mg tablet 50 mg PO DAILY #30 tabs 10/23/23 sucralfate 1 gram tablet 1 g PO 1HR_ACHS #120 tabs 10/23/23 torsemide 20 mg tablet 20 mg PO BID #60 tabs 10/23/23
== END 2023-10-23 11:35 | disposition home or self-care (01) | DRG 291 ==
LOC: ED 21:30 → PCU 23:40
PROVIDERS: Family Medicine; Internal Medicine Gastroenterology; Admitting Provider Internal Medicine; Emergency Provider Emergency Medicine; PCP Family Medicine; Referring Provider Internal Medicine; Visit Provider Internal Medicine
PROC: 0DJ08ZZ Inspection of Upper Intestinal Tract, Via Natural or Artificial Opening Endoscopic (ICD-10-PCS; CPT 43235; principal; 2023-10-19 12:25)
DX: I11.0 Hypertensive heart disease with heart failure (principal); I50.23 Acute on chronic systolic (congestive) heart failure; K25.4 Chronic or unspecified gastric ulcer with hemorrhage; I42.0 Dilated cardiomyopathy; I42.6 Alcoholic cardiomyopathy; F10.20 Alcohol dependence, uncomplicated; F10.21 Alcohol dependence, in remission; G25.81 Restless legs syndrome; M19.90 Unspecified osteoarthritis, unspecified site; E78.5 Hyperlipidemia, unspecified; K31.84 Gastroparesis; E66.9 Obesity, unspecified; G89.4 Chronic pain syndrome; Z68.33 Body mass index [BMI] 33.0-33.9, adult; Z79.899 Other long term (current) drug therapy
CPT/HCPCS: 36415; 71045; 74177; 80048; 80053; 83735; 83880; 84100; 84443; 84484; 85025; 88305; 88342; 93005; 93308; 99252; 99285; P9047; Q9957; Q9967; A4216; C8924; G0463; J1938; J2405

== ENCOUNTER → 2023-11-09 | Outpatient (CLI) | payer MEDICARE, SELFPAY ==
[2023-11-09 11:43] LABS: Absolute Lymphocyte Count 1.34 X10^3/uL (0.83-4.51); Absolute Neutrophil Count 11.5 X10^3/uL (2.0-7.7); Basophil# 0.08 X10^3/uL; Basophil% 0.6 % (0-1); Eosinophil# 0.03 X10^3/uL; Eosinophils% 0.2 % (0-5); Hematocrit 39.9 % (40-54); Hemoglobin 12.9 g/dL (13.0-16.5); Lymphocyte # 1.34 X10^3/ul (0.83-4.51); Lymphocyte % 9.4 % (19-41); Mean Corp Hgb Conc 32.3 g/dL (32-36); Mean Corpuscular Hgb 29.4 pg (27.0-32.0); Mean Corpuscular Volume 90.9 fL (80-94); Mean Platelet Vol. 12.2 fl (6.2-12.0); Monocyte# 0.69 X10^3/uL; Monocyte% 4.9 % (0-10); NRBC Flagged by Analyzer 0 % (0-5); Neutrophil # 11.53 X10^3/uL (2.7-7.7); Neutrophil % 81.2 % (47-70); Platelet Count 193 K/mm3 (150-450); RBC Distribution Width CV 13.7 % (11.6-14.6); RBC Distribution Width SD 46.3 fl (35.1-43.9); Red Blood Count 4.39 M/mm3 (4.6-6.2); White Blood Count 14.2 K/mm3 (4.4-11.0)
[2023-11-09 11:56] LABS: BNP,B-Type NATRIURETIC PEPTIDE 697.3 pg/mL (0-100)
[2023-11-09 12:31] LABS: Anion Gap 10 (5-15); BUN 44 mg/dL (7-18); BUN/Creat Ratio 32.4 RATIO (10-20); Calcium,Total 9.2 mg/dL (8.5-10.1); Chloride 96 mmol/L (98-107); Creatinine, Serum 1.36 mg/dL (0.70-1.30); EST Glomerular Filtration Rate 55 mL/min (>60); Est Glom Filt Rate - Afr Amer 66 mL/min (>60); Glucose 111 mg/dL (74-106); Potassium 4.2 mmol/L (3.5-5.1); Sodium Level 135 mmol/L (136-145)
== END | disposition home or self-care (01) ==
LOC: LAB 11:11
PROVIDERS: PCP Family Medicine; Referring Provider Nurse Practitioner Gerontology; Visit Provider Nurse Practitioner Gerontology
DX: I42.8 Other cardiomyopathies (principal)
CPT/HCPCS: 36415; 80048; 83880; 85025

== ENCOUNTER 2023-12-02 07:49 | Emergency (ER) | payer MEDICARE, SELFPAY ==
[2023-12-02 07:50] VITALS: BP 169/95; PULSE 114; PULSE 120; RESP 16; TEMP 37.6; O2SAT 93; O2SAT 95; BMI 30.1
--- NOTE | 2023-12-02 08:00 | RAD_ITS ---
STUDY: X-RAY CHEST REASON FOR EXAM: Male, 72 years old. Edema, bibasilar rales TECHNIQUE: PA and 2 lateral views of the chest. COMPARISON: 10/17/2023 FINDINGS: EKG leads overlie the chest Chronic interstitial changes without evidence of a superimposed acute pulmonary process. There is no demonstrated pleural abnormality. Stable cardiomegaly. Normal mediastinum and hussein. Normal visualized pulmonary arteries. There is atherosclerotic calcification of the aortic arch with tortuosity. There are diffuse degenerative changes of the visualized thoracic spine. Normal visualized ribs, clavicles, and shoulders. There is no demonstrated abnormality of the visualized soft tissue structures of the upper abdomen. RAD/Chest PA and Lateral IMPRESSION: No acute pulmonary process, stable cardiomegaly, no interval change Electronically Signed: Jose F eMyer MD at 9:10 EDT ,
--- NOTE | 2023-12-02 08:00 | EKG12_ITS ---
Test Reason : Blood Pressure : / mmHG Vent. Rate : 110 BPM Atrial Rate : 110 BPM P-R Int : 182 ms QRS Dur : 146 ms QT Int : 366 ms P-R-T Axes : 051 -33 106 degrees QTc Int : 495 ms Sinus tachycardia Left axis deviation Left bundle branch block Abnormal ECG Confirmed by Bernard Gaviria ([id number]), web editor JESUS GOMEZ ([id number]) on 12/03/2023 2:07:14 PM Referred By: Confirmed By:Bernard Gaviria
--- NOTE | 2023-12-02 08:14 | EX.ED.DYSGE1 ---
HPI History of Present Illness Chief Complaint: Other, Pain/Inj Detail of Chief Complaint: Patient presents because of lower bilateral back pain, leg pain and not abl Informant: patient Onset/Context/Timing Onset: Days (Approximately 1 week, 6 to 7 days) Context: Gradual Onset Timing: Continuous and Waxes and wanes Quality: Pain with spasms Location: Bilateral lower back Current Severity: Mild Worsened by: Movement and nothing Relieved by: Nothing Associated Symptoms Associated Symptoms: no complaint of bowel bladder dysfunction. No saddle paresthesia or anest Narrative Narrative: Patient is a 72-year-old male. He was recently admitted to the hospital. He was admitted from October 16 to October 22. He was admitted for CHF exacerbation. Per inpatient records he had acute on chronic systolic congestive heart failure exacerbation. He also has history of peptic ulcer disease, nonischemic cardiomyopathy with complicated care and management. This may have been due to his heavy alcohol use. He states he stopped alcohol use when he was told he had heart failure. He does have history of hypertension and is presently on 5 meds. Patient had a recent outpatient echo that revealed an ejection fraction of 30%. Patient presents because of low back pain for proxy 1 week. It intermittently will flareup. He says it has spasms. He arrived by EMS because he states he cannot walk. He has been sitting a lot. He states his skin is discolored since he was diagnosed cellulitis. (In my opinion patient has venous stasis dermatitis.) He has had no increased orthopnea and denies PND. Denies chest discomfort. Patient was unaware that he had a lenticular rash. He denies paresthesia, anesthesia or weakness of his legs. He denies bowel or bladder dysfunction. He denies saddle anesthesia or paresthesia. He has been less active the past week. He states he has been less active because of pain. He denies fever, chills night sweats. He denies dysuria, frequency, urgency or hematuria. Of note without prompting patient states the swelling goes away when he elevates his lower extremities. Prior similar symptoms: No Recent Illness/Hospitalization: Yes [facility] Medical History Non-ischemic cardiomyopathy (03/07/21) CHF exacerbation Congestive heart failure (CHF) HFrEF (heart failure with reduced ejection fraction) (03/07/21) Essential hypertension CHF (NYHA class III, ACC/AHA stage C) Alcohol abuse Chronic pain Congestive heart failure (CHF) Alcohol dependence Restless leg syndrome Laceration of right little finger Home Medications ?Medication ?Instructions ?Recorded ?Last Taken ?Type pantoprazole 40 mg tablet,delayed 40 mg PO BID #60 tabs 10/23/23 Unknown Rx release sucralfate 1 gram tablet 1 g PO 1HR_ACHS #120 tabs 10/23/23 Unknown Rx lisinopril 40 mg tablet 40 mg PO BID #180 tabs 11/09/23 Unknown Rx metoprolol tartrate 100 mg tablet 100 mg PO BID #180 tabs 11/09/23 Unknown Rx spironolactone 50 mg tablet 25 mg (1/2 x 50 mg) PO DAILY #90 11/09/23 Unknown Rx tabs torsemide 20 mg tablet 20 mg PO BID #180 tabs 11/09/23 Unknown Rx hydrocodone-acetaminophen 5-325mg 1 tab PO Q6H PRN PRN Pain 3 days 12/02/23 Unknown Rx 5mg-325mg #10 TABLETS Allergy/AdvReac Type Severity Reaction Status Date / Time amoxicillin Allergy PAIN AND Verified 11/09/23 10:37 DIARRHEA Penicillins Allergy PAIN AND Verified 11/09/23 10:37 DIARRHEA Family History Father Throat cancer smoker Hypertension Mother No cardiac disease Mother currently living, 92 years old with no reported medical issues. 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 pets and animals: Yes (cats) Smoking Status: Never smoker alcohol intake: former substance use type: does not use caffeine: Yes Type: coffee Number of servings: 4 ROS ROS ED Constitutional Constitutional ED: Denies chills, fever(s), subjective, sweats or weight loss Eyes Eyes: Denies blurry vision, change in vision or diplopia ENT ENT ED: Denies ear pain, rhinorrhea or sore throat Cardiovascular Cardiovascular: Reports orthopnea; Denies chest pain, palpitations, paroxysmal nocturnal dyspnea or racing heartbeat Respiratory/Chest Respiratory/Chest: Reports orthopnea; Denies cough, dyspnea, dyspnea on exertion or paroxysmal nocturnal dyspnea Gastrointestinal Gastrointestinal: Denies abdominal pain, constipation, diarrhea, melena, nausea or vomiting Genitourinary Genitourinary ED: Denies dysuria, hematuria or urinary frequency Musculoskeletal Musculoskeletal: Reports back pain; Denies arthralgias, myalgias or neck pain Integumentary Reports rash Neurologic Neurologic: Denies paresthesias or weakness Endocrine Endocrinology: Denies cold intolerance or heat intolerance Hematologic/Lymphatic Hematologic/Lymphatic: Reports systems reviewed and no addt'l complaints, except as documented EXAM Physical Exam Const Vital Signs: 12/02/23 07:50 12/02/23 07:50 12/02/23 07:58 Temperature 99.6 F H Temperature Source Temporal Pulse Rate 114 H 120 H Respiratory Rate 16 Respiratory Pattern Normal Blood Pressure 169/95 H Blood Pressure Mean 119 Pulse Ox 93 95 Oxygen Delivery Method Room Air Room Air 12/02/23 10:00 Temperature Temperature Source Pulse Rate 110 H Respiratory Rate 22 H Respiratory Pattern Blood Pressure 115/72 Blood Pressure Mean 86 Pulse Ox Oxygen Delivery Method Positive well nourished and well developed Constitutional Narrative: Patient has acrocyanosis of his toes. General Appearance ED: well developed, cyanotic and NAD; Negative for diaphoretic HEENT Reports moist mucous membranes HEENT Narrative: Head is atraumatic normocephalic. Ears are normal. Nares patent. Posterior pharynx is normal. Eyes PERRL and EOMs intact bilaterally General Eye ED: Negative for pale conjunctiva or scleral icterus Neck no lymphadenopathy, supple and no JVD Chest Wall inspection of chest normal and palpation of chest normal Resp normal respiratory effort Resp Narrative: Question of slight bibasilar rales. This does clear with coughing. Cardio regular rhythm, S1 normal heart sound, S2 normal heart sound and no murmurs Rate: tachycardic GI normal to inspection, nondistended, normoactive bowel sounds, non-tender, non-distended and no masses; Negative for hepatosplenomegaly Back/Spine no CVA tenderness Extremity Negative for normal to inspection Extremity Narrative: Lenticular rash lower extremities with delayed capillary refill and acrocyanosis of toes. DP pulse is palpable bilateral and symmetric. Neuro oriented x3 and CN's II-XII intact bilaterally Neuro Narrative: EHL is intact bilaterally. Normal sensation L3-S1 dermatome. 5 or 5 strength with plantar and dorsiflexion of the foot. Unable to assess quadricep function. Patella and ankle reflex are 2+ symmetric. There is no Babinski sign or clonus noted. Patient does have reproducible low back pain. Sensorium / Orientation: alert Psych Psych Narrative: Speech is slightly pressured. Skin Skin Narrative: Lenticular rash lower extremity with delayed cap refill and acrocyanosis is previously mentioned. Patient appears flushed in his face. MDM MDM MDM Narrative Medical decision making narrative: With history of ischemic cardiomyopathy and tachycardia with delayed cap refill acrocyanosis need to evaluate for cardiac etiology, metabolic infectious etiology to cause of poor perfusion. Because of the abnormal auscultatory findings chest x-ray was obtained. EKG, troponin and BNP were obtained. Doubt cardiac ischemia in light of patient's history of nonischemic cardiomyopathy with EF of 30%. Suspect his swelling is multifactorial i.e. decreased mobility and history of nonischemic cardiomyopathy. CBC was obtained to assess white count differential. Competence metabolic panel lactate to assess for endorgan dysfunction as well as any electrolyte abnormality. History & Record Review Additional record(s) reviewed:: Prior inpatient record (Documented HPI narrative) and Prior labs Lab Data Attestation: I reviewed the patient's lab results. Lab results narrative: Comprehensive metabolic panel is remarkable for an elevated BUN to creatinine ratio of approximately 35-1. BUN is 45 with a creatinine of 1.28. Estimated GFR is 59. Lactate is normal. Glucose is slightly evaded 114 with normal CO2 anion gap. Urinalysis is unremarkable. Labs: Laboratory Results - last 24 hr 12/02/23 12/02/23 08:17 08:45 WBC 11.4 H RBC 4.23 L Hgb 12.5 L Hct 38.6 L MCV 91.3 MCH 29.6 MCHC 32.4 RDW Std Deviation 48.6 H RDW Coeff of Rosario 14.5 Plt Count 134 L MPV 12.0 Immature Gran % (Auto) 2.800 H Neut % (Auto) 92.0 H Lymph % (Auto) 2.8 L Prentiss % (Auto) 1.9 Eos % (Auto) 0.1 Baso % (Auto) 0.4 Absolute Neuts (auto) 10.5 H Absolute Lymphs (auto) 0.32 L Nucleated RBC % 0 Sodium 142 Potassium 3.4 L Chloride 106 Carbon Dioxide 30.0 Anion Gap 6 BUN 45 H Creatinine 1.28 Estim Creat Clear Calc 48.65 Est GFR (MDRD) Af Amer 71 Est GFR (MDRD) Non-Af 59 L BUN/Creatinine Ratio 35.2 H Glucose 114 H Lactic Acid 1.6 Calcium 9.1 Total Bilirubin 0.50 AST 24 ALT 44 Alkaline Phosphatase 84 Troponin I High Sens 55 B-Natriuretic Peptide 976.4 H Total Protein 7.0 Albumin 3.5 Globulin 3.5 Albumin/Globulin Ratio 1.0 Urine Color Yellow Urine Clarity Clear Urine pH 7.0 Ur Specific Caspar 1.005 Urine Protein 15 H Urine Glucose (UA) Normal Urine Ketones Negative Urine Occult Blood 10 H Urine Nitrite Negative Urine Bilirubin Negative Urine Urobilinogen Normal Ur Leukocyte Esterase Negative Urine RBC 0 SEEN Urine WBC 0 SEEN Ur Squamous Epith Cells 0 SEEN Urine Bacteria 0 SEEN Urine Mucus 0 SEEN Radiography Chest X-Ray - ED: 2 View and Read by ED Physician (There is evidence of cardiomegaly. The chest x-ray is unchanged from portable film obtained October 16. There is no obvious effusion. There is no obvious infiltrate. There is no evidence of pneumothorax. Perihilar region is unremarkable. Osseous structures are negative. This is dependent reviewed) Diagnostic Testing: Clinical Impression(s) from Imaging Studies Chest X-Ray 12/02/23 08:00 IMPRESSION: No acute pulmonary process, stable cardiomegaly, no interval change Electronically Signed: Jose F Meyer MD at 9:10 EDT Reading Location ID and State: [facility] / [place] , Service support , Rhythm Strip Rhythm Strip: Sinus Tach Rate: 116 Ectopy: None EKG Initial EKG: Attestation: I personally reviewed and interpreted this EKG as follows: Interpretation: Sinus Tachycardia (Rate is 110. QRS complexes widened and consistent with a left bundle branch block. NM interval is 182 ms. QRS duration 146 ms. QT duration 366 ms. [place] to left. There is no obvious acute ischemic changes. Prior EKG reveals same. This was obtained October 17, 2023.) Treatment and Re-Evaluation :: Patient refused to attempt to stand and walk. Will medicate with morphine. He says movement causes him pain. He was informed muscular low back pain is not an indication for admission of the hospital. He states he would try to get up and walk. Prior to having nurse attempt to walk him he will be medicated with IV morphine. Patient became agitated when I was talking him about ambulating. His heart rate went up to 135. Patient was able to ambulate. He states he feels markedly better after morphine. Will discharge with short course of opiate analgesia. Discharge Plan Triage Chief Complaint: Other, Pain/Inj ED Provider: Storm Vance Dx/Rx/DC Orders Clinical Impression: Acute bilateral low back pain without sciatica, Essential hypertension, Non-ischemic cardiomyopathy, Bilateral edema of lower extremity Instructions: ED Back Pain (Acute or Chronic), ED Peripheral Edema, Bilateral Prescriptions: New hydrocodone-acetaminophen 5-325 mg tablet 1 tab PO Q6H PRN PRN (Reason: Pain) 3 Days Qty: 10 0RF No Action lisinopril 40 mg tablet 40 mg PO BID Qty: 180 3RF metoprolol tartrate 100 mg tablet 100 mg PO BID Qty: 180 3RF torsemide 20 mg tablet 20 mg PO BID Qty: 180 3RF sucralfate 1 gram Tablet 1 g PO 1HR_ACHS Qty: 120 0RF Rx Instructions: take for one month, then discontinue pantoprazole 40 mg Tablet,Delayed Release (Dr/Ec) 40 mg PO BID Qty: 60 0RF spironolactone 50 mg tablet 25 mg PO DAILY Qty: 90 3RF Primary Care Provider: Care Physician,No Primary Referrals: Tevin Turner MD [Med Staff - [employer]] - 3-5 Days if not improving Print Language: Turkmen Disposition Disposition: Home, Self Care
[2023-12-02 08:32] LABS: Absolute Lymphocyte Count 0.32 X10^3/uL (0.83-4.51); Absolute Neutrophil Count 10.5 X10^3/uL (2.0-7.7); Basophil# 0.05 X10^3/uL; Basophil% 0.4 % (0-1); Eosinophil# 0.01 X10^3/uL; Eosinophils% 0.1 % (0-5); Hematocrit 38.6 % (40-54); Hemoglobin 12.5 g/dL (13.0-16.5); Lymphocyte # 0.32 X10^3/ul (0.83-4.51); Lymphocyte % 2.8 % (19-41); Mean Corp Hgb Conc 32.4 g/dL (32-36); Mean Corpuscular Hgb 29.6 pg (27.0-32.0); Mean Corpuscular Volume 91.3 fL (80-94); Monocyte# 0.22 X10^3/uL; Monocyte% 1.9 % (0-10); NRBC Flagged by Analyzer 0 % (0-5); Neutrophil # 10.51 X10^3/uL (2.7-7.7); POSITIVE COUNT YES; POSITIVE DIFFERENTIAL YES; Platelet Count 134 K/mm3 (150-450); RBC Distribution Width CV 14.5 % (11.6-14.6); RBC Distribution Width SD 48.6 fl (35.1-43.9); Red Blood Count 4.23 M/mm3 (4.6-6.2); White Blood Count 11.4 K/mm3 (4.4-11.0)
[2023-12-02 08:48] LABS: AST(SGOT) 24 U/L (15-37); Alanine Aminotransfer ALT/SGPT 44 U/L (16-61); Albumin, Serum 3.5 g/dL (3.2-5.0); Alkaline Phosphatase 84 U/L (45-117); Anion Gap 6 (5-15); BUN 45 mg/dL (7-18); BUN/Creat Ratio 35.2 RATIO (10-20); Calcium,Total 9.1 mg/dL (8.5-10.1); Chloride 106 mmol/L (98-107); Creatinine, Serum 1.28 mg/dL (0.70-1.30); EST Glomerular Filtration Rate 59 mL/min (>60); Est Glom Filt Rate - Afr Amer 71 mL/min (>60); Estimated Creatinine Clearance 48.65 ml/min; Globulin 3.5 g/dL (2.2-4.2); Glucose 114 mg/dL (74-106); Potassium 3.4 mmol/L (3.5-5.1); Sodium Level 142 mmol/L (136-145); Troponin-I HS 55 pg/mL (3.0-78.0)
[2023-12-02 08:52] LABS: Lactic Acid 1.6 mmol/L (0.4-1.9)
[2023-12-02 08:56] LABS: Bacteria 0 SEEN /hpf (None Seen); Mucous, Urine 0 SEEN /hpf (<or=2+); Red Blood Cells-Urine 0 SEEN /hpf (0-5); Squamous Epithelial Cells - UA 0 SEEN /hpf (0-5); White Blood Cells 0 SEEN /hpf (0-5)
[2023-12-02 09:00] LABS: Color, Urine Yellow (Yellow); Glucose, Dipstick Normal (Normal); Ketone-Dipstick Negative (Negative); Leukocyte Esterase-Dipstick Negative /ul (Negative); Nitrite-Dipstick Negative (Negative); Occult Blood-Urine 10 /ul (Negative); Protein-Dipstick 15 mg/dl (Negative); Specific Gravity, Urine 1.005 (1.002-1.030); Urine Bilirubin Dipstick Negative (Negative); Urine Clarity Clear (Clear); Urine Urobilinogen Normal (Normal)
[2023-12-02 09:16] LABS: BNP,B-Type NATRIURETIC PEPTIDE 976.4 pg/mL (0-100)
[2023-12-02 10:00] VITALS: BP 115/72; PULSE 110; RESP 22
--- NOTE | 2023-12-02 11:06 | ED.RN ---
PER DR. FISCHER, PLEASE TRY TO AMBULATE PATIENT. PATIENT REFUSING TO TRY TO AMBULATE. DR. FISCHER AT BEDSIDE. DR. FISCHER STATES SIR, WE HAVE NOT FOUND ANYTHING TO EXPLAIN WHY YOU CAN'T WALK. WE NEED TO GET YOU UP TO AND SEE HOW YOU CAN DO. PT STATES I CAN'T EVEN MOVE MY LEGS. I'M IN SO MUCH PAIN RIGHT NOW. DR. FISCHER STATES I WILL ORDER PAIN MEDS AND THEN THEY WILL BE BACK TO WALK YOU. PATIENT AGREEABLE TO PLAN OF CARE.
[2023-12-02] MEDS: Morphine 4 MG/ML Syringe IV (11:10)
[2023-12-02] MEDS: Ondansetron 4 MG/2 ML Vial IV (11:10)
--- NOTE | 2023-12-02 11:32 | ED.RN ---
PATIENT ABLE TO AMBULATE STEADY WITH ASSISTANCE. PATIENT REQUESTING TO SIT IN CHAIR. DR. FISCHER NOTIFIED
[2023-12-02 12:00] VITALS: RESP 18; O2SAT 97
--- NOTE | 2023-12-02 12:04 | ED.RN ---
Patient tearful. Patient states that he is not a pain medication person. He states that he is normally active and is not right now. He wondered about going to [facility] to do extra exercises. I will refer social work to him.
[2023-12-02 13:23] VITALS: BP 154/83; PULSE 98; RESP 16; TEMP 36.4; O2SAT 94
--- NOTE | 2023-12-02 13:24 | ED.RN ---
Patient getting dressed and going to the bathroom. Patient to let us know when he is dressed and ready for the wheelchair
== END 2023-12-02 13:35 | disposition home or self-care (01) ==
PROVIDERS: Emergency Provider Emergency Medicine; Visit Provider Emergency Medicine
DX: M54.50 Low back pain, unspecified (principal); I11.0 Hypertensive heart disease with heart failure; I50.23 Acute on chronic systolic (congestive) heart failure; I42.8 Other cardiomyopathies; R60.0 Localized edema
CPT/HCPCS: 71046; 80053; 81001; 83605; 83880; 84484; 85025; 93005; 96374; 96375; 99283; A4216; J2405

== ENCOUNTER 2023-12-14 10:02 | Inpatient (IN) | payer MEDICARE, SELFPAY ==
[2023-12-14] VITALS (18 sets, daily range): BP systolic 113–158; BP diastolic 68–95; PULSE 87–122; RESP 14–23; TEMP 36.2–36.7; O2SAT 93–97; BMI 30.9
--- NOTE | 2023-12-14 11:18 | MRI_ITS ---
EXAM: MR LUMBAR SPINE WITHOUT INTRAVENOUS CONTRAST CLINICAL INDICATION: back pain TECHNIQUE: Multiplanar and multisequence MR images of the lumbar spine without intravenous contrast. COMPARISON: CT abdomen and pelvis 10/19/2023 FINDINGS: VERTEBRAE: Alignment of the lumbar vertebral bodies is normal. Chronic compression fracture of T12 again noted resulting in increased AP with the vertebral body and resulting in mild impression on the thecal sac. Deformity of the superior endplate of L3 results in decrease in vertebral body height. Abnormal L3 vertebral body suggests edema related to recent injury. CT of the lumbar spine may be of further value to evaluate suspected acute fracture. SPINAL CORD: Normal. Normal position and signal intensity of the conus medullaris. SOFT TISSUES: Normal. DISCS/SPINAL CANAL/NEURAL FORAMINA: L1-L2: Moderate disc space narrowing. Mild disc bulging without spinal stenosis. Intact neural foramina. L2-L3: Increase in the disc space associated with edema of the disc and L3 vertebral body related to acute/subacute injury. No disc protrusion. Ligamentous hypertrophy results in mild compression of the thecal sac. Mild narrowing of the neural foramina related to bony hypertrophy. L3-L4: Moderate disc space narrowing. Broad-based disc protrusion, ligamentous hypertrophy and facet arthropathy results and moderate to severe spinal stenosis and prominent bilateral neural foraminal narrowing worse on the right than left. L4-L5: Moderate disc space narrowing. Mild disc protrusion, prominent ligamentous hypertrophy and facet arthropathy results in moderate to severe spinal stenosis and moderate right and moderate to severe left neural foraminal narrowing. L5-S1: Moderate disc space narrowing. No disc protrusion. Moderate bilateral neural foraminal narrowing related to vertebral body hypertrophy and facet arthropathy. MRI/Spine Lumbar (Routine) IMPRESSION: 1. Acute/subacute compression deformity of the L3 vertebral body. 2. Moderate to severe spinal stenosis at L3-4 and L4-5 related to disc protrusion, prominent ligamentous hypertrophy and facet arthropathy. 3. Multilevel neural foraminal stenoses as described. Electronically Signed: Joao Marin MD at 16:25 EDT ,
--- NOTE | 2023-12-14 11:18 | MRI_ITS ---
STUDY: MRI THORACIC SPINE WITHOUT CONTRAST REASON FOR EXAM: Male, 72 years old. back pain TECHNIQUE: Standardized fat and water weighted pulse sequences were obtained in the sagittal and axial planes. COMPARISON: MRI of the lumbar spine dated December 14, 2023 FINDINGS: Normal kyphosis of the thoracic spine. There is no substantial scoliosis. Chronic compression deformity of the T12 vertebral body with 50% loss of height and flattening and widening of the vertebral body. No significant retropulsion. No demonstrated acute fracture or active marrow edema. No lytic or blastic lesions of the osseous structures are present. Benign fatty hemangiomas are present in several vertebral bodies. T1-2, T2-3, T3-4, T4-5, T5-6, T6-7, T7-8, T8-9, T9-10, T10-11, T11-12: Endplate spurring, disc desiccation, and mild disc space narrowing is present throughout the thoracic spine. No significant posterior disc herniation or bulging or extrusions. No demonstrated cord compression. No epidural fluid collections are present. Mild foraminal stenosis is present at several of the lower thoracic levels. Normal central canal and intervertebral neural foramina at the remaining corresponding levels. Normal visualized thoracic cord. Normal conus medullaris that terminates at the T12-L1 level. No cord edema or syrinx or demyelinating lesions are present. No intramedullary or intrathecal lesions are present. The soft tissue structures are unremarkable. MRI/Spine Thoracic (Routine) IMPRESSION: 1. Chronic T12 compression deformity. 2. Multilevel degenerative changes. Electronically Signed: Reed Hopkins MD at 16:09 EDT ,
--- NOTE | 2023-12-14 11:28 | ECHOL_ITS ---
Reason For Study: CARDIOMYOPATHY Procedure This was a limited 2D transthoracic echocardiogram. Exam performed portable in ICU/CCU. Left Ventricle Moderate concentric left ventricular hypertrophy. Borderline dilated LV. Severe global LV systolic dysfunction. Estimated LVEF 20 to 25%. Right Ventricle Normal right ventricle. Atria The left atrium is severely enlarged. The right atrium is mildly enlarged. Mitral Valve Moderate mitral annular calcification. Tricuspid Valve Normal tricuspid valve. Aortic Valve Aortic valve is moderately calcified with restricted leaflet excursion. Mild to moderate aortic valve stenosis. Planimetry area 1.2 cm??. No Doppler data available. Pulmonic Valve The pulmonic valve is not well visualized. Great Vessels Normal sized aortic root. Pericardium/Pleural No pericardial effusion. MMode/2D Measurements & Calculations LVIDd: 5.5 cm IVSd: 1.5 cm Ao root diam: 3.1 cm LVIDs: 4.9 cm LVPWd: 1.2 cm RVDd: 3.6 cm FS: 11.7 % LAV(MOD-bp): 63.5 ml LVAd ap4: 36.5 cm2 LVAd ap2: 32.5 cm2 LAV(MOD-bp) Indexed: 34.0 ml/m2 LVLd ap4: 8.7 cm LVLd ap2: 8.1 cm LAV(MOD-sp2): 62.2 ml EDV(MOD-sp4): 123.8 ml EDV(MOD-sp2): 108.5 ml LAV(MOD-sp4): 62.3 ml EDV(sp4-el): 130.2 ml EDV(sp2-el): 111.1 ml LVAs ap4: 29.6 cm2 LVAs ap2: 25.5 cm2 LVLs ap4: 8.3 cm LVLs ap2: 7.5 cm ESV(MOD-sp4): 84.3 ml ESV(MOD-sp2): 74.0 ml ESV(sp4-el): 89.2 ml ESV(sp2-el): 73.7 ml EF(MOD-sp4): 31.9 % EF(MOD-sp2): 31.8 % EF(sp4-el): 31.5 % SV(MOD-sp4): 39.5 ml SV(MOD-sp2): 34.5 ml SV(sp4-el): 41.0 ml LA dimension(2D): 5.3 cm Aortic Valve Planimetry: 1.1 cm2 LA A4 area: 20.0 cm2 RA A4 area: 14.3 cm2 ECHO/Echo, Limited Study Interpretation Summary Moderate concentric left ventricular hypertrophy. Borderline dilated LV. Severe global LV systolic dysfunction. Estimated LVEF 20 to 25%. The left atrium is severely enlarged. The right atrium is mildly enlarged. Moderate mitral annular calcification. Aortic valve is moderately calcified with restricted leaflet excursion. Mild to moderate aortic valve stenosis. Planimetry area 1.2 cm??. No Doppler data available. Ordering Physician: Lanre Cortes Referring Physician: NO PCP Performed By: Jenny Hernandez, MACKENZIE, RVT
[2023-12-14] MEDS: Furosemide 500 MG in Empty Viaflex 50 mL 1 EACH CONT INF (12:11)
[2023-12-14] MEDS: Tamsulosin HCl 0.4 MG Capsule 0.8 MG PO (12:20)
--- NOTE | 2023-12-14 12:37 | NURSING ---
Arrival to unit from [facility] to ICU01 at 0915.
--- NOTE | 2023-12-14 14:00 | CASEMGMT ---
RN CM into pt room for assessment, pt with nurses present and ready to go to MRI. RN CM to see pt tomorrow for assessment.
--- NOTE | 2023-12-14 14:50 | NURSING ---
Patient transferred off floor for MRI at 1402
[2023-12-14] MEDS: Acetaminophen 325 MG Tablet 650 MG PO (16:05)
--- NOTE | 2023-12-14 16:08 | PCM.HP.STD ---
HPI - General General Date of Admission: 12/14/23 Date of Service: 12/14/23 Chief Complaint: Severe leg edema, uncontrolled back pain, elevated white blood cell count HPI Narrative LILIBETH CRESPO, is a 72 M who presents to the ICU at [facility] as a direct admission from [facility], he went to the ER there due to complaints of back pain which has continued since 12/04/2023 and also increased edema in his lower extremities. Labs were obtained and showed an elevated white blood cell count, creatinine was slightly elevated at 1.62 and beta nitric peptide was elevated at 20,385. Patient had a CT of his abdomen and pelvis there was noted to be 2 compression fractures 1 at T12 which was a burst fracture and 1 at L3. The 1 at L3 appeared to be recent. There is a complex lesion in the lateral right upper kidney pole 1.4 cm in size. No other renal abnormality was noted. Patient's UA was unremarkable. Chest x-ray showed evidence of mild cardiomegaly with central vascular congestion. Patient's lactic acid was elevated and due to the patient's elevated white count, the ER physician was fearful of sepsis and gave the patient IV antibiotics. Patient denies any trauma to his back, when he was seen in the emergency room here at [facility] on 12/04/2023, x-rays were not performed of his back. Patient was told to follow-up with orthopedic surgery, he is on outpatient orthopedic surgeon who did some [id number] states he was not told he had a fracture, he was told it would be necessary to obtain more imaging test but the patient had too much back pain to undergo these tests and they were to be scheduled sometime in the future. Patient was given a prescription for prednisone and a muscle relaxer. [facility] Medical History Non-ischemic cardiomyopathy (03/07/21) CHF exacerbation Congestive heart failure (CHF) HFrEF (heart failure with reduced ejection fraction) (03/07/21) Essential hypertension CHF (NYHA class III, ACC/AHA stage C) Alcohol abuse Chronic pain Congestive heart failure (CHF) Alcohol dependence Restless leg syndrome Laceration of right little finger Home Medications ?Medication ?Instructions ?Recorded ?Last Taken ?Type metoprolol tartrate 100 mg tablet 100 mg PO BID HTN #180 tabs 11/09/23 Unknown Rx torsemide 20 mg tablet 20 mg PO BID Edema #180 tabs 11/09/23 Unknown Rx Formula 303 1 tablet PO QHS PRN muscle spasm 12/14/23 Unknown History acetaminophen 500 mg capsule 500 mg PO Q6H PRN pain 12/14/23 Unknown History cyclobenzaprine 5 mg tablet 5 mg PO QHS Muscle Stiffness 12/14/23 Unknown History furosemide 40 mg tablet 40 mg PO DAILY Edema 12/14/23 Unknown History gabapentin 100 mg capsule 100 mg PO BID PRN Chronic Back Pain 12/14/23 Unknown History lisinopril 40 mg tablet 40 mg PO BID HTN 12/14/23 Unknown History pantoprazole 40 mg tablet,delayed 40 mg PO DAILY GERD 12/14/23 Unknown History release prednisone 20 mg tablet mg PO DAILY CHF 12/14/23 Unknown History spironolactone 50 mg tablet 50 mg PO DAILY HTN 12/14/23 Unknown History sucralfate 1 gram tablet 1 g PO .AC GERD 12/14/23 Unknown History tramadol 50 mg tablet 50 mg PO Q6H PRN PRN pain 12/14/23 Unknown History Allergy/AdvReac Type Severity Reaction Status Date / Time amoxicillin Allergy PAIN AND Verified 11/09/23 10:37 DIARRHEA Penicillins Allergy PAIN AND Verified 11/09/23 10:37 DIARRHEA Family History Father Throat cancer smoker Hypertension Mother No cardiac disease Mother currently living, 92 years old with no reported medical issues. 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 pets and animals: Yes (cats) Smoking Status: Never smoker alcohol intake: former substance use type: does not use caffeine: Yes Type: coffee Number of servings: 4 ROS Constitutional Constitutional: Denies anorexia, change in weight, chills, fatigue, fever(s), malaise, night sweats or weakness Eyes Eyes: Denies blurry vision, change in eye color, change in vision, discharge from eye(s) or eye pain Cardiovascular Cardiovascular: Reports edema; Denies chest pain, claudication or palpitations Respiratory/Chest Respiratory/Chest: Denies cough, dyspnea, excessive phlegm production, hemoptysis, productive cough, shortness of breath at rest or shortness of breath with exertion Gastrointestinal Gastrointestinal: Denies abdominal pain, constipation, diarrhea, hematemesis, hematochezia, melena, nausea or vomiting Genitourinary Genitourinary: Denies dysuria, hematuria, urinary frequency, urinary hesitancy, urinary incontinence or urinary urgency Musculoskeletal Musculoskeletal: Reports back pain; Denies joint pain, joint stiffness, joint swelling, myalgias or neck pain Neurologic Neurologic: Denies abnormal gait, abnormal speech, dizziness, focal weakness, headache(s), loss of vision, numbness, other visual disturbances, paresthesias, syncope or tingling Psychiatric Psychiatric: Denies anxiety, cognitive impairment, depression, irritability, mood swings or suicidal ideation Endocrine Endocrinology: Denies change in body appearance, cold intolerance, excessive sweating, heat intolerance, polydipsia or polyuria Hematologic/Lymphatic Hematologic/Lymphatic: Denies none, anemia, easy bleeding, easy bruising or lymphadenopathy Allergic/Immunologic Allergic/Immunologic: Denies rhinitis, urticaria, eczemia or asthma Vital Signs Vital Signs Vital Signs: 12/14/23 09:45 12/14/23 09:45 12/14/23 10:00 Temperature 97.2 F L 97.2 F L Temperature Source Temporal Temporal Pulse Rate 89 89 87 Pulse Strength Respiratory Rate 14 14 15 Respiratory Effort Respiratory Depth Respiratory Pattern Blood Pressure 119/84 H 119/84 H 115/73 Blood Pressure Mean 95 95 87 Blood Pressure Source Monitor Monitor Monitor Blood Pressure Position Semi-Fowlers Semi-Fowlers Semi-Fowlers Blood Pressure Location Right Arm Right Arm Right Arm Pulse Ox 96 96 95 Oxygen Delivery Method Room Air Room Air Room Air 12/14/23 10:00 12/14/23 10:00 12/14/23 10:47 Temperature 98.0 F Temperature Source Temporal Pulse Rate 97 Pulse Strength Normal (2+) Respiratory Rate 19 H Respiratory Effort Normal Non-Labored Respiratory Depth Normal Respiratory Pattern Normal Blood Pressure 113/76 Blood Pressure Mean 88 Blood Pressure Source Blood Pressure Position Blood Pressure Location Pulse Ox 95 Oxygen Delivery Method Room Air Room Air 12/14/23 11:00 12/14/23 12:00 12/14/23 12:00 Temperature 97.9 F Temperature Source Temporal Pulse Rate 87 108 H Pulse Strength Respiratory Rate 19 H 23 H Respiratory Effort Normal Non-Labored Respiratory Depth Normal Respiratory Pattern Normal Blood Pressure 122/78 H 139/78 H Blood Pressure Mean 92 98 Blood Pressure Source Monitor Monitor Blood Pressure Position Semi-Fowlers Semi-Fowlers Blood Pressure Location Right Arm Right Arm Pulse Ox 95 Oxygen Delivery Method Room Air Room Air 12/14/23 13:00 12/14/23 14:00 12/14/23 14:07 Temperature Temperature Source Pulse Rate 101 H 111 H Pulse Strength Respiratory Rate 19 H 19 H Respiratory Effort Respiratory Depth Respiratory Pattern Blood Pressure 150/79 H Blood Pressure Mean 102 Blood Pressure Source Monitor Blood Pressure Position Semi-Fowlers Blood Pressure Location Right Arm Pulse Ox 94 94 94 Oxygen Delivery Method Room Air Room Air Room Air 12/14/23 14:33 12/14/23 14:47 12/14/23 14:59 Temperature Temperature Source Pulse Rate 117 H 113 H 114 H Pulse Strength Respiratory Rate Respiratory Effort Respiratory Depth Respiratory Pattern Blood Pressure 158/84 H 127/77 H 120/73 Blood Pressure Mean 108 93 88 Blood Pressure Source Monitor Monitor Blood Pressure Position Supine Supine Blood Pressure Location Right Arm Right Arm Pulse Ox 93 97 97 Oxygen Delivery Method Room Air Room Air Room Air 12/14/23 15:13 12/14/23 15:24 Temperature Temperature Source Pulse Rate 110 H 113 H Pulse Strength Respiratory Rate Respiratory Effort Respiratory Depth Respiratory Pattern Blood Pressure 127/71 H 126/76 H Blood Pressure Mean 89 92 Blood Pressure Source Monitor Monitor Blood Pressure Position Supine Supine Blood Pressure Location Right Arm Right Arm Pulse Ox 95 96 Oxygen Delivery Method Room Air Room Air Weight Weight: 81.6 kg Body Mass Index (BMI) 30.9 Physical Exam Const alert, oriented x3 and no apparent distress General Appearance: cooperative, well kempt and well developed Orientation / Consciousness: awake, oriented to person, oriented to place and oriented to time HEENT normocephalic, head/scalp atraumatic, hearing grossly normal bilaterally and moist oral mucous membranes Eyes PERRL, EOMs intact bilaterally and conjunctivae normal Neck supple, no JVD, thyroid normal and no carotid bruits General: trachea midline Resp normal respiratory effort, no retractions, no use of accessory muscles and clear to auscultation bilaterally Auscultation: Negative for rales, rhonchi or wheezes Cardio regular rate, regular rhythm, S1 normal heart sound, S2 normal heart sound, no murmurs, no rub and no gallops GI normal to inspection, nondistended, normoactive bowel sounds, soft to palpation, non-tender and non-distended Extremity Extremity Narrative: There is severe lower leg edema bilaterally with bullae noted over the skin which are filled with fluid Skin General Skin Exam: no breakdown Neuro oriented x3, CN's II-XII intact bilaterally, moves all extremities, no focal motor deficits and no sensory deficits noted Sensorium / Orientation: awake and alert Speech: speech normal Psych affect normal Assessment & Plan Assessment/Plan (1) Bilateral edema of lower extremity: PLAN: Plan 1. Anasarca secondary to ischemic cardiomyopathy-patient will be placed on a continuous Lasix drip, labs will be monitored #2 intractable back pain secondary to compression fracture at L3 with old fracture at [id number] will be placed on pain medication, PT and OT will see the patient, MRI of the thoracic and lumbar spines will be performed. Patient will be given IV narcotics as well as oral narcotics for lesser pain. #3 leukocytosis-secondary to recent steroid usage, there is no evidence for sepsis at this time according to the documentation received from [facility] #4 mild acute on chronic systolic congestive heart failure-patient will be placed on a Lasix drip at this time, labs will be monitored, limited echocardiogram will be performed, patient will remain on lisinopril and spironolactone in addition to his Lasix drip Total clinical time spent by myself addressing the patient's medical issues, reviewing all of his data, and collaborating with patient's care team: 75 minutes Charges/Coding Visit Charges Inpatient E&M: 15527 Init Hosp L3
[2023-12-14] MEDS: Metoprolol Tartrate 100 MG Tablet PO (17:55)
[2023-12-14] MEDS: Morphine 2 MG/ML Syringe IV ×2 (18:09→22:43)
[2023-12-14] MEDS: Lisinopril 10 MG Tablet PO (20:56)
[2023-12-14] MEDS: Heparin Injection (Vial) 5,000 UNIT/ML VIAL 5000 UNIT SC (20:56)
[2023-12-14] MEDS: oxyCODONE 5 MG Tablet 10 MG PO (20:57)
[2023-12-14] MEDS: Gabapentin 100 MG Capsule PO (20:57)
[2023-12-15] VITALS (11 sets, daily range): BP systolic 111–144; BP diastolic 64–89; PULSE 83–115; RESP 16–20; TEMP 36.6–36.7; O2SAT 92–99; BMI 30.3
[2023-12-15] MEDS: Acetaminophen 325 MG Tablet 650 MG PO ×3 (06:05→21:35)
[2023-12-15] MEDS: 0.9% Saline Lock 10 ML Syringe IV (06:05)
[2023-12-15] MEDS: oxyCODONE 5 MG Tablet 10 MG PO ×3 (06:05→21:35)
[2023-12-15 06:06] LABS: Hemoglobin 11.8 g/dL (13.0-16.5); Mean Corp Hgb Conc 31.1 g/dL (32-36); Mean Corpuscular Hgb 28.9 pg (27.0-32.0); Mean Corpuscular Volume 92.9 fL (80-94); Mean Platelet Vol. 11.1 fl (6.2-12.0); POSITIVE COUNT YES; POSITIVE DIFFERENTIAL YES; POSITIVE MORPHOLOGY YES; Platelet Count 209 K/mm3 (150-450); RBC Distribution Width CV 15.8 % (11.6-14.6); Red Blood Count 4.09 M/mm3 (4.6-6.2); White Blood Count 25.6 K/mm3 (4.4-11.0)
[2023-12-15] MEDS: Furosemide 500 MG in Empty Viaflex 50 mL 1 EACH CONT INF (06:07)
[2023-12-15 06:15] LABS: Differential Indicated MANUAL DIFF
[2023-12-15 06:41] LABS: Anion Gap 7 (5-15); BUN 36 mg/dL (7-18); BUN/Creat Ratio 28.3 RATIO (10-20); Calcium,Total 8.6 mg/dL (8.5-10.1); Chloride 99 mmol/L (98-107); Creatinine, Serum 1.27 mg/dL (0.70-1.30); EST Glomerular Filtration Rate 59 mL/min (>60); Est Glom Filt Rate - Afr Amer 72 mL/min (>60); Estimated Creatinine Clearance 51.13 ml/min; Glucose 158 mg/dL (74-106); Potassium 4.3 mmol/L (3.5-5.1); Sodium Level 136 mmol/L (136-145)
[2023-12-15 06:46] LABS: Lymphocyte 2 % (19-41); Metamyelocyte 1 % (0-1); Monocyte 2 % (0-10); Myelocyte 4 % (0-0); Neutrophil-Band 12 % (0-5); Neutrophil-Segmented 79 % (47-70); Total Cells Counted 100 (MANUAL DIFF)
[2023-12-15 06:47] LABS: Differential Comment SCANNED
[2023-12-15 06:48] LABS: Absolute Neutrophil Count 23.3 X10^3/uL (2.0-7.7)
[2023-12-15 06:49] LABS: Absolute Lymphocyte Count 0.51 X10^3/uL (0.83-4.51)
[2023-12-15] MEDS: Spironolactone 25 MG Tablet PO (09:08)
[2023-12-15] MEDS: Metoprolol Tartrate 100 MG Tablet PO ×2 (09:09→21:35)
[2023-12-15] MEDS: Lisinopril 10 MG Tablet PO ×2 (09:09→21:37)
[2023-12-15] MEDS: Pantoprazole Sodium 40 MG Tablet PO (09:09)
--- NOTE | 2023-12-15 11:35 | CASEMGMT ---
IJEOMA RODRIGUEZ Assessment: Face to Face with pt for initial transition planning/care coordination assessment. RN JENNIFER introduced self and role at [facility], pt voices understanding and consents to assessment. Pt is A&O x4 and answers all questions appropriately at this time. Pt sitting up in chair eating lunch with granddtr at bedside. Pt agreeable to assessment with granddtr present. Care providers, pharmacy, and demographics verified/updated. Admitting Dx: CHF Urosepsis PCP:Rory- Pt states he is newly establishing with this PCP and has an upcoming appt. Specialists:[facility]; Everette, cardio; Friend, GI- pt has an upcoming appt Preferred Pharmacy: [facility] Insurance: [facility] Prescription Benefit: yes LNOK: Radha Little, dtr; Frand and Marie Momin, son and dil Living Arrangements: Pt lives in a two story home with 4 steps to enter with a rail. Pt reports he has a roommate that rents the top story and they share a kitchen. Pt reports being I in ADL/IADL's for the most part. He states he does have a cg/friend who assists with daily care if he needs it and a marketing support assistant who checks in on him daily for needs. He privately pays them. Cg get groceries and do laundry. Pt denies concerns at home. Transportation: Pt drives self if he has not had pain pills, otherwise cg transport him. DME:FWW, grab bar in shower, HH shower, raised toilet seat, compression pumps HHC/SNF: Denies hx of Pt states no concerns with going home at time of dc. Pt is not interested in any services at home. Pt states if it isn't broke, don't fix it. No PT or OT recommended. RN CM to follow. Pt denies cigarette and drug use. Pt states he used to drink alcohol but states he stopped 5 years ago. Pt states no further concerns/needs. CM to follow. Advised pt to ask CM if any further question/concerns/needs arise, voices understanding. Pt Goal: Home Plan: Home with cgs paid privately who are available if he should need them. Raphael RAPHAEL CM
--- NOTE | 2023-12-15 13:15 | NURSING ---
report called to [facility] for transfer to room 118, transferred per wheelchair with belongings, family present
[2023-12-15] MEDS: Tamsulosin HCl 0.4 MG Capsule 0.8 MG PO (17:13)
[2023-12-16] VITALS (7 sets, daily range): BP systolic 95–127; BP diastolic 51–74; PULSE 77–101; RESP 18; TEMP 36.6–36.8; O2SAT 95–98; BMI 29.5
[2023-12-16] MEDS: Acetaminophen 325 MG Tablet 650 MG PO (03:40)
[2023-12-16] MEDS: oxyCODONE 5 MG Tablet 10 MG PO ×4 (03:40→21:39)
[2023-12-16] MEDS: Acetaminophen 500 MG Tablet 1000 MG PO ×3 (07:52→21:39)
[2023-12-16] MEDS: Furosemide 500 MG in Empty Viaflex 50 mL 1 EACH CONT INF (07:53)
--- NOTE | 2023-12-16 08:15 | PCM.PN.HOSP ---
Reason for Visit Reason for Visit: Diagnoses Localized edema (12/14/23) Subjective Subjective Patient was seen and examined today, he continues to diurese on the Lasix drip. I have ordered labs on the patient for this morning. Patient does not complain of any shortness of breath and he is on room air at this time. Objective Data Objective Data Vital Signs: Vital Signs Temp Pulse Resp BP Pulse Ox O2 Del Method 98.2 F 81 18 116/73 97 Room Air 12/16/23 03:30 12/16/23 03:30 12/16/23 03:30 12/16/23 03:30 12/16/23 03:30 12/16/23 03:30 Oxygen Delivery Method Room Air Weight: 78.4 kg Body Mass Index (BMI) 29.5 Intake & Output: Intake and Output for Last 24 Hours 12/14/23 12/15/23 12/16/23 23:59 23:59 23:59 Intake Total 1773.63 / 1790.13 1208.73 / 1208.73 290 / 290 Output Total 2220 / 2220 3050 / 3050 750 / 750 Balance -446.37 / -429.87 -1841.27 / -1841.27 -460 / -460 Lab / Micro Data 12/15/23 06:00 12/15/23 06:00 Radiography Diagnostic Testing: Radiology Impression Echocardiogram 12/14/23 11:28 Interpretation Summary Moderate concentric left ventricular hypertrophy. Borderline dilated LV. Severe global LV systolic dysfunction. Estimated LVEF 20 to 25%. The left atrium is severely enlarged. The right atrium is mildly enlarged. Moderate mitral annular calcification. Aortic valve is moderately calcified with restricted leaflet excursion. Mild to moderate aortic valve stenosis. Planimetry area 1.2 cm??. No Doppler data available. Ordering Physician: Lanre Cortes Referring Physician: NO PCP Performed By: Jenny Hernandez, MACKENZIE, RVT Physical Exam Narrative alert, oriented x3 and no apparent distress General Appearance: cooperative, well kempt and well developed Orientation / Consciousness: awake, oriented to person, oriented to place and oriented to time HEENT normocephalic, head/scalp atraumatic, hearing grossly normal bilaterally and moist oral mucous membranes Eyes PERRL, EOMs intact bilaterally and conjunctivae normal Neck supple, no JVD, thyroid normal and no carotid bruits General: trachea midline Resp normal respiratory effort, no retractions, no use of accessory muscles and clear to auscultation bilaterally Auscultation: Negative for rales, rhonchi or wheezes Cardio regular rate, regular rhythm, S1 normal heart sound, S2 normal heart sound, no murmurs, no rub and no gallops GI normal to inspection, nondistended, normoactive bowel sounds, soft to palpation, non-tender and non-distended Extremity Extremity Narrative: There is severe lower leg edema bilaterally with bullae noted over the skin which are filled with fluid Skin General Skin Exam: no breakdown, there are a few scattered bullae filled with fluid over the patient's lower extremities Neuro oriented x3, CN's II-XII intact bilaterally, moves all extremities, no focal motor deficits and no sensory deficits noted Sensorium / Orientation: awake and alert Speech: speech normal Psych affect normal Assessment & Plan Assessment/Plan (1) Bilateral edema of lower extremity: PLAN: Plan 1. Anasarca secondary to ischemic cardiomyopathy-patient's Lasix drip will continue at this time #2 intractable back pain secondary to recent compression fracture at L3 with old fracture at [id number] will be placed on pain medication, PT and OT will see the patient, I will have pain management see the patient tomorrow for possible kyphoplasty, I will also discussed with them the possibility that we need a bone biopsy of the area. #3 leukocytosis-secondary to recent steroid usage, there is no evidence for sepsis at this time according to the documentation received from [facility] #4 mild acute on chronic systolic congestive heart failure-patient will be placed on a Lasix drip at this time, labs will be monitored, limited echocardiogram will be performed, patient will remain on lisinopril and spironolactone in addition to his Lasix drip Total clinical time spent by myself addressing the patient's medical issues, reviewing all of his data, and collaborating with patient's care team: 35 minutes Charges/Coding Visit Charges Inpatient E&M: 72222 Subs Hosp L2
--- NOTE | 2023-12-16 08:18 | PCM.PN.HOSP ---
Reason for Visit Reason for Visit: Diagnoses Localized edema (12/14/23) Subjective Subjective The date of this entry is 12/15/23: Patient was seen and examined today, his granddaughter was in the room at the time my examination today and I talked with her at length. I also went over the findings of his MRI that was performed yesterday. Patient is diuresing on his Lasix drip, he still has significant lower extremity edema however. Objective Data Objective Data Vital Signs: Vital Signs Temp Pulse Resp BP Pulse Ox O2 Del Method 98.2 F 81 18 116/73 97 Room Air 12/16/23 03:30 12/16/23 03:30 12/16/23 03:30 12/16/23 03:30 12/16/23 03:30 12/16/23 03:30 Oxygen Delivery Method Room Air Weight: 78.4 kg Body Mass Index (BMI) 29.5 Intake & Output: Intake and Output for Last 24 Hours 12/14/23 12/15/23 12/16/23 23:59 23:59 23:59 Intake Total 1773.63 / 1790.13 1208.73 / 1208.73 290 / 290 Output Total 2220 / 2220 3050 / 3050 750 / 750 Balance -446.37 / -429.87 -1841.27 / -1841.27 -460 / -460 Lab / Micro Data 12/15/23 06:00 12/15/23 06:00 Radiography Diagnostic Testing: Radiology Impression Echocardiogram 12/14/23 11:28 Interpretation Summary Moderate concentric left ventricular hypertrophy. Borderline dilated LV. Severe global LV systolic dysfunction. Estimated LVEF 20 to 25%. The left atrium is severely enlarged. The right atrium is mildly enlarged. Moderate mitral annular calcification. Aortic valve is moderately calcified with restricted leaflet excursion. Mild to moderate aortic valve stenosis. Planimetry area 1.2 cm??. No Doppler data available. Ordering Physician: Lanre Cortes Referring Physician: NO PCP Performed By: Jenny Hernandez, RDCS, RVT Physical Exam Narrative alert, oriented x3 and no apparent distress General Appearance: cooperative, well kempt and well developed Orientation / Consciousness: awake, oriented to person, oriented to place and oriented to time HEENT normocephalic, head/scalp atraumatic, hearing grossly normal bilaterally and moist oral mucous membranes Eyes PERRL, EOMs intact bilaterally and conjunctivae normal Neck supple, no JVD, thyroid normal and no carotid bruits General: trachea midline Resp normal respiratory effort, no retractions, no use of accessory muscles and clear to auscultation bilaterally Auscultation: Negative for rales, rhonchi or wheezes Cardio regular rate, regular rhythm, S1 normal heart sound, S2 normal heart sound, no murmurs, no rub and no gallops GI normal to inspection, nondistended, normoactive bowel sounds, soft to palpation, non-tender and non-distended Extremity Extremity Narrative: There is severe lower leg edema bilaterally with bullae noted over the skin which are filled with fluid Skin General Skin Exam: no breakdown Neuro oriented x3, CN's II-XII intact bilaterally, moves all extremities, no focal motor deficits and no sensory deficits noted Sensorium / Orientation: awake and alert Speech: speech normal Psych affect normal Assessment & Plan Assessment/Plan (1) Non-ischemic cardiomyopathy: (2) Bilateral edema of lower extremity: PLAN: Plan 1. Anasarca secondary to ischemic cardiomyopathy-patient's Lasix drip will continue at this time #2 intractable back pain secondary to recent compression fracture at L3 with old fracture at [id number] will be placed on pain medication, PT and OT will see the patient, I will have pain management see the patient 12/17/2023 for possible kyphoplasty, I will also discuss with them the possibility that we need a bone biopsy of the area. #3 leukocytosis-secondary to recent steroid usage, there is no evidence for sepsis at this time according to the documentation received from [facility] #4 mild acute on chronic systolic congestive heart failure-patient will continue on a Lasix drip at this time, labs will be monitored, echocardiogram today showed 20 to 25% EF which is unchanged from the last echocardiogram. Total clinical time spent by myself addressing the patient's medical issues, reviewing all of his data, and collaborating with patient's care team: 35 minutes Charges/Coding Visit Charges Inpatient E&M: 13456 Subs Hosp L2
[2023-12-16 08:25] LABS: Hematocrit 35.9 % (40-54); Hemoglobin 11.3 g/dL (13.0-16.5); Mean Corp Hgb Conc 31.5 g/dL (32-36); Mean Corpuscular Hgb 28.7 pg (27.0-32.0); Mean Corpuscular Volume 91.1 fL (80-94); Mean Platelet Vol. 10.8 fl (6.2-12.0); POSITIVE COUNT YES; POSITIVE MORPHOLOGY YES; Platelet Count 258 K/mm3 (150-450); RBC Distribution Width CV 15.5 % (11.6-14.6); RBC Distribution Width SD 51.4 fl (35.1-43.9); Red Blood Count 3.94 M/mm3 (4.6-6.2)
[2023-12-16 08:36] LABS: Anion Gap 9 (5-15); BUN 40 mg/dL (7-18); BUN/Creat Ratio 31.7 RATIO (10-20); Calcium,Total 8.4 mg/dL (8.5-10.1); Chloride 95 mmol/L (98-107); Creatinine, Serum 1.26 mg/dL (0.70-1.30); EST Glomerular Filtration Rate 60 mL/min (>60); Est Glom Filt Rate - Afr Amer 72 mL/min (>60); Estimated Creatinine Clearance 50.13 ml/min; Glucose 124 mg/dL (74-106); Potassium 3.8 mmol/L (3.5-5.1); Sodium Level 134 mmol/L (136-145)
[2023-12-16 08:37] LABS: Differential Indicated MANUAL DIFF
[2023-12-16 08:59] LABS: Lymphocyte 4 % (19-41); Metamyelocyte 5 % (0-1); Monocyte 8 % (0-10); Myelocyte 2 % (0-0); Neutrophil-Band 3 % (0-5); Neutrophil-Segmented 78 % (47-70); Total Cells Counted 100 (MANUAL DIFF)
[2023-12-16 09:00] LABS: Absolute Neutrophil Count 16.2 X10^3/uL (2.0-7.7)
[2023-12-16 09:07] LABS: Anisocytosis 1+; Ovalocyte 1+; Schistocytes RARE
[2023-12-16] MEDS: Pantoprazole Sodium 40 MG Tablet PO (10:16)
[2023-12-16] MEDS: Sucralfate 1 GM Tablet PO ×2 (10:23→15:54)
[2023-12-16] MEDS: Metoprolol Tartrate 100 MG Tablet PO ×2 (10:31→21:39)
[2023-12-16] MEDS: Lisinopril 10 MG Tablet PO ×2 (10:32→21:39)
[2023-12-16] MEDS: Tamsulosin HCl 0.4 MG Capsule 0.8 MG PO (15:54)
[2023-12-17] VITALS (7 sets, daily range): BP systolic 106–132; BP diastolic 59–76; PULSE 85–115; RESP 16–18; TEMP 36.4–36.9; O2SAT 95–97; BMI 30.6
[2023-12-17] MEDS: oxyCODONE 5 MG Tablet 10 MG PO ×3 (04:26→23:01)
[2023-12-17 06:07] LABS: Hematocrit 34.5 % (40-54); Hemoglobin 11.2 g/dL (13.0-16.5); Mean Corp Hgb Conc 32.5 g/dL (32-36); Mean Corpuscular Volume 89.4 fL (80-94); Mean Platelet Vol. 10.4 fl (6.2-12.0); POSITIVE COUNT YES; POSITIVE MORPHOLOGY YES; Platelet Count 255 K/mm3 (150-450); RBC Distribution Width CV 15.6 % (11.6-14.6); RBC Distribution Width SD 50.9 fl (35.1-43.9); Red Blood Count 3.86 M/mm3 (4.6-6.2); White Blood Count 18.4 K/mm3 (4.4-11.0)
[2023-12-17 06:11] LABS: Differential Indicated MANUAL DIFF
[2023-12-17 06:39] LABS: Anion Gap 8 (5-15); BUN 42 mg/dL (7-18); BUN/Creat Ratio 36.2 RATIO (10-20); Calcium,Total 8.5 mg/dL (8.5-10.1); Chloride 98 mmol/L (98-107); Creatinine, Serum 1.16 mg/dL (0.70-1.30); EST Glomerular Filtration Rate 66 mL/min (>60); Est Glom Filt Rate - Afr Amer 80 mL/min (>60); Glucose 149 mg/dL (74-106); Potassium 3.6 mmol/L (3.5-5.1); Sodium Level 134 mmol/L (136-145)
[2023-12-17] MEDS: Sucralfate 1 GM Tablet PO ×3 (06:47→15:58)
[2023-12-17] MEDS: Acetaminophen 500 MG Tablet 1000 MG PO ×3 (06:47→23:01)
[2023-12-17 08:10] LABS: Lymphocyte 10 % (19-41); Monocyte 3 % (0-10); Myelocyte 1 % (0-0); Neutrophil-Band 5 % (0-5); Neutrophil-Segmented 81 % (47-70); Total Cells Counted 100 (MANUAL DIFF)
[2023-12-17 08:11] LABS: Platelet Estimate ADEQUATE (ADEQ); Red Cell Morphology NORM C+C NORMAL (NORM C&C)
[2023-12-17 08:12] LABS: Absolute Lymphocyte Count 1.84 X10^3/uL (0.83-4.51); Absolute Neutrophil Count 15.8 X10^3/uL (2.0-7.7); Lymphocyte # 1.84 X10^3/ul (0.83-4.51); Neutrophil # 15.82 X10^3/uL (2.7-7.7)
[2023-12-17] MEDS: Furosemide 500 MG in Empty Viaflex 50 mL 1 EACH CONT INF (08:40)
[2023-12-17] MEDS: Spironolactone 25 MG Tablet PO (11:01)
[2023-12-17] MEDS: Lisinopril 10 MG Tablet PO (11:01)
[2023-12-17] MEDS: Pantoprazole Sodium 40 MG Tablet PO (11:01)
[2023-12-17] MEDS: Metoprolol Tartrate 100 MG Tablet PO (11:01)
[2023-12-17] MEDS: metOLazone 5 MG Tablet 10 MG PO (12:07)
--- NOTE | 2023-12-17 14:11 | PCM.PN.HOSP ---
Reason for Visit Reason for Visit: Diagnoses Other cardiomyopathies (12/14/23) Localized edema (12/14/23) Subjective Subjective Patient was seen and examined today, he still has significant lower extremity edema, I have elected to increase his Lasix drip and give him a dose of metolazone today. Patient will see pain management today to see if he will need an epidural versus a kyphoplasty tomorrow. Objective Data Objective Data Vital Signs: Vital Signs Temp Pulse Resp BP Pulse Ox O2 Del Method 97.6 F L 90 16 119/63 97 Room Air 12/17/23 10:46 12/17/23 11:01 12/17/23 10:46 12/17/23 11:01 12/17/23 10:46 12/17/23 10:46 Oxygen Delivery Method Room Air Weight: 81.3 kg Body Mass Index (BMI) 30.6 Intake & Output: Intake and Output for Last 24 Hours 12/15/23 12/16/23 12/17/23 23:59 23:59 23:59 Intake Total 1208.73 / 1208.73 1295.4 / 1655.4 1444.36 / 1444.36 Output Total 3050 / 3050 2550 / 2750 2900 / 2900 Balance -1841.27 / -1841.27 -1254.6 / -1094.6 -1455.64 / -1455.64 Lab / Micro Data 12/17/23 05:54 12/17/23 05:54 Labs: Laboratory Results - last 24 hr 12/17/23 05:54: WBC 18.4 H, RBC 3.86 L, Hgb 11.2 L, Hct 34.5 L, MCV 89.4, MCH 29.0, MCHC 32.5, RDW Std Deviation 50.9 H, RDW Coeff of Rosario 15.6 H, Plt Count 255, MPV 10.4, Neut % (Auto) Not Reportable, Absolute Neuts (auto) 15.8 H, Absolute Lymphs (auto) 1.84, Total Counted 100, Neutrophils % (Manual) 81 H, Band Neutrophils % 5, Lymphocytes % (Manual) 10 L, Monocytes % (Manual) 3, Myelocytes % 1 H, Diff Path Review May , Platelet Estimate ADEQUATE, RBC Morphology NORM C+C, Sodium 134 L, Potassium 3.6, Chloride 98, Carbon Dioxide 28.0, Anion Gap 8, BUN 42 H, Creatinine 1.16, Estim Creat Clear Calc 55.40, Est GFR (MDRD) Af Amer 80, Est GFR (MDRD) Non-Af 66, BUN/Creatinine Ratio 36.2 H, Glucose 149 H, Calcium 8.5 Physical Exam Narrative alert, oriented x3 and no apparent distress General Appearance: cooperative, well kempt and well developed Orientation / Consciousness: awake, oriented to person, oriented to place and oriented to time HEENT normocephalic, head/scalp atraumatic, hearing grossly normal bilaterally and moist oral mucous membranes Eyes PERRL, EOMs intact bilaterally and conjunctivae normal Neck supple, no JVD, thyroid normal and no carotid bruits General: trachea midline Resp normal respiratory effort, no retractions, no use of accessory muscles and clear to auscultation bilaterally Auscultation: Negative for rales, rhonchi or wheezes Cardio regular rate, regular rhythm, S1 normal heart sound, S2 normal heart sound, no murmurs, no rub and no gallops GI normal to inspection, nondistended, normoactive bowel sounds, soft to palpation, non-tender and non-distended Extremity Extremity Narrative: There is severe lower leg edema bilaterally with bullae noted over the skin which are filled with fluid Skin General Skin Exam: no breakdown Neuro oriented x3, CN's II-XII intact bilaterally, moves all extremities, no focal motor deficits and no sensory deficits noted Sensorium / Orientation: awake and alert Speech: speech normal Psych affect normal Assessment & Plan Assessment/Plan (1) Non-ischemic cardiomyopathy: (2) Bilateral edema of lower extremity: PLAN: Plan 1. Anasarca secondary to ischemic cardiomyopathy-patient's Lasix drip will continue at this time, patient's Lasix drip was increased to 20 mg/h and I also gave the patient 1 dose of metolazone 10 mg. BMP will be rechecked tomorrow #2 intractable back pain secondary to recent compression fracture at L3 with old fracture at [id number] will be placed on pain medication, PT and OT will see the patient, pain management will see the patient today, anticipate the patient will undergo an epidural or kyphoplasty tomorrow. #3 leukocytosis-secondary to recent steroid usage, there is no evidence for sepsis at this time according to the documentation received from [facility], patient's white blood cell count is improving #4 mild acute on chronic systolic congestive heart failure-patient will continue on a Lasix drip at this time, labs will be monitored, echocardiogram today showed 20 to 25% EF which is unchanged from the last echocardiogram. I discussed the patient's care completely with him this morning. Further note: One of the patient's 2 blood cultures that were drawn at [facility] were positive for gram-positive cocci in chains, I believe that this is a contaminant, patient has been afebrile since he has been in the hospital here and his white count has been trending downward. I think his white count elevation was due to outpatient corticosteroids that the patient was taking. Total clinical time spent by myself addressing the patient's medical issues, reviewing all of his data, and collaborating with patient's care team: 35 minutes Charges/Coding Visit Charges Inpatient E&M: 23604 Subs Hosp L2
[2023-12-17 15:22] LABS: Pathologist Review Reviewed
[2023-12-17 15:24] LABS: Pathologist Review Reviewed
[2023-12-17] MEDS: Tamsulosin HCl 0.4 MG Capsule 0.8 MG PO (17:53)
[2023-12-18] VITALS (14 sets, daily range): BP systolic 85–115; BP diastolic 56–74; PULSE 77–99; RESP 15–18; TEMP 35.8–37.1; O2SAT 94–99; BMI 30.4
[2023-12-18] MEDS: Furosemide 500 MG in Empty Viaflex 50 mL 1 EACH CONT INF (00:35)
--- NOTE | 2023-12-18 02:05 | NURSING ---
Rn to bedside w/ VICTIM WITNESS ADMINISTRATOR to assist putting Tuck's pads on pt for hemorrhoids. As this RN attempted to put Tuck's on at pt request, pt stated he didn't want them left on because they will make me shit. RN informed pt that they will work best if left on and help more w/ discomfort. Pt then proceeded to raise his voice at this RN and tell this RN to hurry up. This RN stated to patient that it was inappropriate for him to raise his voice and yell while attempting to help him. Pt returned to bed w/ VICTIM WITNESS ADMINISTRATOR guidance. Pt then referred to this RN as a bitch.
[2023-12-18] MEDS: Ondansetron 4 MG/2 ML Vial IV (04:06)
[2023-12-18] MEDS: Morphine 2 MG/ML Syringe IV (04:09)
[2023-12-18 07:12] LABS: Anion Gap 8 (5-15); BUN 49 mg/dL (7-18); Calcium,Total 8.9 mg/dL (8.5-10.1); Chloride 89 mmol/L (98-107); Creatinine, Serum 1.44 mg/dL (0.70-1.30); EST Glomerular Filtration Rate 51 mL/min (>60); Est Glom Filt Rate - Afr Amer 62 mL/min (>60); Estimated Creatinine Clearance 44.44 ml/min; Glucose 140 mg/dL (74-106); Magnesium 2.3 mg/dL (1.6-2.6); Potassium 3.2 mmol/L (3.5-5.1); Sodium Level 129 mmol/L (136-145)
--- NOTE | 2023-12-18 08:46 | EKG12_ITS ---
Test Reason : SHAR Blood Pressure : / mmHG Vent. Rate : 100 BPM Atrial Rate : 100 BPM P-R Int : 184 ms QRS Dur : 154 ms QT Int : 406 ms P-R-T Axes : 037 -46 108 degrees QTc Int : 523 ms Normal sinus rhythm Possible Left atrial enlargement Left axis deviation Left bundle branch block Abnormal ECG No previous ECGs available Confirmed by TYRONE SALAZAR, JAYDON ([id number]), manager editorial JESUS GOMEZ ([id number]) on 12/19/2023 9:00:13 AM Referred By: Shar Cortes Confirmed By:JAYDON HANSEN MD
[2023-12-18] MEDS: Acetaminophen 500 MG Tablet 1000 MG PO ×2 (09:43→21:04)
[2023-12-18] MEDS: Potassium Chloride Oral Tablet 20 MEQ 40 MEQ PO (09:43)
[2023-12-18] MEDS: 0.9% Saline Lock 10 ML Syringe IV ×2 (09:49→17:56)
[2023-12-18] MEDS: Metoprolol Tartrate 100 MG Tablet PO ×2 (09:57→21:05)
--- NOTE | 2023-12-18 10:52 | PCM.PN.HOSP ---
Reason for Visit Reason for Visit: Diagnoses Other cardiomyopathies (12/14/23) Localized edema (12/14/23) Subjective Subjective Patient was seen and examined today, he continues to diurese on IV Lasix, his systolic blood pressure was in the 90s today so I held his Aldactone and his morning dose of lisinopril. Patient is due to undergo either an epidural injection or a kyphoplasty today or tomorrow. Patient still has significant lower extremity edema. Objective Data Objective Data Vital Signs: Vital Signs Temp Pulse Resp BP Pulse Ox O2 Del Method 98.1 F 99 18 97/63 97 Room Air 12/18/23 09:22 12/18/23 09:57 12/18/23 09:22 12/18/23 09:57 12/18/23 09:22 12/18/23 09:30 Oxygen Delivery Method Room Air Weight: 80.6 kg Body Mass Index (BMI) 30.4 Intake & Output: Intake and Output for Last 24 Hours 12/16/23 12/17/23 12/18/23 23:59 23:59 23:59 Intake Total 1295.4 / 1655.4 3004.36 / 3004.36 27.27 / 27.27 Output Total 2550 / 2750 5150 / 5150 900 / 900 Balance -1254.6 / -1094.6 -2145.64 / -2145.64 -872.73 / -872.73 Lab / Micro Data 12/17/23 05:54 12/18/23 05:57 Labs: Laboratory Results - last 24 hr 12/15/23 06:00: Diff Path Review Reviewed 12/16/23 07:54: Diff Path Review Reviewed 12/18/23 05:57: Sodium 129 L, Potassium 3.2 L, Chloride 89 L, Carbon Dioxide 32.0, Anion Gap 8, BUN 49 H, Creatinine 1.44 H, Estim Creat Clear Calc 44.44, Est GFR (MDRD) Af Amer 62, Est GFR (MDRD) Non-Af 51 L, BUN/Creatinine Ratio 34.0 H, Glucose 140 H, Calcium 8.9, Magnesium 2.3 Physical Exam Narrative alert, oriented x3 and no apparent distress General Appearance: cooperative, well kempt and well developed Orientation / Consciousness: awake, oriented to person, oriented to place and oriented to time HEENT normocephalic, head/scalp atraumatic, hearing grossly normal bilaterally and moist oral mucous membranes Eyes PERRL, EOMs intact bilaterally and conjunctivae normal Neck supple, no JVD, thyroid normal and no carotid bruits General: trachea midline Resp normal respiratory effort, no retractions, no use of accessory muscles and clear to auscultation bilaterally Auscultation: Negative for rales, rhonchi or wheezes Cardio regular rate, regular rhythm, S1 normal heart sound, S2 normal heart sound, no murmurs, no rub and no gallops GI normal to inspection, nondistended, normoactive bowel sounds, soft to palpation, non-tender and non-distended Extremity Extremity Narrative: There is severe lower leg edema bilaterally with bullae noted over the skin which are filled with fluid Skin General Skin Exam: no breakdown Neuro oriented x3, CN's II-XII intact bilaterally, moves all extremities, no focal motor deficits and no sensory deficits noted Sensorium / Orientation: awake and alert Speech: speech normal Psych affect normal Assessment & Plan Assessment/Plan (1) Non-ischemic cardiomyopathy: (2) Bilateral edema of lower extremity: PLAN: Plan 1. Anasarca secondary to ischemic cardiomyopathy-patient's Lasix drip will continue at this time, patient's Lasix drip was increased to 20 mg/h yesterday, patient's creatinine bumped up slightly today, I will place the patient on a 1500 cc/day fluid restriction. #2 intractable back pain secondary to recent compression fracture at L3 with old fracture at [id number] will be placed on pain medication, PT and OT will see the patient, again pain management is planning on doing either an epidural injection or kyphoplasty today or tomorrow. #3 leukocytosis-secondary to recent steroid usage, there is no evidence for sepsis at this time according to the documentation received from [facility], patient's white blood cell count is improving #4 mild acute on chronic systolic congestive heart failure-patient will continue on a Lasix drip at this time, labs will be monitored, echocardiogram today showed 20 to 25% EF which is unchanged from the last echocardiogram. I discussed the patient's care completely with him this morning. Further note: One of the patient's 2 blood cultures that were drawn at [facility] were positive for gram-positive cocci in chains, I believe that this is a contaminant, patient has been afebrile since he has been in the hospital here and his white count has been trending downward. I think his white count elevation was due to outpatient corticosteroids that the patient was taking. Total clinical time spent by myself addressing the patient's medical issues, reviewing all of his data, and collaborating with patient's care team: 35 minutes Charges/Coding Visit Charges Inpatient E&M: 91032 Subs Hosp L2
[2023-12-18 11:48] LABS: Pathologist Review Reviewed
[2023-12-18] MEDS: Lactated Ringers 1,000 ML 15 ML IV (12:52)
--- NOTE | 2023-12-18 13:26 | PCM.PRE.AN2 ---
ASA Classification* ASA Classification ASA Classification: 3 and E Assessment & Plan Anesthesia* Anesthesia Assessment Anesthesia Assessment: Discussed sedation and/or anesthesia options, risks, benefits, and alternatives with patient/parents/legal guardian/POA. Questions invited. The patient/parents/legal guardian/POA seems to understand and agrees to proceed with anesthesia plan. Reviewed the physical assessment, medical history, allergy history and patient home medications list prior to surgery/procedure/anesthetic and documented any changes. Performed airway and anesthesia risk assessments. Anesthesia Type Anesthesia Type: MAC History Source History Obtained from:: Patient and Chart Anesthesia Focused Assessment* Temperature: 98.1 F Pulse Rate: 88 Blood Pressure: 115/62 Respiratory Rate: 16 Pulse Ox: 95 Oxygen Delivery Method: Room Air Airway Assessment Mouth opens: >3 cm Mallampati Score: III Teeth Condition: Caps/Crowns (Implant at #9. This tooth is removable and patient replaces it with glue.) Neck Range of motion (ROM): Full ROM Pertinent Findings EKG Pertinent Findings:: December 18, 2023. Normal sinus rhythm. Left atrial enlargement. Left axis deviation. Left bundle branch block. Focused Labs Anesthesia Preop lab: CBC WBC 18.4 K/mm3 (4.4-11.0) H 12/17/23 05:54 RBC 3.86 M/mm3 (4.6-6.2) L 12/17/23 05:54 Hgb 11.2 g/dL (13.0-16.5) L 12/17/23 05:54 Hct 34.5 % (40-54) L 12/17/23 05:54 Plt Count 255 K/mm3 (150-450) 12/17/23 05:54 CHEMISTRY Potassium 3.2 mmol/L (3.5-5.1) L 12/18/23 05:57 Sodium 129 mmol/L (136-145) L 12/18/23 05:57 Magnesium 2.3 mg/dL (1.6-2.6) 12/18/23 05:57 Phosphorus 4.1 mg/dL (2.5-4.9) 10/18/23 06:30 BUN 49 mg/dL (7-18) H 12/18/23 05:57 Creatinine 1.44 mg/dL (0.70-1.30) H 12/18/23 05:57 Glucose 140 mg/dL (74-106) H 12/18/23 05:57 TSH 2.06 uIU/mL (0.358-3.74) 10/18/23 06:30 COAG PT 12.9 SECONDS (11.7-14.9) 08/05/23 14:20 Pre-Assessment Diagnosis/Proposed Procedure Planned Operative Procedure(s): Lumbar kyphoplasty. Anesthesia History Anesthesia History - mat sewer: Anesthesia History - mat sewer Hx Hospitalization Any Problems With Anesthesia No 12/18/23 09:55 Cholinesterase deficiency No 12/18/23 09:55 You/Your Family Experience No 12/18/23 09:55 fever (hyperthermia) with Relationship Recent Exposure to Contagious No 12/18/23 09:55 Disease Does patient have nerve No 12/18/23 09:55 stimulator Patient instructed to have device shut off --Does patient have Pacemaker No 12/18/23 09:51 or ICD? When Was Last Pacemaker Check QUESTION #4 FULL TEXT: You/Your Family Experience fever (hyperthermia) with Anesthesia Last Oral Intake Last Oral intake: Last Oral Intake NPO since 00:01 12/18/23 09:51 Meds taken in AM with sips of Yes 12/18/23 09:51 water? Meds patient instructed to tylenol 12/18/23 09:51 take am of surgery kdur metoprolol PONV PONV - mat sewer: PONV - mat sewer Female HX of Motion Sickness HX of N/V After Surgery Non-Smoker Duration of Surgery greater than 60 minutes Number of Risk Factors PONV Score Height & Weight Height & Weight: Anesthesia: Height & Weight Height 5 ft 4 in 12/18/23 09:51 Weight: 80.6 kg 12/18/23 09:51 Body Mass Index (BMI) 30.4 12/18/23 09:51 Respiratory Assessment Respiratory Assessment - mat sewer: Respiratory Tract Infection Hx - mat sewer Hx Respiratory Tract Infection No 12/18/23 09:55 STOP Sleep Apnea STOP Sleep Apnea - mat sewer: STOP Sleep Apnea - mat sewer Hx Hypertension Yes 12/14/23 13:55 Hx Sleep Apnea No 12/14/23 09:45 CPAP BIPAP Do you snore loudly (louder No 12/14/23 09:45 than talking or can be heard Do you often feel tired/ No 12/14/23 09:45 fatigued/ sleepy during daytime? Has anyone observed you stop No 12/14/23 09:45 breathing during sleep? STOP Results Negative 12/14/23 09:45 QUESTION #5 FULL TEXT : Do you snore loudly (louder than talking or can be heard through closed doors)? 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 Specify any problems Hx of Preganancy in last 3 N/A 12/14/23 09:45 Months Nurse Filling Out Transfusion TDEVEREAU 12/14/23 09:45 & Questions: Date: 12/14/23 12/14/23 09:45 Time: 10:00 12/14/23 09:45 Patient unable to answer at this time (ie. confused, unrespo /Reproduction History /Reproductive History - mat sewer: /Reproductive Hx- mat sewer Hx Now No 12/18/23 09:55 Gestational Age (in weeks): EDC: Hx Hx Para Hx Section SAB No 12/18/23 09:55 Active Medications Active Medications: Current Medications Generic Name Dose Route Start Last Admin Trade Name Freq PRN Reason Stop Dose Admin Acetaminophen 650 mg 12/14/23 11:28 12/16/23 03:40 Acetaminophen 325 Mg Tablet PO 650 mg Q6H PRN PRN Administration Pain 1-10 Or Fever >100.7 Acetaminophen 1,000 mg 12/16/23 07:44 12/18/23 09:43 Acetaminophen 500 Mg Tablet PO 1,000 mg Q8 KACIE Administration Calamine/Phenol 1 applic 12/18/23 05:00 12/18/23 09:22 Menthol/Lanolin/Calamine/Znox 113 Gm Tube TOPICAL Not Given BID [facility] Protocol Docusate Calcium 240 mg 12/14/23 22:00 12/17/23 23:05 Docusate Calcium 240 Mg Capsule PO Not Given BID KACIE Gabapentin 100 mg 12/14/23 17:15 12/14/23 20:57 Gabapentin 100 Mg Capsule PO 100 mg BID PRN PRN Administration BACK PAIN Heparin Sodium (Porcine) 5,000 unit 12/14/23 22:00 12/18/23 08:30 Heparin Injection (Vial) 5,000 Unit/Ml Vial SC Not Given Q12 KACIE Sodium Chloride 250 mls @ 15 mls/hr 12/14/23 10:04 IV .[id number] PRN Additional IVPB Infusion Sodium Chloride 250 mls @ 15 mls/hr 12/14/23 10:04 IV .[id number] PRN Saline Flush Furosemide 500 mg/ N/A 50 mls @ 2 mls/hr 12/14/23 11:28 12/18/23 12:25 CONT INF 0 mg/hr .Q25H KACIE 0 mls/hr Infusion 20 MG/HR Lactated Ringer's 1,000 mls @ 15 mls/hr 12/18/23 12:30 12/18/23 12:52 IV 15 mls/hr .Q48H KACIE Administration Lisinopril 10 mg 12/14/23 22:00 12/18/23 10:04 Lisinopril 10 Mg Tablet PO Not Given BID [facility] Protocol Metoprolol Tartrate 100 mg 12/14/23 22:00 12/18/23 09:57 Metoprolol Tartrate 100 Mg Tablet PO 100 mg BID KACIE Administration Protocol Morphine Sulfate 2 - 4 mg 12/14/23 15:55 12/18/23 04:09 Morphine 2 Mg/Ml Syringe IV 4 mg Q3H PRN PRN Administration Pain Score 6-10 Ondansetron HCl 4 mg 12/14/23 11:28 12/18/23 04:06 Ondansetron 4 Mg/2 Ml Vial IV 4 mg Q8H PRN PRN Administration NAUSEA/VOMITING Oxycodone HCl 10 mg 12/14/23 11:28 12/17/23 23:01 Oxycodone 5 Mg Tablet PO 10 mg Q4H PRN PRN Administration Pain Score 4-10 Pantoprazole Sodium 40 mg 07/20/24 10:00 12/17/23 11:01 Pantoprazole Sodium 40 Mg Tablet PO 40 mg DAILY KACIE Administration Sodium Chloride 10 - 40 ml 12/14/23 10:04 12/18/23 09:49 0.9% Saline Lock 10 Ml Syringe IV 10 ml UD PRN Administration SALINE FLUSH Spironolactone 25 mg 12/15/23 10:00 12/18/23 10:04 Spironolactone 25 Mg Tablet PO Not Given DAILY [facility] Protocol Sucralfate 1 gm 12/16/23 11:00 12/18/23 07:08 Sucralfate 1 Gm Tablet PO Not Given 0700,1100,1600 [facility] Tamsulosin HCl 0.8 mg 12/15/23 17:30 12/17/23 17:53 Tamsulosin Hcl 0.4 Mg Capsule PO 0.8 mg DAILY@1730 [facility] Administration [facility] Medical History Non-ischemic cardiomyopathy (03/07/21) CHF exacerbation Congestive heart failure (CHF) HFrEF (heart failure with reduced ejection fraction) (03/07/21) Essential hypertension CHF (NYHA class III, ACC/AHA stage C) Alcohol abuse Chronic pain Congestive heart failure (CHF) Alcohol dependence Restless leg syndrome Laceration of right little finger Home Medications ?Medication ?Instructions ?Recorded ?Last Taken ?Type metoprolol tartrate 100 mg tablet 100 mg PO BID HTN #180 tabs 11/09/23 Unknown Rx torsemide 20 mg tablet 20 mg PO BID Edema #180 tabs 11/09/23 Unknown Rx Formula 303 1 tablet PO QHS PRN muscle spasm 12/14/23 Unknown History acetaminophen 500 mg capsule 500 mg PO Q6H PRN pain 12/14/23 Unknown History cyclobenzaprine 5 mg tablet 5 mg PO QHS Muscle Stiffness 12/14/23 Unknown History furosemide 40 mg tablet 40 mg PO DAILY Edema 12/14/23 Unknown History gabapentin 100 mg capsule 100 mg PO BID PRN Chronic Back Pain 12/14/23 Unknown History lisinopril 40 mg tablet 40 mg PO BID HTN 12/14/23 Unknown History pantoprazole 40 mg tablet,delayed 40 mg PO DAILY GERD 12/14/23 Unknown History release prednisone 20 mg tablet mg PO DAILY - 12/14/23 Unknown History spironolactone 50 mg tablet 50 mg PO DAILY HTN 12/14/23 Unknown History sucralfate 1 gram tablet 1 g PO .AC GERD 12/14/23 Unknown History tramadol 50 mg tablet 50 mg PO Q6H PRN PRN pain 12/14/23 Unknown History Allergy/AdvReac Type Severity Reaction Status Date / Time amoxicillin Allergy PAIN AND Verified 11/09/23 10:37 DIARRHEA Penicillins Allergy PAIN AND Verified 11/09/23 10:37 DIARRHEA Family History Father Throat cancer smoker Hypertension Mother No cardiac disease Mother currently living, 92 years old with no reported medical issues. 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
--- NOTE | 2023-12-18 13:45 | BONBX_PTH ---
PATIENT: LILIBETH CRESPO LOC: [facility] U#:[id number] AGE/SX: 73/M ROOM: [facility] RE12/14/[address]: Dr. Sandi De Luna MD : 1950 BED: 1 DIS: 12/21/2023 SPEC #: [id number] RECD: 12/19/23 08:00 STATUS: PREM REGarfield #: [id number] BONY: 12/18/23 13:[address]: Tereso Godinez DEPT: SURGICAL PATHOLOGY RECD BY: Maria De Jesus Light ENTERED: 12/19/23 11:32 SP TYPE: Bone OTHR DR: MD Dr. Lanre Levine, DO Dr. Sandi De Luna MD No Primary Care Phys Tissues: Vertebra, NOS Procedures: Decalcification bone/plaque Surgery Specimen Level V Comments: @ Ordering doctor for DEC edited from to @ by CAROLANN at 12/19/23 1206 @ Ordering doctor for SUV edited from to @ by CAROLANN at 12/19/23 1206 @ Submitting doctor edited from to @ by CAROLANN at 12/19/23 1206 HEADER OPERATION: Kyphoplasty L3 PRE-OP DIAGNOSIS: Compression fracture at L3 with old fracture at T12 TISSUE SUBMITTED: Lumbar 3 bone biopsy MICROSCOPIC DIAGNOSIS L3 bone, biopsy: Fragments of blood clot with minute fragments of bone with reactive changes. Negative for malignancy. See comment. SJ/mr 12/20/2023 COMMENT Trilineage hematopoiesis is noted. Clinical correlation and appropriate follow up are necessary. MICROSCOPIC DESCRIPTION Slides are reviewed. GROSS DESCRIPTION Received in fixative is one container labeled with the patient's name and designated Lumbar 3 bone biopsy. The specimen consists of multiple fragments of blood clot mixed with fragments of bone that in aggregate measure 0.5 x 1.0 x 0.1 cm. The specimen is totally submitted in one cassette after decalcification. SJ/mr 12/19/2023 TC:5 CPT:97052,[id number]
--- NOTE | 2023-12-18 14:00 | RAD_ITS ---
HISTORY: PAIN COMPARISON: Lumbar spine MRI December 14, 2023 TECHNIQUE: A total of 11 fluoroscopic images were saved without a radiologist present. FINDINGS: Images demonstrate sequential images from L3 vertebroplasty.. Total fluoroscopy time: 182.2 seconds Cumulative air kerma: 137.22 mGy RAD/Lumbar Spine 2 or 3 Views IMPRESSION: Fluoroscopic assistance for lumbar vertebroplasty. Please see operative report for additional information. Electronically Signed: Dylan Coles MD at 7:37 EDT ,
[2023-12-18] MEDS: Clindamycin 900 MG/50 ML BAG 75 MG IV (14:02)
[2023-12-18] MEDS: Lidocaine 0.5% (50 ml) 50 ML Vial (15:10)
--- NOTE | 2023-12-18 15:53 | PCM.POST.ANE ---
Anesthesia: Postop Eval I Current Vital Signs Temperature: 96.9 F Pulse Rate: 81 Blood Pressure: 95/61 Respiratory Rate: 18 Pulse Ox: 95 Oxygen Delivery Method: Room Air Assessment Airway patent: Yes Spontaneous unlabored respirations: Yes Mental status: Awake and Calm nausea: No Vomiting: No Anesthesia Complication: Yes Anesthesia Complication Comment:: Patient was prone for the procedure. Blood pressures on the lower end of normal. and ST depression noted. will get 12 lead ekg in pacu. Fluid Hydration Crystalloid volume administer (ml): 700 Total IV fluid infused: 700 Progress Note Post-operative progress note: Twelve-lead EKG performed in PACU shows normal sinus rhythm. Left atrial enlargement. Left axis deviation. left bundle branch block. Essentially EKG is unchanged from preop. Anesthesia document: Postop Eval 1 completed: Yes
--- NOTE | 2023-12-18 15:57 | EKG12_ITS ---
Test Reason : EKG CHANGES Blood Pressure : / mmHG Vent. Rate : 077 BPM Atrial Rate : 077 BPM P-R Int : 198 ms QRS Dur : 158 ms QT Int : 464 ms P-R-T Axes : 039 -53 111 degrees QTc Int : 525 ms Normal sinus rhythm Possible Left atrial enlargement Left axis deviation Left bundle branch block Abnormal ECG When compared with ECG of 18-DEC-2023 09:01, MANUAL COMPARISON REQUIRED, DATA IS UNCONFIRMED Confirmed by TYRONE SALAZAR, JAYDON ([id number]), publication editor JESUS GOMEZ ([id number]) on 12/19/2023 1:33:43 PM Referred By: Lanre Cortes Confirmed By:JAYDON HANSEN MD
--- NOTE | 2023-12-18 16:41 | PCM.OPRPT ---
Problems Associated Problem List Diagnoses (1) Collapse of vertebra: Report of Operation Date of Procedure: 11/26/23 Pre-Operative Diagnosis: L3 compression fracture Post-Operative Diagnosis: L3 compression fracture Surgery/Procedure Performed:: L3 kyphoplasty Description of Surgical Findings:: L3 compression fracture Surgeon: Tereso Godinez floor sanding machine operator: None Anesthesiologist: Donavan Stanley Specimen's removed: L3 vertebral biopsy Drains: None Estimated Blood Loss (mL): Minimal Description of Procedure: OPERATIVE PROCEDURE: A preoperative IV was placed prior to being brought into the procedural suite. The patient was positioned prone on the table. The back was prepped and draped. The image intensifier (C-arm) was brought into position and the L3 pedicles were identified and marked with a skin marker. A transpedicular approach to the vertebral body was used. A needle trochar was advanced through the right L3 target pedicle to the junction of the pedicle and vertebral body on the right side. Positioning was confirmed on the alternating AP and lateral plane. Once the needle was at the junction of the pedicle and the vertebral body, a lateral image was taken to ensure that the cannula was positioned approximately 1cm past the vertebral body wall. Following satisfactory placement of the needle, the stylet was removed. Through the cannula, a drill was advanced into the vertebral body under live fluoroscopic guidance toward the anterior cortex, creating a channel. After completing the entry into the vertebral body, 10 cc syringe was attached to the bone filler. Negative pressure was applied to retrieve a core bone biopsy. The biopsy was then sent for pathology. After completing the entry into the vertebral body, an inflatable balloon was inserted through the cannula and advanced under live fluoroscopic guidance into the vertebral body near the anterior cortex. The radiopaque marker bands on the balloon were identified using AP and lateral images. Once the balloon was in position, it was inflated to 1.5 cc slowly and sequentially with imaging regularly checked. 120 psi was achieved. The inflation was monitored with AP and lateral There was no breach of the lateral wall or anterior cortex of the vertebral body. Under fluoroscopic imaging cement was incrementally injected via a low-pressure injection of bone cement under fluoroscopic guidance. A curved stylette was used to attempt to push towards midline, but this was ineffective after repeat ballooning to the same settings as prior The balloon remained on the right side and did not cross midline. The cavity was filled with a total volume of 1.5 cc in the right side. The cement filling cannula was removed and the stylet inserted into the original trochar needle. The same procedure was repeated through the targeted pedicle on the left side with 1 ml cement filling injected into the vertebral body on the left side after ballooning was done to 1cc and 100 psi. The cement filling cannula was removed and the stylet inserted into the original trochar needle. Once the bone cement had hardened, the cannulas were then removed with no evidence of cement trailing. The above sequence of instrument placement was then repeated on the left side of the vertebral body. The patient was kept in the prone position for approximately 10 minutes post cement injection or until hardening of the cement was confirmed. Patient was then turned supine. They were monitored briefly and transported to the recovery room. Patient was found to have no change in their baseline neurological exam at this time. 5/5 strength in hip flexion bilaterally. Patient to follow up in our clinic in 2 weeks. Complications None. Anesthesia noted possible ST changes and planned to work this up in the recovery. Patient mentating well and does not endorse any chest pain.
[2023-12-18] MEDS: Sucralfate 1 GM Tablet PO (17:45)
[2023-12-18] MEDS: Tamsulosin HCl 0.4 MG Capsule 0.8 MG PO (17:45)
[2023-12-18] MEDS: oxyCODONE 5 MG Tablet 10 MG PO (17:51)
[2023-12-18] MEDS: Gabapentin 100 MG Capsule PO (17:52)
[2023-12-19] MEDS: oxyCODONE 5 MG Tablet 10 MG PO ×4 (03:08→21:08)
[2023-12-19] MEDS: Furosemide 500 MG in Empty Viaflex 50 mL 1 EACH CONT INF (03:41)
[2023-12-19] MEDS: Acetaminophen 500 MG Tablet 1000 MG PO ×3 (05:57→21:09)
[2023-12-19] MEDS: Sucralfate 1 GM Tablet PO ×3 (05:57→16:19)
[2023-12-19 06:00] VITALS: BMI 29.9
[2023-12-19] MEDS: Gabapentin 100 MG Capsule PO (06:02)
[2023-12-19 06:18] LABS: Hemoglobin 10.1 g/dL (13.0-16.5); Mean Corp Hgb Conc 32.6 g/dL (32-36); Mean Corpuscular Hgb 29.5 pg (27.0-32.0); Mean Corpuscular Volume 90.6 fL (80-94); Mean Platelet Vol. 10.7 fl (6.2-12.0); POSITIVE COUNT YES; POSITIVE MORPHOLOGY YES; Platelet Count 257 K/mm3 (150-450); RBC Distribution Width CV 15.2 % (11.6-14.6); RBC Distribution Width SD 50.4 fl (35.1-43.9); Red Blood Count 3.42 M/mm3 (4.6-6.2); White Blood Count 16.5 K/mm3 (4.4-11.0)
[2023-12-19 06:37] LABS: Differential Indicated MANUAL DIFF
[2023-12-19 06:39] LABS: Anion Gap 8 (5-15); BUN 62 mg/dL (7-18); BUN/Creat Ratio 28.6 RATIO (10-20); Calcium,Total 8.6 mg/dL (8.5-10.1); Chloride 92 mmol/L (98-107); Creatinine, Serum 2.17 mg/dL (0.70-1.30); EST Glomerular Filtration Rate 32 mL/min (>60); Est Glom Filt Rate - Afr Amer 39 mL/min (>60); Estimated Creatinine Clearance 29.49 ml/min; Glucose 111 mg/dL (74-106); Sodium Level 134 mmol/L (136-145)
--- NOTE | 2023-12-19 07:16 | PCM.POSTANE2 ---
Anesthesia Postop Eval I Sum Postop Eval Completion status Anesthesia document: Postop Eval 1 completed: Yes Anesthesia Postop Eval I Summary Anesthesia Postop Eval I Summary: Anesthesia Postop Eval I: Assessment Summary Airway patent Yes 12/18/23 15:58 Spontaneous unlabored Yes 12/18/23 15:58 respirations Mental status Awake,Calm 12/18/23 15:58 nausea No 12/18/23 15:58 Vomiting No 12/18/23 15:58 Anesthesia Postop Eval I: Fluid Summary Crystalloid volume administer 700 12/18/23 16:01 (ml) Colloids volume administered ( ml) Blood Product volume administered (ml) Total IV fluid infused 700 12/18/23 16:01 Anesthesia Postop Eval I: Summary Notes Anesthesia Complication Yes 12/18/23 16:01 Anesthesia Complication Patient was prone 12/18/23 16:04 Comment: for the procedure. Blood pressures on the lower end of normal. and ST depression noted. will get 12 lead ekg in pacu. Post-operative progress note Twelve-lead EKG 12/18/23 16:15 performed in PACU shows normal sinus rhythm. Left atrial enlargement . Left axis deviation. left bundle branch block. Essentially EKG is unchanged from preop. Anesthesia: Postop Eval II Evaluation Mental status: Awake Pain Level: 0 nausea: No Vomiting: No Complications Anesthesia Complication: No
[2023-12-19] MEDS: Potassium Chloride 10mEq/100mL 10 MEQ/100 ML IV.SOLN. 100 MEQ IV BOLUS ×4 (08:55→12:03)
[2023-12-19 09:23] LABS: Lymphocyte 2 % (19-41); Metamyelocyte 2 % (0-1); Monocyte 3 % (0-10); Neutrophil-Band 2 % (0-5); Neutrophil-Segmented 91 % (47-70); Platelet Estimate ADEQUATE (ADEQ); Red Cell Morphology NORM C+C NORMAL (NORM C&C); Total Cells Counted 100 (MANUAL DIFF)
[2023-12-19 09:24] LABS: Absolute Neutrophil Count 15.3 X10^3/uL (2.0-7.7)
[2023-12-19 09:54] VITALS: BP 120/72; PULSE 78
[2023-12-19] MEDS: Metoprolol Tartrate 100 MG Tablet PO ×2 (09:54→21:10)
[2023-12-19] MEDS: Spironolactone 25 MG Tablet PO (09:56)
[2023-12-19] MEDS: Pantoprazole Sodium 40 MG Tablet PO (10:00)
[2023-12-19 10:48] LABS: Pathologist Review Reviewed
[2023-12-19 14:00] VITALS: BP 119/58; PULSE 85; RESP 18; TEMP 36.8; O2SAT 96
--- NOTE | 2023-12-19 14:54 | PCM.PROGNOTE ---
Subjective Subjective Patient seen and examined. He was on room air. He had no complaints and said he felt much better. He denied any coughing, chest pain, palpitations, dizziness, nausea or vomiting or any other symptoms. Review of systems otherwise negative. His creatinine did trend upwards today. Objective Data Objective Data Vital Signs: Vital Signs Temp Pulse Resp BP Pulse Ox O2 Del Method 98.3 F 85 18 119/58 L 96 Room Air 12/19/23 14:00 12/19/23 14:00 12/19/23 14:00 12/19/23 14:00 12/19/23 14:00 12/19/23 14:00 Oxygen Delivery Method Room Air Weight: 175 lb 4.28 oz Body Mass Index (BMI) 29.9 Intake & Output: Intake and Output for Last 24 Hours 12/17/23 12/18/23 12/19/23 23:59 23:59 23:59 Intake Total 3004.36 / 3004.36 1360.94 / 1560.94 1616.11 / 1616.11 Output Total 5150 / 5150 2250 / 2250 1100 / 1100 Balance -2145.64 / -2145.64 -889.06 / -689.06 516.11 / 516.11 Lab / Micro Data 12/19/23 05:51 12/19/23 05:51 Labs: Laboratory Results - last 24 hr 12/19/23 05:51: WBC 16.5 H, RBC 3.42 L, Hgb 10.1 L, Hct 31.0 L, MCV 90.6, MCH 29.5, MCHC 32.6, RDW Std Deviation 50.4 H, RDW Coeff of Rosario 15.2 H, Plt Count 257, MPV 10.7, Neut % (Auto) Not Reportable, Absolute Neuts (auto) 15.3 H, Absolute Lymphs (auto) 0.30 L, Total Counted 100, Neutrophils % (Manual) 91 H, Band Neutrophils % 2, Lymphocytes % (Manual) 2 L, Monocytes % (Manual) 3, Metamyelocytes % 2 H, Diff Path Review Reviewed, Platelet Estimate ADEQUATE, RBC Morphology NORM C+C, Sodium 134 L, Potassium 3.0 L, Chloride 92 L, Carbon Dioxide 34.0 H, Anion Gap 8, BUN 62 H, Creatinine 2.17 H, Estim Creat Clear Calc 29.49, Est GFR (MDRD) Af Amer 39 L, Est GFR (MDRD) Non-Af 32 L, BUN/Creatinine Ratio 28.6 H, Glucose 111 H, Calcium 8.6 Micro: Microbiology 12/17/23 15:00 Blood Culture (Wb) - Anticubital Left Blood Culture - Preliminary No growth in 48 hours. Radiography Diagnostic Testing: Radiology Impression Lumbar Spine X-Ray 12/18/23 14:00 IMPRESSION: Fluoroscopic assistance for lumbar vertebroplasty. Please see operative report for additional information. Electronically Signed: Dylan Coles MD at 7:37 EDT , Physical Exam Const alert, oriented x3, no apparent distress and well nourished General Appearance: cooperative HEENT normocephalic, head/scalp atraumatic, moist oral mucous membranes and oropharynx normal Eyes PERRL and EOMs intact bilaterally Neck no lymphadenopathy and supple Lymph Lymphatic: no lymphadenopathy noted and no lymphedema noted Resp Resp Narrative: mildly diminished breath sounds bibasally, no wheezes or crackles. On room air. Cardio regular rate, regular rhythm, S1 normal heart sound, S2 normal heart sound and no murmurs GI normal to inspection, nondistended, normoactive bowel sounds, soft to palpation and non-tender GI Narrative: mild to moderate abdominal distension, positive fluid thrill Extremity Extremity Narrative: bilateral 2+ pedal pitting edema, with bullae and blisters on thighs bilaterally. General Extremity: no tenderness to palpation of joints or extremities Skin General Skin Exam: no breakdown Neuro CN's II-XII intact bilaterally and no focal motor deficits Motor Exam: strength 5/5 throughout and general weakness Psych thought process normal and cooperative Appearance: appropriate Assessment & Plan Assessment/Plan (1) CHF exacerbation: QUALIFIERS: Heart failure type: systolic Qualified Code(s): I50.23 - Acute on chronic systolic (congestive) heart failure (2) Bilateral edema of lower extremity: (3) Collapse of vertebra: PLAN: Plan #Acute on chronic HFrEF 2D echo showed EF of 20 to 25% which is apparently unchanged from his last echo in September 2023. Patient has been on Lasix drip since admission. Creatinine has trended up to 2.17. Will therefore DC Lasix drip today. Patient currently on room air and states he feels much better. Fluid restriction 1500 cc/day. Breathing treatments bronchodilators. #Anasarca due to acute on chronic HFrEF: as above #Hypokalemia: Potassium is 3. Replace and trend. #JIAN: Creatinine is 2.17. Was 1.44 yesterday and baseline is around 1.16. Likely due to IV lasix dip. lasix dc'd. Lisinopril held. Will trend Cr as it should improve since lasix has been stopped. #Intractable back pain due to recent L3 compression fracture S/p kyphoplasty by pain management. Pain has resolved and he feels much better. PT OT on board. #Leucocytosis; resolved. Was thought to be due to steroids he had received. He did have blood cultures drawn at outside hospital 1 of which was positive for gram-positive cocci in chains. It was however thought to be contaminants. White cell count is also trending downwards. Will monitor. DVT prophylaxis: SCDs. Charges/Coding Visit Charges Inpatient E&M: 17417 Subs Hosp L3
[2023-12-19] MEDS: Tamsulosin HCl 0.4 MG Capsule 0.8 MG PO (17:05)
[2023-12-19 21:02] VITALS: BP 109/69; PULSE 94; RESP 18; TEMP 36.3; O2SAT 96
[2023-12-19 21:10] VITALS: PULSE 94
[2023-12-19] MEDS: Menthol/Lanolin/Calamine/Znox 113 GM Tube 1 APPLIC TOPICAL (21:12)
[2023-12-20 03:07] VITALS: BP 110/64; PULSE 72; RESP 18; TEMP 36; O2SAT 97
[2023-12-20] MEDS: oxyCODONE 5 MG Tablet 10 MG PO ×4 (04:14→21:24)
[2023-12-20 06:00] VITALS: BMI 29.7
[2023-12-20] MEDS: Acetaminophen 500 MG Tablet 1000 MG PO ×3 (06:17→21:24)
[2023-12-20] MEDS: Sucralfate 1 GM Tablet PO ×3 (06:17→16:01)
[2023-12-20 07:54] LABS: Hematocrit 32.7 % (40-54); Hemoglobin 10.6 g/dL (13.0-16.5); Mean Corp Hgb Conc 32.4 g/dL (32-36); Mean Corpuscular Hgb 28.9 pg (27.0-32.0); Mean Corpuscular Volume 89.1 fL (80-94); Mean Platelet Vol. 10.5 fl (6.2-12.0); POSITIVE COUNT YES; POSITIVE MORPHOLOGY YES; Platelet Count 279 K/mm3 (150-450); RBC Distribution Width SD 49.1 fl (35.1-43.9); Red Blood Count 3.67 M/mm3 (4.6-6.2); White Blood Count 15.7 K/mm3 (4.4-11.0)
[2023-12-20 07:55] LABS: Differential Indicated MANUAL DIFF
[2023-12-20 08:14] LABS: Anion Gap 7 (5-15); BUN 53 mg/dL (7-18); BUN/Creat Ratio 36.6 RATIO (10-20); Calcium,Total 8.9 mg/dL (8.5-10.1); Chloride 92 mmol/L (98-107); Creatinine, Serum 1.45 mg/dL (0.70-1.30); EST Glomerular Filtration Rate 51 mL/min (>60); Est Glom Filt Rate - Afr Amer 62 mL/min (>60); Estimated Creatinine Clearance 43.72 ml/min; Glucose 118 mg/dL (74-106); Potassium 3.2 mmol/L (3.5-5.1); Sodium Level 130 mmol/L (136-145)
[2023-12-20 08:45] LABS: Lymphocyte 5 % (19-41); Metamyelocyte 6 % (0-1); Monocyte 7 % (0-10); Neutrophil-Band 1 % (0-5); Neutrophil-Segmented 80 % (47-70); Promyelocyte 1 % (0-0); Total Cells Counted 100 (MANUAL DIFF)
[2023-12-20 08:46] LABS: Platelet Estimate ADEQUATE (ADEQ); Red Cell Morphology NORM C+C NORMAL (NORM C&C)
[2023-12-20 08:47] LABS: Absolute Neutrophil Count 12.7 X10^3/uL (2.0-7.7)
[2023-12-20 09:00] VITALS: PULSE 80
[2023-12-20] MEDS: Metoprolol Tartrate 100 MG Tablet PO ×2 (09:00→21:25)
[2023-12-20] MEDS: Spironolactone 25 MG Tablet PO (09:00)
[2023-12-20] MEDS: Pantoprazole Sodium 40 MG Tablet PO (09:00)
[2023-12-20] MEDS: Menthol/Lanolin/Calamine/Znox 113 GM Tube 1 APPLIC TOPICAL ×2 (09:01→21:26)
[2023-12-20 09:04] VITALS: BP 133/58; PULSE 77; RESP 18; TEMP 36.2; O2SAT 96
--- NOTE | 2023-12-20 11:07 | PN_ITS ---
Subjective Subjective Patient seen and examined. He felt well today and had no complaints. He had an uneventful night. He remains on room air. Review of systems otherwise negative. He is still refusing Terrance wraps. Creatinine has trended down to 1.45 from 2.17 yesterday. He has remained hemodynamically stable. Objective Data Objective Data Vital Signs: Vital Signs Temp Pulse Resp BP Pulse Ox O2 Del Method 97.1 F L 77 18 133/58 H 96 Room Air 12/20/23 09:04 12/20/23 09:04 12/20/23 09:04 12/20/23 09:04 12/20/23 09:04 12/20/23 09:24 Oxygen Delivery Method Room Air Weight: 174 lb 2.643 oz Body Mass Index (BMI) 29.7 Intake & Output: Intake and Output for Last 24 Hours 12/18/23 12/19/23 12/20/23 23:59 23:59 23:59 Intake Total 1360.94 / 1560.94 2716.11 / 2716.11 240 / 240 Output Total 2250 / 2250 2500 / 2850 600 / 600 Balance -889.06 / -689.06 216.11 / -133.89 -360 / -360 Lab / Micro Data 12/20/23 07:37 12/20/23 07:37 Labs: Laboratory Results - last 24 hr 12/20/23 07:37: WBC 15.7 H, RBC 3.67 L, Hgb 10.6 L, Hct 32.7 L, MCV 89.1, MCH 28.9, MCHC 32.4, RDW Std Deviation 49.1 H, RDW Coeff of Rosario 15.0 H, Plt Count 279, MPV 10.5, Neut % (Auto) Not Reportable, Absolute Neuts (auto) 12.7 H, A bsolute Lymphs (auto) 0.80 L, Total Counted 100, Neutrophils % (Manual) 80 H, Band Neutrophils % 1, Lymphocytes % (Manual) 5 L, Monocytes % (Manual) 7, M etamyelocytes % 6 H, Promyelocytes % 1 H, Diff Path Review September, Platelet Estimate ADEQUATE, RBC Morphology NORM C+C, Sodium 130 L, Potassium 3.2 L, C hloride 92 L, Carbon Dioxide 31.0, Anion Gap 7, BUN 53 H, Creatinine 1.45 H, Estim Creat Clear Calc 43.72, Est GFR (MDRD) Af Amer 62, Est GFR (MDRD) Non-Af 51 L, BUN/Creatinine Ratio 36.6 H, Glucose 118 H, Calcium 8.9 Micro: Microbiology 12/17/23 15:00 Blood Culture (Wb) - Anticubital Left Blood Culture - Preliminary No growth in 48 hours. Physical Exam Const alert, oriented x3, no apparent distress and well nourished General Appearance: cooperative, well kempt and well developed Orientation / Consciousness: awake, oriented to person, oriented to place and oriented to time HEENT normocephalic, head/scalp atraumatic, hearing grossly normal bilaterally, moist oral mucous membranes and oropharynx normal Eyes PERRL, EOMs intact bilaterally and conjunctivae normal Neck no lymphadenopathy, supple, no JVD, thyroid normal and no carotid bruits General: trachea midline Lymph Lymphatic: no lymphadenopathy noted and no lymphedema noted Resp normal respiratory effort, no retractions, no use of accessory muscles and clear to auscultation bilaterally Resp Narrative: mildly diminished breath sounds bibasally, no wheezes or crackles. On room air. Auscultation: Negative for rales, rhonchi or wheezes Cardio regular rate, regular rhythm, S1 normal heart sound, S2 normal heart sound, no murmurs, no rub and no gallops GI normal to inspection, nondistended, normoactive bowel sounds, soft to palpation, non-tender and non-distended GI Narrative: minimal abdominal distension Extremity Extremity Narrative: bilateral 2+ pedal pitting edema, with bullae and blisters on thighs bilaterally. General Extremity: no tenderness to palpation of joints or extremities Skin General Skin Exam: no breakdown Neuro oriented x3, CN's II-XII intact bilaterally, moves all extremities, no focal motor deficits and no sensory deficits noted Sensorium / Orientation: awake and alert Speech: speech normal Motor Exam: strength 5/5 throughout and general weakness Psych thought process normal, cooperative and affect normal Appearance: appropriate Assessment & Plan Assessment/Plan (1) CHF exacerbation: QUALIFIERS: Heart failure type: systolic Qualified Code(s): I 50.23 - Acute on chronic systolic (congestive) heart failure (2) Bilateral edema of lower extremity: (3) Collapse of vertebra: PLAN: Plan #Acute on chronic HFrEF * 2D echo showed EF of 20 to 25% which is apparently unchanged from his last echo in September 2023. * lasix drip discontinued yesterday as Cr had trended upwards to 2.17. Cr is down to 1.45 today. * Patient currently on room air and states he feels much better. * Fluid restriction 1500 cc/day. Breathing treatments bronchodilators. * #Anasarca due to acute on chronic HFrEF: as above #Hypokalemia: Potassium is 3.2 today. Will replace and trend. #JIAN: Cr is down to 1.45 from 2.17 yesterday. Will resume oral lasix this evening. #Intractable back pain due to recent L3 compression fracture * S/p kyphoplasty by pain management. * Pain has resolved and he feels much better. PT OT on board. * #Leucocytosis; resolved. * Was thought to be due to steroids he had received. * He did have blood cultures drawn at outside hospital 1 of which was positive for gram-positive cocci in chains. * It was however thought to be contaminants. * White cell count is also trending downwards. Will monitor. DVT prophylaxis: SCDs. DIsposition: anticipate dc tomorrow if he remains stable. Charges/Coding Visit Charges Inpatient E&M: 53875 Subs Hosp L2
[2023-12-20] MEDS: Potassium Chloride Oral Tablet 20 MEQ 40 MEQ PO (11:15)
[2023-12-20 15:05] VITALS: BP 133/65; PULSE 89; RESP 18; TEMP 36.6; O2SAT 96
[2023-12-20] MEDS: Tamsulosin HCl 0.4 MG Capsule 0.8 MG PO (16:01)
[2023-12-20 21:24] VITALS: BP 132/78; PULSE 100; RESP 18; TEMP 36.6; O2SAT 95
[2023-12-20 21:25] VITALS: BP 132/78; PULSE 100
[2023-12-21] MEDS: Gabapentin 100 MG Capsule PO (00:27)
[2023-12-21] MEDS: oxyCODONE 5 MG Tablet 10 MG PO ×2 (02:42→11:46)
[2023-12-21 03:20] VITALS: BP 150/76; PULSE 79; RESP 18; TEMP 36.2; O2SAT 95
[2023-12-21] MEDS: Acetaminophen 500 MG Tablet 1000 MG PO ×2 (05:14→14:52)
[2023-12-21] MEDS: Sucralfate 1 GM Tablet PO ×2 (05:14→11:41)
[2023-12-21 06:00] VITALS: BMI 30.2
[2023-12-21 06:43] LABS: Hematocrit 32.5 % (40-54); Hemoglobin 10.6 g/dL (13.0-16.5); Mean Corp Hgb Conc 32.6 g/dL (32-36); Mean Corpuscular Hgb 28.9 pg (27.0-32.0); Mean Corpuscular Volume 88.6 fL (80-94); Mean Platelet Vol. 10.3 fl (6.2-12.0); POSITIVE COUNT YES; POSITIVE MORPHOLOGY YES; Platelet Count 268 K/mm3 (150-450); RBC Distribution Width CV 14.7 % (11.6-14.6); RBC Distribution Width SD 47.8 fl (35.1-43.9); Red Blood Count 3.67 M/mm3 (4.6-6.2); White Blood Count 15.2 K/mm3 (4.4-11.0)
[2023-12-21 06:49] LABS: Differential Indicated MANUAL DIFF
[2023-12-21 07:12] LABS: Anion Gap 6 (5-15); BUN 34 mg/dL (7-18); BUN/Creat Ratio 33.7 RATIO (10-20); Calcium,Total 9.2 mg/dL (8.5-10.1); Chloride 95 mmol/L (98-107); Creatinine, Serum 1.01 mg/dL (0.70-1.30); EST Glomerular Filtration Rate 77 mL/min (>60); Est Glom Filt Rate - Afr Amer 93 mL/min (>60); Estimated Creatinine Clearance 63.29 ml/min; Glucose 110 mg/dL (74-106); Potassium 3.8 mmol/L (3.5-5.1); Sodium Level 132 mmol/L (136-145)
[2023-12-21 08:34] LABS: Lymphocyte 8 % (19-41); Metamyelocyte 2 % (0-1); Monocyte 3 % (0-10); Myelocyte 2 % (0-0); Neutrophil-Segmented 85 % (47-70); Platelet Estimate ADEQUATE (ADEQ); Red Cell Morphology NORM C+C NORMAL (NORM C&C); Total Cells Counted 100 (MANUAL DIFF)
[2023-12-21 08:35] LABS: Absolute Lymphocyte Count 1.22 X10^3/uL (0.83-4.51); Absolute Neutrophil Count 12.9 X10^3/uL (2.0-7.7)
--- NOTE | 2023-12-21 10:51 | DS.PCM_ITS ---
Providers Date of Admission: 12/14/23 Date of Discharge: 12/21/23 Primary Care Physician: No Primary Care Phys Consultations 12/16/23 13:14 Consult: Pain Management Routine Consulting Provider: Josie Cross Reason for Consult: compression fracture L3 EMERGENT Consult: No MD Notified: Yes Date Notified: 12/16/23 Time Notified: 13:15 Method of Notification: Verbal Reason For Visit: CHF UROSEPSIS Diagnosis Discharge Diagnosis (1) CHF exacerbation: Status: Chronic Code(s): I50.9 - Heart failure, unspecified Qualifiers: Heart failure type: systolic Qualified Code(s): I50.23 - Acute on chronic systolic (congestive) heart failure (2) Bilateral edema of lower extremity: Status: Acute Code(s): R60.0 - Localized edema (3) Collapse of vertebra: Status: Acute Code(s): M48.50XA - Collapsed vertebra, not elsewhere classified, site unspecified, initial encounter for fracture Plan #Acute on chronic HFrEF * 2D echo showed EF of 20 to 25% which is apparently unchanged from his last echo in September 2023. * lasix drip discontinued yesterday as Cr had trended upwards to 2.17. Cr is down to 1.45 today. * Patient currently on room air and states he feels much better. * Fluid restriction 1500 cc/day. Breathing treatments bronchodilators. * #Anasarca due to acute on chronic HFrEF: as above #Hypokalemia: Potassium is 3.2 today. Will replace and trend. #JIAN: Cr is down to 1.45 from 2.17 yesterday. Will resume oral lasix this evening. #Intractable back pain due to recent L3 compression fracture * S/p kyphoplasty by pain management. * Pain has resolved and he feels much better. PT OT on board. * #Leucocytosis; resolved. * Was thought to be due to steroids he had received. * He did have blood cultures drawn at outside hospital 1 of which was positive for gram-positive cocci in chains. * It was however thought to be contaminants. * White cell count is also trending downwards. Will monitor. DVT prophylaxis: SCDs. DIsposition: anticipate dc tomorrow if he remains stable. Medications at Discharge Home Medications metoprolol tartrate 100 mg tablet 100 mg PO BID HTN #180 tabs 11/09/23 torsemide 20 mg tablet 20 mg PO BID Edema #180 tabs 11/09/23 Formula 303 1 tablet PO QHS PRN muscle spasm 12/14/23 acetaminophen 500 mg capsule 500 mg PO Q6H PRN pain 12/14/23 cyclobenzaprine 5 mg tablet 5 mg PO QHS Muscle Stiffness 12/14/23 gabapentin 100 mg capsule 100 mg PO BID PRN Chronic Back Pain 12/14/23 pantoprazole 40 mg tablet,delayed release 40 mg PO DAILY GERD 12/14/23 prednisone 20 mg tablet mg PO DAILY - 12/14/23 sucralfate 1 gram tablet 1 g PO .AC GERD 12/14/23 tramadol 50 mg tablet 50 mg PO Q6H PRN PRN pain 12/14/23 lisinopril 40 mg tablet 40 mg PO DAILY HTN #30 tabs 12/21/23 spironolactone 25 mg tablet 25 mg PO DAILY #30 tabs 12/21/23 Hospital Course Summary of Care Provided Minutes Spent on Discharge: 55 Hospital Course: Patient is a 72-year-old male with a past medical history as outlined was admitted through the ED on 12/14/2023 with a complaint of severe lower extremity edema as well as uncontrolled back pain and elevated white cell count. He was admitted as a transfer from [facility] where he had gone to the ER with a complaint of back pain which had been going on for about 10 days prior to admission. His lower extremity swelling had also worsened. On arrival today his BNP was markedly elevated at 20,000 and he also had an elevated white cell count and creatinine was slightly elevated at 1.62. He had CT of the abdomen and pelvis done which showed 2 compression fractures at T12 which was a burst fracture and also severe compression fracture at L3. Was not a complex lesion in the lateral right renal upper pole which is about 1.4 cm in size and chest x- ray showed evidence of mild cardiomegaly with central vascular congestion. Lactic acid was elevated and so there was concern for sepsis and patient was started on IV antibiotics in the outside hospital emergency room. He was transferred to secondary hospital and managed for intractable back pain due to compression fracture of L3 with old fracture at T12. His leukocytosis was thought to be due to recent steroid usage which she had been given on account of the back pain. Was also managed for acute on chronic congestive heart failure with known EF of around 20 to 25%. He was placed on IV Lasix drip and he was maintained on his lisinopril and spironolactone. Pain management was consulted and patient had kyphoplasty done on 12/18/2023. His shortness of breath and swelling did improve with Lasix drip. His creatinine however trended upward so Lasix drip was discontinued on account of JIAN likely due to Lasix use and volume depletion. Creatinine did trend down to normal. His lisinopril was reduced to 40 mg daily and patient was discharged on his home dose of torsemide 20 mg twice daily. He did have 2D echo done which showed EF of 20 to 25% which was unchanged from previous echo. As stated his leukocytosis was thought to be due to steroids. He had had blood cultures done at the outside hospital and one of the bottles grew gram-positive cocci in chains which was thought to be contaminants. He did not have any fever or any signs of infection during this admission so antibiotics were not continued. Patient remained stable and was discharged home on 12/21/2023. He is follow-up with his primary care doctor and follow-up with pain management and cardiology. Patient seen and examined prior to discharge. He had no active complaints and had an uneventful night. Review of systems otherwise negative. Labs and vitals reviewed. Home medication reviewed and reconciled. Physical Exam Const alert, oriented x3, no apparent distress and well nourished General Appearance: cooperative, comfortable, well kempt and well developed Orientation / Consciousness: awake, oriented to person, oriented to place and oriented to time HEENT normocephalic, head/scalp atraumatic, hearing grossly normal bilaterally, moist oral mucous membranes and oropharynx normal Mouth: oral and palatal mucosa normal Eyes PERRL, EOMs intact bilaterally and conjunctivae normal Neck no lymphadenopathy, supple, no JVD, thyroid normal and no carotid bruits General: trachea midline Lymph Lymphatic: no lymphadenopathy noted and no lymphedema noted Resp normal respiratory effort, no retractions, no use of accessory muscles and clear to auscultation bilaterally Resp Narrative: mildly diminished breath sounds bibasally, no wheezes or crackles. On room air. Auscultation: Negative for rales, rhonchi or wheezes Cardio regular rate, regular rhythm, S1 normal heart sound, S2 normal heart sound, no murmurs, no rub and no gallops GI normal to inspection, nondistended, normoactive bowel sounds, soft to palpation, non-tender and non-distended GI Narrative: minimal abdominal distension Extremity Extremity Narrative: bilateral 1+ pedal pitting edema, with bullae and blisters on thighs bilaterally. General Extremity: no tenderness to palpation of joints or extremities Skin no rashes or lesions noted General Skin Exam: no breakdown Neuro oriented x3, CN's II-XII intact bilaterally, moves all extremities, no focal motor deficits and no sensory deficits noted Sensorium / Orientation: awake and alert Speech: speech normal Motor Exam: strength 5/5 throughout and general weakness Psych thought process normal, cooperative and affect normal Appearance: appropriate Weight / BMI Weight Weight: 177 lb 4.026 oz Body Mass Index (BMI) 30.2 ABG / Lab / Microbiology Data 12/21/23 06:28 12/21/23 06:28 Laboratory: Laboratory Results - last 24 hr 12/21/23 06:28: WBC 15.2 H, RBC 3.67 L, Hgb 10.6 L, Hct 32.5 L, MCV 88.6, MCH 28.9, MCHC 32.6, RDW Std Deviation 47.8 H, RDW Coeff of Rsoario 14.7 H, Plt Count 268, MPV 10.3, Neut % (Auto) Not Reportable, Absolute Neuts (auto) 12.9 H, Absolute Lymphs (auto) 1.22, Total Counted 100, Neutrophils % (Manual) 85 H, L ymphocytes % (Manual) 8 L, Monocytes % (Manual) 3, Metamyelocytes % 2 H, M yelocytes % 2 H, Diff Path Review September, Platelet Estimate ADEQUATE, RBC Morphology NORM C+C, Sodium 132 L, Potassium 3.8, Chloride 95 L, Carbon Dioxide 31.0, Anion Gap 6, BUN 34 H, Creatinine 1.01, Estim Creat Clear Calc 63.29, Est GFR (MDRD) Af Amer 93, Est GFR (MDRD) Non-Af 77, BUN/Creatinine Ratio 33.7 H, G lucose 110 H, Calcium 9.2 Microbiology: Microbiology 12/17/23 15:00 Blood Culture (Wb) - Anticubital Left Blood Culture - Preliminary No growth in 48 hours. D/C Instructions Discharge Diet: Low fat / Low cholesterol Discharge Activity: Return to Normal Activity Weight Bearing Status: Weight bearing as tolerated Call your doctor if you observe: Fever of 101 or Higher, Shortness of breath, Dizziness, Swelling in the ankles, Chest pain and Increased palpitations (irregular heartbeat) Meaningful Use Info Meaningful Use Meaningful Use Diagnoses (Choose all that apply): CHF CHF FLORIN/ARB ordered at discharge?: Yes Documented LVEF (%): 25 Ischemic Stroke Statin Dosing Therapy Reference: STATIN DOSE THERAPY REFERENCE: * Patients > 75 years receive moderate or high dose statin therapy. * Patients 75 years or YOUNGER should receive HIGH intensity statin dose unless contraindicated. You will be required to document reason for non-treatment if statin daily dose does not meet guidelines. HIGH DOSE STATIN THERAPY DAILY Atorvastatin > than or = to 40 mg Rosuvastatin > than or = to 20 mg Amlodipine + Atorvastatin > than or = to 2.5/40 mg Ezetimibe + Simvastatin 10/80 mg Simvastatin 80mg Discharge Plan Admission Admit Date/Time: 12/14/23 10:02 Primary Reason for Your Visit: acute on chronic heart failure Attending Provider: Sandi De Luna Primary Care Provider: Lizandro Ruiz Consulting Providers: Josie Cross; Lanre Cortes Instructions Patient Instructions: Coping with Heart Failure Discharge Orders/Prescriptions Prescriptions: New spironolactone 25 mg Tablet 25 mg PO DAILY Qty: 30 2RF Continued metoprolol tartrate 100 mg tablet 100 mg PO BID Qty: 180 3RF torsemide 20 mg tablet 20 mg PO BID Qty: 180 3RF gabapentin 100 mg capsule 100 mg PO BID PRN cyclobenzaprine 5 mg tablet 5 mg PO QHS tramadol 50 mg tablet 50 mg PO Q6H PRN PRN (Reason: pain) pantoprazole 40 mg Tablet,Delayed Release (Dr/Ec) 40 mg PO DAILY sucralfate 1 gram tablet 1 g PO .AC prednisone 20 mg tablet PO DAILY acetaminophen 500 mg capsule 500 mg PO Q6H PRN (Reason: pain) Formula 303 1 tablet PO QHS PRN (Reason: muscle spasm) Changed lisinopril 40 mg tablet 40 mg PO DAILY Qty: 30 2RF Discontinued furosemide 40 mg tablet 40 mg PO DAILY Patient Comments: per pt no longer taking. spironolactone 50 mg tablet 50 mg PO DAILY Referrals / Follow Up: Lizandro Ruiz Dr [Other] - 01/11/24 11:20 am (Please arrive @ 11:05 AM) Josie Cross MD [Med Staff - Active Staff] - Within 2 Weeks Zia Marie MD [Med Staff - Active Staff] - Within 2 Weeks Dwight Rogers MD [Med Staff - Active Staff] - Within 1 Month (see to establish PCP care) Disposition Disposition (needs filled in before D/C Order can be placed): Home, Self Care Charges/Coding Visit Charges Inpatient E&M: 48412 Disch Hosp >30min
--- NOTE | 2023-12-21 10:51 | DCINST_ITS ---
Discharge Instructions Diet Discharge Diet: Low fat / Low cholesterol Activity Discharge Activity: Return to Normal Activity Weight Bearing Status: Weight bearing as tolerated Dressing / Incision Call your doctor if you observe: Fever of 101 or Higher, Shortness of breath, Dizziness, Swelling in the ankles, Chest pain and Increased palpitations (irregular heartbeat) Follow Up Care Test Results: Test results from this visit will be discussed in further detail at your follow- up appointment, if applicable. Discharge Plan Admission Admit Date/Time: 12/14/23 10:02 Primary Reason for Your Visit: acute on chronic heart failure Attending Provider: Sandi De Luna Primary Care Provider: Care Physician,No Primary Consulting Providers: Josie Cross; Lanre Cortes Instructions Patient Instructions: Coping with Heart Failure Discharge Orders/Prescriptions Prescriptions: New spironolactone 25 mg Tablet 25 mg PO DAILY Qty: 30 2RF Continued metoprolol tartrate 100 mg tablet 100 mg PO BID Qty: 180 3RF torsemide 20 mg tablet 20 mg PO BID Qty: 180 3RF gabapentin 100 mg capsule 100 mg PO BID PRN cyclobenzaprine 5 mg tablet 5 mg PO QHS tramadol 50 mg tablet 50 mg PO Q6H PRN PRN (Reason: pain) pantoprazole 40 mg Tablet,Delayed Release (Dr/Ec) 40 mg PO DAILY sucralfate 1 gram tablet 1 g PO .AC prednisone 20 mg tablet PO DAILY acetaminophen 500 mg capsule 500 mg PO Q6H PRN (Reason: pain) Formula 303 1 tablet PO QHS PRN (Reason: muscle spasm) Changed lisinopril 40 mg tablet 40 mg PO DAILY Qty: 30 2RF Discontinued furosemide 40 mg tablet 40 mg PO DAILY Patient Comments: per pt no longer taking. spironolactone 50 mg tablet 50 mg PO DAILY Referrals / Follow Up: Josie Cross MD [Med Staff - Active Staff] - Within 2 Weeks Zia Marie MD [Med Staff - Active Staff] - Within 2 Weeks Dwight Rogers MD [Med Staff - Active Staff] - Within 1 Month (see to establish PCP care) Care Physician,No Primary [Primary Care Provider] - Disposition Disposition (needs filled in before D/C Order can be placed): Home, Self Care
[2023-12-21 11:09] VITALS: BP 116/66; PULSE 112; RESP 16; TEMP 36.4; O2SAT 97
--- NOTE | 2023-12-21 11:37 | CASEMGMT ---
IJEOMA RODRIGUEZ NOTE: Discharge order is in. IJEOMA RODRIGUEZ to room. Introduced self and role. Pt sitting on edge of bed. Pt denies having any home-going needs/concerns. He states he has arranged for friend to come to his home to assist w/home tasks, as needed. Discussed Palliative care for CHF and pt declines referral. He did accept Palliative handout/info and aware to f/u with PCP if he is interested in referral. He voices appreciation. Pt states he does have an appt scheduled w/Dr Ruiz @ [facility] in December, to get established as a new patient. Call placed to [facility]. Pt has an appt with Dr Lizandro Ruiz on January 10 @ 11:20 AM. Appt added in dc plan. Merrill LUCAS RN CM
[2023-12-21 11:41] VITALS: BP 116/66; PULSE 112
[2023-12-21] MEDS: Metoprolol Tartrate 100 MG Tablet PO (11:41)
[2023-12-21] MEDS: Pantoprazole Sodium 40 MG Tablet PO (11:41)
[2023-12-21] MEDS: Spironolactone 25 MG Tablet PO (11:42)
[2023-12-21] MEDS: Furosemide 40 MG Tablet PO (11:46)
--- NOTE | 2023-12-21 11:46 | PHA.DC_ITS ---
Pharmacy [facility] has performed discharge medication reconciliation and counseling for this patient. The patient's discharge medication list was reviewed for discrepancies and discrepancies were resolved. The patient was counseled on the following discharge medications and changes in medications for homegoing were reviewed. 1. ALDACTONE --> DOSE CHANGE 2. LISINOPRIL --> DOSE CHANGE The Reason for Use, instructions for use, and potential side effects were reviewed for all new medications. The patient's questions regarding all of their medications were answered. The patient was able to verbally demonstrate an understanding of their discharge medications. The patient was counselled by Kenny Jack PharmD Candidate Medications at Discharge Home Medications metoprolol tartrate 100 mg tablet 100 mg PO BID HTN #180 tabs 11/09/23 torsemide 20 mg tablet 20 mg PO BID Edema #180 tabs 11/09/23 Formula 303 1 tablet PO QHS PRN muscle spasm 12/14/23 acetaminophen 500 mg capsule 500 mg PO Q6H PRN pain 12/14/23 cyclobenzaprine 5 mg tablet 5 mg PO QHS Muscle Stiffness 12/14/23 gabapentin 100 mg capsule 100 mg PO BID PRN Chronic Back Pain 12/14/23 pantoprazole 40 mg tablet,delayed release 40 mg PO DAILY GERD 12/14/23 prednisone 20 mg tablet mg PO DAILY - 12/14/23 sucralfate 1 gram tablet 1 g PO .AC GERD 12/14/23 tramadol 50 mg tablet 50 mg PO Q6H PRN PRN pain 12/14/23 lisinopril 40 mg tablet 40 mg PO DAILY HTN #30 tabs 12/21/23 spironolactone 25 mg tablet 25 mg PO DAILY #30 tabs 12/21/23
[2023-12-21 11:47] LABS: Pathologist Review Reviewed
[2023-12-21 11:51] LABS: Pathologist Review Reviewed
[2023-12-21 14:50] VITALS: BP 127/74; PULSE 88; RESP 16; TEMP 36.4; O2SAT 96
[2023-12-21] MEDS: Lisinopril 40 MG Tablet PO (16:00)
== END 2023-12-21 16:07 | disposition home or self-care (01) | DRG 477 ==
LOC: ICU 20:23 → PCU 12-15 13:19
PROVIDERS: Anesthesiology; Admitting Provider Internal Medicine; PCP Internal Medicine; Referring Provider Internal Medicine; Visit Provider Student in an Organized Health Care Education/Training Program
PROC: 0QB03ZX Excision of Lumbar Vertebra, Percutaneous Approach, Diagnostic (ICD-10-PCS; principal; 2023-12-18 13:30)
DX: M80.08XA Age-related osteoporosis with current pathological fracture, vertebra(e), initial encounter for fracture (principal); I50.23 Acute on chronic systolic (congestive) heart failure; N17.9 Acute kidney failure, unspecified; I42.8 Other cardiomyopathies; I11.0 Hypertensive heart disease with heart failure; E87.6 Hypokalemia; D72.829 Elevated white blood cell count, unspecified; M54.16 Radiculopathy, lumbar region; G89.29 Other chronic pain; T38.0X5A Adverse effect of glucocorticoids and synthetic analogues, initial encounter; Z79.899 Other long term (current) drug therapy
CPT/HCPCS: 36415; 72100; 72146; 72148; 76000; 80048; 83735; 85025; 87040; 88307; 88311; 93005; 93308; 97116; 97162; 97165; 97530; 97802; J7120; Q9957; A4216; J1940; J2405

== ENCOUNTER → 2024-01-02 | Outpatient (CLI) | payer MEDICARE, SELFPAY ==
--- NOTE | 2024-01-02 10:06 | ECHOL_ITS ---
Reason For Study: HTN, CHF Procedure This was a limited 2D transthoracic echocardiogram. Patient unable to lay or transfer to bed. Exam performed with him sitting upright in the wheelchair. Exam performed in department. Left Ventricle Mildly dilated left ventricle. The estimated ejection fraction is 20-25 %. There is evidence of diastolic dysfunction. There is moderate to severe global hypokinesis of the left ventricle. Right Ventricle Normal RV size. Normal systolic function. Mitral Valve There is severe mitral annular calcification. There is no mitral valve stenosis. No mitral valve insufficiency. Tricuspid Valve There is no tricuspid stenosis. Unable to estimate RV systolic pressure due to inadequate jet, pulmonary artery pressure probably normal. Aortic Valve Moderate diffuse aortic valve calcification. Not assessed. No aortic valve insufficiency. Great Vessels Normal aortic root. Pericardium/Pleural No pericardial effusion. MMode/2D Measurements & Calculations LVIDd: 5.5 cm IVSd: 1.3 cm LVOT diam: 2.0 cm LVIDs: 4.6 cm LVPWd: 1.4 cm LVOT area: 3.0 cm2 FS: 16.2 % SV(MOD-sp4): 47.1 ml LVAd ap4: 41.5 cm2 LVAd ap2: 34.4 cm2 LVLd ap4: 9.0 cm LVLd ap2: 8.6 cm EDV(MOD-sp4): 153.3 ml EDV(MOD-sp2): 111.5 ml EDV(sp4-el): 162.3 ml EDV(sp2-el): 116.4 ml LVAs ap4: 33.0 cm2 LVAs ap2: 27.3 cm2 LVLs ap4: 8.3 cm LVLs ap2: 8.2 cm ESV(MOD-sp4): 106.2 ml ESV(MOD-sp2): 76.7 ml ESV(sp4-el): 111.5 ml ESV(sp2-el): 76.8 ml EF(MOD-sp4): 30.7 % EF(MOD-sp2): 31.2 % EF(sp4-el): 31.3 % SV(MOD-sp2): 34.8 ml SV(sp4-el): 50.8 ml Doppler Measurements & Calculations Ao V2 max: 196.4 cm/sec TR max mya: 207.9 cm/sec Ao max P.4 mmHg TR max P.3 mmHg ECHO/Echo, Limited Study Interpretation Summary Limited study The estimated ejection fraction is 20-25 %. There is moderate to severe global hypokinesis of the left ventricle. There is evidence of diastolic dysfunction. Ordering Physician: Bernard Gaviria Performed By: Leny Jones RDCS
== END | disposition home or self-care (01) ==
LOC: CVS 09:57
PROVIDERS: Referring Provider Internal Medicine Cardiovascular Disease; Visit Provider Internal Medicine Cardiovascular Disease
DX: I11.0 Hypertensive heart disease with heart failure (principal); I50.20 Unspecified systolic (congestive) heart failure
CPT/HCPCS: 93308

== ENCOUNTER 2024-01-14 07:21 | Inpatient (IN) | payer MEDICARE, SELFPAY ==
[2024-01-14] VITALS (12 sets, daily range): BP systolic 128–159; BP diastolic 68–99; PULSE 66–120; RESP 16–20; TEMP 36.1–37.1; O2SAT 92–97; BMI 31.8; BMI 26.2
--- NOTE | 2024-01-14 08:15 | EKG12_ITS ---
Test Reason : REPEAT Blood Pressure : / mmHG Vent. Rate : 110 BPM Atrial Rate : 110 BPM P-R Int : 178 ms QRS Dur : 150 ms QT Int : 368 ms P-R-T Axes : 039 -62 080 degrees QTc Int : 498 ms Sinus tachycardia Left axis deviation Left bundle branch block Abnormal ECG Confirmed by KEYONNA SALAZAR, LUPE ([id number]), assignment editor JESUS GOMEZ ([id number]) on 01/18/2024 9:41:03 AM Referred By: Confirmed By:ERIC NEWBY MD
--- NOTE | 2024-01-14 08:15 | CT_ITS ---
STUDY: CT BRAIN WITHOUT CONTRAST REASON FOR EXAM: Male, 73 years old. Increased weakness and syncopal episode. RADIATION DOSAGE (If Supplied By Facility): CTDIvol = ( 44.99 ) mGy, DLP = ( 812.98 ) mGycm TECHNIQUE: Transaxial CT imaging of the brain was performed without administration of intravenous contrast material. Individualized dose optimization techniques were used for this CT. COMPARISON: No relevant priors. FINDINGS: Normal soft tissue structures. Normal calvarium. There is mild cerebral atrophy with widening of the extra-axial spaces and ventricular dilatation. There are areas of decreased attenuation within the white matter tracts of the supratentorial brain, consistent with microvascular disease changes. There are small punctate calcifications of the basal ganglia which are seen in the aging brain as a normal variant. Normal brainstem. Normal cerebellum. There is no intracranial hemorrhage. There are no findings of an acute ischemic infarction. Atherosclerotic calcification of the cavernous portions of the internal carotid arteries bilaterally. Normal visualized paranasal sinuses. CT/Brain/Head without Contrast IMPRESSION: Chronic involutional changes of the brain. Electronically Signed: Clifton Okeefe MD at 10:15 EDT ,
--- NOTE | 2024-01-14 08:17 | EDS_ITS ---
HPI History of Present Illness Chief Complaint: Syncope Informant: patient and EMS Narrative Narrative: 73-year-old male presenting to the emergency room chief complaint of syncope. Possibly due to his mental status patient is an exceedingly poor historian. Is reporting nonlinear stories and makes frequent mistakes and have to correct himself but then says the same mistake again. He tells me that he sees a doctor at [facility] Who recently prescribed him a medicine to help calm his muscles down. He states he took it yesterday afternoon and last evening before bed. States he had a bad night sleep and that he is very tired. He states that this morning he noted increased weakness and took a medicine in the kitchen and then went to the dining room put his hands on the table and states he passed out. He believes he hit the back of his head. He states that he had a yellow tablet and medicines and wallet all of which she needed because he is very organized due to his recent doctor's visit and he gave him to the ambulance and he does not know where they are at. The patient states he is very sleepy. If I ask a very pointed question he is answering in a very circular fashion and then becomes upset when I am not following his answer which for most people would be a yes or no answer. Patient was recently admitted into the hospital for CHF exacerbation. Echocardiogram at that time demonstrated an ejection fraction of 20 to 25%. [facility] Medical History Collapse of vertebra Bilateral edema of lower extremity Non-ischemic cardiomyopathy (03/07/21) CHF exacerbation Congestive heart failure (CHF) HFrEF (heart failure with reduced ejection fraction) (03/07/21) Essential hypertension CHF (NYHA class III, ACC/AHA stage C) Alcohol abuse Chronic pain Congestive heart failure (CHF) Alcohol dependence Restless leg syndrome Laceration of right little finger Home Medications ?Medication ?Instructions ?Recorded ?Last Taken ?Type metoprolol tartrate 100 mg tablet 100 mg PO BID HTN #180 tabs 11/09/23 01/13/24 Rx torsemide 20 mg tablet 20 mg PO BID Edema #180 tabs 11/09/23 01/13/24 Rx acetaminophen 500 mg capsule 500 mg PO Q6H PRN pain 12/14/23 01/14/24 History cyclobenzaprine 5 mg tablet 5 mg PO QHS Muscle Stiffness 12/14/23 Unknown History gabapentin 100 mg capsule 100 mg PO BID PRN Chronic Back Pain 12/14/23 01/14/24 History sucralfate 1 gram tablet 1 g PO .AC GERD 12/14/23 Unknown History spironolactone 25 mg tablet 25 mg PO DAILY #30 tabs 12/21/23 01/13/24 Rx empagliflozin 10 mg tablet 10 mg PO DAILY #30 tabs 01/03/24 01/13/24 Rx (Jardiance) baclofen 10 mg tablet 10 mg PO TID 01/14/24 01/14/24 History lisinopril 10 mg tablet 10 mg PO BID 01/14/24 01/13/24 History Allergy/AdvReac Type Severity Reaction Status Date / Time amoxicillin Allergy PAIN AND Verified 01/14/24 07:27 DIARRHEA Penicillins Allergy PAIN AND Verified 01/14/24 07:27 DIARRHEA Family History Father Throat cancer smoker Hypertension Mother No cardiac disease Mother currently living, 92 years old with no reported medical issues. 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 pets and animals: Yes (cats) Smoking Status: Never smoker alcohol intake: former substance use type: does not use caffeine: Yes Type: coffee Number of servings: 4 ROS ROS ED ROS Narrative Generalized weakness Constitutional Constitutional ED: Denies chills, fever(s) or weight loss Eyes Eyes: Denies change in vision or diplopia ENT ENT ED: Denies ear pain, rhinorrhea or sore throat Cardiovascular Cardiovascular: Reports other Details: Syncope ; Denies chest pain, orthopnea, palpitations or racing heartbeat Respiratory/Chest Respiratory/Chest: Reports cough; Denies dyspnea or orthopnea Gastrointestinal Gastrointestinal: Denies abdominal pain, diarrhea, nausea or vomiting Genitourinary Genitourinary ED: Denies dysuria, hematuria or urinary frequency Musculoskeletal Musculoskeletal: Reports myalgias and other Details: Muscle pain muscle shaking Patient states that he has edema of his extremities pay no attention to it that is normal, that is not what I am here ; Denies arthralgias Integumentary Denies abscess or rash Neurologic Neurologic: Reports headache(s); Denies paresthesias or weakness Psychiatric Psychiatric: Denies anxiety, depression, suicidal ideation or suicidal thoughts Endocrine Endocrinology: Denies polydipsia, polyphagia or polyuria Allergic/Immunologic Allergic/Immunologic ED: Denies mouth swelling, tongue swelling or urticaria EXAM Physical Exam Narrative Exam Narrative: Patient is snoring when I walk into the room. I shake him multiple times and he will not awake. I sternal rub him and he begins to talk but does not open his eyes Const Vital Signs: 01/14/24 07:24 01/14/24 08:16 01/14/24 08:47 Temperature 98.7 F Temperature Source Oral Pulse Rate 99 102 H Respiratory Rate 20 H 20 H Respiratory Effort Normal Non-Labored Respiratory Pattern Normal Blood Pressure 130/78 H 128/68 H Blood Pressure Mean 95 88 Pulse Ox 94 92 Oxygen Delivery Method Room Air Room Air 01/14/24 09:00 01/14/24 10:00 01/14/24 11:00 Temperature Temperature Source Pulse Rate 66 76 100 Respiratory Rate 18 18 18 Respiratory Effort Respiratory Pattern Blood Pressure 128/68 H 133/90 H 154/80 H Blood Pressure Mean 88 104 104 Pulse Ox 92 93 93 Oxygen Delivery Method Room Air Room Air Room Air 01/14/24 12:00 01/14/24 13:00 Temperature Temperature Source Pulse Rate 82 120 H Respiratory Rate 16 16 Respiratory Effort Respiratory Pattern Blood Pressure 131/81 H 140/79 H Blood Pressure Mean 97 99 Pulse Ox 96 97 Oxygen Delivery Method Room Air Room Air Positive well nourished, well developed and obese General Appearance ED: well developed Nutritional Appearance: obese HEENT Reports normocephalic, head/scalp atraumatic and moist mucous membranes Eyes PERRL and EOMs intact bilaterally Neck no lymphadenopathy, supple and no JVD Resp normal respiratory effort and clear to auscultation bilaterally Cardio regular rate, regular rhythm and no murmurs GI normal to inspection, nondistended, normoactive bowel sounds and non-tender Palpation: soft Back/Spine no CVA tenderness and normal ROM Extremity normal to inspection General Extremety ED: Yes edema General Extremity: edema bilateral upper extremity and lower extremity Neuro CN's II-XII intact bilaterally Sensorium / Orientation: alert Motor Exam: strength 5/5 throughout and general weakness Psych mental status grossly normal Mood & Affect: Negative for depressed or tearful Skin no rashes or lesions noted Skin Narrative: Chronic wounds of the lower extremities I do not appreciate surrounding cell ulitis of these wounds particularly the right medial knee thigh MDM MDM MDM Narrative Medical decision making narrative: Differential diagnosis includes dehydration electrolyte abnormality sepsis CHF exacerbation pneumonia pleural effusion renal dysfunction liver dysfunction UTI cardiac dysrhythmia White count is continued to be elevated 18.2 hemoglobin of 10 platelet count of 298 coags are obtained she has an INR 1.2 PTT 33.2 magnesium is normal potassium is low at 2.8 sodium 133 creatinine 0.92 with a BUN of 17 urinalysis is negative liver enzymes within normal limits BNP is 1396. My independent interpretation the chest x-ray is left pleural effusion cardiomegaly. Head CT shows no acute findings. Patient became tachycardic in the range of 110-120. Continued left bundle appears sinus and regular on the monitor. Atrial dysrhythmia not fully ruled out. Patient states his heart rate is fast because the bed is uncomfortable. He does have a history of alcohol use but denies any alcohol use at this time so I did give consideration to alcohol withdrawal which again he denies. Supplemental potassium was given as well as diuretic. Given the syncopal episode is hypokalemia his recent ejection fraction I think the patient would be best served monitored and they are in the hospital. I spoke with cardiology and hospitalist. History & Record Review Discussion w/independent historian: Patient Additional record(s) reviewed:: Prior inpatient record, Prior ED visit and Prior labs Lab Data Attestation: I reviewed the patient's lab results. Labs: Laboratory Results - last 24 hr 01/14/24 01/14/24 01/14/24 08:46 08:46 11:15 WBC 18.2 H RBC 3.35 L Hgb 10.0 L Hct 30.3 L MCV 90.4 MCH 29.9 MCHC 33.0 RDW Std Deviation 51.2 H RDW Coeff of Rosario 15.4 H Plt Count 298 MPV 10.1 Immature Gran % (Auto) 4.400 H Neut % (Auto) 86.5 H Lymph % (Auto) 3.3 L [place] % (Auto) 5.4 Eos % (Auto) 0.2 Baso % (Auto) 0.2 Absolute Neuts (auto) 15.8 H Absolute Lymphs (auto) 0.60 L Nucleated RBC % 0 PT 14.8 INR 1.2 APTT 33.2 Sodium 133 L Potassium 2.8 L Chloride 93 L Carbon Dioxide 31.0 Anion Gap 9 BUN 17 Creatinine 0.92 Estim Creat Clear Calc 70.96 Est GFR (MDRD) Af Amer 104 Est GFR (MDRD) Non-Af 86 BUN/Creatinine Ratio 18.5 Glucose 102 Calcium 8.7 Phosphorus 3.1 Magnesium 2.3 2.4 Total Bilirubin 0.70 Direct Bilirubin 0.17 AST 28 ALT 27 Alkaline Phosphatase 80 Troponin I High Sens 66 B-Natriuretic Peptide 1396.9 H Total Protein 7.4 Albumin 2.6 L Globulin 4.8 H Urine Color Yellow Urine Clarity Clear Urine pH 7.0 Ur Specific [place] 1.010 Urine Protein 15 H Urine Glucose (UA) 100 H Urine Ketones Negative Urine Occult Blood Negative Urine Nitrite Negative Urine Bilirubin Negative Urine Urobilinogen Normal Ur Leukocyte Esterase Negative Urine RBC 0 SEEN Urine WBC 0 SEEN Ur Squamous Epith Cells 0-5 SEEN Urine Bacteria 0 SEEN Urine Mucus 0 SEEN Radiography Diagnostic Testing: Clinical Impression(s) from Imaging Studies Brain CT 01/14/24 08:15 IMPRESSION: Chronic involutional changes of the brain. Electronically Signed: Clifton Okeefe MD at 10:15 EDT , Chest X-Ray 01/14/24 09:35 IMPRESSION: Bibasilar increased markings worse at the left lung base suggestive of either linear atelectasis and/or early infiltrates. Cardiomegaly. Electronically Signed: Clifton Okeefe MD at 10:02 EDT , EKG Initial EKG: Attestation: I personally reviewed and interpreted this EKG as follows: Comments: Sinus rhythm with first-degree AV block PACs noted left bundle branch block ventricular rate of 82 bpm Management Discussion w/another healthcare provider: Hospitalist (Keith) and Irrigation District Manager (Deep (Cardiology)) Discharge Plan Dx/Rx/DC Orders Clinical Impression: HFrEF (heart failure with reduced ejection fraction), Acute hypokalemia, AMS (altered mental status), Medication reaction Disposition Disposition: Acute Care Hospital [facility] Discharge Date/Time: 01/14/24 14:41
[2024-01-14 08:56] LABS: Absolute Neutrophil Count 15.8 X10^3/uL (2.0-7.7); Basophil# 0.04 X10^3/uL; Basophil% 0.2 % (0-1); Eosinophil# 0.03 X10^3/uL; Eosinophils% 0.2 % (0-5); Hematocrit 30.3 % (40-54); Lymphocyte % 3.3 % (19-41); Mean Corpuscular Hgb 29.9 pg (27.0-32.0); Mean Corpuscular Volume 90.4 fL (80-94); Mean Platelet Vol. 10.1 fl (6.2-12.0); Monocyte# 0.98 X10^3/uL; Monocyte% 5.4 % (0-10); NRBC Flagged by Analyzer 0 % (0-5); Neutrophil # 15.78 X10^3/uL (2.7-7.7); Neutrophil % 86.5 % (47-70); POSITIVE DIFFERENTIAL YES; Platelet Count 298 K/mm3 (150-450); RBC Distribution Width CV 15.4 % (11.6-14.6); RBC Distribution Width SD 51.2 fl (35.1-43.9); Red Blood Count 3.35 M/mm3 (4.6-6.2); White Blood Count 18.2 K/mm3 (4.4-11.0)
[2024-01-14 09:18] LABS: International Normalized Ratio 1.2; Prothrombin Time (Protime)PT. 14.8 SECONDS (11.7-14.9)
[2024-01-14 09:19] LABS: Partial Thromboplast Time 33.2 Seconds (24.1-36.2)
[2024-01-14 09:20] LABS: AST(SGOT) 28 U/L (15-37); Alanine Aminotransfer ALT/SGPT 27 U/L (16-61); Albumin, Serum 2.6 g/dL (3.2-5.0); Alkaline Phosphatase 80 U/L (45-117); Anion Gap 9 (5-15); BUN 17 mg/dL (7-18); BUN/Creat Ratio 18.5 RATIO (10-20); Bilirubin, Direct 0.17 mg/dL (0.00-0.30); Calcium,Total 8.7 mg/dL (8.5-10.1); Chloride 93 mmol/L (98-107); Creatinine, Serum 0.92 mg/dL (0.70-1.30); EST Glomerular Filtration Rate 86 mL/min (>60); Est Glom Filt Rate - Afr Amer 104 mL/min (>60); Estimated Creatinine Clearance 70.96 ml/min; Globulin 4.8 g/dL (2.2-4.2); Glucose 102 mg/dL (74-106); Magnesium 2.3 mg/dL (1.6-2.6); Potassium 2.8 mmol/L (3.5-5.1); Protein, Total 7.4 g/dL (6.4-8.2); Sodium Level 133 mmol/L (136-145); Troponin-I HS 66 pg/mL (3.0-78.0)
[2024-01-14 09:34] LABS: BNP,B-Type NATRIURETIC PEPTIDE 1396.9 pg/mL (0-100)
--- NOTE | 2024-01-14 09:35 | RAD_ITS ---
STUDY: X-RAY CHEST REASON FOR EXAM: Male, 73 years old. Syncope cough TECHNIQUE: Single AP portable view of the chest. COMPARISON: Comparison is made with prior study dated December 13, 2023. FINDINGS: EKG electrodes are seen. Mild degree of increased markings at the lung bases suggestive of either bibasilar atelectasis and/or early infiltrates worse on the left side. There is no demonstrated pleural abnormality. There is moderate cardiac enlargement. Normal mediastinum and hussein. Normal visualized pulmonary arteries. There is atherosclerotic calcification of the aortic arch with tortuosity. There are diffuse degenerative changes of the visualized thoracic spine. There is degenerative osteoarthritis of the bilateral shoulders. There is no demonstrated abnormality of the visualized soft tissue structures of the upper abdomen. RAD/Chest 1 View (Portable) IMPRESSION: Bibasilar increased markings worse at the left lung base suggestive of either linear atelectasis and/or early infiltrates. Cardiomegaly. Electronically Signed: Clifton Okeefe MD at 10:02 EDT ,
[2024-01-14] MEDS: Furosemide 100 MG/10 ML Vial 60 MG IV (10:23)
[2024-01-14] MEDS: Potassium Chloride Oral Tablet 20 MEQ 40 MEQ PO ×2 (10:23→15:30)
[2024-01-14] MEDS: Potassium Chloride 10mEq/100mL 10 MEQ/100 ML IV.SOLN. 100 MEQ IV BOLUS (10:23)
[2024-01-14 11:22] LABS: Bacteria 0 SEEN /hpf (None Seen); Mucous, Urine 0 SEEN /hpf (<or=2+); Red Blood Cells-Urine 0 SEEN /hpf (0-5); White Blood Cells 0 SEEN /hpf (0-5)
[2024-01-14 11:23] LABS: Color, Urine Yellow (Yellow); Glucose, Dipstick 100 mg/dl (Normal); Ketone-Dipstick Negative (Negative); Leukocyte Esterase-Dipstick Negative /ul (Negative); Nitrite-Dipstick Negative (Negative); Occult Blood-Urine Negative /ul (Negative); Protein-Dipstick 15 mg/dl (Negative); Urine Bilirubin Dipstick Negative (Negative); Urine Clarity Clear (Clear); Urine Urobilinogen Normal (Normal)
[2024-01-14 11:30] LABS: Squamous Epithelial Cells - UA 0-5 SEEN /hpf (0-5)
--- NOTE | 2024-01-14 12:37 | EKG12_ITS ---
Test Reason : SYNCOPE Blood Pressure : / mmHG Vent. Rate : 082 BPM Atrial Rate : 082 BPM P-R Int : 216 ms QRS Dur : 162 ms QT Int : 460 ms P-R-T Axes : 042 -54 128 degrees QTc Int : 537 ms Sinus rhythm with 1st degree A-V block with Premature atrial complexes Left axis deviation Left bundle branch block Abnormal ECG Confirmed by KEYONNA SALAZAR, LUPE ([id number]), assistant film editor JESUS GOMEZ ([id number]) on 01/18/2024 9:41:13 AM Referred By: Confirmed By:ERIC NEWBY MD
--- NOTE | 2024-01-14 13:22 | HP.PCM.HOS_ITS ---
HPI - General General Date of Admission: 01/14/24 Date of Service: 01/14/24 Chief Complaint: Passed out today. HPI Narrative LILIBETH CRESPO, is a 73 M who was recently admitted for CHF exacerbation from December 13 to December 21, 2023 came to hospital for generalized weakness and passing out. He said he went to his PCP on last Sunday and was given muscle relaxant for muscle pain. Generalized weakness for last 2 days. He took 2 tablets of baclofen 10 mg was feeling generalized weakness and then take 1 tablet today after that he felt very weak, slumped on the back and knee and then passed out. Patient is not good in remembering the events in chronological order and he is frequently missing and trying to correct and regaining strength. History is very circumferential. Denies chest pain/tightness or pressure, shortness of breath, fever or chills, abdominal pain, dysuria or alteration of bowel habit. Patient states around this time of the year he gets cough because [place]. He has chronic productive cough but denies tachypnea or shallow breathing or change in breathing.. In ED, twelve-lead EKG was done. Normal sinus rhythm and sinus tachycardia. Vitals, labs, EKG and chest x-ray animate reviewed. [facility] Medical History Collapse of vertebra Bilateral edema of lower extremity Non-ischemic cardiomyopathy (03/07/21) CHF exacerbation Congestive heart failure (CHF) HFrEF (heart failure with reduced ejection fraction) (03/07/21) Essential hypertension CHF (NYHA class III, ACC/AHA stage C) Alcohol abuse Chronic pain Congestive heart failure (CHF) Alcohol dependence Restless leg syndrome Laceration of right little finger Home Medications ?Medication ?Instructions ?Recorded ?Last Taken ?Type metoprolol tartrate 100 mg tablet 100 mg PO BID HTN #180 tabs 11/09/23 01/13/24 Rx torsemide 20 mg tablet 20 mg PO BID Edema #180 tabs 11/09/23 01/13/24 Rx acetaminophen 500 mg capsule 500 mg PO Q6H PRN pain 12/14/23 01/14/24 History cyclobenzaprine 5 mg tablet 5 mg PO QHS Muscle Stiffness 12/14/23 Unknown History gabapentin 100 mg capsule 100 mg PO BID PRN Chronic Back Pain 12/14/23 01/14/24 History sucralfate 1 gram tablet 1 g PO .AC GERD 12/14/23 Unknown History spironolactone 25 mg tablet 25 mg PO DAILY #30 tabs 12/21/23 01/13/24 Rx empagliflozin 10 mg tablet 10 mg PO DAILY #30 tabs 01/03/24 01/13/24 Rx (Jardiance) baclofen 10 mg tablet 10 mg PO TID 01/14/24 01/14/24 History lisinopril 10 mg tablet 10 mg PO BID 01/14/24 01/13/24 History Allergy/AdvReac Type Severity Reaction Status Date / Time amoxicillin Allergy PAIN AND Verified 01/14/24 07:27 DIARRHEA Penicillins Allergy PAIN AND Verified 01/14/24 07:27 DIARRHEA Family History Father Throat cancer smoker Hypertension Mother No cardiac disease Mother currently living, 92 years old with no reported medical issues. 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 No fever. HEENT: Reports systems reviewed and no addt'l complaints, except as documented Respiratory/Chest: As described in HPI CVS: As described in HPI. Bilateral leg swelling and oozing of fluid. Gastrointestinal: Denies coffee ground emesis, hematemesis or vomiting Genitourinary: Denies burning urination or new urinary tract symptoms Musculoskeletal: Denies acute joint pain or limited range of motion. No acute injury Neurologic: Denies seizure-like symptoms. skin: Chronic superficial healing ulcer on right leg below knee level Endocrinology: Reports systems reviewed and no addt'l complaints, except as documented Hematologic/Lymphatic: Reports systems reviewed and no addt'l complaints, except as documented Rest 14 ROS are negative except as mentioned in HPI Vital Signs Vital Signs Vital Signs: 01/14/24 07:24 01/14/24 08:16 01/14/24 08:47 Temperature 98.7 F Temperature Source Oral Pulse Rate 99 102 H Respiratory Rate 20 H 20 H Respiratory Effort Normal Non-Labored Respiratory Pattern Normal Blood Pressure 130/78 H 128/68 H Blood Pressure Mean 95 88 Pulse Ox 94 92 Oxygen Delivery Method Room Air Room Air 01/14/24 09:00 01/14/24 10:00 01/14/24 11:00 Temperature Temperature Source Pulse Rate 66 76 100 Respiratory Rate 18 18 18 Respiratory Effort Respiratory Pattern Blood Pressure 128/68 H 133/90 H 154/80 H Blood Pressure Mean 88 104 104 Pulse Ox 92 93 93 Oxygen Delivery Method Room Air Room Air Room Air 01/14/24 12:00 Temperature Temperature Source Pulse Rate 82 Respiratory Rate 16 Respiratory Effort Respiratory Pattern Blood Pressure 131/81 H Blood Pressure Mean 97 Pulse Ox 96 Oxygen Delivery Method Room Air Weight Weight: 185 lb 3.013 oz Body Mass Index (BMI) 31.8 Physical Exam Narrative General: Awake, oriented x 3, cooperative, often mistake. Sometimes incoherent speech HEENT: Atraumatic, PERRLA, EOMI, Normocephalic Oral: Oral mucosa dry no Gingival or Mucosal Lesions/ Ulcerations Neck: Supple, No JVD, Negative Carotid Bruits Chest wall/Lungs: Air entry diminished in bilateral lung bases, more on left lung base. No crepitation/rhonchi Cardiovascular: Sinus tachycardia, Normal S1, Normal S2, systolic murmur present LUSB Abdomen: Bowel Sounds Present, Soft, Non Tender, Non-Distended : No dysuria. No renal angle tenderness. No suprapubic tenderness. Extremities: Bilateral 2-3+ below knee level edema, Capillary Refill Less than 3 Seconds Skin: Chronic, dry, superficial ulcer over right medial aspect of leg below knee level. Lymphedema and oozing fluid. Musculoskeletal: Chronic left leg weak, left knee tender on flexion, chronic arthritis Neurological: Cranial nerves II-XII grossly intact, DTR 2+/4. No acute focal neurological deficit. Psych/Mental Status: Flat affect Results Lab / Micro Data 01/14/24 08:46 01/14/24 08:46 Labs: Laboratory Results - last 24 hr 01/14/24 08:46: WBC 18.2 H, RBC 3.35 L, Hgb 10.0 L, Hct 30.3 L, MCV 90.4, MCH 29.9, MCHC 33.0, RDW Std Deviation 51.2 H, RDW Coeff of Rosario 15.4 H, Plt Count 298, MPV 10.1, Immature Gran % (Auto) 4.400 H, Neut % (Auto) 86.5 H, Lymph % (Auto) 3.3 L, [place] % (Auto) 5.4, Eos % (Auto) 0.2, Baso % (Auto) 0.2, Absolute Neuts (auto) 15.8 H, Absolute Lymphs (auto) 0.60 L, Nucleated RBC % 0, PT 14.8, INR 1.2, APTT 33.2, Sodium 133 L, Potassium 2.8 L, Chloride 93 L, Carbon Dioxide 31.0, Anion Gap 9, BUN 17, Creatinine 0.92, Estim Creat Clear Calc 70.96, Est GFR (MDRD) Af Amer 104, Est GFR (MDRD) Non-Af 86, BUN/Creatinine Ratio 18.5, Glucose 102, Calcium 8.7, Magnesium 2.3, Total Bilirubin 0.70, Direct Bilirubin 0.17, AST 28, ALT 27, Alkaline Phosphatase 80, Troponin I High Sens 66, B- Natriuretic Peptide 1396.9 H, Total Protein 7.4, Albumin 2.6 L, Globulin 4.8 H 01/14/24 11:15: Urine Color Yellow, Urine Clarity Clear, Urine pH 7.0, Ur Specific [place] 1.010, Urine Protein 15 H, Urine Glucose (UA) 100 H, Urine Ketones Negative, Urine Occult Blood Negative, Urine Nitrite Negative, Urine Bilirubin Negative, Urine Urobilinogen Normal, Ur Leukocyte Esterase Negative, Urine RBC 0 SEEN, Urine WBC 0 SEEN, Ur Squamous Epith Cells 0-5 SEEN, Urine Bacteria 0 SEEN, Urine Mucus 0 SEEN Imaging Radiology Impression Brain CT 01/14/24 08:15 IMPRESSION: Chronic involutional changes of the brain. Electronically Signed: Clifton Okeefe MD at 10:15 EDT , Chest X-Ray 01/14/24 09:35 IMPRESSION: Bibasilar increased markings worse at the left lung base suggestive of either linear atelectasis and/or early infiltrates. Cardiomegaly. Electronically Signed: Clifton Okeefe MD at 10:02 EDT , Assessment & Plan Assessment/Plan (1) Syncope: (2) Acute exacerbation of chronic heart failure: (3) Chronic systolic congestive heart failure: PLAN: Plan This is 73-year-old gentleman being admitted for syncope but found to have acute on chronic systolic heart failure 1. Syncope, exact etiology unclear possible due to hemodynamic fluid shift/medication induced baclofen: Patient is being admitted in PCU. Hold baclofen. Orthostatic blood pressure tomorrow a.m. Patient already had recently echo and workup for heart failure. 2. Acute on chronic systolic heart failure/HFrEF: BNP is high. First twelve- lead EKG shows initial normal sinus rhythm, first AV block, PAC, LAD, LBBB, QTc 536 ms at 82 beats per. Second EKG in ER shows sinus tachycardia at 110 bpm. During previous hospital stay, patient was on Lasix drip, will diuresed and discharged home on torsemide 20 mg twice daily. 2D echo November 2023 shows EF 20 to 25%, unchanged from previous echo. 3. Abnormal chest x-ray: Chest x-ray initially reviewed and shows left lung base is not visualized clearly either with bibasilar atelectasis or early infiltrate. Cardiomegaly. No significant change from the previous x-ray of November 2023 chest x-ray. Patient has leukocytosis which has gotten worse in discharge. During last time patient had leukocytosis and had GPC in chains from outside hospital which was thought to be contaminant. Pneumonia workup ordered. Empirically patient started on IV ceftriaxone and Zithromax 4. Hypokalemia: K2.8. On his spironolactone. Potassium supplement. Serum magnesium and phosphorus ordered 5. Chronic lower back pain due to subacute/L3 compression fracture S/p kyphoplasty by pain management. Hold baclofen and cyclobenzaprine. Replaced with Zanaflex 2 mg every 8 hours as needed for muscle spasm Tylenol for pain management. PT and OT DVT prophylaxis: SCDs. Living will/advanced directive/end of life care: Patient does have living will or advanced directive. He does not know his power of finance attorney for his health. After discussion of benefits/risks procedures involved with full code, DNR CC arrest and DNR CC, the patient opted for full code. Patient does want artificial life support including intubation, tube feed, ventilator and/chest compression, central venous catheter, vasopressor and DC shock if needed Total time spent in [id number] encounter in discussion of advanced directive 17 minutes. Laboratory Results 01/14/24 08:46: WBC 18.2 H, RBC 3.35 L, Hgb 10.0 L, Hct 30.3 L, MCV 90.4, MCH 29.9, MCHC 33.0, RDW Std Deviation 51.2 H, RDW Coeff of Rosario 15.4 H, Plt Count 298, MPV 10.1, Immature Gran % (Auto) 4.400 H, Neut % (Auto) 86.5 H, Lymph % (Auto) 3.3 L, [place] % (Auto) 5.4, Eos % (Auto) 0.2, Baso % (Auto) 0.2, Absolute Neuts (auto) 15.8 H, Absolute Lymphs (auto) 0.60 L, Nucleated RBC % 0, PT 14.8, INR 1.2, APTT 33.2, Sodium 133 L, Potassium 2.8 L, Chloride 93 L, Carbon Dioxide 31.0, Anion Gap 9, BUN 17, Creatinine 0.92, Estim Creat Clear Calc 70.96, Est GFR (MDRD) Af Amer 104, Est GFR (MDRD) Non-Af 86, BUN/Creatinine Ratio 18.5, Glucose 102, Calcium 8.7, Magnesium 2.3, Total Bilirubin 0.70, Direct Bilirubin 0.17, AST 28, ALT 27, Alkaline Phosphatase 80, Troponin I High Sens 66, B-Natriuretic Peptide 1396.9 H , Total Protein 7.4, Albumin 2.6 L, Globulin 4.8 H 01/14/24 11:15: Urine Color Yellow, Urine Clarity Clear, Urine pH 7.0, Ur Specific [place] 1.010, Urine Protein 15 H, Urine Glucose (UA) 100 H, Urine Ketones Negative, Urine Occult Blood Negative, Urine Nitrite Negative, Urine Bilirubin Negative, Urine Urobilinogen Normal, Ur Leukocyte Esterase Negative, Urine RBC 0 SEEN, Urine WBC 0 SEEN, Ur Squamous Epith Cells 0-5 SEEN, Urine Bacteria 0 SEEN, Urine Mucus 0 SEEN Clinical Impression(s) from Imaging Studies Brain CT 01/14/24 08:15 IMPRESSION: Chronic involutional changes of the brain. Electronically Signed: Clifton Okeefe MD at 10:15 EDT , Chest X-Ray 01/14/24 09:35 IMPRESSION: Bibasilar increased markings worse at the left lung base suggestive of either linear atelectasis and/or early infiltrates. Cardiomegaly. Electronically Signed: Clifton Okeefe MD at 10:02 EDT , Charges/Coding Visit Charges Inpatient E&M: 67413 Init Hosp L3 Procedures Hospitalists Procedures: 07932 Advncd Care Plan 30 Min
--- NOTE | 2024-01-14 13:34 | NURSING ---
This RN ambulated pt with laser set up operator. Pt's highest HR was 103. Pt has no complaints while ambulating.
[2024-01-14 14:21] LABS: Magnesium 2.4 mg/dL (1.6-2.6)
[2024-01-14 14:38] LABS: Phosphorus 3.1 mg/dL (2.5-4.9)
[2024-01-14] MEDS: Enoxaparin 40 MG/0.4 ML Syringe SC (15:30)
[2024-01-14] MEDS: Metoprolol Tartrate 100 MG Tablet PO ×2 (15:31→21:03)
[2024-01-14] MEDS: Ceftriaxone 2 GM in 0.9% Normal Saline (50mL MB+) 50 ML IV (15:41)
[2024-01-14 16:19] LABS: Troponin-I HS 66 pg/mL (3.0-78.0)
[2024-01-14] MEDS: Azithromycin 500 MG in Dextrose 5%-Water (250mL Bag) 250 ML 250 MG IV (16:19)
[2024-01-14] MEDS: Acetaminophen 500 MG Tablet 1000 MG PO (16:23)
[2024-01-14] MEDS: Gabapentin 100 MG Capsule PO ×2 (16:23→21:03)
[2024-01-14] MEDS: Furosemide 40 MG/4 ML Vial IV (17:55)
[2024-01-14] MEDS: guaiFENesin 1,200 MG Tablet 1200 MG PO (21:04)
[2024-01-14] MEDS: Lisinopril 10 MG Tablet PO (21:04)
[2024-01-15] VITALS (8 sets, daily range): BP systolic 137–192; BP diastolic 83–122; PULSE 96–128; RESP 16–18; TEMP 36–36.7; O2SAT 94–97
[2024-01-15] MEDS: Acetaminophen 500 MG Tablet 1000 MG PO ×3 (00:22→17:13)
[2024-01-15 07:11] LABS: Absolute Neutrophil Count 16.4 X10^3/uL (2.0-7.7); Basophil# 0.02 X10^3/uL; Basophil% 0.1 % (0-1); Eosinophil# 0.01 X10^3/uL; Eosinophils% 0.1 % (0-5); Hematocrit 28.7 % (40-54); Hemoglobin 9.2 g/dL (13.0-16.5); Lymphocyte % 4.2 % (19-41); Mean Corp Hgb Conc 32.1 g/dL (32-36); Mean Corpuscular Hgb 29.3 pg (27.0-32.0); Mean Corpuscular Volume 91.4 fL (80-94); Mean Platelet Vol. 10.4 fl (6.2-12.0); Monocyte# 1.08 X10^3/uL; Monocyte% 5.6 % (0-10); NRBC Flagged by Analyzer 0 % (0-5); Neutrophil # 16.42 X10^3/uL (2.7-7.7); Neutrophil % 85.8 % (47-70); Platelet Count 274 K/mm3 (150-450); RBC Distribution Width CV 15.9 % (11.6-14.6); RBC Distribution Width SD 52.9 fl (35.1-43.9); Red Blood Count 3.14 M/mm3 (4.6-6.2); White Blood Count 19.1 K/mm3 (4.4-11.0)
[2024-01-15 07:56] LABS: Anion Gap 8 (5-15); BUN 13 mg/dL (7-18); BUN/Creat Ratio 18.9 RATIO (10-20); Calcium,Total 9.3 mg/dL (8.5-10.1); Chloride 99 mmol/L (98-107); Cholesterol 135 mg/dL (200); Creatinine, Serum 0.69 mg/dL (0.70-1.30); EST Glomerular Filtration Rate 120 mL/min (>60); Est Glom Filt Rate - Afr Amer 145 mL/min (>60); Estimated Creatinine Clearance 69.89 ml/min; Glucose 96 mg/dL (74-106); High Density Lipoprotein 34 mg/dL; Potassium 3.1 mmol/L (3.5-5.1); Sodium Level 137 mmol/L (136-145); Thyroid Stim Hormone (TSH) 0.411 uIU/mL (0.358-3.740); Triglycerides 126 mg/dL; Very Low Density Lipoprotein 25 mg/dL (5-40)
[2024-01-15] MEDS: Potassium Chloride Oral Tablet 20 MEQ 40 MEQ PO (08:30)
[2024-01-15] MEDS: Lisinopril 10 MG Tablet PO ×2 (08:31→21:33)
[2024-01-15] MEDS: Metoprolol Tartrate 100 MG Tablet PO ×2 (08:31→21:33)
[2024-01-15] MEDS: guaiFENesin 1,200 MG Tablet 1200 MG PO ×2 (08:31→21:57)
[2024-01-15] MEDS: Empagliflozin 10 MG Tablet PO (08:31)
[2024-01-15] MEDS: Spironolactone 50 MG Tablet PO (08:31)
[2024-01-15] MEDS: Furosemide 40 MG/4 ML Vial IV ×2 (08:32→17:12)
[2024-01-15] MEDS: Azithromycin 500 MG in Dextrose 5%-Water (250mL Bag) 250 ML 250 MG IV (08:57)
[2024-01-15] MEDS: Ceftriaxone 2 GM in 0.9% Normal Saline (50mL MB+) 50 ML IV (10:13)
[2024-01-15] MEDS: Gabapentin 100 MG Capsule PO ×2 (13:02→21:33)
--- NOTE | 2024-01-15 16:06 | CASEMGMT ---
IJEOMA RODRIGUEZ Chart review: Patient was admitted 12/13- for urosepsis and CHF. See Assessment from 12/15/23. Patient was discharged to home with support from caregivers and follow-up plans in place. Patient returned to [facility] ED after syncopal event. IJEOMA RODRIGUEZ into discuss readmission and discharge planning. Patient states he went to PCP appt the other day and was started on new medication and believe it was the cause of his syncopal event. Patient states he was taking medications as prescribed. Patient denies needs at discharge as he has all DME needs met and has caregivers to assist with needs. Patient had no further questions or concerns. CM will continue to follow this patient and plan for a safe discharge.
[2024-01-15] MEDS: 0.9% Saline Lock 10 ML Syringe IV (17:12)
--- NOTE | 2024-01-15 17:23 | PCM.PN.HOSP ---
Reason for Visit Reason for Visit: Diagnoses Chronic systolic (congestive) heart failure (01/14/24) Heart failure, unspecified (01/14/24) Syncope and collapse (01/14/24) Subjective Subjective Patient sitting up on side of bed, reports chronic cough, reports legs may be slightly less swollen than before, would not necessarily answer any other direct questions, perseverated on waiting for his midline so that he can get his Lasix this evening Objective Data Objective Data Vital Signs: Vital Signs Temp Pulse Resp BP Pulse Ox O2 Del Method 98.0 F 104 H 18 140/83 H 94 Room Air 01/15/24 15:25 01/15/24 15:25 01/15/24 15:25 01/15/24 15:25 01/15/24 15:25 01/15/24 15:25 Oxygen Delivery Method Room Air Weight: 69.4 kg Body Mass Index (BMI) 26.2 Intake & Output: Intake and Output for Last 24 Hours 01/13/24 01/14/24 01/15/24 23:59 23:59 23:59 Intake Total 405 / 405 725 / 725 Output Total 1300 / 1300 950 / 950 Balance -895 / -895 -225 / -225 Lab / Micro Data 01/15/24 06:14 01/15/24 06:14 Labs: Laboratory Results - last 24 hr 01/15/24 06:14: WBC 19.1 H, RBC 3.14 L, Hgb 9.2 L, Hct 28.7 L, MCV 91.4, MCH 29.3, MCHC 32.1, RDW Std Deviation 52.9 H, RDW Coeff of Rosario 15.9 H, Plt Count 274, MPV 10.4, Immature Gran % (Auto) 4.200 H, Neut % (Auto) 85.8 H, Lymph % (Auto) 4.2 L, [place] % (Auto) 5.6, Eos % (Auto) 0.1, Baso % (Auto) 0.1, Absolute Neuts (auto) 16.4 H, Absolute Lymphs (auto) 0.80 L, Nucleated RBC % 0, Sodium 137, Potassium 3.1 L, Chloride 99, Carbon Dioxide 30.0, Anion Gap 8, BUN 13, Creatinine 0.69 L, Estim Creat Clear Calc 69.89, Est GFR (MDRD) Af Amer 145, Est GFR (MDRD) Non-Af 120, BUN/Creatinine Ratio 18.9, Glucose 96, Calcium 9.3, Triglycerides 126, Cholesterol 135, LDL Cholesterol 76, VLDL Cholesterol 25, HDL Cholesterol 34 L, TSH 0.411 Micro: Microbiology 01/14/24 19:33 Mucosa - Nasopharyngeal Respiratory Panel (PCR) - Final 01/14/24 18:00 Urine, Clean Catch Legionella Antigen - Final 01/14/24 18:00 Urine, Clean Catch Streptococcus pneumoniae Antigen (M - Final Physical Exam Narrative General: Alert, patient difficult to question and reluctant to engage HEENT: Atraumatic Eyes: Initially refused to make eye contact, did briefly look up and then went back to covering his eyes Neck: Supple Respiratory: Has cough, normal respiratory effort Cardiovascular: Intermittently will have some low-grade tachycardia GI: Soft, nontender, nondistended Extremities: 2+ lower extremity edema Musculoskeletal: Moving all extremities Neuro: No overt focal neurological deficits Skin: No rashes appreciated but does have some lower extremity lacy appearance Psych: Difficult to engage Assessment & Plan Assessment/Plan (1) Syncope: (2) Acute exacerbation of chronic heart failure: (3) Chronic systolic congestive heart failure: PLAN: Plan # Acute exacerbation of chronic heart failure with reduced ejection fraction -EF November 2023 shows an EF of 20 to 25% which was unchanged from previous echo -Patient had elevated BNP of greater than 1300 on presentation and appeared fluid overloaded -Started on IV Lasix twice daily -Attempt Daily weights and I's and O's -Elevate extremities and christianne wraps if patient tolerates -Continue Jardiance, beta-russel, lisinopril, spironolactone # Syncopal episode -Patient did not tolerate orthostatic vital signs and reported he had some pain from a position change with his chronic back pain and refused to stand -Blood pressure however went up and not down from lying to sitting -Patient being monitored on telemetry, intermittently some low-grade tachycardia but no significant arrhythmias noted -Suspect this may have been associated with baclofen which was recently started, he was having weakness for 2 days after that and then today took a tablet of baclofen and felt very weak and some back on the couch and passed out -DC baclofen, treat underlying CHF and possible pneumonia # Abnormal chest x-ray on admission -Chest x-ray shows left lung base not clearly visualized with possible early infiltrate -Patient has leukocytosis as well and has significant cough though patient has difficulty discussing timelines of symptoms -Started empirically on Rocephin and azithromycin here -Sputum culture ordered -Strep pneumo and Legionella antigens negative -Mucinex #Chronic lower back pain due to subacute/L3 compression fracture -Status post kyphoplasty by pain management -Hold baclofen and cyclobenzaprine -Zanaflex and Tylenol as needed have been added, continue to reevaluate regimen #leukocytosis -Patient has had some degree of leukocytosis going back to 2022 -May need hematology/oncology evaluation on an outpatient basis -May have a pneumonia as well but that would not account for the longevity of his elevated white blood cell count #HTN -Lisinopril, metoprolol, spironolactone, Lasix -Will add as needed medication as well as patient intermittently has elevated blood pressures, may need further adjustment of home medications pending blood pressures moving forward #Hx alcohol use d/o -Patient in the ED reported not presently drinking however unclear if patient has actually been drinking or not recently, will start CIWA -Unclear what patient's baseline mental status is, due to patient's somewhat bizarre behavior will also start thiamine, B12, folate -Continue to hold baclofen #DVT ppx: Lovenox subcu Valarie Ramos MD Time spent in the patient's overall evaluation,decision-making process, review of diagnostic data, adjustment of management, discussion with other providers, nursing nursing and ancillary staff involved in patient's care documentation, 40 minutes Charges/Coding Visit Charges Inpatient E&M: 39702 Subs Hosp L2
[2024-01-15 19:36] LABS: Amphetamine Urine VISTA NEGATIVE (<1000 ng/mL); Barbiturate Urine VISTA NEGATIVE (< 200 ng/mL); Benzodiazepine Urine VISTA NEGATIVE (< 200 ng/mL); Cocaine Urine VISTA NEGATIVE (< 300 ng/mL); Ecstacy Urine VISTA NEGATIVE (< 500 ng/mL); Methadone Urine VISTA NEGATIVE (< 300 ng/mL); PCP Urine VISTA NEGATIVE (< 25 ng/mL); THC Urine VISTA NEGATIVE (< 50 ng/mL); Vista UDS pH Range 7
[2024-01-16] MEDS: Gabapentin 100 MG Capsule PO ×3 (01:22→22:38)
[2024-01-16] MEDS: Acetaminophen 500 MG Tablet 1000 MG PO ×3 (01:22→17:18)
[2024-01-16 03:15] VITALS: BP 130/96; PULSE 105; RESP 18; TEMP 36.7; O2SAT 95
[2024-01-16 06:00] VITALS: BMI 26.1
[2024-01-16 07:24] LABS: Absolute Lymphocyte Count 1.01 X10^3/uL (0.83-4.51); Absolute Neutrophil Count 16.3 X10^3/uL (2.0-7.7); Basophil% 0.5 % (0-1); Eosinophil# 0.02 X10^3/uL; Eosinophils% 0.1 % (0-5); Hematocrit 30.7 % (40-54); Hemoglobin 9.7 g/dL (13.0-16.5); Lymphocyte # 1.01 X10^3/ul (0.83-4.51); Lymphocyte % 5.2 % (19-41); Mean Corp Hgb Conc 31.6 g/dL (32-36); Mean Corpuscular Volume 91.6 fL (80-94); Monocyte# 1.15 X10^3/uL; Monocyte% 5.9 % (0-10); NRBC Flagged by Analyzer 0 % (0-5); Neutrophil # 16.28 X10^3/uL (2.7-7.7); Neutrophil % 83.6 % (47-70); Platelet Count 292 K/mm3 (150-450); RBC Distribution Width CV 15.9 % (11.6-14.6); RBC Distribution Width SD 53.1 fl (35.1-43.9); Red Blood Count 3.35 M/mm3 (4.6-6.2); White Blood Count 19.5 K/mm3 (4.4-11.0)
--- NOTE | 2024-01-16 07:48 | PN.HOSP_ITS ---
Reason for Visit Reason for Visit: Diagnoses Chronic systolic (congestive) heart failure (01/14/24) Heart failure, unspecified (01/14/24) Syncope and collapse (01/14/24) Subjective Subjective Patient is a 73-year-old gentleman who presented to the emergency department after an apparent syncopal episode and progressive generalized weakness Objective Data Objective Data Vital Signs: Vital Signs Temp Pulse Resp BP Pulse Ox O2 Del Method 98.0 F 105 H 18 130/96 H 95 Room Air 01/16/24 03:15 01/16/24 03:15 01/16/24 03:15 01/16/24 03:15 01/16/24 03:15 01/16/24 03:15 Oxygen Delivery Method Room Air Weight: 69 kg Body Mass Index (BMI) 26.1 Intake & Output: Intake and Output for Last 24 Hours 01/14/24 01/15/24 01/16/24 23:59 23:59 23:59 Intake Total 405 / 405 1085 / 1085 Output Total 1300 / 1300 1900 / 1900 250 / 250 Balance -895 / -895 -815 / -815 -250 / -250 Lab / Micro Data 01/16/24 06:32 01/16/24 06:32 Labs: Laboratory Results - last 24 hr 01/15/24 06:14: Sodium 137, Potassium 3.1 L, Chloride 99, Carbon Dioxide 30.0, Anion Gap 8, BUN 13, Creatinine 0.69 L, Estim Creat Clear Calc 69.89, Est GFR (MDRD) Af Amer 145, Est GFR (MDRD) Non-Af 120, BUN/Creatinine Ratio 18.9, Glucose 96, Calcium 9.3, Triglycerides 126, Cholesterol 135, LDL Cholesterol 76, VLDL Cholesterol 25, HDL Cholesterol 34 L, TSH 0.411 01/15/24 17:58: Urine Opiates Screen NEGATIVE, Urine Methadone Screen NEGATIVE, Ur Barbiturates Screen NEGATIVE, Ur Phencyclidine Scrn NEGATIVE, Ur Amphetamines Screen NEGATIVE, MDMA (Ecstasy) Screen NEGATIVE, U Benzodiazepines Scrn NEGATIVE, Urine Cocaine Screen NEGATIVE, U Cannabinoids Screen NEGATIVE, Ur Drug Screen Comment 01/16/24 06:32: WBC 19.5 H, RBC 3.35 L, Hgb 9.7 L, Hct 30.7 L, MCV 91.6, MCH 29.0, MCHC 31.6 L, RDW Std Deviation 53.1 H, RDW Coeff of Rosario 15.9 H, Plt Count 292, MPV 11.0, Immature Gran % (Auto) 4.700 H, Neut % (Auto) 83.6 H, Lymph % (Auto) 5.2 L, [place] % (Auto) 5.9, Eos % (Auto) 0.1, Baso % (Auto) 0.5, Absolute Neuts (auto) 16.3 H, Absolute Lymphs (auto) 1.01, Nucleated RBC % 0 Micro: Microbiology 01/14/24 19:33 Mucosa - Nasopharyngeal Respiratory Panel (PCR) - Final 01/14/24 18:00 Urine, Clean Catch Legionella Antigen - Final 01/14/24 18:00 Urine, Clean Catch Streptococcus pneumoniae Antigen (M - Final Physical Exam Narrative GENERAL: cooperative HEENT: Atraumatic; normocephalic EYES; Anicteric, Normal Conjunctiva NECK; supple, normal thyroid, RESPIRATORY: Diminished to auscultation CARDIOVASCULAR: Regular S1 S2, GI: soft, normoactive bowel sounds, : No Renal angle tenderness; EXTREMITIES: edema, no clubbing, MUSCULOSKELETAL: no muscle wasting NEURO: Awake; no lateralizing signs. SKIN: No Rash PSYCH; Flat affect Assessment & Plan Assessment/Plan (1) Syncope: (2) Acute exacerbation of chronic heart failure: (3) Chronic systolic congestive heart failure: PLAN: Plan Patient is a 73-year-old gentleman who presented to the emergency department after an apparent syncopal episode and progressive generalized weakness 1. Syncopal episode ? Thought to be secondary to orthostasis admitted to a monitored bed for continuous telemetry monitoring 2. Acute on chronic congestive heart failure with reduced ejection fraction ? Echo obtained in November 2023 demonstrated EF of 20 to 25%. Patient has been managed with strict input and output, daily weight, fluid restriction, low- sodium diet as well as diuretic therapy with both Lasix and Aldactone 3. Hypokalemia ? Corrected per protocol 4. Leukocytosis ? Chronic patient instructed to follow-up with primary care physician to be referred to oncology as outpatient 5 Abnormal chest x-ray on admission suspicious for pneumonia -Chest x-ray on admission demonstrate bibasilar increased markings worse at the left lung base suggestive of either linear atelectasis and/or early infiltrates. Patient placed on Rocephin and Zithromax and placed on oxygen titrated to keep Pulse Ox greater than 90 6. Chronic lower back pain due to subacute/L3 compression fracture -Status post kyphoplasty by pain management patient was on baclofen as well as cyclobenzaprine held started on Tylenol and Zanaflex instead 7. Hypertension ? Blood pressure controlled, home medications continued with dose adjustment as needed 8. History of chronic alcohol use ? Cessation encouraged 9. History of gastric ulcers ? Based on EGD performed by Dr. Coker on 10/19/2023 was found to have oozing gastric ulcers recommendation was made for patient to be treated with Protonix as well as sacral fate 10. DVT prophylaxis ? On enoxaparin Time spent in the patient's overall evaluation,decision-making process, review of diagnostic data, adjustment of management, discussion with other providers, nursing nursing and ancillary staff involved in patient's care documentation, 38 minutes Charges/Coding Visit Charges Inpatient E&M: 18959 Subs Hosp L2
[2024-01-16 08:28] LABS: ALB/GLOB Ratio 0.5 RATIO (0.9-2.4); AST(SGOT) 24 U/L (15-37); Alanine Aminotransfer ALT/SGPT 26 U/L (16-61); Albumin, Serum 2.4 g/dL (3.2-5.0); Alkaline Phosphatase 76 U/L (45-117); Anion Gap 6 (5-15); BUN 13 mg/dL (7-18); BUN/Creat Ratio 17.6 RATIO (10-20); Calcium,Total 9.2 mg/dL (8.5-10.1); Chloride 98 mmol/L (98-107); Creatinine, Serum 0.74 mg/dL (0.70-1.30); EST Glomerular Filtration Rate 111 mL/min (>60); Est Glom Filt Rate - Afr Amer 134 mL/min (>60); Estimated Creatinine Clearance 69.89 ml/min; Globulin 4.6 g/dL (2.2-4.2); Glucose 100 mg/dL (74-106); Potassium 3.4 mmol/L (3.5-5.1); Sodium Level 133 mmol/L (136-145)
[2024-01-16 08:42] VITALS: BP 139/86; PULSE 100; RESP 16; TEMP 37.2; O2SAT 97
[2024-01-16] MEDS: Folic Acid 1 MG Tablet PO (08:48)
[2024-01-16] MEDS: Spironolactone 50 MG Tablet PO (08:48)
[2024-01-16] MEDS: Cyanocobalamin 500 MCG Tablet 1000 MCG PO (08:48)
[2024-01-16] MEDS: guaiFENesin 1,200 MG Tablet 1200 MG PO ×2 (08:48→21:29)
[2024-01-16] MEDS: Thiamine Hydrochloride 100 MG Tablet PO (08:48)
[2024-01-16] MEDS: Furosemide 40 MG/4 ML Vial IV ×2 (10:25→17:19)
[2024-01-16] MEDS: Lisinopril 10 MG Tablet PO ×2 (10:25→21:29)
[2024-01-16] MEDS: Ceftriaxone 2 GM in 0.9% Normal Saline (50mL MB+) 50 ML IV (10:25)
[2024-01-16 10:26] VITALS: BP 139/86; PULSE 100
[2024-01-16] MEDS: Metoprolol Tartrate 100 MG Tablet PO ×2 (10:26→21:29)
[2024-01-16] MEDS: Empagliflozin 10 MG Tablet PO (10:26)
[2024-01-16] MEDS: 0.9% Saline Lock 10 ML Syringe IV ×2 (10:27→17:18)
[2024-01-16] MEDS: tiZANidine HCl 2 MG Tablet PO ×2 (10:27→18:38)
[2024-01-16] MEDS: Azithromycin 500 MG in Dextrose 5%-Water (250mL Bag) 250 ML 250 MG IV (11:25)
[2024-01-16] MEDS: Potassium Chloride Oral Tablet 20 MEQ 40 MEQ PO (11:25)
[2024-01-16] MEDS: Pantoprazole Sodium 40 MG Tablet PO ×2 (11:27→21:29)
[2024-01-16 14:25] VITALS: BP 138/79; PULSE 97; RESP 18; TEMP 36.8; O2SAT 100
[2024-01-16] MEDS: Senna/Docusate Sodium 1 Tablet 2 TABLET PO (14:25)
[2024-01-16] MEDS: Sucralfate 1 GM Tablet PO ×2 (17:18→21:29)
[2024-01-16 21:23] VITALS: BP 130/69; PULSE 102; RESP 18; TEMP 36.7; O2SAT 97
[2024-01-16 21:29] VITALS: BP 130/69; PULSE 102
[2024-01-17] MEDS: Acetaminophen 500 MG Tablet 1000 MG PO ×2 (02:26→11:21)
[2024-01-17 03:25] VITALS: BP 135/70; PULSE 101; RESP 18; TEMP 36.7; O2SAT 97
[2024-01-17 05:25] VITALS: BMI 26.4
[2024-01-17] MEDS: tiZANidine HCl 2 MG Tablet PO (06:20)
[2024-01-17] MEDS: Sucralfate 1 GM Tablet PO ×2 (06:20→11:21)
[2024-01-17 07:03] LABS: Absolute Neutrophil Count 13.4 X10^3/uL (2.0-7.7); Basophil# 0.07 X10^3/uL; Basophil% 0.4 % (0-1); Eosinophil# 0.02 X10^3/uL; Eosinophils% 0.1 % (0-5); Hematocrit 29.2 % (40-54); Hemoglobin 9.1 g/dL (13.0-16.5); Lymphocyte % 7.3 % (19-41); Mean Corp Hgb Conc 31.2 g/dL (32-36); Mean Corpuscular Hgb 28.7 pg (27.0-32.0); Mean Corpuscular Volume 92.1 fL (80-94); Mean Platelet Vol. 10.6 fl (6.2-12.0); Monocyte# 0.98 X10^3/uL; NRBC Flagged by Analyzer 0 % (0-5); Neutrophil # 13.39 X10^3/uL (2.7-7.7); Neutrophil % 81.7 % (47-70); Platelet Count 301 K/mm3 (150-450); RBC Distribution Width CV 15.9 % (11.6-14.6); RBC Distribution Width SD 54.2 fl (35.1-43.9); Red Blood Count 3.17 M/mm3 (4.6-6.2); White Blood Count 16.4 K/mm3 (4.4-11.0)
[2024-01-17 07:33] LABS: Anion Gap 7 (5-15); BUN 13 mg/dL (7-18); BUN/Creat Ratio 17.7 RATIO (10-20); Calcium,Total 8.6 mg/dL (8.5-10.1); Chloride 96 mmol/L (98-107); Creatinine, Serum 0.73 mg/dL (0.70-1.30); EST Glomerular Filtration Rate 112 mL/min (>60); Est Glom Filt Rate - Afr Amer 135 mL/min (>60); Estimated Creatinine Clearance 69.89 ml/min; Glucose 102 mg/dL (74-106); Magnesium 2.5 mg/dL (1.6-2.6); Phosphorus 3.3 mg/dL (2.5-4.9); Potassium 3.9 mmol/L (3.5-5.1); Sodium Level 132 mmol/L (136-145)
--- NOTE | 2024-01-17 07:39 | PCM.PN.HOSP ---
Reason for Visit Reason for Visit: Diagnoses Chronic systolic (congestive) heart failure (01/14/24) Heart failure, unspecified (01/14/24) Syncope and collapse (01/14/24) Subjective Subjective Patient seen had a relatively uneventful night patient be assessed for discharge decided Objective Data Objective Data Vital Signs: Vital Signs Temp Pulse Resp BP Pulse Ox O2 Del Method 98.1 F 101 H 18 135/70 H 97 Room Air 01/17/24 03:25 01/17/24 03:25 01/17/24 03:25 01/17/24 03:25 01/17/24 03:25 01/17/24 03:25 Oxygen Delivery Method Room Air Weight: 70 kg Body Mass Index (BMI) 26.4 Intake & Output: Intake and Output for Last 24 Hours 01/15/24 01/16/24 01/17/24 23:59 23:59 23:59 Intake Total 1085 / 1085 1430 / 1430 Output Total 1900 / 1900 1050 / 1450 700 / 700 Balance -815 / -815 380 / -20 -700 / -700 Lab / Micro Data 01/17/24 06:33 01/17/24 06:33 Labs: Laboratory Results - last 24 hr 01/16/24 06:32: WBC 19.5 H, RBC 3.35 L, Hgb 9.7 L, Hct 30.7 L, MCV 91.6, MCH 29.0, MCHC 31.6 L, RDW Std Deviation 53.1 H, RDW Coeff of Rosario 15.9 H, Plt Count 292, MPV 11.0, Immature Gran % (Auto) 4.700 H, Neut % (Auto) 83.6 H, Lymph % (Auto) 5.2 L, Collier % (Auto) 5.9, Eos % (Auto) 0.1, Baso % (Auto) 0.5, Absolute Neuts (auto) 16.3 H, Absolute Lymphs (auto) 1.01, Nucleated RBC % 0, Sodium 133 L, Potassium 3.4 L, Chloride 98, Carbon Dioxide 29.0, Anion Gap 6, BUN 13, Creatinine 0.74, Estim Creat Clear Calc 69.89, Est GFR (MDRD) Af Amer 134, Est GFR (MDRD) Non-Af 111, BUN/Creatinine Ratio 17.6, Glucose 100, Calcium 9.2, Total Bilirubin 0.40, AST 24, ALT 26, Alkaline Phosphatase 76, Total Protein 7.0, Albumin 2.4 L, Globulin 4.6 H, Albumin/Globulin Ratio 0.5 L 01/17/24 06:33: WBC 16.4 H, RBC 3.17 L, Hgb 9.1 L, Hct 29.2 L, MCV 92.1, MCH 28.7, MCHC 31.2 L, RDW Std Deviation 54.2 H, RDW Coeff of Rosario 15.9 H, Plt Count 301, MPV 10.6, Immature Gran % (Auto) 4.500 H, Neut % (Auto) 81.7 H, Lymph % (Auto) 7.3 L, Collier % (Auto) 6.0, Eos % (Auto) 0.1, Baso % (Auto) 0.4, Absolute Neuts (auto) 13.4 H, Absolute Lymphs (auto) 1.20, Nucleated RBC % 0, Sodium 132 L, Potassium 3.9, Chloride 96 L, Carbon Dioxide 29.0, Anion Gap 7, BUN 13, Creatinine 0.73, Estim Creat Clear Calc 69.89, Est GFR (MDRD) Af Amer 135, Est GFR (MDRD) Non-Af 112, BUN/Creatinine Ratio 17.7, Glucose 102, Calcium 8.6, Phosphorus 3.3, Magnesium 2.5 Micro: Microbiology 01/14/24 19:33 Mucosa - Nasopharyngeal Respiratory Panel (PCR) - Final 01/14/24 18:00 Urine, Clean Catch Legionella Antigen - Final 01/14/24 18:00 Urine, Clean Catch Streptococcus pneumoniae Antigen (M - Final Physical Exam Narrative GENERAL: cooperative HEENT: Atraumatic; normocephalic EYES; Anicteric, Normal Conjunctiva NECK; supple, normal thyroid, RESPIRATORY: Diminished to auscultation CARDIOVASCULAR: Regular S1 S2, GI: soft, normoactive bowel sounds, : No Renal angle tenderness; EXTREMITIES: edema, no clubbing, MUSCULOSKELETAL: no muscle wasting NEURO: Awake; no lateralizing signs. SKIN: No Rash PSYCH; Flat affect Assessment & Plan Assessment/Plan (1) Syncope: (2) Acute exacerbation of chronic heart failure: (3) Chronic systolic congestive heart failure: PLAN: Plan Patient is a 73-year-old gentleman who presented to the emergency department after an apparent syncopal episode and progressive generalized weakness 1. Syncopal episode ? Thought to be secondary to orthostasis admitted to a monitored bed for continuous telemetry monitoring 2. Acute on chronic congestive heart failure with reduced ejection fraction ? Echo obtained in November 2023 demonstrated EF of 20 to 25%. Patient has been managed with strict input and output, daily weight, fluid restriction, low-sodium diet as well as diuretic therapy with both Lasix and Aldactone 3. Hypokalemia ? Corrected per protocol 4. Leukocytosis ? Chronic patient instructed to follow-up with primary care physician to be referred to oncology as outpatient 5 Abnormal chest x-ray on admission suspicious for pneumonia -Chest x-ray on admission demonstrate bibasilar increased markings worse at the left lung base suggestive of either linear atelectasis and/or early infiltrates. Patient placed on Rocephin and Zithromax and placed on oxygen titrated to keep Pulse Ox greater than 90 6. Chronic lower back pain due to subacute/L3 compression fracture -Status post kyphoplasty by pain management patient was on baclofen as well as cyclobenzaprine held started on Tylenol and Zanaflex instead 7. Hypertension ? Blood pressure controlled, home medications continued with dose adjustment as needed 8. History of chronic alcohol use ? Cessation encouraged 9. History of gastric ulcers ? Based on EGD performed by Dr. Coker on 10/19/2023 was found to have oozing gastric ulcers recommendation was made for patient to be treated with Protonix as well as sacral fate 10. DVT prophylaxis ? On enoxaparin Time spent in the patient's overall evaluation,decision-making process, review of diagnostic data, adjustment of management, discussion with other providers, nursing nursing and ancillary staff involved in patient's care documentation, 38 minutes
[2024-01-17 09:33] VITALS: BP 136/74; PULSE 100; RESP 16; TEMP 36.6; O2SAT 94
[2024-01-17] MEDS: Gabapentin 100 MG Capsule PO ×2 (09:37→14:20)
[2024-01-17] MEDS: Empagliflozin 10 MG Tablet PO (09:38)
[2024-01-17] MEDS: Thiamine Hydrochloride 100 MG Tablet PO (09:38)
[2024-01-17] MEDS: Folic Acid 1 MG Tablet PO (09:38)
[2024-01-17] MEDS: Cyanocobalamin 500 MCG Tablet 1000 MCG PO (09:38)
[2024-01-17 09:39] VITALS: BP 136/74; PULSE 100
[2024-01-17] MEDS: Metoprolol Tartrate 100 MG Tablet PO (09:39)
[2024-01-17] MEDS: Furosemide 40 MG/4 ML Vial IV (09:39)
[2024-01-17] MEDS: guaiFENesin 1,200 MG Tablet 1200 MG PO (09:40)
[2024-01-17] MEDS: Spironolactone 50 MG Tablet PO (09:40)
[2024-01-17] MEDS: Pantoprazole Sodium 40 MG Tablet PO (09:40)
[2024-01-17] MEDS: Lisinopril 10 MG Tablet PO (09:41)
[2024-01-17] MEDS: Azithromycin 500 MG in Dextrose 5%-Water (250mL Bag) 250 ML 250 MG IV (09:41)
[2024-01-17] MEDS: 0.9% Saline Lock 10 ML Syringe IV (09:42)
--- NOTE | 2024-01-17 09:42 | PCM.DC.SUM ---
Providers Date of Admission: 01/14/24 Date of Discharge: 01/17/24 Primary Care Physician: Violet Primary Care Phys Reason For Visit: SYNCOPE Diagnosis Discharge Diagnosis (1) Syncope: Status: Acute Code(s): R55 - Syncope and collapse (2) Acute exacerbation of chronic heart failure: Status: Acute Code(s): I50.9 - Heart failure, unspecified (3) Chronic systolic congestive heart failure: Status: Chronic Code(s): I50.22 - Chronic systolic (congestive) heart failure Plan Patient is a 73-year-old gentleman who presented to the emergency department after an apparent syncopal episode and progressive generalized weakness 1. Syncopal episode ? Thought to be secondary to orthostasis admitted to a monitored bed for continuous telemetry monitoring 2. Acute on chronic congestive heart failure with reduced ejection fraction ? Echo obtained in November 2023 demonstrated EF of 20 to 25%. Patient has been managed with strict input and output, daily weight, fluid restriction, low-sodium diet as well as diuretic therapy with both Lasix and Aldactone 3. Hypokalemia ? Corrected per protocol 4. Leukocytosis ? Chronic patient instructed to follow-up with primary care physician to be referred to oncology as outpatient 5 Abnormal chest x-ray on admission suspicious for pneumonia -Chest x-ray on admission demonstrate bibasilar increased markings worse at the left lung base suggestive of either linear atelectasis and/or early infiltrates. Patient placed on Rocephin and Zithromax and placed on oxygen titrated to keep Pulse Ox greater than 90 ? Patient was discharged on cefdinir for 5 additional 6. Chronic lower back pain due to subacute/L3 compression fracture -Status post kyphoplasty by pain management patient was on baclofen as well as cyclobenzaprine held started on Tylenol and Zanaflex instead 7. Hypertension ? Blood pressure controlled, home medications continued with dose adjustment as needed 8. History of chronic alcohol use ? Cessation encouraged 9. History of gastric ulcers ? Based on EGD performed by Dr. Coker on 10/19/2023 was found to have oozing gastric ulcers recommendation was made for patient to be treated with Protonix as well as sacral fate 10. DVT prophylaxis ? On enoxaparin Time spent in the patient's overall evaluation,decision-making process, review of diagnostic data, adjustment of management, discussion with other providers, nursing nursing and ancillary staff involved in patient's care documentation, 38 minutes Medications at Discharge Home Medications metoprolol tartrate 100 mg tablet 100 mg PO BID HTN #180 tabs 11/09/23 torsemide 20 mg tablet 20 mg PO BID Edema #180 tabs 11/09/23 acetaminophen 500 mg capsule 500 mg PO Q6H PRN pain 12/14/23 gabapentin 100 mg capsule 100 mg PO BID PRN Chronic Back Pain 12/14/23 sucralfate 1 gram tablet 1 g PO .AC GERD 12/14/23 spironolactone 25 mg tablet 25 mg PO DAILY #30 tabs 12/21/23 empagliflozin 10 mg tablet (Jardiance) 10 mg PO DAILY #30 tabs 01/03/24 lisinopril 10 mg tablet 10 mg PO BID 01/14/24 cefdinir 300 mg capsule 300 mg PO BID #10 caps 01/17/24 cyanocobalamin (vitamin B-12) 500 mcg tablet 1,000 mcg (2 x 500 mcg) PO BREAKFAST 90 days #180 tabs 01/17/24 guaifenesin 1,200 mg tablet, extended release 12 hr (Mucus Relief ER) 1,200 mg PO BID 20 days #40 tabs 01/17/24 pantoprazole 40 mg tablet,delayed release 40 mg PO BID 60 days #120 tabs 01/17/24 Physical Exam Narrative GENERAL: cooperative HEENT: Atraumatic; normocephalic EYES; Anicteric, Normal Conjunctiva NECK; supple, normal thyroid, RESPIRATORY: Diminished to auscultation CARDIOVASCULAR: Regular S1 S2, GI: soft, normoactive bowel sounds, : No Renal angle tenderness; EXTREMITIES: edema, no clubbing, MUSCULOSKELETAL: no muscle wasting NEURO: Awake; no lateralizing signs. SKIN: No Rash PSYCH; Flat affect Weight / BMI Weight Weight: 70 kg Body Mass Index (BMI) 26.4 ABG / Lab / Microbiology Data 01/17/24 06:33 01/17/24 06:33 Laboratory: Laboratory Results - last 24 hr 01/17/24 06:33: WBC 16.4 H, RBC 3.17 L, Hgb 9.1 L, Hct 29.2 L, MCV 92.1, MCH 28.7, MCHC 31.2 L, RDW Std Deviation 54.2 H, RDW Coeff of Rosario 15.9 H, Plt Count 301, MPV 10.6, Immature Gran % (Auto) 4.500 H, Neut % (Auto) 81.7 H, Lymph % (Auto) 7.3 L, [place] % (Auto) 6.0, Eos % (Auto) 0.1, Baso % (Auto) 0.4, Absolute Neuts (auto) 13.4 H, Absolute Lymphs (auto) 1.20, Nucleated RBC % 0, Sodium 132 L, Potassium 3.9, Chloride 96 L, Carbon Dioxide 29.0, Anion Gap 7, BUN 13, Creatinine 0.73, Estim Creat Clear Calc 69.89, Est GFR (MDRD) Af Amer 135, Est GFR (MDRD) Non-Af 112, BUN/Creatinine Ratio 17.7, Glucose 102, Calcium 8.6, Phosphorus 3.3, Magnesium 2.5 Microbiology: Microbiology 01/14/24 19:33 Mucosa - Nasopharyngeal Respiratory Panel (PCR) - Final 01/14/24 18:00 Urine, Clean Catch Legionella Antigen - Final 01/14/24 18:00 Urine, Clean Catch Streptococcus pneumoniae Antigen (M - Final D/C Instructions Discharge Diet: 8 Cup Fluid Restriction and 2000 mg Sodium Diet Discharge Activity: Return to Normal Activity Call your doctor if you observe: Fever of 101 or Higher, Shortness of breath, Fainting spells and Chest pain Meaningful Use Info Meaningful Use Meaningful Use Diagnoses (Choose all that apply): CHF CHF FLORIN/ARB ordered at discharge?: Yes Documented LVEF (%): 25 Ischemic Stroke Statin Dosing Therapy Reference: STATIN DOSE THERAPY REFERENCE: * Patients > 75 years receive moderate or high dose statin therapy. * Patients 75 years or YOUNGER should receive HIGH intensity statin dose unless contraindicated. You will be required to document reason for non-treatment if statin daily dose does not meet guidelines. HIGH DOSE STATIN THERAPY DAILY Atorvastatin > than or = to 40 mg Rosuvastatin > than or = to 20 mg Amlodipine + Atorvastatin > than or = to 2.5/40 mg Ezetimibe + Simvastatin 10/80 mg Simvastatin 80mg Discharge Plan Admission Admit Date/Time: 01/14/24 13:22 Attending Provider: En Weathers Primary Care Provider: Care Physician,No Primary Consulting Providers: Norbert Parker; Valarie Ramos Discharge Orders/Prescriptions Prescriptions: New cyanocobalamin (vitamin B-12) 500 mcg Tablet 1,000 mcg PO BREAKFAST 90 Days Qty: 180 0RF guaifenesin [Mucus Relief ER] 1,200 mg Tablet Extended Release 12hr 1,200 mg PO BID 20 Days Qty: 40 0RF pantoprazole 40 mg Tablet,Delayed Release (Dr/Ec) 40 mg PO BID 60 Days Qty: 120 0RF cefdinir 300 mg capsule 300 mg PO BID Qty: 10 0RF Continued metoprolol tartrate 100 mg tablet 100 mg PO BID Qty: 180 3RF torsemide 20 mg tablet 20 mg PO BID Qty: 180 3RF gabapentin 100 mg capsule 100 mg PO BID PRN sucralfate 1 gram tablet 1 g PO .AC acetaminophen 500 mg capsule 500 mg PO Q6H PRN (Reason: pain) spironolactone 25 mg Tablet 25 mg PO DAILY Qty: 30 2RF lisinopril 10 mg tablet 10 mg PO BID Jardiance 10 mg tablet 10 mg PO DAILY Qty: 30 11RF Discontinued cyclobenzaprine 5 mg tablet 5 mg PO QHS baclofen 10 mg tablet 10 mg PO TID Referrals / Follow Up: Care Physician,No Primary [Primary Care Provider] - Within 1 Week Disposition Disposition (needs filled in before D/C Order can be placed): Home, Self Care Charges/Coding Visit Charges Inpatient E&M: 24581 Disch Hosp >30min
[2024-01-17] MEDS: Ceftriaxone 2 GM in 0.9% Normal Saline (50mL MB+) 50 ML IV (11:22)
[2024-01-17 14:24] VITALS: BP 111/72; PULSE 99; RESP 17; TEMP 36.6; O2SAT 95
== END 2024-01-17 15:33 | disposition home or self-care (01) | DRG 312 ==
LOC: ED 09:37 → PCU 13:41
PROVIDERS: Internal Medicine; Admitting Provider Internal Medicine; Emergency Provider Emergency Medicine; Visit Provider Internal Medicine
DX: I95.2 Hypotension due to drugs (principal); I50.23 Acute on chronic systolic (congestive) heart failure; J18.9 Pneumonia, unspecified organism; I42.8 Other cardiomyopathies; L97.911 Non-pressure chronic ulcer of unspecified part of right lower leg limited to breakdown of skin; I11.0 Hypertensive heart disease with heart failure; E87.6 Hypokalemia; I89.0 Lymphedema, not elsewhere classified; T42.8X5A Adverse effect of antiparkinsonism drugs and other central muscle-tone depressants, initial encounter; Y92.000 Kitchen of unspecified non-institutional (private) residence as the place of occurrence of the external cause; G89.29 Other chronic pain; R41.82 Altered mental status, unspecified; M48.56XD Collapsed vertebra, not elsewhere classified, lumbar region, subsequent encounter for fracture with routine healing; Z79.84 Long term (current) use of oral hypoglycemic drugs
CPT/HCPCS: 36415; 70450; 71045; 80048; 80053; 80061; 80076; 80307; 81001; 83735; 83880; 84100; 84443; 84484; 85025; 85610; 85730; 87070; 87205; 87449; 87633; 93005; 99285; A4216; J0696; J1940

== ENCOUNTER 2024-01-23 09:54 | Emergency (ER) | payer MEDICARE, SELFPAY ==
[2024-01-23] VITALS (9 sets, daily range): BP systolic 111–160; BP diastolic 67–83; PULSE 69–92; RESP 16–24; TEMP 36.6–36.8; O2SAT 92–100; BMI 27.8
--- NOTE | 2024-01-23 10:06 | CT_ITS ---
STUDY: CT PELVIS WITHOUT CONTRAST REASON FOR EXAM: Male, 73 years old. Pain following injury. RADIATION DOSAGE (If Supplied By Facility): CTDIvol = ( 18.38 ) mGy, DLP = ( 895.62 ) mGycm TECHNIQUE: Transaxial imaging of the pelvis was performed with oral contrast, and without intravenous administration of contrast material. Individualized dose optimization techniques were used for this CT. COMPARISON: None. FINDINGS: There is a distended urinary bladder. Prostatic calcifications. The prostate is not enlarged. Normal visualized small intestine. There are multiple colonic diverticula of the sigmoid colon consistent with chronic diverticulosis. There is no pelvic fluid. There is no pelvic mass lesion or lymphadenopathy. There is diffuse atherosclerotic calcification of the pelvic arteries. Normal abdominal wall. Osteoarthritis of the hip joints. Degenerative changes of the lower lumbar spine. CT/Pelvis without IV Contrast IMPRESSION: No fracture is seen. Distended urinary bladder. Sigmoid diverticulosis. Electronically Signed: Clifton Okeefe MD at 10:44 EDT ,
--- NOTE | 2024-01-23 10:06 | CT_ITS ---
STUDY: CT LUMBAR SPINE WITHOUT CONTRAST REASON FOR EXAM: Male, 73 years old. Back pain. RADIATION DOSAGE (If Supplied By Facility): CTDIvol = ( 18.38 ) mGy, DLP = ( 895.62 ) mGycm TECHNIQUE: The patient was scanned in a multi detector CT scanner. High resolution transaxial imaging was performed. Images were obtained from L1 to S1 vertebral level. Sagittal and coronal images were reconstructed. Individualized dose optimization techniques were used for this CT. COMPARISON: None FINDINGS: Normal lumbar lordosis. There is no substantial scoliosis. L1-2: Moderate degree of disc space narrowing. Mild diffuse posterior disc bulge. L2-3: There is destruction of the inferior endplate of the L2 vertebrae. Moderate degree of disc space narrowing. Mild degree of compression of the thecal sac due to hypertrophy of the ligamentum flavum. L3-4: Prior vertebroplasty of the L3 vertebrae. There is destruction of the anterior aspect of the L3 vertebrae. Ostial myelitis should be ruled out. L4-5: Moderate degree of disc space narrowing. Minimal anterolisthesis of L3 on L4 due to facet joint arthritis. Neural foraminal and central canal stenosis. L5-S1: Moderate degree of disc space narrowing. Atherosclerotic calcification of the aorta. CT/Spine Lumbar without Contrast IMPRESSION: Findings suggestive of possible osteomyelitis along the inferior endplate of the L2 vertebrae and superior endplate of the L3 vertebrae with loss of height of the L3 vertebrae. Prior vertebroplasty of L3. Spinal stenosis and neural foraminal stenosis as described. Electronically Signed: Clifton Okeefe MD at 11:51 EDT ,
--- NOTE | 2024-01-23 10:10 | EDS_ITS ---
HPI History of Present Illness Chief Complaint: Fall Informant: patient and EMS Narrative Narrative: 73-year-old male states that he sustained a mechanical fall this morning and landed on his tailbone. He notes pain in the low back radiating around to the bilateral hips. He notes a history of chronic back issues. Notes history of congestive heart failure. Recently admitted into the hospital following a syncopal episode. He did not have syncope today. Patient has had prior vertebroplasty [facility] Medical History Collapse of vertebra Bilateral edema of lower extremity Non-ischemic cardiomyopathy (03/07/21) CHF exacerbation Congestive heart failure (CHF) HFrEF (heart failure with reduced ejection fraction) (03/07/21) Essential hypertension CHF (NYHA class III, ACC/AHA stage C) Alcohol abuse Chronic pain Congestive heart failure (CHF) Alcohol dependence Restless leg syndrome Laceration of right little finger Home Medications ?Medication ?Instructions ?Recorded ?Last Taken ?Type metoprolol tartrate 100 mg tablet 100 mg PO BID HTN #180 tabs 11/09/23 01/13/24 Rx torsemide 20 mg tablet 20 mg PO BID Edema #180 tabs 11/09/23 01/13/24 Rx acetaminophen 500 mg capsule 500 mg PO Q6H PRN pain 12/14/23 01/14/24 History gabapentin 100 mg capsule 100 mg PO BID PRN Chronic Back Pain 12/14/23 01/14/24 History sucralfate 1 gram tablet 1 g PO .AC GERD 12/14/23 Unknown History spironolactone 25 mg tablet 25 mg PO DAILY blood pressure #30 12/21/23 01/13/24 Rx tabs empagliflozin 10 mg tablet 10 mg PO DAILY diabetes #30 tabs 01/03/24 01/13/24 Rx (Jardiance) lisinopril 10 mg tablet 10 mg PO BID blood pressure 01/14/24 01/13/24 History cefdinir 300 mg capsule 300 mg PO BID #10 caps 01/17/24 Unknown Rx cyanocobalamin (vitamin B-12) 500 1,000 mcg (2 x 500 mcg) PO 01/17/24 Unknown Rx mcg tablet BREAKFAST 90 days #180 tabs guaifenesin 1,200 mg tablet, 1,200 mg PO BID 20 days #40 tabs 01/17/24 Unknown Rx extended release 12 hr (Mucus Relief ER) pantoprazole 40 mg tablet,delayed 40 mg PO BID 60 days #120 tabs 01/17/24 U nknown Rx release Allergy/AdvReac Type Severity Reaction Status Date / Time amoxicillin Allergy PAIN AND Verified 01/23/24 09:56 DIARRHEA Penicillins Allergy PAIN AND Verified 01/23/24 09:56 DIARRHEA Family History Father Throat cancer smoker Hypertension Mother No cardiac disease Mother currently living, 92 years old with no reported medical issues. 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 pets and animals: Yes (cats) Smoking Status: Never smoker alcohol intake: former substance use type: does not use caffeine: Yes Type: coffee Number of servings: 4 ROS ROS ED Constitutional Constitutional ED: Denies chills, fever(s) or weight loss Eyes Eyes: Denies change in vision or diplopia ENT ENT ED: Denies ear pain, rhinorrhea or sore throat Cardiovascular Cardiovascular: Denies chest pain, orthopnea, palpitations or racing heartbeat Respiratory/Chest Respiratory/Chest: Denies cough, dyspnea or orthopnea Gastrointestinal Gastrointestinal: Denies abdominal pain, diarrhea, nausea or vomiting Genitourinary Genitourinary ED: Denies dysuria, hematuria or urinary frequency Musculoskeletal Musculoskeletal: Reports back pain and other Details: See history of present illness ; Denies arthralgias, myalgias or neck pain Integumentary Denies abscess or rash Neurologic Neurologic: Denies headache(s), paresthesias or weakness Psychiatric Psychiatric: Denies anxiety, depression, suicidal ideation or suicidal thoughts Endocrine Endocrinology: Denies polydipsia, polyphagia or polyuria Allergic/Immunologic Allergic/Immunologic ED: Denies mouth swelling, tongue swelling or urticaria EXAM Physical Exam Narrative Exam Narrative: Patient comes to the emergency room on EMS cot screening. He was asked to refrain from screaming so loudly and he was able to do so. I find him laying on his back with his legs bent up. Const Vital Signs: 01/23/24 09:54 01/23/24 09:58 01/23/24 11:54 Temperature 98.3 F Temperature Source Oral Pulse Rate 82 78 Respiratory Rate 24 H Blood Pressure 123/80 H 142/77 H Blood Pressure Mean 94 98 Pulse Ox 93 100 Oxygen Delivery Method Room Air 01/23/24 13:00 Temperature Temperature Source Pulse Rate 78 Respiratory Rate Blood Pressure 160/83 H Blood Pressure Mean 108 Pulse Ox 98 Oxygen Delivery Method Room Air Positive well nourished, well developed and obese General Appearance ED: well developed Nutritional Appearance: obese HEENT Reports normocephalic, head/scalp atraumatic and moist mucous membranes Eyes PERRL and EOMs intact bilaterally Neck no lymphadenopathy, supple and no JVD Resp normal respiratory effort and clear to auscultation bilaterally Cardio regular rate, regular rhythm and no murmurs GI normal to inspection, nondistended, normoactive bowel sounds and non-tender Palpation: soft Back/Spine no CVA tenderness Back/Spine Narrative: Patient states he is unable to lay onto his side even with assistance. As I attempt to roll him he put his hand out to prevent me from rolling him. When I touch the skin on his left flank he begins to scream. Extremity normal to inspection General Extremety ED: Negative for edema General Extremity: Negative for edema Neuro oriented x3 and CN's II-XII intact bilaterally Sensorium / Orientation: alert Sensory Exam: No sensory level loss detected Motor Exam: strength 5/5 throughout Psych Mood & Affect: Negative for depressed or tearful Skin no rashes or lesions noted and no wounds MDM MDM MDM Narrative Medical decision making narrative: Differential diagnosis includes fracture myofascial strain contusion sprain CT of the lumbar spine and pelvis were obtained. No obvious fractures were seen but there are changes concerning L2 and L3 for possible osteomyelitis. Spinal stenosis and neuroforaminal stenosis is described. Please see radiology read for full details. I discussed the case with radiology who recommends a noncontrasted MRI. Patient received a dose of Toradol and has improvement of pain. White count 10.5 with 78% neutrophils. BMP with a BUN of 24 creatinine 1.02 glucose of 85.\ Care of the patient is can be turned over to the oncoming physician for check of MRI and final disposition History & Record Review Discussion w/independent historian: Patient Additional record(s) reviewed:: Prior inpatient record, Prior outpatient record, Prior ED visit and Prior labs Lab Data Attestation: I reviewed the patient's lab results. Labs: Laboratory Results - last 24 hr 01/23/24 12:16 WBC 10.5 RBC 3.39 L Hgb 10.0 L Hct 31.5 L MCV 92.9 MCH 29.5 MCHC 31.7 L RDW Std Deviation 55.3 H RDW Coeff of Rosario 16.1 H Plt Count 348 MPV 9.4 Immature Gran % (Auto) 4.100 H Neut % (Auto) 78.0 H Lymph % (Auto) 8.6 L Cotton % (Auto) 8.6 Eos % (Auto) 0.3 Baso % (Auto) 0.4 Absolute Neuts (auto) 8.2 H Absolute Lymphs (auto) 0.90 Nucleated RBC % 0 Sodium 137 Potassium 3.6 Chloride 98 Carbon Dioxide 32.0 Anion Gap 7 BUN 24 H Creatinine 1.02 Estim Creat Clear Calc 60.07 Est GFR (MDRD) Af Amer 92 Est GFR (MDRD) Non-Af 76 BUN/Creatinine Ratio 23.5 H Glucose 85 Calcium 9.0 Radiography Diagnostic Testing: Clinical Impression(s) from Imaging Studies Lumbar Spine CT 01/23/24 10:06 IMPRESSION: Findings suggestive of possible osteomyelitis along the inferior endplate of the L2 vertebrae and superior endplate of the L3 vertebrae with loss of height of the L3 vertebrae. Prior vertebroplasty of L3. Spinal stenosis and neural foraminal stenosis as described. Electronically Signed: Clifton Okeefe MD at 11:51 EDT , Pelvis CT 01/23/24 10:06 IMPRESSION: No fracture is seen. Distended urinary bladder. Sigmoid diverticulosis. Electronically Signed: Clifton Okeefe MD at 10:44 EDT , Management Discussion w/another healthcare provider: Radiologist Discharge Plan Triage Chief Complaint: Fall ED Provider: Dwayne Fontaine Dx/Rx/DC Orders Clinical Impression: Fall, Acute lumbar myofascial strain, Back contusion Prescriptions: No Action metoprolol tartrate 100 mg tablet 100 mg PO BID Qty: 180 3RF torsemide 20 mg tablet 20 mg PO BID Qty: 180 3RF gabapentin 100 mg capsule 100 mg PO BID PRN sucralfate 1 gram tablet 1 g PO .AC acetaminophen 500 mg capsule 500 mg PO Q6H PRN (Reason: pain) spironolactone 25 mg Tablet 25 mg PO DAILY Qty: 30 2RF lisinopril 10 mg tablet 10 mg PO BID cyanocobalamin (vitamin B-12) 500 mcg Tablet 1,000 mcg PO BREAKFAST 90 Days Qty: 180 0RF guaifenesin [Mucus Relief ER] 1,200 mg Tablet Extended Release 12hr 1,200 mg PO BID 20 Days Qty: 40 0RF pantoprazole 40 mg Tablet,Delayed Release (Dr/Ec) 40 mg PO BID 60 Days Qty: 120 0RF cefdinir 300 mg capsule 300 mg PO BID Qty: 10 0RF Jardiance 10 mg tablet 10 mg PO DAILY Qty: 30 11RF Primary Care Provider: Care Physician,No Primary Referrals: Care Physician,No Primary [Primary Care Provider] - Print Language: [place]
[2024-01-23] MEDS: Ketorolac 30 MG/ML Syringe IM (10:12)
--- NOTE | 2024-01-23 12:05 | MRI_ITS ---
STUDY: MRI LUMBAR SPINE WITHOUT CONTRAST REASON FOR EXAM: Male, 73 years old. osteomyelitis, F/U TO CT TECHNIQUE: Standardized fat and water weighted pulse sequences were obtained in the sagittal and axial planes. COMPARISON: CT lumbar spine January 23, 2024. MR lumbar spine December 14, 2023. FINDINGS: Mild compression fracture T12 with slight retropulsion unchanged. Minimal if any bone marrow edema. Probable intraosseous hemangioma. T12-L1: Normal endplates. Normal disc height, hydration and morphology. Normal bilateral facet joints. Normal central canal and bilateral lateral recesses. Normal bilateral intervertebral neural foramina. Normal lumbar lordosis. There is no substantial scoliosis. Normal conus medullaris that terminates at the L1-2. The cauda equina appears redundant due to distal compression. L1-2: Normal endplates. Normal disc height, hydration and morphology. Normal bilateral facet joints. Normal central canal and bilateral lateral recesses. Normal bilateral intervertebral neural foramina. L2-3: Moderate broad-based posterior disc marginal osteophyte biased to the left. Moderately severe narrowing of the central canal and neural foramina bilaterally. Interval development/progression of fluid signal in signal void within the disc space erosion of the endplates. Bone marrow edema noted within the adjacent vertebral bodies of L2-3. No intraspinal abscess noted. L3-4: Fluid-filled hypertrophic facets. Circumferential annular bulge. Moderate trefoil type narrowing of the thecal sac and neural foramina bilaterally. L4-5: Fluid-filled hypertrophic facets. Circumferential annular bulge. Severe trefoil type narrowing of the thecal sac and neural foramina bilaterally. L5-S1: Disc space narrowing. Small central posterior disc marginal osteophyte. Moderately severe narrowing of the neural foramina bilaterally due to a broad-based disc marginal osteophyte. Normal visualized sacral ala. Multiple intramuscular fluid collection suspicious for abscesses in the iliopsoas muscles on the right from L2 through S1. These measure up to 24 x 11 mm in AP and transverse dimensions. MRI/Spine Lumbar (Routine) IMPRESSION: Interval development of discitis and osteomyelitis at L2-3. Probable multifocal intramuscular right paraspinal abscesses. Multilevel severe spinal stenosis. Mild remote compression fracture T12. Neurosurgical consultation recommended. Electronically Signed: Otto Thompson MD at 16:35 EDT ,
[2024-01-23 12:24] LABS: Absolute Neutrophil Count 8.2 X10^3/uL (2.0-7.7); Basophil# 0.04 X10^3/uL; Basophil% 0.4 % (0-1); Eosinophil# 0.03 X10^3/uL; Eosinophils% 0.3 % (0-5); Hematocrit 31.5 % (40-54); Lymphocyte % 8.6 % (19-41); Mean Corp Hgb Conc 31.7 g/dL (32-36); Mean Corpuscular Hgb 29.5 pg (27.0-32.0); Mean Corpuscular Volume 92.9 fL (80-94); Mean Platelet Vol. 9.4 fl (6.2-12.0); Monocyte% 8.6 % (0-10); NRBC Flagged by Analyzer 0 % (0-5); Neutrophil # 8.22 X10^3/uL (2.7-7.7); Platelet Count 348 K/mm3 (150-450); RBC Distribution Width CV 16.1 % (11.6-14.6); RBC Distribution Width SD 55.3 fl (35.1-43.9); Red Blood Count 3.39 M/mm3 (4.6-6.2); White Blood Count 10.5 K/mm3 (4.4-11.0)
[2024-01-23 12:36] LABS: Anion Gap 7 (5-15); BUN 24 mg/dL (7-18); BUN/Creat Ratio 23.5 RATIO (10-20); Chloride 98 mmol/L (98-107); Creatinine, Serum 1.02 mg/dL (0.70-1.30); EST Glomerular Filtration Rate 76 mL/min (>60); Est Glom Filt Rate - Afr Amer 92 mL/min (>60); Estimated Creatinine Clearance 60.07 ml/min; Glucose 85 mg/dL (74-106); Potassium 3.6 mmol/L (3.5-5.1); Sodium Level 137 mmol/L (136-145)
[2024-01-23] MEDS: Morphine 4 MG/ML Syringe IV ×2 (16:46→22:03)
--- NOTE | 2024-01-23 18:10 | NURSING ---
CALLED [facility], APPROX 3 DAY WAIT FOR BED
[2024-01-24 01:00] VITALS: BP 142/82; PULSE 119; RESP 18; O2SAT 92
[2024-01-24] MEDS: Morphine 4 MG/ML Syringe IV (01:04)
== END 2024-01-24 01:06 | disposition short-term general hospital (02) ==
PROVIDERS: Emergency Medicine; Emergency Provider Emergency Medicine; Visit Provider Emergency Medicine
DX: S39.012A Strain of muscle, fascia and tendon of lower back, initial encounter (principal); M46.26 Osteomyelitis of vertebra, lumbar region; I11.0 Hypertensive heart disease with heart failure; I50.22 Chronic systolic (congestive) heart failure; S20.229A Contusion of unspecified back wall of thorax, initial encounter; E66.9 Obesity, unspecified; W19.XXXA Unspecified fall, initial encounter
CPT/HCPCS: 72131; 72148; 72192; 80048; 85025; 87040; 96372; 96374; 96376; 99284; A4216

== ENCOUNTER → 2024-03-05 | Outpatient (CLI) | payer MEDICARE, SELFPAY ==
[2024-03-05 16:53] LABS: Hematocrit 36.7 % (40-54); Hemoglobin 11.5 g/dL (13.0-16.5); Mean Corp Hgb Conc 31.3 g/dL (32-36); Mean Corpuscular Volume 92.7 fL (80-94); Mean Platelet Vol. 11.1 fl (6.2-12.0); Platelet Count 310 K/mm3 (150-450); RBC Distribution Width CV 14.4 % (11.6-14.6); RBC Distribution Width SD 49.2 fl (35.1-43.9); Red Blood Count 3.96 M/mm3 (4.6-6.2); White Blood Count 10.3 K/mm3 (4.4-11.0)
[2024-03-05 17:18] LABS: Anion Gap 6 (5-15); BUN 24 mg/dL (7-18); BUN/Creat Ratio 21.8 RATIO (10-20); Calcium,Total 9.4 mg/dL (8.5-10.1); Chloride 104 mmol/L (98-107); EST Glomerular Filtration Rate 70 mL/min (>60); Est Glom Filt Rate - Afr Amer 85 mL/min (>60); Glucose 95 mg/dL (74-106); Potassium 3.8 mmol/L (3.5-5.1); Sodium Level 140 mmol/L (136-145)
== END | disposition home or self-care (01) ==
LOC: LAB 16:20
PROVIDERS: Referring Provider Internal Medicine Cardiovascular Disease; Visit Provider Internal Medicine Cardiovascular Disease
DX: I50.22 Chronic systolic (congestive) heart failure (principal)
CPT/HCPCS: 36415; 80048; 85027

== ENCOUNTER → 2024-04-07 | Outpatient (CLI) | payer MEDICARE, SELFPAY | END | disposition home or self-care (01) | LOC: CVS 09:44 | PROVIDERS: Referring Provider Nurse Practitioner Gerontology; Visit Provider Nurse Practitioner Gerontology | DX: I50.22 Chronic systolic (congestive) heart failure (principal) | CPT/HCPCS: 93308 ==

== ENCOUNTER → 2024-06-18 | Outpatient (CLI) | payer MEDICARE, SELFPAY ==
--- NOTE | 2024-06-18 09:50 | ECHOL_ITS ---
Reason For Study: CHF, EVAL EF Procedure This was a limited 2D transthoracic echocardiogram. Exam performed in department. Left Ventricle Mildly dilated left ventricle. The estimated ejection fraction is 25 %. There is severe global hypokinesis of the left ventricle. Right Ventricle Normal RV size. Normal systolic function. Mitral Valve Trivial mitral valve insufficiency. Aortic Valve Moderate diffuse aortic valve thickening. MMode/2D Measurements & Calculations LVIDd: 5.4 cm IVSd: 1.4 cm LVOT diam: 1.9 cm LVIDs: 4.6 cm LVPWd: 1.6 cm LVOT area: 2.9 cm2 FS: 14.6 % Ao root diam: 3.1 cm LVAd ap4: 40.9 cm2 LVAd ap2: 41.7 cm2 LVLd ap4: 9.0 cm LVLd ap2: 8.7 cm EDV(MOD-sp4): 148.6 ml EDV(MOD-sp2): 163.8 ml EDV(sp4-el): 157.3 ml EDV(sp2-el): 170.1 ml LVAs ap4: 32.0 cm2 LVAs ap2: 32.9 cm2 LVLs ap4: 8.2 cm LVLs ap2: 8.0 cm ESV(MOD-sp4): 103.2 ml ESV(MOD-sp2): 112.3 ml ESV(sp4-el): 106.5 ml ESV(sp2-el): 115.8 ml EF(MOD-sp4): 30.5 % EF(MOD-sp2): 31.4 % EF(sp4-el): 32.3 % SV(MOD-sp4): 45.3 ml SV(MOD-sp2): 51.5 ml SV(sp4-el): 50.8 ml SI(MOD-sp4): 25.2 ml/m2 SI(MOD-sp2): 28.6 ml/m2 LA dimension(2D): 4.7 cm Doppler Measurements & Calculations Ao V2 max: 203.5 cm/sec LV V1 max: 104.7 cm/sec SV(LVOT): 60.8 ml Ao max P.6 mmHg LV V1 max P.4 mmHg Ao V2 mean: 139.4 cm/sec LV V1 mean P.9 mmHg Ao mean P.0 mmHg LV V1 mean: 64.2 cm/sec Ao V2 VTI: 41.3 cm LV V1 VTI: 21.1 cm AV (velocity ratio): 0.51 SEGUNDO(I,D): 1.5 cm2 SEGUNDO(V,D): 1.5 cm2 ECHO/Echo, Limited Study Interpretation Summary The estimated ejection fraction is 25 %. Trivial mitral valve insufficiency. Ordering Physician: Bernard Gaviria Referring Physician: Brittany Welsh Performed By: Leny Jones RDCS
== END | disposition home or self-care (01) ==
LOC: CVS 09:46
PROVIDERS: Referring Provider Nurse Practitioner Gerontology; Visit Provider Nurse Practitioner Gerontology
DX: I50.23 Acute on chronic systolic (congestive) heart failure (principal)
CPT/HCPCS: 93308

== ENCOUNTER → 2024-06-20 | Outpatient (CLI) | payer MEDICARE, SELFPAY ==
[2024-06-20 15:57] LABS: Absolute Lymphocyte Count 0.94 X10^3/uL (0.83-4.51); Basophil# 0.03 X10^3/uL; Basophil% 0.4 % (0-1); Eosinophil# 0.04 X10^3/uL; Eosinophils% 0.5 % (0-5); Hematocrit 41.3 % (40-54); Hemoglobin 13.4 g/dL (13.0-16.5); Lymphocyte # 0.94 X10^3/ul (0.83-4.51); Lymphocyte % 11.9 % (19-41); Mean Corp Hgb Conc 32.4 g/dL (32-36); Mean Corpuscular Hgb 30.1 pg (27.0-32.0); Mean Corpuscular Volume 92.8 fL (80-94); Mean Platelet Vol. 11.9 fl (6.2-12.0); Monocyte# 0.88 X10^3/uL; Monocyte% 11.1 % (0-10); NRBC Flagged by Analyzer 0 % (0-5); Neutrophil # 5.95 X10^3/uL (2.7-7.7); Neutrophil % 75.2 % (47-70); Platelet Count 167 K/mm3 (150-450); RBC Distribution Width CV 13.9 % (11.6-14.6); RBC Distribution Width SD 47.2 fl (35.1-43.9); Red Blood Count 4.45 M/mm3 (4.6-6.2); White Blood Count 7.9 K/mm3 (4.4-11.0)
[2024-06-20 16:01] LABS: Erythrocyte Sedimentation Rate 7 mm/hr (0-20)
[2024-06-20 16:39] LABS: CRP < 2.90 mg/L (0.0-3.0)
== END | disposition home or self-care (01) ==
LOC: LAB 14:45
PROVIDERS: Referring Provider Internal Medicine Infectious Disease; Visit Provider Internal Medicine Infectious Disease
DX: M46.46 Discitis, unspecified, lumbar region (principal)
CPT/HCPCS: 36415; 85025; 85652; 86140

== ENCOUNTER → 2024-07-24 | Outpatient (CLI) | payer MEDICARE, SELFPAY ==
[2024-07-24 10:41] LABS: Bacteria 0 SEEN /hpf (None Seen); Mucous, Urine 0 SEEN /hpf (<or=2+); Squamous Epithelial Cells - UA 0 SEEN /hpf (0-5); White Blood Cells 0 SEEN /hpf (0-5)
[2024-07-24 11:05] LABS: Hematocrit 40.6 % (40-54); Mean Corpuscular Hgb 30.6 pg (27.0-32.0); Mean Corpuscular Volume 95.5 fL (80-94); Mean Platelet Vol. 11.6 fl (6.2-12.0); Platelet Count 211 K/mm3 (150-450); RBC Distribution Width CV 13.4 % (11.6-14.6); RBC Distribution Width SD 47.6 fl (35.1-43.9); Red Blood Count 4.25 M/mm3 (4.6-6.2); White Blood Count 11.7 K/mm3 (4.4-11.0)
[2024-07-24 11:24] LABS: Color, Urine Yellow (Yellow); Glucose, Dipstick 250 mg/dl (Normal); Ketone-Dipstick Negative (Negative); Leukocyte Esterase-Dipstick Negative /ul (Negative); Nitrite-Dipstick Negative (Negative); Occult Blood-Urine 10 /ul (Negative); Protein-Dipstick 30 mg/dl (Negative); Urine Bilirubin Dipstick Negative (Negative); Urine Clarity Clear (Clear); Urine Urobilinogen Normal (Normal)
[2024-07-24 11:43] LABS: Red Blood Cells-Urine 0-5 SEEN /hpf (0-5)
[2024-07-24 12:07] LABS: Anion Gap 10 (5-15); BUN 38 mg/dL (4-19); BUN/Creat Ratio 29.8 RATIO (10-20); Calcium 8.9 mg/dL (7.6-11.0); Carbon Dioxide 25.3 mmol/L (22.0-29.0); Chloride 104 mmol/L (96-108); Creatinine, Serum 1.3 mg/dL (0.8-1.3); EST Glomerular Filtration Rate 61 (>60); Glucose 99 mg/dL (70-99); Potassium 4.8 mmol/L (3.3-5.1); Sodium Level 139 mmol/L (133-145)
== END | disposition home or self-care (01) ==
LOC: LAB 10:36
PROVIDERS: PCP Internal Medicine; Referring Provider Nurse Practitioner Family; Visit Provider Nurse Practitioner Family
DX: I42.8 Other cardiomyopathies (principal); I44.7 Left bundle-branch block, unspecified
CPT/HCPCS: 36415; 80048; 81001; 85027

== ENCOUNTER 2024-08-13 10:47 | Observation (INO) | payer MEDICARE, SELFPAY ==
--- NOTE | 2024-08-01 15:22 | PAT.ANESEVAL ---
Pre-Assessment Diagnosis/Proposed Procedure Planned Operative Procedure(s): PERIPHERAL VASCULAR ACCESS IN DRUG DEPARTMENT WORKER WITH ANESTHESIA Anesthesia History Anesthesia History - senior oracle database administrator: Anesthesia History - senior oracle database administrator Hx Hospitalization Yes 08/01/24 13:35 Any Problems With Anesthesia No 08/01/24 13:35 Cholinesterase deficiency No 08/01/24 13:35 You/Your Family Experience No 08/01/24 13:35 fever (hyperthermia) with Relationship Recent Exposure to Contagious No 12/18/23 09:55 Disease Does patient have nerve No 08/01/24 13:35 stimulator Patient instructed to have device shut off --Does patient have Pacemaker or ICD? When Was Last Pacemaker Check QUESTION #4 FULL TEXT: You/Your Family Experience fever (hyperthermia) with Anesthesia Last Oral Intake Last Oral intake: Last Oral Intake NPO since Meds taken in AM with sips of water? Meds patient instructed to take am of surgery PONV PONV - senior oracle database administrator: PONV - senior oracle database administrator Female No 08/01/24 13:35 HX of Motion Sickness No 08/01/24 13:35 HX of N/V After Surgery No 08/01/24 13:35 Non-Smoker Yes 08/01/24 13:35 Duration of Surgery greater Yes 08/01/24 13:35 than 60 minutes Number of Risk Factors 2 08/01/24 13:35 PONV Score Moderate Risk 08/01/24 13:35 Height & Weight Height & Weight: Anesthesia: Height & Weight Height 5 ft 4 in 07/11/24 12:11 Respiratory Assessment Respiratory Assessment - senior oracle database administrator: Respiratory Tract Infection Hx - senior oracle database administrator Hx Respiratory Tract Infection No 08/01/24 13:35 STOP Sleep Apnea STOP Sleep Apnea - senior oracle database administrator: STOP Sleep Apnea - senior oracle database administrator Hx Hypertension Yes: CONTROLLED WITH MEDS 08/01/24 13:35 Hx Sleep Apnea No 08/01/24 13:35 CPAP No 01/14/24 14:52 BIPAP No 01/14/24 14:52 Do you snore loudly (louder No 08/01/24 13:35 than talking or can be heard Do you often feel tired/ No 08/01/24 13:35 fatigued/ sleepy during daytime? Has anyone observed you stop No 08/01/24 13:35 breathing during sleep? STOP Results Negative 08/01/24 13:35 QUESTION #5 FULL TEXT : Do you snore loudly (louder than talking or can be heard through closed doors)? Tobacco Use History Tobacco Use History - senior oracle database administrator: Tobacco Use History - senior oracle database administrator Tobacco Use Smoking Status Never smoker 08/01/24 13:35 Hx Tobacco Use No 08/01/24 13:35 Years Smoking Packs Smoked per Day Smoking Cessation Date was within the last 15 years Hx Smoking Cessation Date Hx Smoking Cessation Counseling Hematologic Medial History Hematologic Hx - senior oracle database administrator: Hematologic Medical Hx - [employer] Hx of Blood Transfusion No 08/01/24 13:35 Hx of Transfusion in last 3 No 08/01/24 13:35 Months Date of Last Transfusion (if within last 3 months) Ever experience any problems No 08/01/24 13:35 with transfusion(s)? Specify any problems Hx of Preganancy in last 3 N/A 08/01/24 13:35 Months Nurse Filling Out Transfusion DSCHRIBER 08/01/24 13:35 & Questions: Date: 08/01/24 08/01/24 13:35 Time: 13:38 08/01/24 13:35 Patient unable to answer at this time (ie. confused, unrespo /Reproduction History /Reproductive History - senior oracle database administrator: /Reproductive Hx- senior oracle database administrator Hx Now No 08/01/24 13:35 Gestational Age (in weeks): EDC: Hx Hx Para Hx Section SAB No 08/01/24 13:35 PFSH Medical History (Updated 08/01/24 @ 13:59 by Kaila Acosta) LBBB (left bundle branch block) Partial loss of teeth Dry skin dermatitis Arthritis Hx of deep venous thrombosis Bruises easily Hx of gastric ulcer Non-smoker Edema Cardiology follow-up encounter Hx of echocardiogram Hypertension Epidural abscess Osteomyelitis Collapse of vertebra Bilateral edema of lower extremity Congestive heart failure (CHF) HFrEF (heart failure with reduced ejection fraction) (03/07/21) Non-ischemic cardiomyopathy (03/07/21) CHF (NYHA class III, ACC/AHA stage C) CHF exacerbation Alcohol abuse Chronic pain Congestive heart failure (CHF) Restless leg syndrome Laceration of right little finger Home Medications ?Medication ?Instructions ?Recorded ?Last Taken ?Type acetaminophen 500 mg capsule 500 mg PO Q6H PRN pain 12/14/23 01/14/24 History lisinopril 40 mg tablet 40 mg PO BID 02/26/24 Unknown History ropinirole 0.25 mg tablet 0.75 mg PO QHS 02/26/24 Unknown History gabapentin 100 mg capsule 100 mg PO BID PRN Chronic Back Pain 03/05/24 Unknown History torsemide 20 mg tablet 20 mg PO BID Edema 03/05/24 Unknown History tramadol 50 mg tablet 50 mg PO TID PRN pain 03/05/24 Unknown History tizanidine 2 mg tablet 2 mg PO TID PRN muscle spasticity 04/30/24 Unknown History empagliflozin 10 mg tablet 10 mg PO DAILY diabetes #30 tabs 06/09/24 Unknown Rx (Jardiance) spironolactone 25 mg tablet 25 mg PO DAILY blood pressure #90 06/20/24 Unknown Rx tabs metoprolol succinate 100 mg 100 mg PO QDAY #90 tabs 07/11/24 Unknown Rx tablet,extended release 24 hr Allergy/AdvReac Type Severity Reaction Status Date / Time amoxicillin Allergy PAIN AND Verified 08/01/24 13:30 DIARRHEA Penicillins Allergy PAIN AND Verified 08/01/24 13:30 DIARRHEA Family History Father Throat cancer smoker Hypertension Mother No cardiac disease Mother currently living, 92 years old with no reported medical issues. 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 Left bundle branch block. Echo (EF%) pertinent findings: 06/18/2024 EF 25%. Consult pertinent findings: Cardiology 07/11/2024. Nonischemic cardiomyopathy. Left ventricular ejection fraction 21 to 30%. History of CHF. History of epidural abscess. Left bundle branch. Essential hypertension. Plan for AICD placement Recommendation Anesthesia Recommendation Anesthesia recommendation: OPTIMIZED for anesthesia
--- NOTE | 2024-08-11 14:55 | RAD_ITS ---
PROCEDURE: CHEST PA AND LATERAL 08/11/2024 REASON FOR EXAM: FOR CORPORATE PLANNING MANAGER-D PLACEMENT ON 08/14/24 TECHNIQUE: Frontal and lateral views of the chest. COMPARISON: Chest x-ray 01/14/2024. RAD/Chest PA and Lateral IMPRESSION: A calcified and tortuous aorta is seen. No significant cardiomegaly noted. No findings of pulmonary edema. Lungs appear essentially clear of acute disease, with minimal scarring or atele ctasis of the mid lung zones. No pleural effusion or pneumothorax is noted. [id number] degenerative changes of the visualized spine noted, also with prior kyphoplasty at the inferior edge of imaging. Bilateral shoulder degenerative changes are also seen. Reading Location: [id number]
[2024-08-13] VITALS (16 sets, daily range): BP systolic 144–165; BP diastolic 78–105; PULSE 83–105; RESP 16–18; TEMP 35.8–36.8; O2SAT 96–100; BMI 29.1; BMI 28.3
[2024-08-13] MEDS: Clindamycin 900 MG/50 ML BAG 75 MG IV (07:00)
[2024-08-13] MEDS: 0.9% Normal Saline (1000mL) 1,000 ML 15 ML IV (08:03)
--- NOTE | 2024-08-13 08:41 | PCM.PRE.AN2 ---
ASA Classification* ASA Classification ASA Classification: 3 Assessment & Plan Anesthesia* Anesthesia Assessment Anesthesia Assessment: Discussed sedation and/or anesthesia options, risks, benefits, and alternatives with patient/parents/legal guardian/POA. Questions invited. The patient/parents/legal guardian/POA seems to understand and agrees to proceed with anesthesia plan. Reviewed the physical assessment, medical history, allergy history and patient home medications list prior to surgery/procedure/anesthetic and documented any changes. Performed airway and anesthesia risk assessments. Anesthesia Type Anesthesia Type: MAC History Source History Obtained from:: Patient and Chart Anesthesia Focused Assessment* Temperature: 97.5 F Pulse Rate: 99 Blood Pressure: 148/78 Respiratory Rate: 18 Pulse Ox: 96 Oxygen Delivery Method: Room Air Airway Assessment Mouth opens: >3 cm Mallampati Score: IV Teeth Condition: Caps/Crowns (Patient has a PEG and implant at #9.) and Chipped/Broken (Patient has several broken molars on the left side.) Neck Range of motion (ROM): Limited ROM (Somewhat decreased extension) Focused Labs Anesthesia Preop lab: CBC WBC 11.7 K/mm3 (4.4-11.0) H 07/24/24 10:40 07/24/24 RBC 4.25 M/mm3 (4.6-6.2) L 07/24/24 10:40 07/24/24 Hgb 13.0 g/dL (13.0-16.5) 07/24/24 10:40 07/24/24 Hct 40.6 % (40-54) 07/24/24 10:40 07/24/24 Plt Count 211 K/mm3 (150-450) 07/24/24 10:40 07/24/24 CHEMISTRY Potassium 4.8 mmol/L (3.3-5.1) 07/24/24 10:40 07/24/24 Sodium 139 mmol/L (133-145) 07/24/24 10:40 07/24/24 Magnesium 2.5 mg/dL (1.6-2.6) 01/17/24 06:33 01/17/24 Phosphorus 3.3 mg/dL (2.5-4.9) 01/17/24 06:33 01/17/24 BUN 38 mg/dL (4-19) H 07/24/24 10:40 07/24/24 Creatinine 1.3 mg/dL (0.8-1.3) 07/24/24 10:40 07/24/24 Glucose 99 mg/dL (70-99) 07/24/24 10:40 07/24/24 TSH 0.411 uIU/mL (0.358-3.740) 01/15/24 06:14 01/15/24 COAG PT 14.8 SECONDS (11.7-14.9) 01/14/24 08:46 01/14/24 Pre-Assessment Diagnosis/Proposed Procedure Planned Operative Procedure(s): PERIPHERAL VASCULAR ACCESS IN ROLL FORMING SUPERVISOR WITH ANESTHESIA Anesthesia History Anesthesia History - netsuite developer: Anesthesia History - netsuite developer Hx Hospitalization Yes 08/01/24 13:35 Any Problems With Anesthesia No 08/01/24 13:35 Cholinesterase deficiency No 08/01/24 13:35 You/Your Family Experience No 08/01/24 13:35 fever (hyperthermia) with Relationship Recent Exposure to Contagious No 08/13/24 07:59 Disease Does patient have nerve No 08/01/24 13:35 stimulator Patient instructed to have device shut off --Does patient have Pacemaker No 08/13/24 07:59 or ICD? When Was Last Pacemaker Check QUESTION #4 FULL TEXT: You/Your Family Experience fever (hyperthermia) with Anesthesia Last Oral Intake Last Oral intake: Last Oral Intake NPO since 05:00 08/13/24 07:59 Meds taken in AM with sips of Yes 08/13/24 07:59 water? Meds patient instructed to METOPROLOL 08/13/24 07:59 take am of surgery Any additional information?: Yes NPO since: 05:00 (Patient had black coffee at 5 AM.) Meds taken in AM with sips of water?: Yes PONV PONV - netsuite developer: PONV - netsuite developer Female No 08/01/24 13:35 HX of Motion Sickness No 08/01/24 13:35 HX of N/V After Surgery No 08/01/24 13:35 Non-Smoker Yes 08/01/24 13:35 Duration of Surgery greater Yes 08/01/24 13:35 than 60 minutes Number of Risk Factors 2 08/01/24 13:35 PONV Score Moderate Risk 08/01/24 13:35 Height & Weight Height & Weight: Anesthesia: Height & Weight Height 5 ft 4 in 08/13/24 07:59 Weight: 77 kg 08/13/24 07:59 Body Mass Index (BMI) 29.1 08/13/24 07:59 Respiratory Assessment Respiratory Assessment - netsuite developer: Respiratory Tract Infection Hx - netsuite developer Hx Respiratory Tract Infection No 08/01/24 13:35 STOP Sleep Apnea STOP Sleep Apnea - netsuite developer: STOP Sleep Apnea - netsuite developer Hx Hypertension Yes: CONTROLLED WITH MEDS 08/01/24 13:35 Hx Sleep Apnea No 08/01/24 13:35 CPAP No 01/14/24 14:52 BIPAP No 01/14/24 14:52 Do you snore loudly (louder No 08/01/24 13:35 than talking or can be heard Do you often feel tired/ No 08/01/24 13:35 fatigued/ sleepy during daytime? Has anyone observed you stop No 08/01/24 13:35 breathing during sleep? STOP Results Negative 08/01/24 13:35 QUESTION #5 FULL TEXT : Do you snore loudly (louder than talking or can be heard through closed doors)? 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 Specify any problems Hx of Preganancy in last 3 N/A 08/01/24 13:35 Months Nurse Filling Out Transfusion DSCHRIBER 08/01/24 13:35 & Questions: Date: 08/01/24 08/01/24 13:35 Time: 13:38 08/01/24 13:35 Patient unable to answer at this time (ie. confused, unrespo /Reproduction History /Reproductive History - netsuite developer: /Reproductive Hx- netsuite developer Hx Now No 08/01/24 13:35 Gestational Age (in weeks): EDC: Hx Hx Para Hx Section SAB No 08/01/24 13:35 Active Medications Active Medications: Current Medications Generic Name Dose Route Start Last Admin Trade Name Freq PRN Reason Stop Dose Admin Sodium Chloride 1,000 mls @ 15 mls/hr 08/13/24 07:50 08/13/24 08:03 IV 08/18/24 21:09 15 mls/hr .Q48H KACIE Administration PFSH Medical History LBBB (left bundle branch block) Partial loss of teeth Dry skin dermatitis Arthritis Hx of deep venous thrombosis Bruises easily Hx of gastric ulcer Non-smoker Edema Cardiology follow-up encounter Hx of echocardiogram Hypertension Epidural abscess Osteomyelitis Collapse of vertebra Bilateral edema of lower extremity Congestive heart failure (CHF) HFrEF (heart failure with reduced ejection fraction) (03/07/21) Non-ischemic cardiomyopathy (03/07/21) CHF (NYHA class III, ACC/AHA stage C) CHF exacerbation Alcohol abuse Chronic pain Congestive heart failure (CHF) Restless leg syndrome Laceration of right little finger Home Medications ?Medication ?Instructions ?Recorded ?Last Taken ?Type acetaminophen 500 mg capsule 500 mg PO Q6H PRN pain 12/14/23 08/12/24 History lisinopril 40 mg tablet 40 mg PO BID 02/26/24 08/12/24 History ropinirole 0.25 mg tablet 0.75 mg PO QHS 02/26/24 08/12/24 History gabapentin 100 mg capsule 100 mg PO BID PRN Chronic Back Pain 03/05/24 08/12/24 History torsemide 20 mg tablet 20 mg PO BID Edema 03/05/24 08/12/24 History tramadol 50 mg tablet 50 mg PO TID PRN pain 03/05/24 08/12/24 History tizanidine 2 mg tablet 2 mg PO TID PRN muscle spasticity 04/30/24 08/12/24 History empagliflozin 10 mg tablet 10 mg PO DAILY diabetes #30 tabs 06/09/24 08/10/24 Rx (Jardiance) spironolactone 25 mg tablet 25 mg PO DAILY blood pressure #90 06/20/24 08/12/24 Rx tabs metoprolol succinate 100 mg 100 mg PO QDAY #90 tabs 07/11/24 08/13/24 Rx tablet,extended release 24 hr Allergy/AdvReac Type Severity Reaction Status Date / Time amoxicillin Allergy PAIN AND Verified 08/13/24 07:55 DIARRHEA Penicillins Allergy PAIN AND Verified 08/13/24 07:55 DIARRHEA Family History Father Throat cancer smoker Hypertension Mother No cardiac disease Mother currently living, 92 years old with no reported medical issues. 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
--- NOTE | 2024-08-13 10:48 | HP_ITS ---
History of Present Illness Details: The patient is 73-year-old gent with history of nonischemic cardiomyopathy referred for consideration of biventricular AICD implantation. Patient has history of lumbar paraspinal abscess requiring drainage at [facility]. Patient was seen by infectious disease May 08, 2024 for epidural abscess involving the paraspinal lumbar spine. He had been on IV subsequently p.o. antibiotics as an outpatient. Patient is off antibiotics. He is deemed to be clear of infection. History of alcohol use cardiomyopathy with an EF down to 15% improved to 50% after therapy. Last echocardiogram performed June 18, 2024 showed an EF of 25% with severe global hypokinesis with normal valve function. Last cardiac cath performed March 08, 2021 showed normal coronary anatomy with dilated left ventricle. Current medications are cefdinir, doxycycline, Jardiance, lisinopril, metoprolol tartrate, Aldactone, furosemide. Twelve-lead EKG obtained the office today shows sinus rhythm at 80 bpm. The QRS duration shows a left bundle branch block and left axis deviation. QRS durations 150 ms. There is left atrial enlargement. No ectopy is noted. # HISTORY OF PRESENT ILLNESS The patient complains of being very active but recently experiencing differences in his physical performance, which prompted him to seek attention. He expressed concern about his current ejection fraction, which is between 25-30%. His symptoms onset could not be exactly pinpointed, but they seem to be long- lasting, intermittent, and reflected in his physical activities. No aggravating or alleviating factors were particularly mentioned. There are no other associated symptoms outlined in our conversation. The symptoms are commonly experienced when performing physically demanding activities. Severity is moderate, as it interferes with his daily activities. # REVIEW OF SYSTEMS 1. CONSTITUTIONAL Reported good general health, negative for chills, fatigue, fever, weight gain or loss. Patient notes decreased exercise capacity 2. HEENT Negative for hearing loss, sinus pressure, visual changes. 3. RESPIRATORY Negative for cough, shortness of breath, wheezing. 4. CARDIOVASCULAR Negative for chest pain, claudication, palpitations. Positive for shortness of breath, dyspnea on exertion 5. GASTROINTESTINAL Negative for abdominal pain, blood in stool, constipation, diarrhea, heartburn, loss of appetite, nausea, vomiting. 6. GENITOURINARY Negative for dysuria, polyuria, urinary frequency. 7. METABOLIC/ENDOCRINE Negative for cold intolerance, heat intolerance, polydipsia, polyphagia. 8. NEUROLOGICAL Negative for dizziness, extremity numbness, extremity weakness, headaches, seizures, tremors. 9. PSYCHIATRIC Negative for anxiety, depression. 10. INTEGUMENTARY Negative for breast discharge, breast lump, hives, mole changes, rash, skin lesion. 11. MUSCULOSKELETAL Negative for back pain, joint pain, joint swelling, neck pain. Positive for bilateral lower extremity edema he occasionally takes a diuretic. 12. HEMATOLOGIC Negative for easy bleeding, easy bruising, lymphedema, blood clot issues. 13. IMMUNOLOGIC Negative for food allergies, seasonal allergies. # PHYSICAL EXAMINATION GENERAL APPEARANCE - Patient is comfortable, well developed, well-nourished, and in no acute distress. Patient presents to the office visit using a cane. EYES - Lids and conjunctiva are normal. EARS/NOSE/THROAT - Mucous membranes moist, nares normal, lips/teeth normal. HEAD/NECK - Normocephalic and atraumatic. Pain-free range of motion in the neck. RESPIRATORY - Respiratory effort is normal; lungs are clear to auscultation. CARDIAC - Regular rate and rhythm, no palpitations; 2+ lower extremity edema appreciated. Grade 2 out of 6 systolic ejection murmur noted ABDOMINAL - Soft, ND/NT. MUSCLES/EXTREMITIES - Physiologically appropriate range of motion; no lower extremity swelling. SKIN - Warm and dry with minor lower extremity edema; no rashes, dermatoses, petechiae, or other lesions. No evidence of ecchymosis tenderness over his lower back. NEUROLOGICAL - Speech is clear and appropriate; neurologically intact. PSYCH - Patient is in a normal mood; affect is appropriate. # ASSESSMENT AND PLAN Problem: Nonischemic cardiomyopathy Assessment: The patient has an EF between 25-30%. Plan: Will schedule the patient for recent transition AICD. Explained to him the risk and benefits procedure including risk for infection, bleeding, vascular cardiac perforation and pneumothorax. We will switch him from metoprolol to tartrate to metoprolol succinate. Continue to monitor patient?s condition. Indication close nonischemic cardiomyopathy, depressed LVEF 25%, left bundle branch block with a QRS duration greater than 150 ms, primary prevention, NYHA class III Problem: Left bundle branch block, QRS duration 160 ms Assessment: EKG shows patient has a left bundle branch block. Plan: The planned defibrillator will also function as a resynchronization pacemaker, which should help improve the patient's symptoms. Problem: Hypertension Assessment: Patient's blood pressure has been somewhat controlled, although on occasion it does increase due to anxiety. Plan: Encourage the patient to maintain a healthy lifestyle, including proper diet, exercise, and medication compliance to manage blood pressure. Problem: Lumbar discitis with paraspinal abscess Assessment: History of previous infection, now resolved. Plan: Closely monitor patient for any signs of recurrent infection, given previous history and planned defibrillator surgery. Intake Vital Signs 04/30/2413:25 07/11/2511:11 Height 5 ft 4 in 5 ft 4 in Weight: 172 lb BMI 29.5 BP 142/80 H Blood Pressure Location Lt brachial Position Sitting Respiration 18 Pulse 81 Pulse Source NIBP Intake Visit Reasons: ESTABLISH Test Bore Helper Required: No Accompanied by: Self Is patient in pain?: Yes (chronic; myalgias; controlled with Rx) Allergies amoxicillin Allergy (Verified 07/11/24 14:27) PAIN AND DIARRHEAPenicillins Allergy (Verified 07/11/24 14:27) PAIN AND DIARRHEA Medications ?Medication ?Instructions ?Recorded ?Confirmed ?Type acetaminophen 500 mg capsule 500 mg PO Q6H PRN pain 12/14/23 07/11/24 History pantoprazole 40 mg tablet,delayed 40 mg PO BID 60 days #120 tabs 01/17/24 07/11/24 Rx release lisinopril 40 mg tablet 40 mg PO BID 02/26/24 07/11/24 History ropinirole 0.25 mg tablet 0.75 mg PO QHS 02/26/24 07/11/24 History gabapentin 100 mg capsule 100 mg PO BID Chronic Back Pain 03/05/24 07/11/24 History sucralfate 1 gram tablet 1 g PO TID GERD 03/05/24 07/11/24 Histor y torsemide 20 mg tablet 20 mg PO QDAY Edema 03/05/24 07/11/24 Hi story tramadol 50 mg tablet 50 mg PO TID PRN 03/05/24 07/11/24 Histo ry tizanidine 2 mg tablet 2 mg PO TID PRN 04/30/24 07/11/24 Histor y empagliflozin 10 mg tablet 10 mg PO DAILY diabetes #30 tabs 2 5 07/11/24 Rx (Jardiance) spironolactone 25 mg tablet 25 mg PO DAILY blood pressure #90 07/11/24 Rx tabs metoprolol succinate 100 mg 100 mg PO QDAY #90 tabs 07/11/24 5 Rx tablet,extended release 24 hr Ejection fraction %: 25 Have you fallen in the past year?: No PFSH Medical History Alcohol abuse Alcohol dependence Bilateral edema of lower extremity CHF (NYHA class III, ACC/AHA stage C) CHF exacerbation Chronic pain Collapse of vertebra Congestive heart failure (CHF) Congestive heart failure (CHF) Epidural abscess Essential hypertension HFrEF (heart failure with reduced ejection fraction) (03/07/21) Laceration of right little finger Non-ischemic cardiomyopathy (03/07/21) Osteomyelitis Restless leg syndrome Surgical History History of left heart catheterization (03/08/21) History of tonsillectomy Hx of hernia repair Family History Father Throat cancer smoker HypertensionMother No cardiac disease Mother currently living, 92 years old with no reported medical issues. 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 pets and animals: Yes (cats) Smoking Status: Never smoker alcohol intake: former substance use type: does not use caffeine: Yes Type: coffee Number of servings: 4 ROS Const Const: Negative for fatigue, weakness, headache(s) or weight gain ENT ENT: Negative for headache(s), dizziness, Nosebleed/epistaxis or balance problems Cardio Chest Pain: No Palpitations: No Edema: Bilateral (noted slight fluid retention) Muscle aches with walking: None Resp Respiratory: Negative for SOB with activity, SOB at rest or SOB orthopnea\SOB lying down GI GI: Negative nausea, vomiting or heartburn Musc Musc: Negative for muscle aches/ myalgia, muscle weakness, joint pain or balance problems Neuro Neuro: Negative for dizziness, lightheadedness, near syncope, syncope, headache(s) or weakness Endo Endo: Negative for fatigue Supplemental Info Supplemental Information Echocardiogram from 06/18/2024: Interpretation Summary The estimated ejection fraction is 25 %. Trivial mitral valve insufficiency. Echocardiogram 04/07/2024 Normal LV size. The left ventricular ejection fraction is 25 %. The left atrium is mildly enlarged. Moderate concentric left ventricular hypertrophy. Compared to previous study, the left ventricular systolic function is the same. Cardiac Catheterization 03/14/2021 PROCEDURE(S) PERFORMED [id number]/LV CLINICAL PROFILE AND INDICATIONS Indications: Suspected CAD Heart Failure: None Stress/Imaging Stress/Image Study Performed: No CAD Presentations: Symptom unlikely to be ischemic. CONCLUSIONS Normal coronary arteries Cardiomyopathy: Dilated RECOMMENDATIONS Medical therapy CORONARY ANGIOGRAPHY DOMINANCE: Right Dominant LEFT HEART ASSESSMENT Left Ventricular Ejection Fraction: by LV Gram 15 % Normal Left Ventricular systolic function Normal Left Ventricular systolic function Depressed Left Ventricular systolic function LEFT MAIN: Angiographically normal LEFT ANTERIOR DESCENDING ARTERY: Angiographically normal CIRCUMFLEX ARTERY: Angiographically normal RIGHT CORONARY ARTERY: Angiographically normal Assessment and Plan Assessment and Plan (1) Cardiac LV ejection fraction 21-30%: Status: Acute (2) CHF (congestive heart failure): Status: Acute Qualifiers: Heart failure type: systolic (3) Epidural abscess: Status: Acute (4) Essential hypertension: Status: Chronic (5) Left bundle branch block: Status: Acute Comment: Chronic left bundle branch block with left axis deviation on his EKG. Patient has a split S2 on physical exam consistent with his left bundle branch block. Orders: Orders 12 Lead EKG performed by BMS Today I44.7 - Left bundle-branch block, unspecified, R93.1 - Abnormal findings on diagnostic imaging of heart and coronary circulation Medications: New metoprolol succinate ER 100 mg PO QDAY 90 tabs 3RF Discontinued metoprolol tartrate Discontinued Reason: Order Changed 100 mg PO BID 180 tabs 3RF HTN Patient Instructions: # PATIENT INSTRUCTIONS Johnathan, it was nice meeting with you and discussing your current heart condition. As we discussed, your heart is not beating as well as it should (nonischemic cardiomyopathy) and it sometimes beats out of sync (left bundle branch block). Because of this, you have a higher risk of heart failure. We are planning to help your heart by inserting a device, a defibrillator. This device will monitor how your heart is beating and can deliver a shock if the heart starts to beat dangerously fast. It also works as a type of pacemaker to help your heart beat more in sync, which can help you feel better. We will also make a change to how you take your Metoprolol medication. Instead of taking it twice a day, we?ll switch you to a once-a-day dose to give you a steady dose through the entire day. All your other medications will remain the same for now. Keep in mind that it's important to look out for signs of infection such as fever, chills, redness, or swelling, especially because of your previous infection in your lower back area. If you notice any of these symptoms, please reach out to our office immediately. We will continue to monitor your high blood pressure (hypertension), however, you should continue with a healthy diet and regular physical activity to manage this. After the operation, you will need to take care not to overuse your left arm for about a month to allow for proper healing. We'll go over specific details as we approach the surgery. Take your medications as discussed, stay active, and eat a heart-healthy diet. We will see you soon to check on your progress. Coding Level of Care Code Off vis,new,level 5 Diagnoses Cardiac LV ejection fraction 21-30% R93.1 CHF (congestive heart failure) I50.9 Heart failure type: systolic Epidural abscess G06.2 Essential hypertension I10 Left bundle branch block I44.7 Coding Level of Care Code Off vis,new,level 5 Diagnoses Cardiac LV ejection fraction 21-30% R93.1 CHF (congestive heart failure) I50.9 Heart failure type: systolic Epidural abscess G06.2 Essential hypertension I10 Left bundle branch block I44.7 Clinical Quality Measures Falls Risk Screening/Assistive Devices Have you fallen in the past year?: No Cardiac Ejection fraction %: 25
--- NOTE | 2024-08-13 10:50 | PCM.POST.ANE ---
Anesthesia: Postop Eval I Current Vital Signs Temperature: 96.5 F Pulse Rate: 91 Blood Pressure: 144/99 Respiratory Rate: 18 Pulse Ox: 96 Assessment Airway patent: Yes Spontaneous unlabored respirations: Yes nausea: No Vomiting: No Anesthesia Complication: No Fluid Hydration Crystalloid volume administer (ml): 800 Total IV fluid infused: 800 Progress Note Anesthesia document: Postop Eval 1 completed: Yes
--- NOTE | 2024-08-13 11:10 | EX.DEFIBPR_ITS ---
Defibrillator Procedure Note Defibrillator Procedure Note Successful biventricular ICD implantation. Indication: Ischemic cardiomyopathy NYHA class II Congestive heart failure, EF 25% Left bundle branch block, QRS duration 125 ms Primary prevention Procedure: The patient was brought to the EP LAB in the fasting well-hydrated state and prepped and draped in the usual sterile fashion. Local anesthesia with 1% lidocaine was used to achieve a numbing effect in the left pectoral region. In addition, iv anesthesia was administered by anesthesia personnel present throughout the case. An incision was made 2 fingerbreaths below the left clavicle and a pocket was made by blunt dissection. Bleeding vessels were coagulated using electrocautery. Using modified Seldinger technique, three guidewires was placed into the left axillary vein down to the low RA. Through a venous sheath the RV lead was passed into the RV apex. The active screw mechanism was extended. Adequate pacing sensing thresholds were measured. Diaphragmatic stim which was occluded with tendril pacing. Over a second guidewire a coronary sinus guiding sheath was placed into the low right atrium. The coronary sinus ostium was cannulated and using a guidewire the sheath was deep placed into the coronary sinus. A coronary sinus venogram was performed. This delineated 2 mL cardiac branches and a very small posterior lateral branch of the coronary sinus. Target was the distal middle cardiac branch. Using a 0.014 whisper guidewire a quadripolar LV lead was passed into the distal portion of the subbranch. Adequate pacing sensing thresholds were measured diaphragmatic stimulation was clear the temporal pacing. Next using the third guidewire a introducer sheath was placed into the central circulation. Through the venous sheath a active-fixation right atrial lead was passed in the right atrium the active screw mechanism was deployed and the lead was attached to the myocardium. Adequate pacing sensing thresholds were measured. The introducer sheath was peeled away. The leads were tested the underlying fascia using Silk suture. Pocket was created over the pectoral fascia. The pulse generator was brought to the field. The leads were attached to the pulse generator. The leads, generator, pocket were irrigated with copious months of bacitracin solution. The leads and the pulse generator were packed into the pocket. The incision was then closed. 2-0 Vicryl was used in a continuous fashion for the deep layers continuous 3-0 Vicryl was used for the superficial layer. Aqua-cell dressing was applied over the incision and a sterile dressing was applied over this. Patient tolerated the procedure well. There were no immediate postop complications. Complications: none. Specimens: none. Estimated blood loss: 20 mL. Contrast: 20 mL Device: Devices and Leads Status Type Trader Fixed Income Model # Serial # Implant Date Explant Date Reason New Generator Rothman [id number] 08/13/2024 New RA - Right Atrium Rothman [id number] 08/13/2024 New RV - Right Ventricle Rothman [id number] 08/13/2024 New LV - Left Ventricle Rothman [id number] 08/13/2024 PSA Measurements Position P-wave (mV) R-wave (mV) Impedance ('?) Threshold (V) Pulse Width (ms) mA RA - Right Atrium 3.1 437 1.4 0.5 RV - Right Ventricle 947 0.5 0.5 LV - Left Ventricle 1,420 1.5 0.5 Device Measurements Position P-wave (mV) R-wave (mV) Impedance ('?) Threshold (V) H.V Impedance Pulse Width (ms) RA - Right Atrium 3.0 490 1.75 0.5 RV - Right Ventricle 4.1 500 0.5 68 0.5 LV - Left Ventricle 1,500 0.5 0.5
[2024-08-13] MEDS: Lisinopril 40 MG Tablet PO ×2 (12:40→21:14)
[2024-08-13] MEDS: Vancomycin IV 1,000 MG/200 ML BAG 200 MG IV (12:40)
--- NOTE | 2024-08-13 13:22 | RAD_ITS ---
PROCEDURE: CHEST 1 VIEW (PORTABLE) 08/13/2024 REASON FOR EXAM: POST ICD IMPLANT, ASSESS FOR PNEUMOTHORAX TECHNIQUE: Frontal view of the chest. COMPARISON: Chest x-ray of 08/11/2024 RAD/Chest 1 View (Portable) IMPRESSION: Interval placement of left thoracic transvenous pacemaker/AICD device with lead s. No pneumothorax is noted. No pleural effusion is evident. Lungs are hypoinflated, but no acute pneumonic process is clearly appreciated. No interval osseous changes seen. Reading Location: [id number]
--- NOTE | 2024-08-13 14:14 | POSTOPAN2_ITS ---
Anesthesia Postop Eval I Sum Postop Eval Completion status Anesthesia document: Postop Eval 1 completed: Yes Anesthesia Postop Eval I Summary Anesthesia Postop Eval I Summary: Anesthesia Postop Eval I: Assessment Summary Airway patent Yes 08/13/24 11:01 [email or web address] Spontaneous unlabored Yes 08/13/24 11:01 [email or web address] respirations Mental status nausea No 08/13/24 11:01 [email or web address] Vomiting No 08/13/24 11:01 [email or web address] Anesthesia Postop Eval I: Fluid Summary Crystalloid volume administer 800 08/13/24 11:01 [email or web address] (ml) Colloids volume administered ( ml) Blood Product volume administered (ml) Total IV fluid infused 800 08/13/24 11:01 [email or web address] Anesthesia Postop Eval I: Summary Notes Anesthesia Complication No 08/13/24 11:01 [email or web address] Anesthesia Complication Comment: Post-operative progress note Anesthesia: Postop Eval II Evaluation Mental status: Awake Pain Level: 0 nausea: No Vomiting: No
--- NOTE | 2024-08-13 14:14 | PCM.POSTANE2 ---
Anesthesia Postop Eval I Sum Postop Eval Completion status Anesthesia document: Postop Eval 1 completed: Yes Anesthesia Postop Eval I Summary Anesthesia Postop Eval I Summary: Anesthesia Postop Eval I: Assessment Summary Airway patent Yes 08/13/24 11:01 COMMUNICATIONS [email or web address] [email or web address] Spontaneous unlabored Yes 08/13/24 11:01 COMMUNICATIONS SENIOR [email or web address] respirations Mental status nausea No 08/13/24 11:01 COMMUNICATIONS SENIOR [email or web address].CSIR Vomiting No 08/13/24 11:01 COMMUNICATIONS [email or web address] [email or web address] Anesthesia Postop Eval I: Fluid Summary Crystalloid volume administer 800 08/13/24 11:01 COMMUNICATIONS SENIOR [email or web address].CSIR (ml) Colloids volume administered ( ml) Blood Product volume administered (ml) Total IV fluid infused 800 08/13/24 11:01 COMMUNICATIONS [email or web address] [email or web address] Anesthesia Postop Eval I: Summary Notes Anesthesia Complication No 08/13/24 11:01 COMMUNICATIONS SENIOR [email or web address].CSIR Anesthesia Complication Comment: Post-operative progress note Anesthesia: Postop Eval II Evaluation Mental status: Awake Pain Level: 0 nausea: No Vomiting: No
[2024-08-13] MEDS: Furosemide 40 MG Tablet PO (17:08)
[2024-08-13] MEDS: tiZANidine HCl 2 MG Tablet PO (21:15)
[2024-08-13] MEDS: Acetaminophen 500 MG Tablet PO (21:17)
[2024-08-13] MEDS: Gabapentin 100 MG Capsule PO (23:30)
[2024-08-14 02:00] VITALS: BP 157/87; PULSE 99; RESP 17; TEMP 36.4; O2SAT 98
--- NOTE | 2024-08-14 05:55 | RAD_ITS ---
PROCEDURE: Chest radiographs, three views. 08/14/2024 REASON FOR EXAM: Status post pacemaker placement TECHNIQUE: Inspiration, expiration, and lateral chest radiographs were obtained. COMPARISON: 08/13/2024 FINDINGS: Similar prominence of the cardiomediastinal silhouette. A left pacemaker device remains in place. No pneumothorax or pulmonary vascular congestion. No focal airspace consolidation or pleural fluid collection. Detail on the lateral projection is limited due to overexposure. The bones are osteopenic with degenerative changes of the spine. [id number] height loss of a lower thoracic or upper lumbar vertebral body on the lateral view is similar to 12/02/2023. RAD/Chest 3 View IMPRESSION: Similar prominence of the cardiomediastinal silhouette. A left pacemaker devic e remains in place. No acute cardiopulmonary process. No pneumothorax or sizable pleural effusion. [facility]
[2024-08-14 07:00] VITALS: PULSE 113
--- NOTE | 2024-08-14 09:08 | PCM.DC ---
Discharge Instructions Diet Discharge Diet: No restrictions DC O2, CPAP, BIPAP needs Home O2 Discharge instructions: No Dressing / Incision Additional Activity Instructions:: See instructions given to you by malick Lerner pacemaker nurse Dressing / Incision Call your doctor if your incision/area has: Continuous Slow Oozing, Sudden Increased Bleeding, Increased Redness, Foul Smelling Discharge and Swelling at the incision site Call your doctor if you observe: Fever of 101 or Higher Additional Dressing/Incision Instructions:: in regards to the dressing, follow instructions given to you by Gabriela Hooks Follow Up Care Test Results: Test results from this visit will be discussed in further detail at your follow-up appointment, if applicable. 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 Attending Provider: Ye Denis Primary Care Provider: Lizandro Ruiz Discharge Orders/Prescriptions Prescriptions: Continued lisinopril 40 mg tablet 40 mg PO BID ropinirole 0.25 mg tablet 0.75 mg PO QHS Rx Instructions: administer 1-3 hours before bedtime torsemide 20 mg tablet 20 mg PO BID tramadol 50 mg tablet 50 mg PO TID PRN (Reason: pain) tizanidine 2 mg tablet 2 mg PO TID PRN (Reason: muscle spasticity) metoprolol succinate 100 mg tablet extended release 24 hr 100 mg PO QDAY Qty: 90 3RF acetaminophen 500 mg capsule 500 mg PO Q6H PRN (Reason: pain) gabapentin 100 mg capsule 100 mg PO BID PRN (Reason: Chronic Back Pain) Jardiance 10 mg tablet 10 mg PO DAILY Qty: 30 11RF spironolactone 25 mg tablet 25 mg PO DAILY Qty: 90 3RF Referrals / Follow Up: Lizandro Ruiz DO [Primary Care Provider] - Kaylah Pichardo PA [Med Staff - Adv Practice Prof] - (keep your scheduled appt with the [facility] ) Disposition Disposition (needs filled in before D/C Order can be placed): Home, Self Care
[2024-08-14 09:18] VITALS: BP 147/86; PULSE 105; RESP 18; TEMP 37.1; O2SAT 96
[2024-08-14] MEDS: Empagliflozin 10 MG Tablet PO (09:19)
[2024-08-14] MEDS: Spironolactone 25 MG Tablet PO (09:19)
[2024-08-14] MEDS: Furosemide 40 MG Tablet PO (09:19)
[2024-08-14 09:20] VITALS: PULSE 105
[2024-08-14] MEDS: Metoprolol(XL)Succ 100 MG Tablet PO (09:20)
[2024-08-14] MEDS: Lisinopril 40 MG Tablet PO (09:21)
--- NOTE | 2024-08-14 09:52 | PHA.DC.MR.R ---
Pharmacy [place] Med Reconciliation Pharmacy Service has performed discharge medication reconciliation for this patient. No new medications at time of discharge review. Medications reviewed are from previously reported home medications. The patient's discharge medication list was reviewed for discrepancies and discrepancies were resolved. Medications at Discharge Home Medications acetaminophen 500 mg capsule 500 mg PO Q6H PRN pain 12/14/23 lisinopril 40 mg tablet 40 mg PO BID blood pressure 02/26/24 ropinirole 0.25 mg tablet 0.75 mg PO QHS Restless legs 02/26/24 gabapentin 100 mg capsule 100 mg PO BID PRN Chronic Back Pain 03/05/24 torsemide 20 mg tablet 20 mg PO BID Edema 03/05/24 tramadol 50 mg tablet 50 mg PO TID PRN pain 03/05/24 tizanidine 2 mg tablet 2 mg PO TID PRN muscle spasticity 04/30/24 empagliflozin 10 mg tablet (Jardiance) 10 mg PO DAILY diabetes #30 tabs 06/09/24 spironolactone 25 mg tablet 25 mg PO DAILY blood pressure #90 tabs 06/20/24 metoprolol succinate 100 mg tablet,extended release 24 hr 100 mg PO QDAY heart #90 tabs 07/11/24
--- NOTE | 2024-08-14 10:06 | CASEMGMT ---
Patient has order for discharge. RN CM in to discuss needs at discharge. Patient denies needs or help at discharge. Patient had no further questions or concerns.
== END 2024-08-14 09:14 | disposition home or self-care (01) ==
LOC: SDC 11:06 → PCU 11:06
PROVIDERS: Admitting Provider Internal Medicine Clinical Cardiac Electrophysiology; PCP Internal Medicine; Referring Provider Internal Medicine Clinical Cardiac Electrophysiology; Visit Provider Internal Medicine Clinical Cardiac Electrophysiology
DX: Z45.02 Encounter for adjustment and management of automatic implantable cardiac defibrillator (principal); I50.22 Chronic systolic (congestive) heart failure; I11.0 Hypertensive heart disease with heart failure; I25.5 Ischemic cardiomyopathy; I44.7 Left bundle-branch block, unspecified; G89.29 Other chronic pain; G06.1 Intraspinal abscess and granuloma; Z79.899 Other long term (current) drug therapy; Z79.84 Long term (current) use of oral hypoglycemic drugs; R93.1 Abnormal findings on diagnostic imaging of heart and coronary circulation; M46.46 Discitis, unspecified, lumbar region
CPT/HCPCS: 33225; 33249; 71045; 71046; 71047; 93005; 93641; 96365; 99221; C1894; C1769; G0378; J2405

== ENCOUNTER → 2024-10-02 | Outpatient (CLI) | payer MEDICARE, SELFPAY ==
--- NOTE | 2024-10-02 13:11 | RAD_ITS ---
PROCEDURE: CHEST PA AND LATERAL 10/02/2024 REASON FOR EXAM: SHORTNESS OF BREATH, CHF EXACERBATION TECHNIQUE: Frontal and lateral views of the chest. COMPARISON: Chest x-ray dated 08/14/2024. FINDINGS: Pacemaker/ICD device overlying the left chest. The cardiac silhouette is enlarged.. There is stable appearance of the pulmonary vasculature. No focal consolidation is seen within the lungs. No pneumothorax. Degenerative changes seen within the spine. No acute osseous abnormality seen. RAD/Chest PA and Lateral IMPRESSION: No change since prior examination. Cardiomegaly with stable pulmonary vascular congestion. No change since prior. No pleural effusions. Reading Location: [facility]
[2024-10-02 14:14] LABS: Absolute Lymphocyte Count 0.64 X10^3/uL (0.83-4.51); Absolute Neutrophil Count 10.8 X10^3/uL (2.0-7.7); Basophil# 0.03 X10^3/uL; Basophil% 0.2 % (0-1); Hematocrit 36.4 % (40-54); Hemoglobin 11.9 g/dL (13.0-16.5); Lymphocyte # 0.64 X10^3/ul (0.83-4.51); Lymphocyte % 5.1 % (19-41); Mean Corp Hgb Conc 32.7 g/dL (32-36); Mean Corpuscular Hgb 31.1 pg (27.0-32.0); Mean Platelet Vol. 11.6 fl (6.2-12.0); Monocyte# 0.84 X10^3/uL; Monocyte% 6.7 % (0-10); NRBC Flagged by Analyzer 0 % (0-5); Neutrophil # 10.82 X10^3/uL (2.7-7.7); Neutrophil % 86.5 % (47-70); Platelet Count 232 K/mm3 (150-450); RBC Distribution Width CV 14.7 % (11.6-14.6); RBC Distribution Width SD 50.7 fl (35.1-43.9); Red Blood Count 3.83 M/mm3 (4.6-6.2); White Blood Count 12.5 K/mm3 (4.4-11.0)
[2024-10-02 14:36] LABS: Anion Gap 14 (5-15); BUN 37 mg/dL (4-19); BUN/Creat Ratio 26.3 RATIO (10-20); Calcium,Total 8.9 mg/dL (7.6-11.0); Carbon Dioxide 22.8 mmol/L (21.0-32.0); Chloride 104 mmol/L (98-108); Creatinine, Serum 1.39 mg/dL (0.70-1.20); EST Glomerular Filtration Rate 54 (>60); Glucose 97 mg/dL (70-99); Potassium 4.5 mmol/L (3.3-5.1); Pro- Brain NATRIURETIC PEPTIDE 22835 pg/mL (<=900); Sodium Level 141 mmol/L (133-145)
== END | disposition home or self-care (01) ==
LOC: LAB 12:54
PROVIDERS: PCP Internal Medicine; Referring Provider Nurse Practitioner Family; Visit Provider Nurse Practitioner Family
DX: I50.22 Chronic systolic (congestive) heart failure (principal); I42.8 Other cardiomyopathies; R93.1 Abnormal findings on diagnostic imaging of heart and coronary circulation; Z95.810 Presence of automatic (implantable) cardiac defibrillator
CPT/HCPCS: 36415; 71046; 80048; 83880; 85025

== ENCOUNTER → 2024-10-09 | Outpatient (CLI) | payer MEDICARE, SELFPAY ==
[2024-10-09 15:15] LABS: Anion Gap 14 (5-15); BUN 51 mg/dL (4-19); BUN/Creat Ratio 20.4 RATIO (10-20); Calcium,Total 8.9 mg/dL (7.6-11.0); Carbon Dioxide 23.4 mmol/L (21.0-32.0); Chloride 103 mmol/L (98-108); Creatinine, Serum 2.48 mg/dL (0.70-1.20); EST Glomerular Filtration Rate 27 (>60); Glucose 107 mg/dL (70-99); Potassium 4.4 mmol/L (3.3-5.1); Sodium Level 141 mmol/L (133-145)
== END | disposition home or self-care (01) ==
LOC: LAB 13:54
PROVIDERS: PCP Internal Medicine; Referring Provider Internal Medicine; Visit Provider Nurse Practitioner Gerontology
DX: I11.0 Hypertensive heart disease with heart failure (principal); I50.22 Chronic systolic (congestive) heart failure; I42.8 Other cardiomyopathies
CPT/HCPCS: 36415; 80048

== ENCOUNTER → 2024-10-29 | Outpatient (CLI) | payer MEDICARE, SELFPAY ==
[2024-10-29 16:40] LABS: Anion Gap 15 (5-15); BUN 36 mg/dL (4-19); BUN/Creat Ratio 22.1 RATIO (10-20); Calcium,Total 8.8 mg/dL (7.6-11.0); Carbon Dioxide 22.3 mmol/L (21.0-32.0); Chloride 99 mmol/L (98-108); Creatinine, Serum 1.64 mg/dL (0.70-1.20); EST Glomerular Filtration Rate 44 (>60); Glucose 136 mg/dL (70-99); Potassium 5.1 mmol/L (3.3-5.1); Sodium Level 136 mmol/L (133-145)
== END | disposition home or self-care (01) ==
LOC: LAB 15:03
PROVIDERS: PCP Internal Medicine; Referring Provider Nurse Practitioner Family; Visit Provider Nurse Practitioner Family
DX: I50.22 Chronic systolic (congestive) heart failure (principal); I42.8 Other cardiomyopathies
CPT/HCPCS: 36415; 80048

== ENCOUNTER → 2024-11-10 | Outpatient (CLI) | payer MEDICARE, SELFPAY ==
[2024-11-10 12:32] LABS: Anion Gap 13 (5-15); BUN 37 mg/dL (4-19); BUN/Creat Ratio 28.1 RATIO (10-20); Calcium,Total 8.8 mg/dL (7.6-11.0); Carbon Dioxide 22.9 mmol/L (21.0-32.0); Chloride 89 mmol/L (98-108); Creatinine, Serum 1.32 mg/dL (0.70-1.20); EST Glomerular Filtration Rate 57 (>60); Glucose 108 mg/dL (70-99); Potassium 4.5 mmol/L (3.3-5.1); Sodium Level 125 mmol/L (133-145)
== END | disposition home or self-care (01) ==
LOC: LAB 11:26
PROVIDERS: PCP Internal Medicine; Referring Provider Internal Medicine Cardiovascular Disease; Visit Provider Internal Medicine Cardiovascular Disease
DX: R93.1 Abnormal findings on diagnostic imaging of heart and coronary circulation (principal)
CPT/HCPCS: 36415; 80048

== ENCOUNTER 2024-11-11 11:53 | Outpatient (CLI) | payer MEDICARE, SELFPAY ==
[2024-11-11 12:06] VITALS: BP 146/93; PULSE 86; RESP 16; TEMP 36.1; O2SAT 99; BMI 29.4
[2024-11-11] MEDS: 0.9% NaCl Peripheral Flush Adult IV (12:25)
[2024-11-11] MEDS: Furosemide 40 MG/4 ML Vial IV (12:25)
== END 2024-11-11 23:59 | disposition home or self-care (01) ==
LOC: MEDOUTP 11:54
PROVIDERS: PCP Internal Medicine; Referring Provider Internal Medicine Cardiovascular Disease; Visit Provider Internal Medicine Cardiovascular Disease
DX: I50.22 Chronic systolic (congestive) heart failure (principal); R93.1 Abnormal findings on diagnostic imaging of heart and coronary circulation
CPT/HCPCS: A4216; J1938

== ENCOUNTER 2024-11-12 12:25 | Outpatient (CLI) | payer MEDICARE, SELFPAY ==
[2024-11-12] MEDS: Furosemide 40 MG/4 ML Vial IV (12:43)
[2024-11-12 12:58] VITALS: BP 136/80; PULSE 86; RESP 16; TEMP 36.3; O2SAT 96
== END 2024-11-12 23:59 | disposition home or self-care (01) ==
LOC: MEDOUTP 12:25
PROVIDERS: PCP Internal Medicine; Referring Provider Internal Medicine Cardiovascular Disease; Visit Provider Internal Medicine Cardiovascular Disease
DX: I50.22 Chronic systolic (congestive) heart failure (principal); R93.1 Abnormal findings on diagnostic imaging of heart and coronary circulation
CPT/HCPCS: J1938

== ENCOUNTER 2024-11-13 12:04 | Outpatient (CLI) | payer MEDICARE, SELFPAY ==
[2024-11-13 12:15] VITALS: BP 129/82; PULSE 90; RESP 16; TEMP 35.7; O2SAT 99
[2024-11-13] MEDS: Furosemide 40 MG/4 ML Vial IV (12:31)
[2024-11-13 13:27] LABS: Anion Gap 15 (5-15); BUN 34 mg/dL (4-19); BUN/Creat Ratio 25.4 RATIO (10-20); Calcium,Total 8.7 mg/dL (7.6-11.0); Carbon Dioxide 24.8 mmol/L (21.0-32.0); Chloride 84 mmol/L (98-108); Creatinine, Serum 1.35 mg/dL (0.70-1.20); EST Glomerular Filtration Rate 56 (>60); Glucose 118 mg/dL (70-99); Sodium Level 124 mmol/L (133-145)
== END 2024-11-13 23:59 | disposition home or self-care (01) ==
LOC: MEDOUTP 12:05
PROVIDERS: PCP Internal Medicine; Referring Provider Internal Medicine Cardiovascular Disease; Visit Provider Internal Medicine Cardiovascular Disease
DX: R93.1 Abnormal findings on diagnostic imaging of heart and coronary circulation (principal); I50.22 Chronic systolic (congestive) heart failure
CPT/HCPCS: 96374; 80048; A4216; J1938

== ENCOUNTER → 2024-11-20 | Outpatient (CLI) | payer MEDICARE, SELFPAY ==
[2024-11-20 16:40] LABS: ALB/GLOB Ratio 1.5 RATIO (0.9-2.4); AST(SGOT) 22 U/L (<=37); Alanine Aminotransfer ALT/SGPT 34 U/L (<=46); Albumin, Serum 3.8 g/dL (3.4-4.8); Alkaline Phosphatase 106 U/L (40-129); Anion Gap 13 (5-15); BUN 46 mg/dL (4-19); BUN/Creat Ratio 32.3 RATIO (10-20); Calcium,Total 9.1 mg/dL (7.6-11.0); Chloride 94 mmol/L (98-108); Creatinine, Serum 1.41 mg/dL (0.70-1.20); EST Glomerular Filtration Rate 53 (>60); Globulin 2.5 g/dL (2.2-4.2); Glucose 103 mg/dL (70-99); Potassium 4.8 mmol/L (3.3-5.1); Protein, Total 6.4 g/dL (5.9-8.4); Sodium Level 132 mmol/L (133-145); Total Bilirubin 0.33 mg/dL (0.00-1.30)
== END | disposition home or self-care (01) ==
LOC: LAB 14:58
PROVIDERS: PCP Internal Medicine; Referring Provider Nurse Practitioner Family; Visit Provider Nurse Practitioner Family
DX: I42.8 Other cardiomyopathies (principal); I44.7 Left bundle-branch block, unspecified; I10 Essential (primary) hypertension
CPT/HCPCS: 36415; 80053

== ENCOUNTER 2025-01-22 10:03 | Inpatient (IN) | payer MEDICARE, SELFPAY ==
[2025-01-22] VITALS (9 sets, daily range): BP systolic 122–149; BP diastolic 66–78; PULSE 62–94; RESP 15–18; TEMP 36.2–37.2; O2SAT 96–98; BMI 24.4; BMI 24.0
--- NOTE | 2025-01-22 10:37 | EKG12_ITS ---
Test Reason : Blood Pressure : */* mmHG Vent. Rate : 66 BPM Atrial Rate : 66 BPM P-R Int : 178 ms QRS Dur : 160 ms QT Int : 482 ms P-R-T Axes : 46 243 89 degrees QTcB Int : 505 ms Atrial-sensed ventricular-paced rhythm Abnormal ECG Confirmed by MEDARDO JONES ([id number]), editorial specialist FAUSTO NIETO ([id number]) on 01/27/2025 6:31:21 AM Referred By: Confirmed By: MEDARDO JONES
--- NOTE | 2025-01-22 10:37 | RAD_ITS ---
PROCEDURE: CHEST 1 VIEW (PORTABLE) 01/22/2025 REASON FOR EXAM: EDEMA TECHNIQUE: Frontal view of the chest. COMPARISON: October 02, 2024 FINDINGS: There is a left-sided cardiac device with wires in position. There is cardiomegaly without overt CHF. There is no focal infiltrate or consolidation. There is no pneumothorax or effusion. There is no acute bony abnormality. Aortic calcifications are noted. RAD/Chest 1 View (Portable) IMPRESSION: There is cardiomegaly without overt CHF. Reading Location: [facility]
--- NOTE | 2025-01-22 10:42 | EDS_ITS ---
HPI History of Present Illness Chief Complaint: Cellulitis Informant: patient and family Narrative Narrative: Patient is a 74-year-old male with history of hypertension, nonischemic cardiomyopathy, left bundle branch block, chronic systolic congestive heart failure, alcohol abuse presenting from [facility] where he is at for rehab after amputation of his right lower extremity ([id number]). He is presenting for increased swelling and blistering to his left lower extremity. He denies any new lotions, soaps or exposures that could have caused it. He denies any significant pain. His daughter states that this is how his leg started on the other side and he had osteomyelitis. There is to be work states the patient has a history of necrotizing fasciitis and underwent amputation 1 month ago. He was noticed to have some swelling of his left lower leg 2 days ago and yesterday he had a small blister the size of a quarter. Today the blister has increased significantly and he also has some other surrounding blisters. He did have a recent increase of his Lasix as well as labs this morning with white blood cell count 11.7. Patient himself denies any acute complaint such as increased pain, chills, nausea, vomiting or any other symptoms. Denies any injury or trauma to the leg. Came in for further evaluation. [facility] Medical History Gastric ulcer Bursitis of left knee Presence of cardiac resynchronization therapy defibrillator (PATTERNMAKER METAL-D) LBBB (left bundle branch block) Partial loss of teeth Dry skin dermatitis Arthritis Hx of deep venous thrombosis Bruises easily Hx of gastric ulcer Non-smoker Edema Cardiology follow-up encounter Hx of echocardiogram Hypertension Epidural abscess Osteomyelitis Collapse of vertebra Bilateral edema of lower extremity Congestive heart failure (CHF) HFrEF (heart failure with reduced ejection fraction) (03/07/21) Non-ischemic cardiomyopathy (03/07/21) CHF (NYHA class III, ACC/AHA stage C) CHF exacerbation Alcohol abuse Chronic pain Congestive heart failure (CHF) Restless leg syndrome Laceration of right little finger Home Medications ?Medication ?Instructions ?Recorded ?Last Taken ?Type acetaminophen 500 mg capsule 500 mg PO Q6H PRN pain 08/12/24 History lisinopril 40 mg tablet 40 mg PO BID blood pressure 02/26/24 08/12/24 History ropinirole 0.25 mg tablet 0.75 mg PO QHS Restless legs 02/26/24 08/12/24 History gabapentin 100 mg capsule 100 mg PO BID PRN Chronic [place] Pain 03/05/24 08/12/24 History tramadol 50 mg tablet 50 mg PO TID PRN pain 08/12/24 History tizanidine 2 mg tablet 2 mg PO TID PRN muscle spast icity 04/30/24 08/12/24 History empagliflozin 10 mg tablet 10 mg PO DAILY diabetes #30 tabs 06/09/24 08/10/24 Rx (Jardiance) spironolactone 25 mg tablet 25 mg PO DAILY blood press ure #90 06/20/24 08/12/24 Rx tabs metoprolol succinate 100 mg 100 mg PO QDAY heart #90 t abs 07/11/24 08/13/24 Rx tablet,extended release 24 hr furosemide 40 mg tablet 40 mg PO BID #180 tabs 10/24 Unknown Rx Allergy/AdvReac Type Severity Reaction Status Date / Time amoxicillin Allergy PAIN AND Verified 01/22/25 14:19 DIARRHEA Penicillins Allergy PAIN AND Verified 01/22/25 14:19 DIARRHEA Family History Father Throat cancer smoker Hypertension Mother No cardiac disease Mother currently living, 92 years old with no reported medical issues. 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 pets and animals: Yes (cats) Smoking Status: Never smoker alcohol intake: former substance use type: does not use caffeine: Yes Type: coffee Number of servings: 4 ROS ROS ED Constitutional Constitutional ED: Denies chills or fever(s) Cardiovascular Cardiovascular: Denies chest pain or palpitations Respiratory/Chest Respiratory/Chest: Denies cough or dyspnea Gastrointestinal Gastrointestinal: Denies abdominal pain, nausea or vomiting Musculoskeletal Musculoskeletal: Reports other Details: right AKA, swelling to LLE Integumentary Reports rash and other Details: LLE, blisters and redness Neurologic Neurologic: Denies paresthesias or weakness Psychiatric Psychiatric: Denies anxiety Hematologic/Lymphatic Hematologic/Lymphatic: Denies easy bleeding or easy bruising EXAM Physical Exam Const Vital Signs: 01/22/25 10:05 01/22/25 10:55 01/22/25 11:29 Temperature 98.9 F 98.9 F Temperature Source Oral Oral Pulse Rate 68 67 Respiratory Rate 18 15 Blood Pressure 140/66 H 149/75 H Blood Pressure Mean 90 99 Pulse Ox 98 97 Oxygen Delivery Method Room Air Room Air Room Air 01/22/25 12:00 01/22/25 12:04 Temperature 98.7 F Temperature Source Oral Pulse Rate 62 67 Respiratory Rate 16 16 Blood Pressure 133/75 H 133/75 H Blood Pressure Mean 94 94 Pulse Ox 97 97 Oxygen Delivery Method Room Air Room Air Positive well nourished and well developed General Appearance ED: well developed and NAD HEENT Reports moist mucous membranes Negative for trauma Neck supple and no JVD Chest Wall inspection of chest normal and palpation of chest normal Resp normal respiratory effort and clear to auscultation bilaterally Auscultation: Negative for rhonchi or wheezes Cardio regular rate, regular rhythm and no murmurs GI normal to inspection, nondistended, normoactive bowel sounds and non-tender Extremity Extremity Narrative: Prior right [id number] amputation. 3+ pitting edema to the left foot. No obvious deformity of the extremity. No bony tenderness present Neuro oriented x3 Sensorium / Orientation: alert Skin Skin Narrative: Large bullae filled with serous fluid of the left lower santoyo (10 cm x 13 cm). Nontense. There are some surrounding scattered bulla that are smaller. There are some mild erythema but no warmth or lymphangitic streaking of the lower dorsal foot. No crepitus appreciated. Negative Nikolsky sign to the lower extremity. MDM MDM MDM Narrative Medical decision making narrative: Patient valuated for increased swelling and blistering of the left lower extremity. Patient has a large bulla filled with serous fluid that looks more consistent with fluid overload versus infectious however given his history of necrotizing fasciitis to the other leg requiring amputation will obtain septic workup. He had blood work earlier today with a CBC and CRP which were reviewed and showed a white blood cell count of 11.7 with a left shift with an immature granulocyte count of 2.5 as well as a chronic anemia with a hemoglobin 9.2. His CRP however was less than 3. Will repeat these labs to ensure there is not significant waste/materials exchange specialist this timeframe as well as cultures and also check a BNP and cardiac labs. Will obtain x-rays looking for signs of free air or any underlying trauma. Patient white blood cell count mildly elevated at 12.1. Hemoglobin is stable. Continues to have a left shift. Lactate is elevated at 3.1. He has a chronic elevation of his proBNP. He has a relatively significant hypokalemia with a potassium of 2.8. On repeat evaluation he does not have any progression of his skin changes/wound to his leg. I will cover with broad-spectrum antibiotics including Ancef, vancomycin and add in a dose of clindamycin given his history of necrotizing fasciitis however at this time there is no rapid progression, pain out of proportion or free air on his x-ray. X-ray of the tib-fib and foot reviewed by myself as well as radiology does not show any acute bony abnor malities. Soft tissue mass noted on the x-ray is consistent with his bulla on his santoyo. Case discussed with hospitalist for admission. He is not given IV fluids in the emergency room as he clinically looks more fluid overloaded, has a history of CHF and it is still possible that the bullae is from CHF exacerbation/third spacing and not infectious. Lab Data Attestation: I reviewed the patient's lab results. Labs: Laboratory Results - last 24 hr 01/22/25 01/22/25 10:55 11:44 WBC 12.1 H RBC 3.29 L Hgb 9.4 L Hct 29.7 L MCV 90.3 MCH 28.6 MCHC 31.6 L RDW Std Deviation 50.3 H RDW Coeff of Rosario 15.1 H Plt Count 225 MPV 10.8 Immature Gran % (Auto) 2.100 H Neut % (Auto) 82.9 H Lymph % (Auto) 9.9 L [place] % (Auto) 5.0 Eos % (Auto) 0.0 Baso % (Auto) 0.1 Absolute Neuts (auto) 10.1 H Absolute Lymphs (auto) 1.20 Nucleated RBC % 0 PT 14.0 INR 1.1 APTT 28.2 Sodium 143 Potassium 2.8 L Chloride 104 Carbon Dioxide 27.7 Anion Gap 12 BUN 9 Creatinine 0.60 L Estim Creat Clear Calc 68.86 Est GFR (MDRD) Non-Af 102 BUN/Creatinine Ratio 15.7 Glucose 149 H Lactic Acid 3.1 H* Calcium 8.1 Total Bilirubin 0.25 AST 20 ALT 14 Alkaline Phosphatase 105 Total Creatine Kinase 22 [place] [address] H Total Protein 5.7 L Albumin 3.4 Globulin 2.3 Albumin/Globulin Ratio 1.5 Urine Color Yellow Urine Clarity Clear Urine pH 7.0 Ur Specific [place] 1.005 Urine Protein 30 H Urine Glucose (UA) 250 H Urine Ketones Negative Urine Occult Blood Negative Urine Nitrite Negative Urine Bilirubin Negative Urine Urobilinogen Normal Ur Leukocyte Esterase Negative Urine RBC 0 SEEN Urine WBC 0 SEEN Ur Squamous Epith Cells 0 SEEN Urine Bacteria 0 SEEN Urine Mucus 0 SEEN Radiography Diagnostic Testing: Clinical Impression(s) from Imaging Studies Chest X-Ray 01/22/25 10:37 IMPRESSION: There is cardiomegaly without overt CHF. Reading Location: [facility] Foot X-Ray 01/22/25 10:44 IMPRESSION: Diffuse dorsal soft tissue swelling. Degenerative changes at the 1st metatarsophalangeal joint. Reading Location: [id number] Tibia/Fibula X-Ray 01/22/25 10:44 IMPRESSION: Large soft tissue mass overlying the distal medial posterior aspect of the tibia. Reading Location: [id number] Rhythm Strip Rhythm Strip: paced Rate: 66 Ectopy: None EKG Initial EKG: Attestation: I personally reviewed and interpreted this EKG as follows: Interpretation: Paced Comments: Atrial sensed ventricular paced rhythm at a rate of [address] segment changes associated with this with prolonged QTc and repolarization abnormalities Slight morphology change compared to prior EKG on 08/13/2024 Management Discussion w/another healthcare provider: Hospitalist Discharge Plan Dx/Rx/DC Orders Clinical Impression: Cellulitis, Cardiac LV ejection fraction 21-30%, Presence of cardiac resynchronization therapy defibrillator (PATTERNMAKER METAL-D), Acute hypokalemia Disposition Disposition: Acute Care Hospital [facility] Discharge Date/Time: 01/22/25 14:00
--- NOTE | 2025-01-22 10:44 | RAD_ITS ---
PROCEDURE: FOOT MIN 3 VIEWS 01/22/2025 REASON FOR EXAM: SWELLING Overlying erythema. TECHNIQUE: FOOT MIN 3 VIEWS Laterality: Left foot COMPARISON: None FINDINGS: Bones: No visible fracture. No suspicious bone lesion. Joints: Moderate degree of joint space narrowing at the 1st metatarsophalangeal joint. Soft tissues: Diffuse dorsal soft tissue swelling. Other: RAD/Foot min 3 Views IMPRESSION: Diffuse dorsal soft tissue swelling. Degenerative changes at the 1st metatarsophalangeal joint. Reading Location: [id number]
--- NOTE | 2025-01-22 10:44 | RAD_ITS ---
EXAM: Tibia and fibula CLINICAL HISTORY: Soft tissue swelling and erythema. COMPARISON: None TECHNIQUE: Two views were obtained. FINDINGS: There is a 4.2 cm x 6.9 cm soft tissue mass overlying the medial aspect of the distal shaft of the tibia. RAD/Tibia & Fibula 2 Views IMPRESSION: Large soft tissue mass overlying the distal medial posterior aspect of the tibi a. Reading Location: [id number]
[2025-01-22 11:07] LABS: Hematocrit 29.7 % (40-54); Hemoglobin 9.4 g/dL (13.0-16.5); Immature Granulocytes Count 0.250 X10^3/uL (0.0-0.0); Mean Corp Hgb Conc 31.6 g/dL (32-36); Mean Corpuscular Volume 90.3 fL (80-94); Mean Platelet Vol. 10.8 fl (6.2-12.0); NRBC Flagged by Analyzer 0 % (0-5); Platelet Count 225 K/mm3 (150-450); RBC Distribution Width CV 15.1 % (11.6-14.6); RBC Distribution Width SD 50.3 fl (35.1-43.9); Red Blood Count 3.29 M/mm3 (4.6-6.2); White Blood Count 12.1 K/mm3 (4.4-11.0)
[2025-01-22 11:14] LABS: Prothrombin Time (Protime)PT. 14.0 SECONDS (11.7-14.9)
[2025-01-22 11:15] LABS: Partial Thromboplast Time 28.2 Seconds (24.1-36.2)
[2025-01-22 11:42] LABS: AST(SGOT) 20 U/L (<=37); Alanine Aminotransfer ALT/SGPT 14 U/L (<=46); Albumin, Serum 3.4 g/dL (3.4-4.8); Alkaline Phosphatase 105 U/L (40-129); Anion Gap 12 (5-15); BUN 9 mg/dL (4-19); BUN/Creat Ratio 15.7 RATIO (10-20); Calcium,Total 8.1 mg/dL (7.6-11.0); Carbon Dioxide 27.7 mmol/L (21.0-32.0); Chloride 104 mmol/L (98-108); Estimated Creatinine Clearance 68.86 ml/min (50-250); Globulin 2.3 g/dL (2.2-4.2); Glucose 149 mg/dL (70-99); Potassium 2.8 mmol/L (3.3-5.1)
[2025-01-22 11:46] LABS: Mucous, Urine 0 SEEN /hpf (<or=2+); Red Blood Cells-Urine 0 SEEN /hpf (0-5); Squamous Epithelial Cells - UA 0 SEEN /hpf (0-5)
[2025-01-22 11:47] LABS: Color, Urine Yellow (Yellow); Glucose, Dipstick 250 mg/dl (Normal); Ketone-Dipstick Negative (Negative); Leukocyte Esterase-Dipstick Negative /ul (Negative); Nitrite-Dipstick Negative (Negative); Occult Blood-Urine Negative /ul (Negative); Protein-Dipstick 30 mg/dl (Negative); Specific Gravity, Urine 1.005 (1.002-1.030); Urine Bilirubin Dipstick Negative (Negative)
[2025-01-22 12:05] LABS: CPK Total, Creatine Kinase 22 U/L (24-195); Pro- Brain NATRIURETIC PEPTIDE 28593 pg/mL (<=900)
--- NOTE | 2025-01-22 12:31 | PCM.HP.STD ---
HPI - General General Date of Admission: 01/22/25 HPI Narrative LILIBETH CRESPO, is a 74 M who presents to the hospital with left lower extremity redness and serous blister on the medial aspect of his left ankle/calf. He does have extensive cardiac history with heart failure and his proBNP is significantly elevated to over 28,000. He does have a slight leukocytosis but no signs of sepsis on admission. He started noticing the leg redness and blistering over the last day or 2 and was concerned because he had an episode of necrotizing fasciitis that necessitated amputation of his right lower extremity at an outside hospital about a month ago. X-ray of his lower extremity does not show any gas that would be concerning for necrotizing fasciitis. He did receive a dose of Ancef, clindamycin, and vancomycin in the emergency room. He is not short of breath and does not appear to be in heart failure at this time. Chest x-ray does not indicate of volume overloaded state at this time. [facility] Medical History Gastric ulcer Bursitis of left knee Presence of cardiac resynchronization therapy defibrillator (SLIP COVER CUTTER-D) LBBB (left bundle branch block) Partial loss of teeth Dry skin dermatitis Arthritis Hx of deep venous thrombosis Bruises easily Hx of gastric ulcer Non-smoker Edema Cardiology follow-up encounter Hx of echocardiogram Hypertension Epidural abscess Osteomyelitis Collapse of vertebra Bilateral edema of lower extremity Congestive heart failure (CHF) HFrEF (heart failure with reduced ejection fraction) (03/07/21) Non-ischemic cardiomyopathy (03/07/21) CHF (NYHA class III, ACC/AHA stage C) CHF exacerbation Alcohol abuse Chronic pain Congestive heart failure (CHF) Restless leg syndrome Laceration of right little finger Home Medications ?Medication ?Instructions ?Recorded ?Last Taken ?Type acetaminophen 500 mg capsule 500 mg PO Q6H PRN pain 12/14/23 08/12/24 History lisinopril 40 mg tablet 40 mg PO BID blood pressure 02/26/24 08/12/24 History ropinirole 0.25 mg tablet 0.75 mg PO QHS Restless legs 02/26/24 08/12/24 History gabapentin 100 mg capsule 100 mg PO BID PRN Chronic Back Pain 03/05/24 08/12/24 History tramadol 50 mg tablet 50 mg PO TID PRN pain 03/05/24 08/12/24 History tizanidine 2 mg tablet 2 mg PO TID PRN muscle spasticity 04/30/24 08/12/24 History empagliflozin 10 mg tablet 10 mg PO DAILY diabetes #30 tabs 06/09/24 08/10/24 Rx (Jardiance) spironolactone 25 mg tablet 25 mg PO DAILY blood pressure #90 06/20/24 08/12/24 Rx tabs metoprolol succinate 100 mg 100 mg PO QDAY heart #90 tabs 07/11/24 08/13/24 Rx tablet,extended release 24 hr furosemide 40 mg tablet 40 mg PO BID #180 tabs 10/24/24 Unknown Rx metolazone 5 mg tablet 5 mg PO QDAY PRN edema #30 tabs 11/20/24 Unknown Rx Allergy/AdvReac Type Severity Reaction Status Date / Time amoxicillin Allergy PAIN AND Verified 01/22/25 14:19 DIARRHEA Penicillins Allergy PAIN AND Verified 01/22/25 14:19 DIARRHEA Family History Father Throat cancer smoker Hypertension Mother No cardiac disease Mother currently living, 92 years old with no reported medical issues. 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 pets and animals: Yes (cats) Smoking Status: Never smoker alcohol intake: former substance use type: does not use caffeine: Yes Type: coffee Number of servings: 4 ROS Constitutional Constitutional: Denies chills, fatigue, fever(s) or malaise Eyes Eyes: Denies blurry vision ENT HEENT: Denies headache(s) or nasal discharge Cardiovascular Cardiovascular: Denies chest pain, dyspnea on exertion or syncope Respiratory/Chest Respiratory/Chest: Denies cough, shortness of breath at rest or shortness of breath with exertion Gastrointestinal Gastrointestinal: Denies constipation, diarrhea, nausea or vomiting Genitourinary Genitourinary: Denies dysuria Integumentary Integumentary: Reports new lesions Neurologic Neurologic: Denies focal weakness, numbness or tremor(s) Psychiatric Psychiatric: Denies anxiety or depression Vital Signs Vital Signs Vital Signs: 01/22/25 10:05 01/22/25 10:55 01/22/25 11:29 Temperature 98.9 F 98.9 F Temperature Source Oral Oral Pulse Rate 68 67 Respiratory Rate 18 15 Blood Pressure 140/66 H 149/75 H Blood Pressure Mean 90 99 Pulse Ox 98 97 Oxygen Delivery Method Room Air Room Air Room Air Weight Weight: 142 lb 4.8 oz Body Mass Index (BMI) 24.4 Physical Exam Narrative General: Alert, Oriented x3, Cooperative, No apparent distress HEENT: Atraumatic, PERRLA, EOMI, Normocephalic Oral: Moist Mucosa Neck: Supple, No JVD Lungs: Diminished, Normal air movement, No rhonchi, No wheeze, No rales Cardiovascular: Regular rate, Regular Rhythm, Normal S1, Normal S2, No murmurs Abdomen: Soft, Non Tender, Non-Distended, No Hepato-splenomegaly Extremities: Edema, Capillary Refill Less than 3 Seconds Skin: Serous filled blister on the medial aspect of his left ankle/calf with erythema Musculoskeletal: Right AKA Neurological: No focal neurological deficits, moves all extremities Psych/Mental Status: Normal Affect, Appropriate Results Lab / Micro Data 01/22/25 10:55 01/22/25 10:55 Labs: Laboratory Results - last 24 hr 01/22/25 10:55: WBC 12.1 H, RBC 3.29 L, Hgb 9.4 L, Hct 29.7 L, MCV 90.3, MCH 28.6, MCHC 31.6 L, RDW Std Deviation 50.3 H, RDW Coeff of Rosario 15.1 H, Plt Count 225, MPV 10.8, Immature Gran % (Auto) 2.100 H, Neut % (Auto) 82.9 H, Lymph % (Auto) 9.9 L, [place] % (Auto) 5.0, Eos % (Auto) 0.0, Baso % (Auto) 0.1, Absolute Neuts (auto) 10.1 H, Absolute Lymphs (auto) 1.20, Nucleated RBC % 0, PT 14.0, INR 1.1, APTT 28.2, Sodium 143, Potassium 2.8 L, Chloride 104, Carbon Dioxide 27.7, Anion Gap 12, BUN 9, Creatinine 0.60 L, Estim Creat Clear Calc 68.86, Est GFR (MDRD) Non-Af 102, BUN/Creatinine Ratio 15.7, Glucose 149 H, Lactic Acid 3.1 H*, Calcium 8.1, Total Bilirubin 0.25, AST 20, ALT 14, Alkaline Phosphatase 105, Total Creatine Kinase 22 L, [place] [address] H, Total Protein 5.7 L, Albumin 3.4, Globulin 2.3, Albumin/Globulin Ratio 1.5 01/22/25 11:44: Urine Color Yellow, Urine Clarity Clear, Urine pH 7.0, Ur Specific [place] 1.005, Urine Protein 30 H, Urine Glucose (UA) 250 H, Urine Ketones Negative, Urine Occult Blood Negative, Urine Nitrite Negative, Urine Bilirubin Negative, Urine Urobilinogen Normal, Ur Leukocyte Esterase Negative, Urine RBC 0 SEEN, Urine WBC 0 SEEN, Ur Squamous Epith Cells 0 SEEN, Urine Bacteria 0 SEEN, Urine Mucus 0 SEEN Imaging Radiology Impression Chest X-Ray 01/22/25 10:37 IMPRESSION: There is cardiomegaly without overt CHF. [facility] Foot X-Ray 01/22/25 10:44 IMPRESSION: Diffuse dorsal soft tissue swelling. Degenerative changes at the 1st metatarsophalangeal joint. Reading Location: [id number] Tibia/Fibula X-Ray 01/22/25 10:44 IMPRESSION: Large soft tissue mass overlying the distal medial posterior aspect of the tibia. Reading Location: [facility] Assessment & Plan Assessment/Plan (1) Cellulitis: PLAN: Plan 1. Left lower extremity cellulitis in the presence of the serous filled blister ? Does not meet sepsis criteria ? Will hold off on IV fluids and of diuresis at this time ? Continue with Ancef ? Culture data is pending ? He is concerned because he has had a right AKA for necrotizing fasciitis on the right leg, currently no gas seen in the x-ray to be concerned about necrotizing fasciitis at this time 2. Chronic systolic CHF/essential HTN/HLD ? Last echo was on 06/18/2024 with an EF of 25% with severe global hypokinesis ? Can resume his home medications when verified ? 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 Will continue with Jardiance when verified 3. Chronic pain muscle spasms of the legs ? Can resume his home medications when verified ? Stable DVT: Lovenox 75 minutes was spent on direct patient care, including documentation as well as chart review and collaboration with colleagues Charges/Coding Visit Charges Inpatient E&M: 11715 Init Hosp L3
[2025-01-22] MEDS: Clindamycin 900 MG/50 ML BAG 75 MG IV (12:51)
[2025-01-22] MEDS: Potassium Chloride 10mEq/100mL 10 MEQ/100 ML IV.SOLN. 100 MEQ IV BOLUS ×2 (13:13→16:24)
[2025-01-22] MEDS: Potassium Chloride Oral Soln 20 MEQ/15 ML UDC 40 MEQ PO (13:16)
[2025-01-22] MEDS: Cefazolin 2 GM in 0.9% Normal Saline (100mL Bag) 100 ML IV (13:40)
[2025-01-22 15:02] LABS: Reflex Lactate? Y
--- NOTE | 2025-01-22 17:28 | CM.ED ---
Social Work Patient told SW that he lives in the community and has a renter, although staff confirmed that patient is from [facility]. Patient to return to [facility] when medically ready. Adelina Flores, MOWING MACHINE OPERATOR, INFANT TODDLER LEAD TEACHER
[2025-01-22] MEDS: 0.9% Saline Lock 10 ML Syringe IV (19:40)
[2025-01-22] MEDS: Pramipexole Di-HCl 0.125 MG Tablet 0.375 MG PO (22:22)
[2025-01-22] MEDS: Cefazolin 1 GM/50 ML BAG IV (22:34)
[2025-01-23 03:00] VITALS: PULSE 61
[2025-01-23 03:17] VITALS: BMI 24.6
[2025-01-23] MEDS: 0.9% Saline Lock 10 ML Syringe IV ×4 (05:29→22:11)
[2025-01-23] MEDS: Cefazolin 1 GM/50 ML BAG IV ×3 (05:29→22:11)
[2025-01-23 05:31] VITALS: BP 146/77; PULSE 68; RESP 15; TEMP 36.6; O2SAT 100
[2025-01-23 05:53] LABS: Hematocrit 27.1 % (40-54); Hemoglobin 8.5 g/dL (13.0-16.5); Immature Granulocytes Count 0.470 X10^3/uL (0.0-0.0); Mean Corp Hgb Conc 31.4 g/dL (32-36); Mean Corpuscular Volume 91.9 fL (80-94); Mean Platelet Vol. 10.5 fl (6.2-12.0); NRBC Flagged by Analyzer 0 % (0-5); Platelet Count 191 K/mm3 (150-450); RBC Distribution Width CV 15.6 % (11.6-14.6); RBC Distribution Width SD 51.7 fl (35.1-43.9); Red Blood Count 2.95 M/mm3 (4.6-6.2); White Blood Count 10.3 K/mm3 (4.4-11.0)
[2025-01-23 06:34] LABS: Anion Gap 11 (5-15); BUN 12 mg/dL (4-19); BUN/Creat Ratio 19.5 RATIO (10-20); Calcium,Total 7.7 mg/dL (7.6-11.0); Carbon Dioxide 26.3 mmol/L (21.0-32.0); Chloride 105 mmol/L (98-108); Estimated Creatinine Clearance 63.51 ml/min (50-250); Glucose 103 mg/dL (70-99); Potassium 3.5 mmol/L (3.3-5.1)
[2025-01-23 08:16] VITALS: BP 113/71; PULSE 70; RESP 16; TEMP 36.6; O2SAT 99
[2025-01-23 08:19] VITALS: BP 113/71; PULSE 70
[2025-01-23] MEDS: Metoprolol(XL)Succ 100 MG Tablet PO (08:19)
--- NOTE | 2025-01-23 08:50 | CASEMGMT ---
Addendum entered by Andria Quinones 01/23/25 09:50: Pt is currently being skilled and will need to return today under current auth. SW updated. Andria Quinones DC Planning Asst. Original Note: Discharge Planning Updates sent to [facility] with note asking if pt will need precert to return. Awaiting response. Andria Quinones DC Planning Asst.
--- NOTE | 2025-01-23 09:01 | CASEMGMT ---
Advanced Directives HC POA and Living Will rec'd from snf. Given to SW for review. Andria Quinones DC Planning Asst.
--- NOTE | 2025-01-23 11:17 | PCM.PN.HOSP ---
Subjective Subjective Doing well, no issues overnight Objective Data Objective Data Vital Signs: Vital Signs Temp Pulse Resp BP Pulse Ox O2 Del Method 97.9 F 70 16 113/71 99 Room Air 01/23/25 08:16 01/23/25 08:19 01/23/25 08:16 01/23/25 08:19 01/23/25 08:16 01/23/25 08:16 Oxygen Delivery Method Room Air Weight: 134 lb 14.766 oz Body Mass Index (BMI) 24.6 Intake & Output: Intake and Output for Last 24 Hours 01/22/25 01/23/25 01/24/25 03:59 03:59 03:59 Intake Total 710 / 710 50 / 50 Output Total 950 / 950 200 / 200 Balance -240 / -240 -150 / -150 Lab / Micro Data 01/23/25 05:03 01/23/25 05:03 Labs: Laboratory Results - last 24 hr 01/22/25 10:55: Sodium 143, Potassium 2.8 L, Chloride 104, Carbon Dioxide 27.7, Anion Gap 12, BUN 9, Creatinine 0.60 L, Estim Creat Clear Calc 68.86, Est GFR (MDRD) Non-Af 102, BUN/Creatinine Ratio 15.7, Glucose 149 H, Lactic Acid 3.1 H*, Calcium 8.1, Total Bilirubin 0.25, AST 20, ALT 14, Alkaline Phosphatase 105, Total Creatine Kinase 22 L, [place] [address] H, Total Protein 5.7 L, Albumin 3.4, Globulin 2.3, Albumin/Globulin Ratio 1.5 01/22/25 11:44: Urine Color Yellow, Urine Clarity Clear, Urine pH 7.0, Ur Specific [place] 1.005, Urine Protein 30 H, Urine Glucose (UA) 250 H, Urine Ketones Negative, Urine Occult Blood Negative, Urine Nitrite Negative, Urine Bilirubin Negative, Urine Urobilinogen Normal, Ur Leukocyte Esterase Negative, Urine RBC 0 SEEN, Urine WBC 0 SEEN, Ur Squamous Epith Cells 0 SEEN, Urine Bacteria 0 SEEN, Urine Mucus 0 SEEN 01/22/25 16:18: Lactic Acid 2.7 H* 01/23/25 05:03: WBC 10.3, RBC 2.95 L, Hgb 8.5 L, Hct 27.1 L, MCV 91.9, MCH 28.8, MCHC 31.4 L, RDW Std Deviation 51.7 H, RDW Coeff of Rosario 15.6 H, Plt Count 191, MPV 10.5, Immature Gran % (Auto) 4.600 H, Neut % (Auto) 75.5 H, Lymph % (Auto) 12.8 L, [place] % (Auto) 6.5, Eos % (Auto) 0.3, Baso % (Auto) 0.3, Absolute Neuts (auto) 7.8 H, Absolute Lymphs (auto) 1.32, Nucleated RBC % 0, Sodium 142, Potassium 3.5, Chloride 105, Carbon Dioxide 26.3, Anion Gap 11, BUN 12, Creatinine 0.60 L, Estim Creat Clear Calc 63.51, Est GFR (MDRD) Non-Af 102, BUN/Creatinine Ratio 19.5, Glucose 103 H, Calcium 7.7 Radiography Diagnostic Testing: Radiology Impression Chest X-Ray 01/22/25 10:37 IMPRESSION: There is cardiomegaly without overt CHF. [facility] 01/22/25 10:44 IMPRESSION: Diffuse dorsal soft tissue swelling. Degenerative changes at the 1st metatarsophalangeal joint. Reading Location: [id number] Tibia/Fibula X-Ray 01/22/25 10:44 IMPRESSION: Large soft tissue mass overlying the distal medial posterior aspect of the tibia. Reading Location: [id number] Rhythm Strip Rhythm Strip: paced Rate: 66 Ectopy: None Physical Exam Narrative General: Alert, Oriented x3, Cooperative, No apparent distress HEENT: Atraumatic, PERRLA, EOMI, Normocephalic Oral: Moist Mucosa Neck: Supple, No JVD Lungs: Diminished, Normal air movement, No rhonchi, No wheeze, No rales Cardiovascular: Regular rate, Regular Rhythm, Normal S1, Normal S2, No murmurs Abdomen: Soft, Non Tender, Non-Distended, No Hepato-splenomegaly Extremities: Edema, Capillary Refill Less than 3 Seconds Skin: Serous filled blister on the medial aspect of his left ankle/calf with erythema Musculoskeletal: Right AKA Neurological: No focal neurological deficits, moves all extremities Psych/Mental Status: Normal Affect, Appropriate Assessment & Plan Assessment/Plan (1) Cellulitis: PLAN: Plan 1. Left lower extremity cellulitis in the presence of the serous filled blister ? Does not meet sepsis criteria ? Continue with Ancef ? Culture data is pending ? He is concerned because he has had a right AKA for necrotizing fasciitis on the right leg, currently no gas seen in the x-ray to be concerned about necrotizing fasciitis at this time ? Leukocytosis is resolved and his redness has not progressed 2. Chronic systolic CHF/essential HTN/HLD ? Last echo was on 06/18/2024 with an EF of 25% with severe global hypokinesis ? Can resume his home medications ? 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 Will continue with Jardiance 3. Chronic pain muscle spasms of the legs ? Can resume his home medications ? Stable DVT: Lovenox Charges/Coding Visit Charges Inpatient E&M: 24997 Subs Hosp L2
--- NOTE | 2025-01-23 11:51 | CASEMGMT ---
Addendum entered by Reyna Levine 01/23/25 15:05: TOMMY sent therapy notes to [facility] and requested precert to be started. TOMMY remains available to follow. OLIVIA Oswald Addendum entered by Reyna Levine 01/23/25 13:57: TOMMY met with pt and pt dtr Marie who pt reports as his go to person. Pt reports that he will need transport scheduled at discharge. TOMMY updated that once therapy notes are submitted, [facility] will start precert for return to skilled services. Following authorization determination, TOMMY will follow up. TOMMY remains available to follow for discharge needs. DCA updated. OLIVIA Oswald Original Note: Social Work- TOMMY confirmed directives and placed copy on chart that was received from [facility]. Plans will be for return to [facility] at d/c. TOMMY updated DCA. OLIVIA Oswald
--- NOTE | 2025-01-23 12:02 | WOUNDNOTE ---
wound photo: left lower leg
--- NOTE | 2025-01-23 12:03 | WOUNDNOTE ---
wound photo: right stump
[2025-01-23 15:38] VITALS: BP 130/69; PULSE 80; RESP 16; TEMP 36.6; O2SAT 98
[2025-01-23 22:05] VITALS: BP 125/66; PULSE 76; RESP 16; TEMP 36.8; O2SAT 95
[2025-01-23] MEDS: Pramipexole Di-HCl 0.125 MG Tablet 0.375 MG PO (22:11)
[2025-01-24 04:39] VITALS: BMI 24.5
[2025-01-24 05:05] VITALS: BP 155/74; PULSE 63; RESP 18; TEMP 36.6; O2SAT 97
[2025-01-24] MEDS: Cefazolin 1 GM/50 ML BAG IV ×3 (05:09→21:19)
[2025-01-24] MEDS: 0.9% Saline Lock 10 ML Syringe IV ×2 (05:09→14:39)
[2025-01-24 05:19] LABS: Hematocrit 26.5 % (40-54); Hemoglobin 8.3 g/dL (13.0-16.5); Immature Granulocytes Count 0.460 X10^3/uL (0.0-0.0); Mean Corp Hgb Conc 31.3 g/dL (32-36); Mean Corpuscular Volume 91.1 fL (80-94); Mean Platelet Vol. 10.7 fl (6.2-12.0); NRBC Flagged by Analyzer 0 % (0-5); Platelet Count 207 K/mm3 (150-450); RBC Distribution Width CV 15.4 % (11.6-14.6); RBC Distribution Width SD 51.1 fl (35.1-43.9); Red Blood Count 2.91 M/mm3 (4.6-6.2); White Blood Count 11.2 K/mm3 (4.4-11.0)
[2025-01-24 05:41] LABS: Anion Gap 10 (5-15); BUN 14 mg/dL (4-19); BUN/Creat Ratio 23.6 RATIO (10-20); Calcium,Total 8.0 mg/dL (7.6-11.0); Carbon Dioxide 24.8 mmol/L (21.0-32.0); Chloride 105 mmol/L (98-108); Estimated Creatinine Clearance 63.51 ml/min (50-250); Glucose 111 mg/dL (70-99); Potassium 3.4 mmol/L (3.3-5.1)
[2025-01-24 09:15] VITALS: BP 133/70; PULSE 85; RESP 14; TEMP 36.7; O2SAT 97
[2025-01-24 09:20] VITALS: BP 133/70; PULSE 85
[2025-01-24] MEDS: Metoprolol(XL)Succ 100 MG Tablet PO (09:20)
--- NOTE | 2025-01-24 11:45 | PCM.PN.HOSP ---
Subjective Subjective Doing well, no issues overnight, pain is controlled. Objective Data Objective Data Vital Signs: Vital Signs Temp Pulse Resp BP Pulse Ox O2 Del Method 98.1 F 85 14 133/70 H 97 Room Air 01/24/25 09:15 01/24/25 09:20 01/24/25 09:15 01/24/25 09:20 01/24/25 09:15 01/24/25 09:15 Oxygen Delivery Method Room Air Weight: 134 lb 0.657 oz Body Mass Index (BMI) 24.5 Intake & Output: Intake and Output for Last 24 Hours 01/23/25 01/24/25 01/25/25 03:59 03:59 03:59 Intake Total 710 / 710 1750 / 1750 350 / 350 Output Total 950 / 950 1450 / 1450 700 / 700 Balance -240 / -240 300 / 300 -350 / -350 Lab / Micro Data 01/24/25 05:00 01/24/25 05:00 Labs: Laboratory Results - last 24 hr 01/24/25 05:00: WBC 11.2 H, RBC 2.91 L, Hgb 8.3 L, Hct 26.5 L, MCV 91.1, MCH 28.5, MCHC 31.3 L, RDW Std Deviation 51.1 H, RDW Coeff of Rosario 15.4 H, Plt Count 207, MPV 10.7, Immature Gran % (Auto) 4.100 H, Neut % (Auto) 83.3 H, Lymph % (Auto) 8.0 L, [place] % (Auto) 4.0, Eos % (Auto) 0.2, Baso % (Auto) 0.4, Absolute Neuts (auto) 9.4 H, Absolute Lymphs (auto) 0.90, Nucleated RBC % 0, Sodium 140, Potassium 3.4, Chloride 105, Carbon Dioxide 24.8, Anion Gap 10, BUN 14, Creatinine 0.57 L, Estim Creat Clear Calc 63.51, Est GFR (MDRD) Non-Af 103, BUN/Creatinine Ratio 23.6 H, Glucose 111 H, Calcium 8.0 Rhythm Strip Rhythm Strip: paced Rate: 66 Ectopy: None Physical Exam Narrative General: Alert, Oriented x3, Cooperative, No apparent distress HEENT: Atraumatic, PERRLA, EOMI, Normocephalic Oral: Moist Mucosa Neck: Supple, No JVD Lungs: Diminished, Normal air movement, No rhonchi, No wheeze, No rales Cardiovascular: Regular rate, Regular Rhythm, Normal S1, Normal S2, No murmurs Abdomen: Soft, Non Tender, Non-Distended, No Hepato-splenomegaly Extremities: Edema, Capillary Refill Less than 3 Seconds Skin: Serous filled blister on the medial aspect of his left ankle/calf with erythema Musculoskeletal: Right AKA Neurological: No focal neurological deficits, moves all extremities Psych/Mental Status: Normal Affect, Appropriate Assessment & Plan Assessment/Plan (1) Cellulitis: PLAN: Plan 1. Left lower extremity cellulitis in the presence of the serous filled blister ? Does not meet sepsis criteria ? Continue with Ancef ? Culture data is still pending ? He is concerned because he has had a right AKA for necrotizing fasciitis on the right leg, currently no gas seen in the x-ray to be concerned about necrotizing fasciitis at this time ? Leukocytosis is resolved and his redness has not progressed ? Unfortunately we have to get another pre-CERT for long term therapy despite the fact that he still has a right AKA therefore he will be here through the weekend and the holiday 2. Chronic systolic CHF/essential HTN/HLD ? Last echo was on 06/18/2024 with an EF of 25% with severe global hypokinesis ? Can resume his home medications ? 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 Will continue with Jardiance 3. Chronic pain muscle spasms of the legs ? Can resume his home medications ? Stable DVT: Lovenox Charges/Coding Visit Charges Inpatient E&M: 48714 Subs Hosp L2
[2025-01-24 14:40] VITALS: BP 136/72; PULSE 73; RESP 16; TEMP 36.6; O2SAT 96
[2025-01-24 21:13] VITALS: BP 134/65; PULSE 71; RESP 16; TEMP 36.8; O2SAT 94
[2025-01-24] MEDS: Pramipexole Di-HCl 0.125 MG Tablet 0.375 MG PO (21:17)
[2025-01-25 03:03] VITALS: BP 141/76; PULSE 73; RESP 14; TEMP 37.3; O2SAT 96
[2025-01-25] MEDS: Cefazolin 1 GM/50 ML BAG IV ×3 (05:31→21:30)
[2025-01-25] MEDS: 0.9% Saline Lock 10 ML Syringe IV ×3 (05:34→21:32)
[2025-01-25 06:00] VITALS: BMI 24.8
[2025-01-25 06:21] LABS: Hematocrit 26.7 % (40-54); Hemoglobin 8.5 g/dL (13.0-16.5); Immature Granulocytes Count 0.290 X10^3/uL (0.0-0.0); Mean Corp Hgb Conc 31.8 g/dL (32-36); Mean Corpuscular Volume 90.2 fL (80-94); Mean Platelet Vol. 10.7 fl (6.2-12.0); NRBC Flagged by Analyzer 0 % (0-5); Platelet Count 233 K/mm3 (150-450); RBC Distribution Width CV 15.7 % (11.6-14.6); RBC Distribution Width SD 51.6 fl (35.1-43.9); Red Blood Count 2.96 M/mm3 (4.6-6.2); White Blood Count 10.5 K/mm3 (4.4-11.0)
[2025-01-25 06:50] LABS: Anion Gap 11 (5-15); BUN 19 mg/dL (4-19); BUN/Creat Ratio 31.5 RATIO (10-20); Calcium,Total 8.2 mg/dL (7.6-11.0); Carbon Dioxide 26.3 mmol/L (21.0-32.0); Chloride 102 mmol/L (98-108); Estimated Creatinine Clearance 63.51 ml/min (50-250); Glucose 102 mg/dL (70-99); Potassium 3.2 mmol/L (3.3-5.1)
[2025-01-25 09:35] VITALS: BP 126/62; PULSE 79; RESP 14; TEMP 36.6; O2SAT 96
[2025-01-25 09:39] VITALS: BP 126/62; PULSE 79
[2025-01-25] MEDS: Metoprolol(XL)Succ 100 MG Tablet PO (09:39)
--- NOTE | 2025-01-25 10:27 | PN.HOSP_ITS ---
Subjective Subjective No issues overnight, pain is controlled, blood cultures have finally come back negative for no growth in 48 hours and leukocytosis remains resolved Objective Data Objective Data Vital Signs: Vital Signs Temp Pulse Resp BP Pulse Ox O2 Del Method 98 F 79 14 126/62 H 96 Room Air 01/25/25 09:35 01/25/25 09:39 01/25/25 09:35 01/25/25 09:39 01/25/25 09:35 01/25/25 09:35 Oxygen Delivery Method Room Air Weight: 135 lb 12.876 oz Body Mass Index (BMI) 24.8 Intake & Output: Intake and Output for Last 24 Hours 01/24/25 01/25/25 01/26/25 03:59 03:59 03:59 Intake Total 1750 / 1750 1370 / 1370 50 / 50 Output Total 1450 / 1450 1950 / 1950 300 / 300 Balance 300 / 300 -580 / -580 -250 / -250 Lab / Micro Data 01/25/25 05:55 01/25/25 05:55 Labs: Laboratory Results - last 24 hr 01/25/25 05:55: WBC 10.5, RBC 2.96 L, Hgb 8.5 L, Hct 26.7 L, MCV 90.2, MCH 28.7, MCHC 31.8 L, RDW Std Deviation 51.6 H, RDW Coeff of Rosario 15.7 H, Plt Count 233, MPV 10.7, Immature Gran % (Auto) 2.800 H, Neut % (Auto) 80.7 H, Lymph % (Auto) 11.0 L, [place] % (Auto) 5.2, Eos % (Auto) 0.2, Baso % (Auto) 0.1, Absolute Neuts (auto) 8.4 H, Absolute Lymphs (auto) 1.15, Nucleated RBC % 0, Sodium 140, P otassium 3.2 L, Chloride 102, Carbon Dioxide 26.3, Anion Gap 11, BUN 19, C reatinine 0.60 L, Estim Creat Clear Calc 63.51, Est GFR (MDRD) Non-Af 102, B UN/Creatinine Ratio 31.5 H, Glucose 102 H, Calcium 8.2 Micro: Microbiology 01/22/25 10:55 Blood Culture (Wb) - Anticubital Right Blood Culture - Preliminary No growth in 48 hours. 01/22/25 10:55 Blood Culture (Wb) - Right Forearm Blood Culture - Preliminary No growth in 48 hours. Rhythm Strip Rhythm Strip: paced Rate: 66 Ectopy: None Physical Exam Narrative General: Alert, Oriented x3, Cooperative, No apparent distress HEENT: Atraumatic, PERRLA, EOMI, Normocephalic Oral: Moist Mucosa Neck: Supple, No JVD Lungs: Diminished, Normal air movement, No rhonchi, No wheeze, No rales Cardiovascular: Regular rate, Regular Rhythm, Normal S1, Normal S2, No murmurs Abdomen: Soft, Non Tender, Non-Distended, No Hepato-splenomegaly Extremities: Edema, Capillary Refill Less than 3 Seconds Skin: Serous filled blister on the medial aspect of his left ankle/calf with erythema Musculoskeletal: Right AKA Neurological: No focal neurological deficits, moves all extremities Psych/Mental Status: Normal Affect, Appropriate Assessment & Plan Assessment/Plan (1) Cellulitis: PLAN: Plan 1. Left lower extremity cellulitis in the presence of the serous filled blister ? Does not meet sepsis criteria ? Continue with Ancef ?Blood culture negative for 48 hours ? He is concerned because he has had a right AKA for necrotizing fasciitis on the right leg, currently no gas seen in the x-ray to be concerned about necrotizing fasciitis at this time ? Leukocytosis is resolved and his redness has not progressed ? Unfortunately we have to get another pre-CERT for nursing home therapy despite the fact that he still has a right AKA therefore he will be here through the weekend and the holiday 2. Chronic systolic CHF/essential HTN/HLD ? Last echo was on 06/18/2024 with an EF of 25% with severe global hypokinesis ? Can resume his home medications ? 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 Will continue with Jardiance 3. Chronic pain muscle spasms of the legs ? Can resume his home medications ? Stable DVT: Lovenox Charges/Coding Visit Charges Inpatient E&M: 69258 Subs Hosp L2
[2025-01-25 14:39] VITALS: BP 126/66; PULSE 69; RESP 16; TEMP 36.9; O2SAT 97
[2025-01-25 21:29] VITALS: BP 150/76; PULSE 87; RESP 17; TEMP 37.2; O2SAT 96
[2025-01-25] MEDS: Pramipexole Di-HCl 0.125 MG Tablet 0.375 MG PO (21:32)
[2025-01-26 03:40] VITALS: BP 160/89; PULSE 80; RESP 17; TEMP 37; O2SAT 99
[2025-01-26 05:34] VITALS: BP 136/73; PULSE 79; RESP 16; TEMP 36.8; O2SAT 97
[2025-01-26] MEDS: Cefazolin 1 GM/50 ML BAG IV (05:36)
[2025-01-26 06:00] VITALS: BMI 24.0
--- NOTE | 2025-01-26 09:26 | PCM.PN.HOSP ---
Subjective Subjective States that his pain is controlled just fine with his current regimen and does not need any narcotics at this time Objective Data Objective Data Vital Signs: Vital Signs Temp Pulse Resp BP Pulse Ox O2 Del Method 98.2 F 79 16 136/73 H 97 Room Air 01/26/25 05:34 01/26/25 05:34 01/26/25 05:34 01/26/25 05:34 01/26/25 05:34 01/26/25 05:34 Oxygen Delivery Method Room Air Weight: 131 lb 13.383 oz Body Mass Index (BMI) 24.0 Intake & Output: Intake and Output for Last 24 Hours 01/25/25 01/26/25 01/27/25 03:59 03:59 03:59 Intake Total 1370 / 1370 1030 / 1030 290 / 290 Output Total 1950 / 1950 2200 / 2200 450 / 450 Balance -580 / -580 -1170 / -1170 -160 / -160 Lab / Micro Data 01/25/25 05:55 01/25/25 05:55 Micro: Microbiology 01/22/25 10:55 Blood Culture (Wb) - Anticubital Right Blood Culture - Preliminary No growth in 48 hours. 01/22/25 10:55 Blood Culture (Wb) - Right Forearm Blood Culture - Preliminary No growth in 48 hours. Rhythm Strip Rhythm Strip: paced Rate: 66 Ectopy: None Physical Exam Narrative General: Alert, Oriented x3, Cooperative, No apparent distress HEENT: Atraumatic, PERRLA, EOMI, Normocephalic Oral: Moist Mucosa Neck: Supple, No JVD Lungs: Diminished, Normal air movement, No rhonchi, No wheeze, No rales Cardiovascular: Regular rate, Regular Rhythm, Normal S1, Normal S2, No murmurs Abdomen: Soft, Non Tender, Non-Distended, No Hepato-splenomegaly Extremities: Edema, Capillary Refill Less than 3 Seconds Skin: Serous filled blister on the medial aspect of his left ankle/calf with erythema currently dressed and wrapped Musculoskeletal: Right AKA Neurological: No focal neurological deficits, moves all extremities Psych/Mental Status: Normal Affect, Appropriate Assessment & Plan Assessment/Plan (1) Cellulitis: PLAN: Plan 1. Left lower extremity cellulitis in the presence of the serous filled blister ? Does not meet sepsis criteria ? Continue with Ancef, will transition to p.o. Keflex ?Blood culture negative for 48 hours ? He is concerned because he has had a right AKA for necrotizing fasciitis on the right leg, currently no gas seen in the x-ray to be concerned about necrotizing fasciitis at this time ? Unfortunately we have to get another pre-CERT for [facility] therapy despite the fact that he still has a right AKA therefore he will be here through the weekend and the holiday 2. Chronic systolic CHF/essential HTN/HLD ? Last echo was on 06/18/2024 with an EF of 25% with severe global hypokinesis ? Can resume his home medications ? 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 Will continue with Jardiance 3. Chronic pain muscle spasms of the legs ? Can resume his home medications ? Stable DVT: Lovenox Charges/Coding Visit Charges Inpatient E&M: [id number] Subs Hosp L2
[2025-01-26 09:37] VITALS: BP 130/76; PULSE 76; RESP 14; TEMP 36.8; O2SAT 98
[2025-01-26 09:40] VITALS: BP 130/76; PULSE 76
[2025-01-26] MEDS: Metoprolol(XL)Succ 100 MG Tablet PO (09:40)
[2025-01-26] MEDS: Potassium Chloride Oral Tablet 20 MEQ 40 MEQ PO (09:41)
[2025-01-26 15:00] VITALS: BP 137/75; PULSE 80; RESP 12; TEMP 36.9; O2SAT 97
[2025-01-26 22:31] VITALS: BP 137/93; PULSE 79; RESP 16; TEMP 36.4; O2SAT 97
[2025-01-26] MEDS: Pramipexole Di-HCl 0.125 MG Tablet 0.375 MG PO (22:33)
[2025-01-27 05:23] VITALS: BP 150/90; PULSE 82; RESP 16; TEMP 36.6; O2SAT 96
[2025-01-27 05:25] VITALS: BMI 23.8
[2025-01-27 07:24] LABS: Hematocrit 31.2 % (40-54); Hemoglobin 9.6 g/dL (13.0-16.5); Immature Granulocytes Count 0.330 X10^3/uL (0.0-0.0); Mean Corp Hgb Conc 30.8 g/dL (32-36); Mean Corpuscular Volume 94.3 fL (80-94); Mean Platelet Vol. 11.4 fl (6.2-12.0); NRBC Flagged by Analyzer 0 % (0-5); Platelet Count 213 K/mm3 (150-450); RBC Distribution Width CV 15.9 % (11.6-14.6); RBC Distribution Width SD 54.6 fl (35.1-43.9); Red Blood Count 3.31 M/mm3 (4.6-6.2); White Blood Count 11.9 K/mm3 (4.4-11.0)
[2025-01-27 07:51] LABS: Anion Gap 12 (5-15); BUN 18 mg/dL (4-19); BUN/Creat Ratio 33.2 RATIO (10-20); Calcium,Total 8.4 mg/dL (7.6-11.0); Carbon Dioxide 25.2 mmol/L (21.0-32.0); Chloride 100 mmol/L (98-108); Estimated Creatinine Clearance 63.51 ml/min (50-250); Glucose 140 mg/dL (70-99); Potassium 3.8 mmol/L (3.3-5.1)
--- NOTE | 2025-01-27 09:08 | TREXTCAR_ITS ---
Diet Diet Order/Speech Therapy: INPATIENT Hospital Diet / Speech Therapy Order(s) 01/22/25 14:16 Diet: Cardiac - Heart Healthy Food consistency:: Regular Liquid Consistency:: Regular/Thin Type of Dietary Supplement:: Vipul Fluid restriction:: 1500 mL Diet Comments: orange vipul with breakfast and dinner Routine Orders/Code Status Routine Lab Work: CBC and BMP Code Status: DNRCC-A DC O2, CPAP, BIPAP needs Home O2 Discharge instructions: No Wound(s) LLE: Wound Type: fluid filled blister Dressing Change: dry dressing R BKA: Wound Type: Amputation R AKA: Wound Type: Amputation Therapies Physical Therapy: Eval and Treat Occupational Therapy: Eval and Treat Problem/Diagnosis (1) Cellulitis: Status: Acute Code(s): L03.90 - Cellulitis, unspecified Plan 1. Left lower extremity cellulitis in the presence of the serous filled blister ? Does not meet sepsis criteria ? Continue with Ancef, will transition to p.o. Keflex ?Blood culture negative for 48 hours ? He is concerned because he has had a right AKA for necrotizing fasciitis on the right leg, currently no gas seen in the x-ray to be concerned about necrotizing fasciitis at this time ? Unfortunately we have to get another pre-CERT for correction therapy despite the fact that he still has a right AKA therefore he will be here through the weekend and the holiday 2. Chronic systolic CHF/essential HTN/HLD ? Last echo was on 06/18/2024 with an EF of 25% with severe global hypokinesis ? Can resume his home medications ? 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 Will continue with Jardiance 3. Chronic pain muscle spasms of the legs ? Can resume his home medications ? Stable DVT: Lovenox Allergies/Procedures Done in Hospital Allergies amoxicillin Allergy (Verified 01/22/25 14:19) PAIN AND DIARRHEA tolerated cefazolin 01/22/25 Penicillins Allergy (Verified 01/22/25 14:19) PAIN AND DIARRHEA tolerated cefazolin 01/22/25 Procedures: None Type of Care/Length of Stay Estimated LOS: Convalescent Care Less Than 30 days Type of Care Needed: Skilled Rehab Potential: Good Prognosis: Good Additional Orders/Day of Discharge Day of Discharge: 01/27/25 Dietary and Speech Recommendations Dietitian Recommendations/Changes: Continue cardiac diet with 1500ml fluid re striction. Will order orange vipul BID with breakfast and dinner. Will monitor weight trends. Discharge Plan Admission Admit Date/Time: 01/22/25 12:32 Attending Provider: Tereso Kurtz Primary Care Provider: Lizandro Ruiz Discharge Orders/Prescriptions Prescriptions: New cephalexin 500 mg Capsule 500 mg PO Q8 5 Days Qty: 0 0RF Continued lisinopril 40 mg tablet 40 mg PO BID ropinirole 0.25 mg tablet 0.75 mg PO QHS Rx Instructions: administer 1-3 hours before bedtime tramadol 50 mg tablet 50 mg PO TID PRN (Reason: pain) tizanidine 2 mg tablet 2 mg PO TID PRN (Reason: muscle spasticity) metoprolol succinate 100 mg tablet extended release 24 hr 100 mg PO QDAY Qty: 90 3RF acetaminophen 500 mg capsule 500 mg PO Q6H PRN (Reason: pain) gabapentin 100 mg capsule 100 mg PO BID PRN (Reason: Chronic Back Pain) Jardiance 10 mg tablet 10 mg PO DAILY Qty: 30 11RF spironolactone 25 mg tablet 25 mg PO DAILY Qty: 90 3RF furosemide 40 mg tablet 40 mg PO BID Qty: 180 3RF Referrals / Follow Up: Lizandro Ruiz DO [Primary Care Provider] - Disposition Disposition (needs filled in before D/C Order can be placed): Intermediate Facility
--- NOTE | 2025-01-27 09:33 | CASEMGMT ---
Discharge Planning Clinical updates sent to [facility]. Precert remains pending. Andria Quinones DC Planning Asst.
--- NOTE | 2025-01-27 09:42 | PN.HOSP_ITS ---
Subjective Subjective No issues overnight, awaiting pre-CERT Objective Data Objective Data Vital Signs: Vital Signs Temp Pulse Resp BP Pulse Ox O2 Del Method 97.8 F 82 16 150/90 H 96 Room Air 01/27/25 05:23 01/27/25 05:23 01/27/25 05:23 01/27/25 05:23 01/27/25 05:23 01/27/25 08:26 Oxygen Delivery Method Room Air Weight: 130 lb Body Mass Index (BMI) 23.8 Intake & Output: Intake and Output for Last 24 Hours 01/26/25 01/27/25 01/28/25 03:59 03:59 03:59 Intake Total 1030 / 1030 1310 / 1310 Output Total 2200 / 2200 2600 / 2600 600 / 600 Balance -1170 / -1170 -1290 / -1290 -600 / -600 Lab / Micro Data 01/27/25 07:09 01/27/25 07:09 Labs: Laboratory Results - last 24 hr 01/27/25 07:09: WBC 11.9 H, RBC 3.31 L, Hgb 9.6 L, Hct 31.2 L, MCV 94.3 H, MCH 29.0, MCHC 30.8 L, RDW Std Deviation 54.6 H, RDW Coeff of Rosario 15.9 H, Plt Count 213, MPV 11.4, Immature Gran % (Auto) 2.800 H, Neut % (Auto) 83.4 H, Lymph % (Auto) 9.4 L, [place] % (Auto) 4.0, Eos % (Auto) 0.1, Baso % (Auto) 0.3, Absolute Neuts (auto) 9.9 H, Absolute Lymphs (auto) 1.12, Nucleated RBC % 0, Sodium 137, Potassium 3.8, Chloride 100, Carbon Dioxide 25.2, Anion Gap 12, BUN 18, C reatinine 0.53 L, Estim Creat Clear Calc 63.51, Est GFR (MDRD) Non-Af 106, B UN/Creatinine Ratio 33.2 H, Glucose 140 H, Calcium 8.4 Micro: Microbiology 01/22/25 10:55 Blood Culture (Wb) - Anticubital Right Blood Culture - Preliminary No growth in 48 hours. 01/22/25 10:55 Blood Culture (Wb) - Right Forearm Blood Culture - Preliminary No growth in 48 hours. Rhythm Strip Rhythm Strip: paced Rate: 66 Ectopy: None Physical Exam Narrative General: Alert, Oriented x3, Cooperative, No apparent distress HEENT: Atraumatic, PERRLA, EOMI, Normocephalic Oral: Moist Mucosa Neck: Supple, No JVD Lungs: Diminished, Normal air movement, No rhonchi, No wheeze, No rales Cardiovascular: Regular rate, Regular Rhythm, Normal S1, Normal S2, No murmurs Abdomen: Soft, Non Tender, Non-Distended, No Hepato-splenomegaly Extremities: Edema, Capillary Refill Less than 3 Seconds Skin: Serous filled blister on the medial aspect of his left ankle/calf with erythema currently dressed and wrapped Musculoskeletal: Right AKA Neurological: No focal neurological deficits, moves all extremities Psych/Mental Status: Normal Affect, Appropriate Assessment & Plan Assessment/Plan (1) Cellulitis: PLAN: Plan 1. Left lower extremity cellulitis in the presence of the serous filled blister ? Does not meet sepsis criteria ? Continue with Ancef, will transition to p.o. Keflex ?Blood culture negative for 48 hours ? He is concerned because he has had a right AKA for necrotizing fasciitis on the right leg, currently no gas seen in the x-ray to be concerned about necrotizing fasciitis at this time ? Unfortunately we have to get another pre-CERT for shelter therapy despite the fact that he still has a right AKA therefore he will be here through the weekend and the holiday, he was ready for discharge on 01/24/2025 2. Chronic systolic CHF/essential HTN/HLD ? Last echo was on 06/18/2024 with an EF of 25% with severe global hypokinesis ? Can resume his home medications ? 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 Will continue with Jardiance 3. Chronic pain muscle spasms of the legs ? Can resume his home medications ? Stable DVT: Lovenox Charges/Coding Visit Charges Inpatient E&M: 87327 [facility] Hosp L1
[2025-01-27 10:59] VITALS: BP 108/68; PULSE 77; RESP 16; TEMP 37.2; O2SAT 90
[2025-01-27 11:02] VITALS: BP 108/68; PULSE 77
[2025-01-27] MEDS: Metoprolol(XL)Succ 100 MG Tablet PO (11:02)
--- NOTE | 2025-01-27 11:38 | WOUNDNOTE ---
wound photo: left lower leg
[2025-01-27 15:04] VITALS: BP 123/70; PULSE 77; RESP 16; TEMP 37; O2SAT 97
[2025-01-27 17:41] VITALS: BP 126/71; PULSE 85; RESP 18; TEMP 36.8; O2SAT 98
[2025-01-27 21:25] VITALS: BP 127/65; PULSE 83; RESP 16; TEMP 36.8; O2SAT 97
[2025-01-27] MEDS: Pramipexole Di-HCl 0.125 MG Tablet 0.375 MG PO (21:29)
[2025-01-28 03:18] VITALS: BMI 23.6
[2025-01-28 03:50] VITALS: BP 130/76; PULSE 76; RESP 16; TEMP 36.6; O2SAT 99
--- NOTE | 2025-01-28 07:46 | PCM.PN.HOSP ---
Subjective Subjective Patient is a 74-year-old gentleman admitted with left lower extremity cellulitis Objective Data Objective Data Vital Signs: Vital Signs Temp Pulse Resp BP Pulse Ox O2 Del Method 98 F 76 16 130/76 H 99 Room Air 01/28/25 03:50 01/28/25 03:50 01/28/25 03:50 01/28/25 03:50 01/28/25 03:50 01/28/25 03:51 Oxygen Delivery Method Room Air Weight: 58.7 kg Body Mass Index (BMI) 23.6 Intake & Output: Intake and Output for Last 24 Hours 01/26/25 01/27/25 01/28/25 23:59 23:59 23:59 Intake Total 1710 / 1710 1350 / 1350 Output Total 2600 / 3400 2050 / 2800 1150 / 1150 Balance -890 / -1690 -700 / -1450 -1150 / -1150 Lab / Micro Data 01/27/25 07:09 01/27/25 07:09 Labs: Laboratory Results - last 24 hr 01/27/25 07:09: Sodium 137, Potassium 3.8, Chloride 100, Carbon Dioxide 25.2, Anion Gap 12, BUN 18, Creatinine 0.53 L, Estim Creat Clear Calc 63.51, Est GFR (MDRD) Non-Af 106, BUN/Creatinine Ratio 33.2 H, Glucose 140 H, Calcium 8.4 Micro: Microbiology 01/22/25 10:55 Blood Culture (Wb) - Anticubital Right Blood Culture - Final No growth in 5 days. 01/22/25 10:55 Blood Culture (Wb) - Right Forearm Blood Culture - Final No growth in 5 days. Rhythm Strip Rhythm Strip: paced Rate: 66 Ectopy: None Physical Exam Narrative GENERAL: cooperative HEENT: Atraumatic; normocephalic EYES; Anicteric, Normal Conjunctiva NECK; supple, normal thyroid, RESPIRATORY: Diminished to auscultation CARDIOVASCULAR: Regular S1 S2, GI: soft, normoactive bowel sounds, : No Renal angle tenderness; EXTREMITIES: Right AKA, left lower extremity wrapped MUSCULOSKELETAL: no muscle wasting NEURO: Awake; no lateralizing signs. SKIN: No Rash PSYCH; Flat affect Assessment & Plan Assessment/Plan (1) Cellulitis: PLAN: Plan Patient is a 74-year-old gentleman admitted with left lower extremity cellulitis 1. Left lower extremity cellulitis ? Patient was managed with cefazolin which was transitioned to Keflex. Cultures have so far been negative to date 2. Recent right AKA ? On account of necrotizing fasciitis. Patient was at her rehab facility prior to being admitted plans for patient to be discharged back when insurance precertification is obtained 3. Chronic congestive heart failure with reduced ejection fraction ? EF from was 25%. Patient is on guideline directed medical therapy 4. Chronic lower back pain due to subacute/L3 compression fracture -Status post kyphoplasty. Patient is on tizanidine as well as tramadol 5. Hypertension ? Blood pressure controlled, home medications continued with dose adjustment as needed 6. Restless leg syndrome ? Patient is on ropinirole 7. DVT prophylaxis ? Subcu Lovenox Time spent in the patient's overall evaluation,decision-making process, review of diagnostic data, adjustment of management, discussion with other providers, nursing nursing and ancillary staff involved in patient's care documentation, 36 Minutes Charges/Coding Visit Charges Inpatient E&M: 16819 Subs Hosp L2
[2025-01-28 09:25] VITALS: BP 157/71; PULSE 71; RESP 16; TEMP 37.1; O2SAT 100
[2025-01-28 09:32] VITALS: BP 157/71; PULSE 71
[2025-01-28] MEDS: Metoprolol(XL)Succ 100 MG Tablet PO (09:32)
--- NOTE | 2025-01-28 15:26 | CASEMGMT ---
Addendum entered by Andria Quinones 01/29/25 14:46: Pt has been denied [facility]ci coverage. SW updated. Andria Quinones DC Planning Asst. Original Note: Discharge Planning P2P being offered. SW updated. Andria Quinones DC Planning Asst.
--- NOTE | 2025-01-28 16:25 | CASEMGMT ---
Social Work SW received message that precert for [facility] is going to peer to peer and if P2P is to be completed, it will need to be done by 9:30 on by calling [phone] option 5.. TOMMY spoke with physician who is agreeable to complete Peer to Peer SW met with pt and informed of potential denial and request for Peer to Peer. Pt very frustrated by this information. Pt states he lives at home alone and will need to care for himself and is not able to do this yet. Pt states he has been at SNF under insurance coverage for approximately 8 weeks but is not ready for discharge home yet. SW spoke with pt regarding possible other options such as private pay at SNF. Pt stating that he feels he may be able to private pay for a very short time. TOMMY spoke with pt's dgt Marie and informed of peer to peer process and possible denial for SNF. TOMMY spoke with Natacha at [facility]. Natacha has assessed pt today for Medicaid. Pt would have a small spend down before he would qualify for LTC medicaid. TOMMY will follow up for discharge planning once determination has been made by insurance. OLIVIA Nguyễn
[2025-01-28 16:42] VITALS: BP 136/60; PULSE 76; RESP 18; TEMP 36.9; O2SAT 100
[2025-01-28 21:30] VITALS: BP 124/66; PULSE 80; RESP 17; TEMP 36.7; O2SAT 95
[2025-01-28] MEDS: Pramipexole Di-HCl 0.125 MG Tablet 0.375 MG PO (21:43)
[2025-01-29 03:30] VITALS: BP 151/69; PULSE 60; RESP 14; TEMP 36.4; O2SAT 100
[2025-01-29 03:59] VITALS: BMI 23.6
--- NOTE | 2025-01-29 10:03 | PCM.PN.HOSP ---
Subjective Subjective Had physician to physician peer review with his insurance company regarding disposition. Patient was denied transfer to [facility] facility. Case management subsequently informed Objective Data Objective Data Vital Signs: Vital Signs Temp Pulse Resp BP Pulse Ox O2 Del Method 97.6 F L 60 14 151/69 H 100 Room Air 01/29/25 03:30 01/29/25 03:30 01/29/25 03:30 01/29/25 03:30 01/29/25 03:30 01/29/25 03:45 Oxygen Delivery Method Room Air Weight: 58.5 kg Body Mass Index (BMI) 23.6 Intake & Output: Intake and Output for Last 24 Hours 01/27/25 01/28/25 01/29/25 23:59 23:59 23:59 Intake Total 1350 / 1350 Output Total 2050 / 2800 2250 / 2250 1560 / 1560 Balance -700 / -1450 -2250 / -2250 -1560 / -1560 Lab / Micro Data 01/27/25 07:09 01/27/25 07:09 Micro: Microbiology 01/22/25 10:55 Blood Culture (Wb) - Anticubital Right Blood Culture - Final No growth in 5 days. 01/22/25 10:55 Blood Culture (Wb) - Right Forearm Blood Culture - Final No growth in 5 days. Rhythm Strip Rhythm Strip: paced Rate: 66 Ectopy: None Physical Exam Narrative GENERAL: cooperative HEENT: Atraumatic; normocephalic EYES; Anicteric, Normal Conjunctiva NECK; supple, normal thyroid, RESPIRATORY: Diminished to auscultation CARDIOVASCULAR: Regular S1 S2, GI: soft, normoactive bowel sounds, : No Renal angle tenderness; EXTREMITIES: Right AKA, left lower extremity wrapped MUSCULOSKELETAL: no muscle wasting NEURO: Awake; no lateralizing signs. SKIN: No Rash PSYCH; Flat affect Assessment & Plan Assessment/Plan (1) Cellulitis: PLAN: Plan Patient is a 74-year-old gentleman admitted with left lower extremity cellulitis 1. Left lower extremity cellulitis ? Patient was managed with cefazolin which was transitioned to Keflex. Cultures have so far been negative to date ? 01/29/2025 patient tolerating antibiotic therapy 2. Recent right AKA ? On account of necrotizing fasciitis. Patient was at her rehab facility prior to being admitted plans for patient to be discharged back when insurance precertification is obtained 3. Chronic congestive heart failure with reduced ejection fraction ? EF from 06/16/2024 was 25%. Patient is on guideline directed medical therapy 4. Chronic lower back pain due to subacute/L3 compression fracture -Status post kyphoplasty. Patient is on tizanidine as well as tramadol 5. Hypertension ? Blood pressure controlled, home medications continued with dose adjustment as needed 6. Restless leg syndrome ? Patient is on ropinirole 7. DVT prophylaxis ? Subcu Lovenox 8. Physical deconditioning ? Requested for PT OT eval and social worker health services to assist with discharge planning 8 01/30/2024 had physician to physician peer review with his insurance company regarding disposition. Patient was denied transfer to [facility] facility. Case management subsequently informed Time spent in the patient's overall evaluation,decision-making process, review of diagnostic data, adjustment of management, discussion with other providers, nursing nursing and ancillary staff involved in patient's care documentation, 35 Minutes Charges/Coding Visit Charges Inpatient E&M: 94281 Subs Hosp L2 Date medically ready for discharge: 02/17/25
[2025-01-29 10:06] VITALS: BP 103/64; PULSE 93
[2025-01-29] MEDS: Metoprolol(XL)Succ 100 MG Tablet PO (10:06)
[2025-01-29 10:15] VITALS: BP 103/64; PULSE 93; RESP 16; TEMP 37; O2SAT 100
--- NOTE | 2025-01-29 13:23 | CASEMGMT ---
Social Work SW met with pt and pt's dgt to discuss discharge plan. SW explained that insurance has not officially made a determination of acceptance or denial for SNF placement and SW is awaiting determination information from [facility]. SW did explain that Peer to Peer was completed by hospitalist yesterday and that insurance indicated pt could be at a intermediate manager level of care with part B therapies. SW discussed this with pt and dgt at length, discussing returning to [facility] private pay until pt meets eligibility for Medicaid. Pt and Dgt have met with Natacha with [facility] and Natacha states that pt will likely qualify for B Medicaid but is over assets for LTC Medicaid at this time. Dgt indicating if pt is not approved by insurance that pt may return home. TOMMY strongly advised against this as pt is not able to bear weight safely on LLE and lives alone. Dgt not committing to discharge plan at this time as she is hopeful pt will be approved for insurance. TOMMY will continue to follow for dc planning. OLIVIA Nguyễn
[2025-01-29 15:10] VITALS: BP 128/77; PULSE 90; RESP 18; TEMP 37.1; O2SAT 95
--- NOTE | 2025-01-29 16:12 | CASEMGMT ---
Addendum entered by Monique Carbone 01/29/25 17:09: Social Work Per physician, pt is ready for discharge. Discharge orders sent to [facility] via [facility]. Transportation arranged with [facility] for 8:00 picking table worker via cot. TOMMY updated pt, pt's dgt, RN and CC of discharge time and all agreeable to dc plan. ASHER completed by pt and SW faxed to HIM. Disposition: [facility], intermediate level of care, private pay. OLIVIA Nguyễn Original Note: Social Work Pt insurance denied precert for admission to [facility]. TOMMY spoke with pt dgt Marie and explained this. Extensive conversation regarding precert denial and pt medical records. TOMMY offered options of pt completing [facility] or accessing the portal to obtain medical records. Pt requested ASHER and SW provided this to pt. TOMMY spoke with pt and pt's dgt who are now agreeable to return to [facility]. Marie states that she has spoke with [facility] and will pay privately for two weeks and work on getting a new precert once pt returns to [facility]. TOMMY spoke with Juliann at [facility] who confirmed this discharge plan and that pt can discharge when medically ready. Physician notified of dc plan. OLIVIA Solo
--- NOTE | 2025-01-29 16:48 | TREXTCAR_ITS ---
Diet Diet Order/Speech Therapy: INPATIENT Hospital Diet / Speech Therapy Order(s) 01/22/25 14:16 Diet: Cardiac - Heart Healthy Food consistency:: Regular Liquid Consistency:: Regular/Thin Type of Dietary Supplement:: Vipul Fluid restriction:: 1500 mL Diet Comments: orange vipul with breakfast and dinner Routine Orders/Code Status Routine Lab Work: CBC and BMP Code Status: DNRCC-A DC O2, CPAP, BIPAP needs Home O2 Discharge instructions: No Wound(s) LLE: Wound Type: fluid filled blister Dressing Change: dry dressing R BKA: Wound Type: Amputation R AKA: Wound Type: Amputation left scrotum: Wound Type: Abrasion Therapies Physical Therapy: Eval and Treat Occupational Therapy: Eval and Treat Problem/Diagnosis (1) Cellulitis: Status: Acute Code(s): L03.90 - Cellulitis, unspecified Plan Patient is a 74-year-old gentleman admitted with left lower extremity cellulitis 1. Left lower extremity cellulitis ? Patient was managed with cefazolin which was transitioned to Keflex. Cultures have so far been negative to date ? 01/29/2025 patient tolerating antibiotic therapy 2. Recent right AKA ? On account of necrotizing fasciitis. Patient was at her rehab facility prior to being admitted plans for patient to be discharged back when insurance precertification is obtained 3. Chronic congestive heart failure with reduced ejection fraction ? EF from 06/16/2024 was 25%. Patient is on guideline directed medical therapy 4. Chronic lower back pain due to subacute/L3 compression fracture -Status post kyphoplasty. Patient is on tizanidine as well as tramadol 5. Hypertension ? Blood pressure controlled, home medications continued with dose adjustment as needed 6. Restless leg syndrome ? Patient is on ropinirole 7. DVT prophylaxis ? Subcu Lovenox 8. Physical deconditioning ? Requested for PT OT eval and social media developer to assist with discharge planning 8 01/30/2024 had physician to physician peer review with his insurance company regarding disposition. Patient was denied transfer to shelter facility. Case management subsequently informed Time spent in the patient's overall evaluation,decision-making process, review of diagnostic data, adjustment of management, discussion with other providers, nursing nursing and ancillary staff involved in patient's care documentation, 35 Minutes Allergies/Procedures Done in Hospital Allergies amoxicillin Allergy (Verified 01/22/25 14:19) PAIN AND DIARRHEA tolerated cefazolin 01/22/25 Penicillins Allergy (Verified 01/22/25 14:19) PAIN AND DIARRHEA tolerated cefazolin 01/22/25 Procedures: None Type of Care/Length of Stay Estimated LOS: Convalescent Care Less Than 30 days Type of Care Needed: Skilled Rehab Potential: Good Prognosis: Good Additional Orders/Day of Discharge Day of Discharge: 01/29/25 Dietary and Speech Recommendations Dietitian Recommendations/Changes: Continue cardiac diet with 1500ml fluid restriction. Will order orange vipul BID with breakfast and dinner. Will monitor weight trends. Discharge Plan Admission Admit Date/Time: 01/22/25 12:32 Attending Provider: En Weathers Primary Care Provider: Lizandro Ruiz Consulting Providers: Tereso Kurtz Discharge Orders/Prescriptions Prescriptions: New cephalexin 500 mg Capsule 500 mg PO Q8 5 Days Qty: 0 0RF Continued lisinopril 40 mg tablet 40 mg PO BID ropinirole 0.25 mg tablet 0.75 mg PO QHS Rx Instructions: administer 1-3 hours before bedtime tramadol 50 mg tablet 50 mg PO TID PRN (Reason: pain) tizanidine 2 mg tablet 2 mg PO TID PRN (Reason: muscle spasticity) metoprolol succinate 100 mg tablet extended release 24 hr 100 mg PO QDAY Qty: 90 3RF acetaminophen 500 mg capsule 500 mg PO Q6H PRN (Reason: pain) gabapentin 100 mg capsule 100 mg PO BID PRN (Reason: Chronic Back Pain) Jardiance 10 mg tablet 10 mg PO DAILY Qty: 30 11RF spironolactone 25 mg tablet 25 mg PO DAILY Qty: 90 3RF furosemide 40 mg tablet 40 mg PO BID Qty: 180 3RF Referrals / Follow Up: Lizandro Ruiz DO [Primary Care Provider] - Disposition Disposition (needs filled in before D/C Order can be placed): [facility]
--- NOTE | 2025-01-29 16:49 | PCM.DC.SUM ---
Providers Date of Admission: 01/22/25 Date of Discharge: 01/29/25 Primary Care Physician: Dr. Lizandro Ruiz, DO Consultations 01/22/25 14:16 Consult: Onc/Wound/steel pickler Routine Comment: Reason For Visit: CELLULITIS WITH VOLUME OVERLOAD Diagnosis Discharge Diagnosis (1) Cellulitis: Status: Acute Code(s): L03.90 - Cellulitis, unspecified Plan Patient is a 74-year-old gentleman admitted with left lower extremity cellulitis 1. Left lower extremity cellulitis ? Patient was managed with cefazolin which was transitioned to Keflex. Cultures have so far been negative to date ? 01/29/2025 patient tolerating antibiotic therapy 2. Recent right AKA ? On account of necrotizing fasciitis. Patient was at her rehab facility prior to being admitted plans for patient to be discharged back when insurance precertification is obtained 3. Chronic congestive heart failure with reduced ejection fraction ? EF from 06/16/2024 was 25%. Patient is on guideline directed medical therapy 4. Chronic lower back pain due to subacute/L3 compression fracture -Status post kyphoplasty. Patient is on tizanidine as well as tramadol 5. Hypertension ? Blood pressure controlled, home medications continued with dose adjustment as needed 6. Restless leg syndrome ? Patient is on ropinirole 7. DVT prophylaxis ? Subcu Lovenox 8. Physical deconditioning ? Requested for PT OT eval and hospital social worker to assist with discharge planning 8 01/30/2024 had physician to physician peer review with his insurance company regarding disposition. Patient was denied transfer to [facility] facility. Case management subsequently informed Time spent in the patient's overall evaluation,decision-making process, review of diagnostic data, adjustment of management, discussion with other providers, nursing nursing and ancillary staff involved in patient's care documentation, 35 Minutes Medications at Discharge Home Medications acetaminophen 500 mg capsule 500 mg PO Q6H PRN pain 12/14/23 lisinopril 40 mg tablet 40 mg PO BID blood pressure 02/26/24 ropinirole 0.25 mg tablet 0.75 mg PO QHS Restless legs 02/26/24 gabapentin 100 mg capsule 100 mg PO BID PRN Chronic Back Pain 03/05/24 tramadol 50 mg tablet 50 mg PO TID PRN pain 03/05/24 tizanidine 2 mg tablet 2 mg PO TID PRN muscle spasticity 04/30/24 empagliflozin 10 mg tablet (Jardiance) 10 mg PO DAILY diabetes #30 tabs 06/09/24 spironolactone 25 mg tablet 25 mg PO DAILY blood pressure #90 tabs 06/20/24 metoprolol succinate 100 mg tablet,extended release 24 hr 100 mg PO QDAY heart #90 tabs 07/11/24 furosemide 40 mg tablet 40 mg PO BID water pill #180 tabs 10/24/24 cephalexin 500 mg capsule 500 mg PO Q8 5 days #0 caps 01/27/25 Physical Exam Narrative GENERAL: cooperative HEENT: Atraumatic; normocephalic EYES; Anicteric, Normal Conjunctiva NECK; supple, normal thyroid, RESPIRATORY: Diminished to auscultation CARDIOVASCULAR: Regular S1 S2, GI: soft, normoactive bowel sounds, : No Renal angle tenderness; EXTREMITIES: Right AKA, left lower extremity wrapped MUSCULOSKELETAL: no muscle wasting NEURO: Awake; no lateralizing signs. SKIN: No Rash PSYCH; Flat affect Weight / BMI Weight Weight: 58.5 kg Body Mass Index (BMI) 23.6 ABG / Lab / Microbiology Data 01/27/25 07:09 01/27/25 07:09 Microbiology: Microbiology 01/22/25 10:55 Blood Culture (Wb) - Anticubital Right Blood Culture - Final No growth in 5 days. 01/22/25 10:55 Blood Culture (Wb) - Right Forearm Blood Culture - Final No growth in 5 days. D/C Instructions DC O2, CPAP, BIPAP Needs Home O2 Discharge instructions: No Meaningful Use Info Meaningful Use Meaningful Use Diagnoses (Choose all that apply): None applicable Discharge Plan Admission Admit Date/Time: 01/22/25 12:32 Attending Provider: En Weathers Primary Care Provider: Lizandro Ruiz Consulting Providers: Tereso Kurtz Discharge Orders/Prescriptions Prescriptions: New cephalexin 500 mg Capsule 500 mg PO Q8 5 Days Qty: 0 0RF Continued lisinopril 40 mg tablet 40 mg PO BID ropinirole 0.25 mg tablet 0.75 mg PO QHS Rx Instructions: administer 1-3 hours before bedtime tramadol 50 mg tablet 50 mg PO TID PRN (Reason: pain) tizanidine 2 mg tablet 2 mg PO TID PRN (Reason: muscle spasticity) metoprolol succinate 100 mg tablet extended release 24 hr 100 mg PO QDAY Qty: 90 3RF acetaminophen 500 mg capsule 500 mg PO Q6H PRN (Reason: pain) gabapentin 100 mg capsule 100 mg PO BID PRN (Reason: Chronic Back Pain) Jardiance 10 mg tablet 10 mg PO DAILY Qty: 30 11RF spironolactone 25 mg tablet 25 mg PO DAILY Qty: 90 3RF furosemide 40 mg tablet 40 mg PO BID Qty: 180 3RF Referrals / Follow Up: Lizandro Ruiz DO [Primary Care Provider] - Disposition Disposition (needs filled in before D/C Order can be placed): Detention Facility Charges/Coding Visit Charges Inpatient E&M: 18148 Disch Hosp >30min
--- NOTE | 2025-01-29 18:34 | NURSING ---
Called report to [facility], talked to Sebastian RAPHAEL. Answered all questions ask. No other questions.
[2025-01-29 20:25] VITALS: BP 129/77; PULSE 94; RESP 16; TEMP 36.6; O2SAT 98
--- NOTE | 2025-01-29 22:50 | NURSING ---
2140: physicians ambulance bedside. report given to medic. pt belongings inventoried and with pt. pt transport complete.
== END 2025-01-29 21:41 | disposition skilled nursing facility (03) | DRG 603 ==
LOC: ED 12:38 → PCU 12:55
PROVIDERS: Admitting Provider Family Medicine; Emergency Provider Emergency Medicine; PCP Internal Medicine; Visit Provider Internal Medicine
DX: L03.116 Cellulitis of left lower limb (principal); I42.6 Alcoholic cardiomyopathy; I50.22 Chronic systolic (congestive) heart failure; M48.56XA Collapsed vertebra, not elsewhere classified, lumbar region, initial encounter for fracture; Z66 Do not resuscitate; I11.0 Hypertensive heart disease with heart failure; D64.9 Anemia, unspecified; G25.81 Restless legs syndrome; Z89.511 Acquired absence of right leg below knee; E78.5 Hyperlipidemia, unspecified; E87.6 Hypokalemia; M62.838 Other muscle spasm; Z86.718 Personal history of other venous thrombosis and embolism; G89.29 Other chronic pain; Z79.899 Other long term (current) drug therapy; Z82.49 Family history of ischemic heart disease and other diseases of the circulatory system
CPT/HCPCS: 36415; 71045; 73590; 73630; 80048; 80053; 81001; 82550; 83605; 83880; 85025; 85610; 85730; 87040; 93005; 97110; 97116; 97162; 97166; 97530; 97535; 99284; A4216

== ENCOUNTER → 2025-03-16 | Outpatient (CLI) | payer MEDICARE, SELFPAY ==
--- NOTE | 2025-03-16 14:59 | ART_ITS ---
Reason For Study Reason For Study: Decreased Pedal Pulses Procedure A bilateral lower extremity continuous wave Doppler with analog waveform analysis,segmental pressures,and ankle brachial indexes without exercise. Left Segmental Pressures Left brachial= 128mmHg. Left posterior tibial artery = >254mmHg. Left dorsalis pedis artery = >254mmHg. Left digit = 91 mmHg. Right Segmental Pressures Right brachial= 120mmHg. Indices The left ankle brachial index by the posterior tibial artery is NC. The left ankle brachial index by the dorsalis pedis is NC. The left digital-brachial index is 0.71. VL/Lower Ext Art Exam w/o Exercis Interpretation Summary Left LUKE not able to be obtained due to non compressible vessels. Doppler/PVR w aveforms of the left leg normal at rest. TBI diminished, pedal/digit disease vs spasm. Prior right lower extremity amputation Ordering Physician: Tevin Bonds Referring Physician: Lizandro Ruiz Performed By: Mackenzie Bonds RDCS/RVT
== END | disposition home or self-care (01) ==
LOC: CVS 14:52
PROVIDERS: PCP Internal Medicine; Referring Provider Nurse Practitioner Family; Visit Provider Nurse Practitioner Family
DX: R09.89 Other specified symptoms and signs involving the circulatory and respiratory systems (principal)
CPT/HCPCS: 93923

== ENCOUNTER → 2025-04-20 | Outpatient (CLI) | payer MEDICARE, SELFPAY ==
--- NOTE | 2025-04-20 13:23 | ECHOL_ITS ---
Reason For Study Reason For Study: CHF Procedure This was a limited 2D transthoracic echocardiogram. Echo done with patient sitting upright in wheelchair. Exam performed in department. Left Ventricle Normal LV size. The left ventricular ejection fraction is 25 %. No regional wall motion abnormalities noted. Right Ventricle Normal RV size. ICD or pacer leads identified within the right ventricle. Normal systolic function. Atria Normal left atrium. Normal right atrium. Mitral Valve Normal mitral valve. Tricuspid Valve Normal tricuspid valve. Aortic Valve Trisinus/trileaflet aortic valve. Peak aortic valve gradient 20 mmHg. Mean aortic valve gradient 10 mmHg. Mild aortic stenosis. Pulmonic Valve Normal pulmonic valve. Great Vessels Normal aortic root. Pericardium/Pleural No pericardial effusion. MMode/2D Measurements & Calculations LVIDd: 5.8 cm IVSd: 0.97 cm LVOT diam: 2.0 cm LVIDs: 5.0 cm LVPWd: 1.1 cm LVOT area: 3.1 cm2 FS: 13.6 % LVAd ap4: 40.2 cm2 SV(MOD-sp4): 33.1 ml SV(sp4-el): 36.3 ml LVLd ap4: 9.1 cm SI(MOD-sp4): 19.8 ml/m2 EDV(MOD-sp4): 145.2 ml EDV(sp4-el): 151.0 ml LVAs ap4: 34.6 cm2 LVLs ap4: 8.9 cm ESV(MOD-sp4): 112.1 ml ESV(sp4-el): 114.6 ml EF(MOD-sp4): 22.8 % EF(sp4-el): 24.1 % Doppler Measurements & Calculations Ao V2 max: 222.6 cm/sec LV V1 max: 98.7 cm/sec SV(LVOT): 57.8 ml Ao max P.8 mmHg LV V1 max P.9 mmHg Ao V2 mean: 151.4 cm/sec LV V1 mean P.2 mmHg Ao mean P.7 mmHg LV V1 mean: 69.0 cm/sec Ao V2 VTI: 45.0 cm LV V1 VTI: 18.8 cm AV (velocity ratio): 0.42 SEGUNDO(I,D): 1.3 cm2 SEGUNDO(V,D): 1.4 cm2 ECHO/Echo, Limited Study Interpretation Summary Normal LV size. The left ventricular ejection fraction is 25 %. Mean aortic valve gradient 10 mmHg. Mild aortic stenosis. Ordering Physician: Tevin Bonds Referring Physician: Tevin Bonds Performed By: Samuel Garcia RCS
== END | disposition home or self-care (01) ==
LOC: CVS 13:18
PROVIDERS: PCP Internal Medicine; Referring Provider Nurse Practitioner Family; Visit Provider Nurse Practitioner Family
DX: I42.8 Other cardiomyopathies (principal); Z95.810 Presence of automatic (implantable) cardiac defibrillator
CPT/HCPCS: 93308